=== PATIENT | female | born 1955 | race Caucasian/White ===

== ENCOUNTER 2016-10-22 08:38 | Emergency (ER) | payer MEDICARE ==
[~2016-10-22] VITALS: Ht 167.6 cm; Wt 81.8 kg
[~2016-10-22 08:38] MED LIST: ALPR1T PO; AMOX500C2 PO; BACL10TA; BSP10T; BSP10T PO; CANE1EAC26 MC; CLN.1T PO; CLON-378 PO; CLON0.25; CLON0.3T4; CLON0.3T4 PO; CLON1TAB36; CLON2TAB16 PO; CLON2TAB3 PO; CTLP20T; D50KC PO; DEXT10TA24; DIAZ5TAB3; DICL100G18 TP; DOXY-233 PO; DOXY100C2 PO; ESCT10T PO; FLT05NA16 NSEACH; GABA400C PO; GBPN100C; GBPN400C; GBPN600T PO; GEODON; HYDR-34 PO; HYDR-700; HYDR25CA5; HYDR25CA5 PO; HYDR50CA3; LISI5TAB; LORA0.5T PO; LRT10T PO; LYRICA; MECL-124 PO; MECL12.5 PO; MECL25TA56 PO; METH10TA3 PO; METH20TA; METH20TA PO; METH20TA5; METH4TAB PO; MULT-608; NAPR-243 PO; NAPR250T34 PO; NAPR550T PO; OMEP20TA2 PO; ONDAN4ODT PO; OXCA300T PO; PNV1TABL61 PO; PRD10T PO; QTP100T PO; QTP200T PO; QUET400T3 PO; RPN.25T; SCOP1PAT TD; TIZA2TAB3; TRAM50TA2 PO; TRAZ150T42; TRAZ150T42 PO; TRH2T PO; TRM50T PO; TRZ100T; ZLP10T; [UNRECOGNIZED DRUG - REMARK]
[2016-10-22] MEDS ORDERED: ASPIRIN 81 MG CHEW (CHILDREN'S ASA) PO ONE (09:00)
[2016-10-22 09:01] LABS: BASOPHILS % (AUTO) 0 % (0-10); EOSINOPHILS # (AUTO) 0.2 10^3/uL (0.0-0.3); EOSINOPHILS % (AUTO) 2 % (0-10); LYMPHOCYTES # (AUTO) 1.4 X 10^3 (1.0-4.0); LYMPHOCYTES % (AUTO) 12 % (12-44); MEAN CORPUSCULAR HEMOGLOBIN 32 PG (25-34); MEAN CORPUSCULAR HGB CONC 35 G/DL (32-36); MEAN CORPUSCULAR VOLUME 93 FL (80-99); MEAN PLATELET VOLUME 9.2 FL (7.4-10.4); MONOCYTES # (AUTO) 1.3 X 10^3 (0.0-1.0); MONOCYTES % (AUTO) 11 % (0-12); NEUTROPHILS % (AUTO) 75 % (42-75); PLATELET COUNT 331 10^3/uL (130-400); RED BLOOD COUNT 4.14 10^6/uL (4.35-5.85); RED CELL DISTRIBUTION WIDTH 12.5 % (10.0-14.5)
--- NOTE | 2016-10-22 09:01 | ED Chest Pain ---
General Chief Complaint: Chest Pain Stated Complaint: CHEST PAIN Source: patient Exam Limitations: no limitations History of Present Illness Time seen by provider: 08:44 Initial Comments Here with report of chest pain since 5 p.m. yesterday. States that it's lower chest pain that is bilateral. Onset after an argument with her landlord. States that she's had some sort chest pain over the last month. Denies nausea, vomiting or diarrhea. Was very anxious about the pain but states is much better now and actually is resolved after calming measures by EMS. Timing/Duration: 24 hours, 1 week, changing over time Severity/Quality: moderate, severe Location: central, epigastric Prior CP/Workup: echocardiography ASA po MAILING CLERK: No NTG SL MAILING CLERK: No Associated Symptoms: abdominal painNo back pain, No nausea/vomiting, No shortness of breath, No weakness Allergies and Home Medications Allergies Coded Allergies: haloperidol (Unverified Allergy, Mild, 04/25/10) risperidone (Unverified Allergy, Mild, 04/25/10) Uncoded Allergies: PYSCHOTROPIC DRUGS (Adverse Reaction, Mild, 04/15/10) Home Medications HS (Reported) Baclofen 10 Mg Tablet #90 (Reported) Dextroamphetamine/Amphetamine 10 Mg Tablet #90 (Reported) Diazepam 5 Mg Tablet #60 (Reported) Diclofenac Sodium 100 Gm Gel..gram. 7Days 100 GM TP TID Prescribed by: YIN BISHOP on 05/02/15 1413 Diclofenac Sodium 100 Gm Gel..gram. #1 4 GM TP TID PRN PRN PAIN Prescribed by: MORGAN HAYWOOD on 05/21/15 1647 Gabapentin 600 Mg Tab 1,200 MG PO TID (Reported) Naproxen 500 Mg Tablet #14 1 EACH PO BID FOR PAIN Prescribed by: YIN BISHOP on 09/01/14 1240 Prednisone 10 Mg Tab #5 10 MG PO DAILY Prescribed by: LISETTE OJEDA on 06/10/16 0902 Review of Systems Constitutional: see HPINo chills, No fever EENTM: No Symptoms Reported Respiratory: No Symptoms Reported Cardiovascular: See HPI Chest PainDenies Edema Gastrointestinal: See HPI Abdominal PainDenies Diarrhea, Denies Nausea, Denies Vomiting Genitourinary: No Symptoms Reported Musculoskeletal: see HPINo back pain, muscle pain Skin: no symptoms reported Psychiatric/Neurological: See HPI Anxiety Emotional Problems Endocrine: No Symptoms Reported All Other Systems Reviewed Negative Unless Noted: Yes Past Zekqwgb-Ppbqbi-Iuthua Hx Patient Social History Alcohol Use: Denies Use Recreational Drug Use: No Smoking Status: Current Everyday Smoker Recent Hopitalizations: Yes Immunizations Up To Date Tetanus Booster (TDap): Less than 5yrs Date of Pneumonia Vaccine: Jun 12, 2009 Date of Influenza Vaccine: Jul 22, 2013 Seasonal Allergies Seasonal Allergies: No Surgeries HX Surgeries: Yes Surgeries: Abdominal Respiratory Hx Respiratory Disorders: Yes Respiratory Disorders: COPD Cardiovascular Hx Cardiac Disorders: Yes (CARDIAC ARREST) Neurological Hx Neurological Disorders: No Reproductive System Hx Reproductive Disorders: Yes Sexually Transmitted Disease: No HIV/AIDS: 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, 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 Genitourinary Hx Genitourinary Disorders: Yes Genitourinary Disorders: Renal Failure Gastrointestinal Hx Gastrointestinal Disorders: Yes Gastrointestinal Disorders: Hepatitis Musculoskeletal Hx Musculoskeletal Disorders: Yes Musculoskeletal Disorders: Arthritis, Chronic Back Pain Endocrine Hx Endocrine Disorders: No HEENT HX ENT Disorders: Yes Cancer Hx Cancer: No Psychosocial Hx Psychiatric Problems: Yes Behavioral Health Disorders: ADD/ADHD, Sleep Difficulties, Anxiety, Suicide Attempts, Depression Integumentary HX Skin/Integumentary Disorder: No Blood Transfusions Hx Blood Disorders: Yes Adverse Reaction to a Blood Tr: No Reviewed Nursing Assessment Reviewed/Agree w Nursing PMH: Yes Family Medical History Significant Family History: No Pertinent Family Hx Family Medial History: Patient reports no known family medical history. Physical Exam Vital Signs Vital Sign - Last 12Hours 10/22/16 08:44 Temp 99.0 Pulse 89 Resp 22 B/P 108/94 Pulse Ox 97 O2 Delivery Room Air Capillary Refill : General Appearance: No Apparent Distress WD/WN HEENT: PERRL/EOMI Pharynx Normal Neck: Non Tender Supple Respiratory: Lungs Clear Normal Breath Sounds Cardiovascular: Regular Rate, Rhythm No Murmur Gastrointestinal: Non Tender Soft Extremity: Non Tender No Calf Tenderness Neurologic/Psychiatric: Alert Oriented x3 Skin: Normal Color Warm/Dry Progress/Results/Core Measures Results/Orders Lab Results Laboratory Tests Test 10/22/16 08:50 Range/Units Activated Partial Thromboplast Time 36 H 24-35 SEC Alanine Aminotransferase (ALT/SGPT) 32 0-55 U/L Albumin 3.6 3.2-4.5 G/DL Alkaline Phosphatase 103 40-136 U/L Anion Gap 8 5-14 MMOL/L Aspartate Amino Transf (AST/SGOT) 41 H 5-34 U/L BUN/Creatinine Ratio 13 Basophils # (Auto) 0.0 0.0-0.1 10^3/uL Basophils (%) (Auto) 0 0-10 % Blood Urea Nitrogen 9 7-18 MG/DL Calcium Level 8.4 L 8.5-10.1 MG/DL Carbon Dioxide Level 19 L 21-32 MMOL/L Chloride Level 107 98-107 MMOL/L Creatinine 0.71 0.60-1.30 MG/DL D-Dimer 0.34 0.00-0.49 UG/ML Eosinophils # (Auto) 0.2 0.0-0.3 10^3/uL Eosinophils (%) (Auto) 2 0-10 % Estimat Glomerular Filtration Rate > 60 Glucose Level 114 H 70-105 MG/DL Hematocrit 39 35-52 % Hemoglobin 13.4 11.5-16.0 G/DL INR Comment 1.1 0.8-1.4 Lymphocytes # (Auto) 1.4 1.0-4.0 X 10^3 Lymphocytes (%) (Auto) 12 12-44 % Magnesium Level 1.6 L 1.8-2.4 MG/DL Mean Corpuscular Hemoglobin 32 25-34 PG Mean Corpuscular Hemoglobin Concent 35 32-36 G/DL Mean Corpuscular Volume 93 80-99 FL Mean Platelet Volume 9.2 7.4-10.4 FL Monocytes # (Auto) 1.3 H 0.0-1.0 X 10^3 Monocytes (%) (Auto) 11 0-12 % Myoglobin 20.3 10.0-92.0 NG/ML Neutrophils # (Auto) 9.0 H 1.8-7.8 X 10^3 Neutrophils (%) (Auto) 75 42-75 % Platelet Count 331 130-400 10^3/uL Potassium Level 3.6 3.6-5.0 MMOL/L Prothrombin Time 13.6 12.2-14.7 SEC Red Blood Count 4.14 L 4.35-5.85 10^6/uL Red Cell Distribution Width 12.5 10.0-14.5 % Sodium Level 134 L 135-145 MMOL/L Total Bilirubin 0.4 0.1-1.0 MG/DL Total Protein 5.9 L 6.4-8.2 G/DL Troponin I < 0.30 <0.30 NG/ML White Blood Count 12.0 H 4.3-11.0 10^3/uL My Orders Orders-LUCERO FORD MD Cbc With Automated Diff (10/22/16 08:46) Magnesium (10/22/16 08:46) Chest 1 View, Ap/Pa Only (10/22/16 08:46) Ekg Tracing (10/22/16 08:46) Cardiac Profile 1 (10/22/16 08:46) Comprehensive Metabolic Panel (10/22/16 08:46) Myoglobin Serum (10/22/16 08:46) Protime With Inr (10/22/16 08:46) Partial Thromboplastin Time (10/22/16 08:46) O2 (10/22/16 08:46) Monitor-Rhythm Ecg Trace Only (10/22/16 08:46) Lipid Panel (10/23/16 06:00) Aspirin Chewable Tablet (Baby Aspirin Ch (10/22/16 09:00) Saline Lock/Iv-Start (10/22/16 08:46) Fibrin Degradation Products (10/22/16 08:46) Ct Abdomen/Pelvis W (10/22/16 09:54) Iohexol Injection (Omnipaque 350 Mg/Ml 1 (10/22/16 10:00) Ns (Ivpb) (Sodium Chloride 0.9% Ivpb Bag (10/22/16 10:00) Ns Iv 500 Ml (Sodium Chloride 0.9%) (10/22/16 10:45) Ns Iv 500 Ml (Sodium Chloride 0.9%) (10/22/16 10:46) Medications Given in ED Current Medications Medications Dose Ordered Sig/Nithin Route Start Time Stop Time Status Last Admin Dose Admin Aspirin 324 mg ONCE ONCE PO 10/22/16 09:00 10/22/16 09:01 DC 10/22/16 09:10 324 MG Iohexol 100 ml ONCE ONCE IV 10/22/16 10:00 10/22/16 10:03 DC 10/22/16 10:12 100 ML Sodium Chloride 100 ml ONCE ONCE IV 10/22/16 10:00 10/22/16 10:03 DC 10/22/16 10:12 80 ML Vital Signs/I&O Vital Sign - Last 12Hours 10/22/16 10/22/16 08:44 09:02 Temp 99.0 Pulse 89 Resp 22 B/P 108/94 Pulse Ox 97 O2 Delivery Room Air Room Air Progress Note : Progress Note Seen and evaluated. IV, labs, EKG and chest x-ray ordered. ASA 324 mg by mouth given. Patient is essentially pain-free currently with only, measures. Monitor patient. 1045: CT ordered due to patient's concern about intra- abdominal pathology. This is complete now and reviewed. No significant findings. Lung bases appear without infiltrate on CT so we will not treat pneumonia. Discharged home with return precautions. Patient verbalize understanding instructions and agreement with plan. Normal saline 500 mL bolus given prior to discharge. ECG Initial ECG Impression Date: Oct 22, 2016 Initial ECG Impression Time: 08:49 Initial ECG Rate: 87 Initial ECG Rhythm: Normal Sinus Initial ECG Impression: Normal Initial ECG Comparisson: Unchanged Comment Sinus rhythm with normal axis. No evidence of ST elevation [place]. Similar to previous. Interpreted by me. Diagnostic Imaging Diagonstic Imaging: Xray Plain Films/CT/US/NM/MRI: chest Comments VIA [facility], [facility]. [place], [place] NAME: MAURICE GOLDEN [facility] REC#: [id number] PT STATUS: REG ER : 1955 PHYSICIAN: LUCERO FORD MD ADMIT DATE: 10/22/16/ER Draft Date of Exam:10/22/16 CHEST 1 VIEW, AP/PA ONLY CLINICAL INDICATION: Patient with chest pain especially when taking deep breath. EXAM: Portable chest x-ray upright view. COMPARISONS: Chest x-ray dated 09/01/2014. FINDINGS: There are slight low lung volumes compared to the prior study with increased density in both lung bases. This is suspected to represent atelectasis, but superimposed infiltrate cannot be completely excluded. There is no pleural effusion or pneumothorax. Pulmonary vasculature cardiac silhouettes within normal limits. There is cervical spine degenerative disease with right-sided facet arthropathy. IMPRESSION: 1: Suspected mild bibasilar atelectasis, but superimposed infiltrate cannot be completely excluded. Clinical correlation for infectious or inflammatory process would better evaluate. 2: Otherwise, there is no other significant abnormality for patient's age. Dictated on workstation # [id number] Dict: 10/22/1617 Trans: 10/22/16 0935 [facility] [id number] Interpreted by: ELVIA KRAUSE MD Electronically signed by: Octavio Imaging: CT Plain Films/CT/US/NM/MRI: abdomen, pelvis Comments NAME: MAURICE GOLDEN [facility] REC#: [id number] PT STATUS: REG ER : 1955 PHYSICIAN: LUCERO FORD MD ADMIT DATE: 10/22/16/ER Draft Date of Exam:10/22/16 CT ABDOMEN/PELVIS W PROCEDURE: CT abdomen and pelvis with contrast. TECHNIQUE: Multiple contiguous axial images were obtained through the abdomen and pelvis after administration of intravenous contrast. INDICATION: Mid abdominal pain. Status post hysterectomy There are surgical clips in the pelvis related to prior hysterectomy. 100 mL of Omnipaque 350 is administered intravenously. FINDINGS: There is a subsegmental atelectasis in the inferior lingula. The liver, the gallbladder, the spleen, the pancreas, and the adrenal glands appear unremarkable. The kidneys have symmetric enhancement and contrast excretion. There is no hydronephrosis. There is no bowel obstruction. Moderate amount of ligament in the colon is seen. The appendix is normal. There are bladder appears unremarkable. Abdominal aorta is normal in caliber. No significantly enlarged lymph node is seen. The osseous structures demonstrate degenerative changes of the lower lumbar spine. No free fluid or fluid collection in the abdomen or pelvis is seen. There is a tiny fat-containing umbilical hernia. IMPRESSION: Subsegmental atelectasis in the inferior lingula. No acute process in the abdomen or pelvis seen. Dictated on workstation # [id number] Dict: 10/22/16 1025 Trans: 10/22/16 1040 [facility] [id number] Interpreted by: LISS REAGAN MD Electronically signed by: Departure Impression Impression: Primary Impression: Chest pain Qualified Code: R07.9 - Chest pain, unspecified Additional Impression: Upper abdominal pain Disposition: 01 HOME, SELF-CARE Condition: Improved Departure-Patient Inst. Decision time for Depature: 10:50 Referrals: [facility] (PCP/Family) Primary Care Physician Patient Instructions: Acute Abdomen (Belly Pain), Adult (DC), Chest Pain (DC) Add. Discharge Instructions: All discharge instructions reviewed with patient and/or family. Voiced understanding. Continue home medications as directed. Drink plenty of fluids. Follow-up with your Dr. in a few days for recheck. Return for worse pain, fever, vomiting, weakness, breathing problems or other concerns as needed. You may take your Vistaril (hydroxyzine) for anxiety as well. Take other medications as prescribed. Scripts Hyoscyamine Sulfate (Levsin)0.125 Mg Tablet0.125 Mg PO Q6H PRN ABDOMINAL PAIN # 15 TAB Ref 0 Prov:LUCERO FORD MD 10/22/16 LUCERO FORD MD Oct 22, 2016 09:01
[2016-10-22 09:10] LABS: INR 1.1 (0.8-1.4); PROTHROMBIN TIME PATIENT 13.6 SEC (12.2-14.7)
[2016-10-22 09:21] LABS: ALANINE AMINOTRANSFERASE 32 U/L (0-55); ALBUMIN 3.6 G/DL (3.2-4.5); ANION GAP 8 MMOL/L (5-14); ASPARTATE AMINO TRANSFERASE 41 U/L (5-34); BILIRUBIN,TOTAL 0.4 MG/DL (0.1-1.0); BLOOD UREA NITROGEN 9 MG/DL (7-18); BUN/CREATININE RATIO 13; CALCIUM 8.4 MG/DL (8.5-10.1); CARBON DIOXIDE 19 MMOL/L (21-32); CHLORIDE 107 MMOL/L (98-107); CREATININE SERUM 0.71 MG/DL (0.60-1.30); GFR ESTIMATED > 60; GLUCOSE 114 MG/DL (70-105); MAGNESIUM 1.6 MG/DL (1.8-2.4); POTASSIUM 3.6 MMOL/L (3.6-5.0); SODIUM 134 MMOL/L (135-145); TOTAL PROTEIN 5.9 G/DL (6.4-8.2)
[2016-10-22 09:28] LABS: MYOGLOBIN SERUM 20.3 NG/ML (10.0-92.0)
--- NOTE | 2016-10-22 09:35 | Diagnostic Imaging Report ---
CLINICAL INDICATION: Patient with chest pain especially when taking deep breath. EXAM: Portable chest x-ray upright view. COMPARISONS: Chest x-ray dated 09/01/2014. FINDINGS: There are slight low lung volumes compared to the prior study with increased density in both lung bases. This is suspected to represent atelectasis, but superimposed infiltrate cannot be completely excluded. There is no pleural effusion or pneumothorax. Pulmonary vasculature cardiac silhouettes within normal limits. There is cervical spine degenerative disease with right-sided facet arthropathy. IMPRESSION: 1: Suspected mild bibasilar atelectasis, but superimposed infiltrate cannot be completely excluded. Clinical correlation for infectious or inflammatory process would better evaluate. 2: Otherwise, there is no other significant abnormality for patient's age. Dictated by: Dictated on workstation # [id number]
[2016-10-22] MEDS ORDERED: IOHEXOL 350 MG/ML 100 ML (OMNIPAQUE 350) VIAL IV ONE (10:00)
[2016-10-22] MEDS ORDERED: NS 100 ML (IVPB) BAG IV ONE (10:00)
--- NOTE | 2016-10-22 10:40 | Diagnostic Imaging Report ---
PROCEDURE: CT abdomen and pelvis with contrast. TECHNIQUE: Multiple contiguous axial images were obtained through the abdomen and pelvis after administration of intravenous contrast. INDICATION: Mid abdominal pain. Status post hysterectomy There are surgical clips in the pelvis related to prior hysterectomy. 100 mL of Omnipaque 350 is administered intravenously. FINDINGS: There is a subsegmental atelectasis in the inferior lingula. The liver, the gallbladder, the spleen, the pancreas, and the adrenal glands appear unremarkable. The kidneys have symmetric enhancement and contrast excretion. There is no hydronephrosis. There is no bowel obstruction. Moderate amount of ligament in the colon is seen. The appendix is normal. There are bladder appears unremarkable. Abdominal aorta is normal in caliber. No significantly enlarged lymph node is seen. The osseous structures demonstrate degenerative changes of the lower lumbar spine. No free fluid or fluid collection in the abdomen or pelvis is seen. There is a tiny fat-containing umbilical hernia. IMPRESSION: Subsegmental atelectasis in the inferior lingula. No acute process in the abdomen or pelvis seen. Dictated by: Dictated on workstation # [id number]
[2016-10-22] MEDS ORDERED: NS IV 500 ML 500 ML IV ONE (10:45)
[2016-10-22] MEDS ORDERED: NS IV 500 ML 500 ML ONE (10:46)
[2016-10-22] MEDS ORDERED: HYOS0.1281 PO (10:52)
[2016-10-22 11:19] VITALS: BP 110/92
== END 2016-10-22 11:18 | disposition home or self-care (01) ==
LOC: EDUNIT# 08:38 → ER 08:40
DX: R07.9 Chest pain, unspecified (principal); R10.13 Epigastric pain
CPT/HCPCS: 36415; 71010; 74177; 80053; 83735; 83874; 84484; 85025; 85379; 85610; 85730; 93005; 93041; 96360

== ENCOUNTER → 2017-04-07 | Outpatient (CLI) | payer MEDICARE ==
[~2017-04-07] MED LIST changes: +HYOS0.1281 PO
[2017-04-07 09:42] LABS: BASOPHILS # (AUTO) 0.1 10^3/uL (0.0-0.1); BASOPHILS % (AUTO) 1 % (0-10); EOSINOPHILS # (AUTO) 0.3 10^3/uL (0.0-0.3); EOSINOPHILS % (AUTO) 3 % (0-10); LYMPHOCYTES # (AUTO) 2.3 X 10^3 (1.0-4.0); LYMPHOCYTES % (AUTO) 25 % (12-44); MEAN CORPUSCULAR HEMOGLOBIN 32 PG (25-34); MEAN CORPUSCULAR HGB CONC 33 G/DL (32-36); MEAN CORPUSCULAR VOLUME 97 FL (80-99); MEAN PLATELET VOLUME 9.1 FL (7.4-10.4); MONOCYTES # (AUTO) 0.4 X 10^3 (0.0-1.0); MONOCYTES % (AUTO) 5 % (0-12); NEUTROPHILS # (AUTO) 6.1 X 10^3 (1.8-7.8); NEUTROPHILS % (AUTO) 66 % (42-75); PLATELET COUNT 403 10^3/uL (130-400); RED CELL DISTRIBUTION WIDTH 13.5 % (10.0-14.5); WHITE BLOOD COUNT 9.1 10^3/uL (4.3-11.0)
[2017-04-07 10:04] LABS: ALANINE AMINOTRANSFERASE 21 U/L (0-55); ALBUMIN 3.9 GM/DL (3.2-4.5); ANION GAP 9 MMOL/L (5-14); ASPARTATE AMINO TRANSFERASE 17 U/L (5-34); BILIRUBIN,TOTAL 0.2 MG/DL (0.1-1.0); BLOOD UREA NITROGEN 11 MG/DL (7-18); BUN/CREATININE RATIO 13; CALCIUM 9.2 MG/DL (8.5-10.1); CARBON DIOXIDE 23 MMOL/L (21-32); CHLORIDE 107 MMOL/L (98-107); CHOLESTEROL 155 MG/DL (< 200); CREATININE SERUM 0.84 MG/DL (0.60-1.30); DIRECT LDL 44 MG/DL (1-129); GFR ESTIMATED > 60; GLUCOSE 90 MG/DL (70-105); POTASSIUM 4.6 MMOL/L (3.6-5.0); SODIUM 139 MMOL/L (135-145); TRIGLYCERIDES 193 MG/DL (<150); VLDL CHOLESTEROL 39 MG/DL (5-40)
[2017-04-07 10:26] LABS: THYROID STIMULATING HORMONE 1.55 UIU/ML (0.35-4.94)
== END ==
LOC: LAB 08:49
PROVIDERS: ATTEND Registered Nurse Psychiatric/Mental Health
DX: F31.60 Bipolar disorder, current episode mixed, unspecified (principal)
CPT/HCPCS: 36415; 80053; 80061; 83036; 84439; 84443; 85025

== ENCOUNTER 2018-06-14 10:01 | Emergency (ER) | payer MEDICARE ==
[~2018-06-14] VITALS: Ht 175.3 cm; Wt 90.9 kg
--- OUTSIDE RECORDS SUMMARY | 2018-06-14 10:08 | XMS REPORT ---
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 [address] [id number] [place] [address]- 1173 January, [facility] [address] [id number] [place] [address] 6[address] January, [facility] [address] [id number] [place] [address] 2012 January, [facility] [address] [id number] [place] [address]- 5244 January, [facility] [address] [id number] [place] [address]- 0819 January, [facility] [address] [id number] [place] [address] 1016 January, [facility] [address] [id number] [place] [address] 1721 January, [facility] [address] [id number] [place] [address]- 8742 January, [facility] [address] [id number] [place] [address] 0136 January, [facility] [address] [id number] [place] [address]- 6660 January, [facility] [address] [id number] [place] [address]- 9694 January, [facility] [address] [id number] [place] [address]- 9106 29 Dec, 2012 [facility] [address] [id number] [place] [address]- 5487 Dec, [facility] [address] [id number] [place] [address]- 6981 18 Dec, 2012 [facility] [address] [id number] [place] [address]- 1404 16 Dec, 2012 [facility] [address] [id number] [place] [address]- 4231 Dec, [facility] [address] [id number] [place] [address]- 2088 02 Dec, 2012 [facility] [place] [facility] [address] [id number] [place] [address]- 2321 Nov, [facility] [place] [facility] [address] [id number] [place] [address]- 7496 Nov, [facility] [place] [facility] [address] [id number] [place] [address]- 8707 Nov, [facility] [address] [id number] [place] [address]- 3777 Nov, [facility] [place] [facility] [address] [id number] [place] [address]- 4872 Nov, [facility] [address] [facility] [id number] [place] [address]- 0291 Nov, [facility] [address] [id number] [place] [address]- 4013 Oct, [facility] [place] [facility] [address] [id number] [place] [address]- 8814 Oct, [facility] [place] [facility] [address] [id number] [place] [address]- 6250 14 Oct, 2012 [facility] [place] [facility] [address] [id number] [place] [address]- 3227 Oct, [facility] [place] [facility] [address] [id number], [place] [address]- 4840 Oct, [facility] [place] [facility] [address] [id number] [place] [address]- 7379 07 Oct, 2012 [facility] [place] [facility] [address] [id number] [place] [address]- 3576 05 Oct, 2012 [facility] [place] [facility] [address] [facility] [id number] [place] [address]- 1626 05 Oct, 2012 [facility] [place] [facility] [address] [id number] [place] [address]- 8377 04 Oct, 2012 [facility] [address] [id number] [place] [address]- 7514 31 Sep, 2012 [facility] [address] [id number] [place] [address]- 3600 29 Sep, 2012 [facility] [address] [id number] [place] [address]- 9681 15 Sep, 2012 [facility] [address] [id number] [place] [address]- 3688 14 Sep, 2012 [facility] [address] [id number] [place] [address]- 6731 08 Sep, 2012 [facility] [address] [id number] [place] [address]- 8216 Sep, [facility] [address] [id number] [place] [address]- 4520 18 Aug, 2012 [facility] [address] [id number] [place] [address]- 0802 18 Aug, 2012 [facility] [address] [id number] [place] [address]- 5086 18 Aug, 2012 [facility] [address] [id number] [place] [address]- 5714 18 Aug, 2012 [facility] [address] [id number] [place] [address]- 0172 15 Aug, 2012 [facility] [address] [id number] [place] [address]- 4508 14 Aug, 2012 [facility] [address] [id number] [place] [address]- 8631 14 Aug, 2012 [facility] [address] [id number] [place] [address]- 6429 13 Aug, 2012 [facility] [address] [id number] [place] [address]- 5705 13 Aug, 2012 [facility] [address] [id number] [place] [address]- 6242 Aug, [facility] [place] [facility] [address] [id number] [place] [address]- 1786 Aug, [facility] [place] [facility] [address] [id number] [place] [address]- 5006 Aug, [facility] [place] [facility] [address] [id number] [place] [address]- 6076 Aug, [facility] [place] [facility] [address] [id number] [place] [address]- 1751 Aug, [facility] [place] [facility] [address] [id number] [place] [address]- 6919 Aug, [facility] [place] [facility] [address] [id number] [place] [address]- 2280 Aug, [facility] [place] [facility] [address] [id number] [place] [address]- 1254 Aug, [facility] [place] [facility] [address] [id number] [place] [address]- 6368 Aug, [facility] [place] [facility] [address] [id number] [place] [address]- 8185 Aug, [facility] [place] [facility] [address] [id number] [place] [address]- 7849 Jul, [facility] [place] [facility] [address] [id number], [place] [address]- 5880 Jul, [facility] [place] [facility] [address] [id number] [place] [address]- 5663 Jul, [facility] [place] [facility] [address] [id number] [place] [address]- 9325 Jul, [facility] [place] [facility] [address] [id number] [place] [address]- 2540 14 Jul, 2012 [facility] [place] [facility] [address] [id number], [place] [address]- 2949 14 Jul, 2012 [facility] [place] [facility] [address] [id number] [place] [address]- 0927 08 Jul, 2012 [facility] [place] [facility] [address] [id number], [place] [address]- 5860 08 Jul, 2012 [facility] [place] [facility] [address] [facility] [id number] [place] [address]- 9986 08 Jul, 2012 [facility] [place] [facility] [address] [id number], [place] [address]- 0065 08 Jul, 2012 [facility] [place] [facility] [address] [id number] [place] [address]- 9791 Jul, [facility] [place] [facility] [address] [id number] [place] [address]- 1227 Jul, [facility] [place] [facility] [address] [facility] [id number], [place] [address]- 8685 30 Jun, 2012 [facility] [place] [facility] [address] [id number], [place] [address]- 2926 30 Jun, 2012 [facility] [place] [facility] [address] [facility] [id number], [place] [address]- 2812 29 Jun, 2012 [facility] [place] [facility] [address] [facility] [id number], [place] [address]- 2196 Jun, [facility] [place] [facility] [address] [facility] [id number], [place] [address]- 6436 19 Jun, 2012 [facility] [place] [facility] [address] [facility] [id number], [place] [address]- 6823 18 Jun, 2012 [facility] [place] [facility] [address] [id number], [place] [address]- 9964 17 Jun, 2012 [facility] [place] [facility] [address] [facility] [id number], [place] [address]- 9662 16 Jun, 2012 [facility] [place] [facility] [address] [facility] [id number], [place] [address]- 6999 16 Jun, 2012 [facility] [place] [facility] [address] [id number] [place] [address]- 9497 Jun, [facility] [place] [facility] [address] [id number] [place] [address]- 4864 Jun, [facility] [place] [facility] [address] [id number] [place] [address]26 Jun, [facility] [place] [facility] [address] [id number] [place] [address]- 7476 Jun, [facility] [place] [facility] [address] [id number] [place] [address]- 6592 Jun, [facility] [place] [facility] [address] [id number] [place] [address]- 7643 24 May, 2012 [facility] [place] [facility] [address] [id number] [place] [address]- 5047 May, [facility] [place] [facility] [address] [id number] [place] [address]- 5951 May, [facility] [place] [facility] [address] [id number] [place] [address]- 6025 18 May, 2012 [facility] [place] [facility] [address] [id number] [place] [address]- 1907 May, [facility] [place] [facility] [id number] [address] May, [facility] [place] [facility] [id number] [id number] May, [facility] [place] [facility] [address] [id number] [place] [address]- 2801 May, [facility] [place] [facility] [address] [id number] [place] [address]- 7779 Apr, [facility] [place] [facility] [address] [id number] [place] [address]- 8226 Apr, [facility] [place] [facility] [address] [id number] [place] [address]- 9774 Apr, [facility] [place] [facility] [address] [id number] [place] [address] Apr, [facility] [place] [facility] [address] [id number] [place] [address] Apr, [facility] [place] [facility] [address] [id number] [place] [address]- 2748 Apr, [facility] [place] [facility] [address] [id number] [place] [address]- 7698 Apr, [facility] [place] [facility] [address] [id number] [place] [address]- 7679 Apr, [facility] [place] [facility] [address] [id number] [place] [address]- 6248 Apr, [facility] [place] [facility] [address] [id number] [place] [address]- 4786 Apr, [facility] [place] [facility] [address] [id number] [place] [address]- 0583 Apr, [facility] [place] [facility] [address] [id number] [place] [address]- 9388 Apr, [facility] [place] [facility] [address] [id number] [place] [address]- 7454 Mar, [facility] [place] [facility] [address] [id number] [place] [address]- 5814 Mar, [facility] [place] [facility] [address] [id number] [place] [address]- 7524 Mar, [facility] [place] [facility] [address] [id number] [place] [address]- 4177 Mar, [facility] [place] [facility] [address] [id number] [place] [address]- 0161 Mar, [facility] [place] [facility] [address] [id number] [place] [address]- 4605 Mar, [facility] [place] [facility] [address] [id number] [place] [address]- 9532 20 Mar, 2012 [facility] [place] [facility] [address] [id number] [place] [address]- 6943 19 Mar, 2012 [facility] [place] [facility] [address] [id number] [place] [address]- 6456 Mar, [facility] [place] [facility] [address] [id number] [place] [address]- 1336 Mar, [facility] [place] [facility] [address] [id number] [place] [address]- 8328 17 Mar, 2012 [facility] [place] [facility] [address] [id number] [place] [address]- 3080 15 Mar, 2012 [facility] [place] [facility] [address] [id number] [place] [address]- 6584 Mar, [facility] [place] [facility] [address] [id number] [place] [address]- 4941 Mar, [facility] [place] [facility] [address] [id number] [place] [address]- 7651 05 Mar, 2012 [facility] [place] [facility] [address] [id number] [place] [address]- 5015 Mar, [facility] [place] [facility] [address] [id number] [place] [address]- 0769 Mar, [facility] [place] [facility] [address] [id number] [place] [address]- 2147 Feb, [facility] [place] [facility] [address] [id number] [place] [address]- 5999 Feb, [facility] [place] [facility] [address] [id number] [place] [address]- 5985 Feb, [facility] [place] [facility] [address] [id number] [place] [address]- 5402 Feb, [facility] [place] [facility] [address] [id number] [place] [address]- 4138 Feb, [facility] [place] [facility] [address] [id number] [place] [address]- 4627 15 Feb, 2012 [facility] [address] [id number] [place] [address]- 2140 14 Feb, 2012 [facility] [address] [id number] [place] [address]- 6170 13 Feb, 2012 [facility] [address] [id number] [place] [address]- 6747 11 Feb, 2012 [facility] [address] [id number] [place] [address]- 6249 06 Feb, 2012 [facility] [address] [id number] [place] [address]- 9322 05 Feb, 2012 [facility] [address] [id number] [place] [address]- 0319 January, [facility] [address] [id number] [place] [address]- 7959 January, [facility] [address] [id number] [place] [address]- 1428 January, [facility] [address] [id number] [place] [address]- 7946 January, [facility] [address] [id number] [place] [address] January, [facility] [address] [id number] [place] [address] 30 Dec, 2011 [facility] [address] [id number] [place] [address] Dec, [facility] [place] [facility] [address] [id number] [place] [address] Dec, [facility] [place] [facility] [address] [id number] [place] [address] Dec, [facility] [address] [id number] [place] [address] 24 Dec, 2011 [facility] [place] [facility] [address] [id number] [place] [address] 20 Dec, 2011 [facility] [place] [facility] [address] [id number] [place] [address] 20 Dec, 2011 [facility] [place] [facility] [address] [id number] [place] [address] 16 Dec, 2011 [facility] [place] [facility] [address] [id number] [place] [address] 09 Dec, 2011 [facility] [address] [id number] [place] [address] 02 Dec, 2011 [facility] [place] [facility] [address] [id number] [place] [address] 29 Nov, 2011 [facility] [place] [facility] [address] [id number] [place] [address] 29 Nov, 2011 [facility] [place] [facility] [address] [id number] [place] [address] 27 Nov, 2011 [facility] [place] [facility] [address] [id number] [place] [address] 26 Nov, 2011 [facility] [place] [facility] [address] [id number] [place] [address] 23 Nov, 2011 [facility] [place] [facility] [address] [id number] [place] [address] 76[address] 22 Nov, 2011 [facility] [place] [facility] [address] [id number] [place] [address] 19 Nov, 2011 [facility] [place] [facility] [address] [id number] [place] [address]697 14 Nov, 2011 [facility] [place] [facility] [address] [id number] [place] [address] 13 Nov, 2011 [facility] [place] [facility] [address] [id number] [place] [address] 13 Nov, 2011 [facility] [place] [facility] [address] [id number] [place] [address] Nov, [facility] [address] [id number] [place] [address] Nov, [facility] [place] [facility] [address] [id number] [place] [address]46 29 Oct, 2011 [facility] [place] [facility] [address] [id number] [place] [address] Oct, [facility] [place] [facility] [address] [id number] [place] [address] 27 Oct, 2011 [facility] [place] [facility] [address] [id number] [place] [address] Oct, [facility] [place] [facility] [address] [id number] [place] [address] 20 Oct, 2011 [facility] [address] [id number] [place] [address] 14 Oct, 2011 [facility] [address] [id number] [place] [address] 09 Oct, 2011 [facility] [place] [facility] [address] [id number] [place] [address] 08 Oct, 2011 [facility] [address] [facility] [id number] [place] [address] 02 Oct, 2011 [facility] [place] [facility] [address] [id number] [place] [address] Sep, [facility] [place] [facility] [address] [id number] [place] [address] Sep, [facility] [place] [facility] [address] [id number] [place] [address] Sep, [facility] [place] [facility] [address] [id number] [place] [address] Sep, [facility] [place] [facility] [address] [id number] [place] [address] Sep, [facility] [place] [facility] [address] [id number] [place] [address] 10 Sep, 2011 [facility] [place] [facility] [address] [id number] [place] [address] Aug, [facility] [place] [facility] [address] [id number] [place] [address] Aug, [facility] [place] [facility] [address] [id number] [place] [address] Aug, [facility] [place] [facility] [address] [id number] [place] [address] Jul, [facility] [place] [facility] [address] [id number] [place] [address] Jul, [facility] [place] [facility] [address] [id number] [place] [address] Jul, [facility] [place] [facility] [address] [id number] [place] [address] 14 Jul, 2011 [facility] [place] [facility] [address] [id number] [place] [address] Jul, [facility] [place] [facility] [address] [id number] [place] [address] 28 Jun, 2011 [facility] [place] [facility] [address] [id number] [place] [address] Jun, [facility] [place] [facility] [address] [id number], [place] [address] 24 Jun, 2011 [facility] [place] [facility] [address] [id number] [place] [address] Jun, [facility] [place] [facility] [address] [id number] [place] [address] 117[address] 10 Jun, 2011 [facility] [place] [facility] [address] [id number], [place] [address] 15 Apr, 2011 [facility] [place] [facility] [address] [id number], [place] [address] Mar, [facility] [address] [id number] [address] January, [facility] [address] [id number], [place] [address] Aug, [facility] [address] [id number], [place] [address] Aug, [facility] [address] [id number], [place] [address] Jun, [facility] [address] [id number], [place] [address] Jun, [facility] [address] [id number], [place] [address] Aug, IMMUNIZATIONS No Known Immunizations SOCIAL HISTORY Never Assessed REASON FOR VISIT Refill request PLAN OF CARE VITAL SIGNS MEDICATIONS Unknown Medications RESULTS No Results PROCEDURES No Known procedures INSTRUCTIONS MEDICATIONS ADMINISTERED No Known Medications MEDICAL (GENERAL) HISTORY Type Description Date Medical History cardiovascular disorder Medical History restless leg syndrome Medical History bipolar disorder Medical History hx of severe menorrhagia and dsymenorrhea-s/p MELY/BSO Medical History asymptomatics postmenopausal status (surgical menopause) Medical History torn tendons left knee Surgical History hysterectomy-TVH/BSO age 32 Surgical History pt states she's had 13 abdominal surgeries Surgical History surgery to repair a lazy eye Surgical History stent Surgical History ruptured eptopic Hospitalization History [place]-multiple admissions Hospitalization History hysterectomy Hospitalization History surgeries Hospitalization History blood transfusion x 2
--- OUTSIDE RECORDS SUMMARY | 2018-06-14 10:08 | XMS REPORT ---
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 January, [facility] [address] [id number] [place] [address]- 4400 January, [facility] [address] [id number] [place] [address]- 4185 January, [facility] [address] [id number] [place] [address]- 0177 January, [facility] [address] [id number] [place] [address]- 8176 January, [facility] [address] [id number] [place] [address]- 4953 January, [facility] [address] [id number] [place] [address]- 5861 January, [facility] [address] [id number] [place] [address]- 4857 January, [facility] [address] [id number] [place] [address]- 5494 January, [facility] [address] [id number] [place] [address]- 9991 January, [facility] [address] [id number] [place] [address]- 7598 January, [facility] [address] [id number] [place] [address]- 1995 29 Dec, 2012 [facility] [address] [id number] [place] [address]- 3003 Dec, [facility] [address] [id number] [place] [address]- 8007 18 Dec, 2012 [facility] [address] [id number] [place] [address]- 4678 16 Dec, 2012 [facility] [address] [id number] [place] [address]- 0816 Dec, [facility] [address] [id number] [place] [address]- 1812 02 Dec, 2012 [facility] [place] [facility] [address] [id number] [place] [address]- 7845 Nov, [facility] [place] [facility] [address] [id number] [place] [address]- 8256 Nov, [facility] [place] [facility] [address] [id number] [place] [address]- 4566 Nov, [facility] [address] [id number] [place] [address]- 8657 Nov, [facility] [place] [facility] [address] [id number] [place] [address]- 2265 Nov, [facility] [address] [facility] [id number] [place] [address]- 6050 Nov, [facility] [address] [id number] [place] [address]- 5962 Oct, [facility] [place] [facility] [address] [id number] [place] [address]- 2514 Oct, [facility] [place] [facility] [address] [id number] [place] [address]- 8267 14 Oct, 2012 [facility] [place] [facility] [address] [id number] [place] [address]- 4020 Oct, [facility] [place] [facility] [address] [id number], [place] [address]- 6409 Oct, [facility] [place] [facility] [address] [id number] [place] [address]- 1542 07 Oct, 2012 [facility] [place] [facility] [address] [id number] [place] [address]- 4606 05 Oct, 2012 [facility] [place] [facility] [address] [facility] [id number] [place] [address]- 7496 05 Oct, 2012 [facility] [place] [facility] [address] [id number] [place] [address]- 0931 04 Oct, 2012 [facility] [address] [id number] [place] [address]- 5110 31 Sep, 2012 [facility] [address] [id number] [place] [address]- 3880 29 Sep, 2012 [facility] [address] [id number] [place] [address]- 8820 15 Sep, 2012 [facility] [address] [id number] [place] [address]- 4051 14 Sep, 2012 [facility] [address] [id number] [place] [address]- 1829 08 Sep, 2012 [facility] [address] [id number] [place] [address]- 0116 Sep, [facility] [address] [id number] [place] [address]- 5827 18 Aug, 2012 [facility] [address] [id number] [place] [address]- 3856 18 Aug, 2012 [facility] [address] [id number] [place] [address]- 8173 18 Aug, 2012 [facility] [address] [id number] [place] [address]- 4874 18 Aug, 2012 [facility] [address] [id number] [place] [address]- 8940 15 Aug, 2012 [facility] [address] [id number] [place] [address]- 0387 14 Aug, 2012 [facility] [address] [id number] [place] [address]- 7435 14 Aug, 2012 [facility] [address] [id number] [place] [address]- 5996 13 Aug, 2012 [facility] [address] [id number] [place] [address]- 4212 13 Aug, 2012 [facility] [address] [id number] [place] [address]- 2134 Aug, [facility] [place] [facility] [address] [id number] [place] [address]- 4106 Aug, [facility] [place] [facility] [address] [id number] [place] [address]- 2506 Aug, [facility] [place] [facility] [address] [id number] [place] [address]- 4986 Aug, [facility] [place] [facility] [address] [id number] [place] [address]- 8495 Aug, [facility] [place] [facility] [address] [id number] [place] [address]- 0528 Aug, [facility] [place] [facility] [address] [id number] [place] [address]- 5044 Aug, [facility] [place] [facility] [address] [id number] [place] [address]- 1700 Aug, [facility] [place] [facility] [address] [id number] [place] [address]- 1868 Aug, [facility] [place] [facility] [address] [id number] [place] [address]- 1980 Aug, [facility] [place] [facility] [address] [id number] [place] [address]- 2084 Jul, [facility] [place] [facility] [address] [id number], [place] [address]- 0990 Jul, [facility] [place] [facility] [address] [id number] [place] [address]- 4006 Jul, [facility] [place] [facility] [address] [id number] [place] [address]- 0475 Jul, [facility] [place] [facility] [address] [id number] [place] [address]- 1052 14 Jul, 2012 [facility] [place] [facility] [address] [id number], [place] [address]- 0757 14 Jul, 2012 [facility] [place] [facility] [address] [id number] [place] [address]- 4148 08 Jul, 2012 [facility] [place] [facility] [address] [id number], [place] [address]- 2971 08 Jul, 2012 [facility] [place] [facility] [address] [facility] [id number] [place] [address]- 2909 08 Jul, 2012 [facility] [place] [facility] [address] [id number], [place] [address]- 0539 08 Jul, 2012 [facility] [place] [facility] [address] [id number] [place] [address]- 1855 Jul, [facility] [place] [facility] [address] [id number] [place] [address]- 4016 Jul, [facility] [place] [facility] [address] [facility] [id number], [place] [address]- 0061 30 Jun, 2012 [facility] [place] [facility] [address] [id number], [place] [address]- 9405 30 Jun, 2012 [facility] [place] [facility] [address] [facility] [id number], [place] [address]- 1480 29 Jun, 2012 [facility] [place] [facility] [address] [facility] [id number], [place] [address]- 8897 Jun, [facility] [place] [facility] [address] [facility] [id number], [place] [address]- 0069 19 Jun, 2012 [facility] [place] [facility] [address] [facility] [id number], [place] [address]- 2998 18 Jun, 2012 [facility] [place] [facility] [address] [id number], [place] [address]- 9386 17 Jun, 2012 [facility] [place] [facility] [address] [facility] [id number], [place] [address]- 8621 16 Jun, 2012 [facility] [place] [facility] [address] [facility] [id number], [place] [address]- 2045 16 Jun, 2012 [facility] [place] [facility] [address] [id number] [place] [address]- 0171 Jun, [facility] [place] [facility] [address] [id number] [place] [address]- 6814 Jun, [facility] [place] [facility] [address] [id number] [place] Jun, [facility] [place] [facility] [address] [id number] [place] [address]- 5781 Jun, [facility] [place] [facility] [address] [id number] [place] [address]- 7312 Jun, [facility] [place] [facility] [address] [id number] [place] [address]- 0793 24 May, 2012 [facility] [place] [facility] [address] [id number] [place] [address]- 4519 May, [facility] [place] [facility] [address] [id number] [place] [address]- 8890 May, [facility] [place] [facility] [address] [id number] [place] [address]- 3877 18 May, 2012 [facility] [place] [facility] [address] [id number] [place] [address]- 7914 May, [facility] [place] [facility] [id number] [id number] May, [facility] [place] [facility] [id number] [id number] May, [facility] [place] [facility] [address] [id number] [place] [address]- 9216 May, [facility] [place] [facility] [address] [id number] [place] [address]- 9400 Apr, [facility] [place] [facility] [address] [id number] [place] [address]- 6466 Apr, [facility] [place] [facility] [address] [id number] [place] [address]- 9346 Apr, [facility] [place] [facility] [address] [id number] [place] [id number] Apr, [facility] [place] [facility] [address] [id number] [place] [id number] Apr, [facility] [place] [facility] [address] [id number] [place] [address]- 5693 Apr, [facility] [place] [facility] [address] [id number] [place] [address]- 3569 Apr, [facility] [place] [facility] [address] [id number] [place] [address]- 6534 Apr, [facility] [place] [facility] [address] [id number] [place] [address]- 0629 Apr, [facility] [place] [facility] [address] [id number] [place] [address]- 1330 Apr, [facility] [place] [facility] [address] [id number] [place] [address]- 9080 Apr, [facility] [place] [facility] [address] [id number] [place] [address]- 7227 Apr, [facility] [place] [facility] [address] [id number] [place] [address]- 9219 Mar, [facility] [place] [facility] [address] [id number] [place] [address]- 9359 Mar, [facility] [place] [facility] [address] [id number] [place] [address]- 8829 Mar, [facility] [place] [facility] [address] [id number] [place] [address]- 2325 Mar, [facility] [place] [facility] [address] [id number] [place] [address]- 8928 Mar, [facility] [place] [facility] [address] [id number] [place] [address]- 1102 Mar, [facility] [place] [facility] [address] [id number] [place] [address]- 8373 20 Mar, 2012 [facility] [place] [facility] [address] [id number] [place] [address]- 4768 19 Mar, 2012 [facility] [place] [facility] [address] [id number] [place] [address]- 3906 Mar, [facility] [place] [facility] [address] [id number] [place] [address]- 8956 Mar, [facility] [place] [facility] [address] [id number] [place] [address]- 2070 17 Mar, 2012 [facility] [place] [facility] [address] [id number] [place] [address]- 3696 15 Mar, 2012 [facility] [place] [facility] [address] [id number] [place] [address]- 4[address] Mar, [facility] [place] [facility] [address] [id number] [place] [address] Mar, [facility] [place] [facility] [address] [id number] [place] [address] 05 Mar, 2012 [facility] [place] [facility] [address] [id number] [place] [address] Mar, [facility] [place] [facility] [address] [id number] [place] [address] Mar, [facility] [place] [facility] [address] [id number] [place] [address] Feb, [facility] [place] [facility] [address] [id number] [place] [address] Feb, [facility] [place] [facility] [address] [id number] [place] [address] Feb, [facility] [place] [facility] [address] [id number] [place] [address] Feb, [facility] [place] [facility] [address] [id number] [place] [address] Feb, [facility] [place] [facility] [address] [id number] [place] [address] 15 Feb, 2012 [facility] [address] [id number] [place] [address] 14 Feb, 2012 [facility] [address] [id number] [place] [address] 1488 13 Feb, 2012 [facility] [address] [id number] [place] [address] 11 Feb, 2012 [facility] [address] [id number] [place] [address] 06 Feb, 2012 [facility] [address] [id number] [place] [address] 05 Feb, 2012 [facility] [address] [id number] [place] [address] January, [facility] [address] [id number] [place] [address] January, [facility] [address] [id number] [place] [address] January, [facility] [address] [id number] [place] [address] January, [facility] [address] [id number] [place] [address]843 January, [facility] [address] [id number] [place] [address]67 30 Dec, 2011 [facility] [address] [id number] [place] [address] Dec, [facility] [place] [facility] [address] [id number] [place] [address] Dec, [facility] [place] [facility] [address] [id number] [place] [address] Dec, [facility] [address] [id number] [place] [address] 24 Dec, 2011 [facility] [place] [facility] [address] [id number] [place] [address] 20 Dec, 2011 [facility] [place] [facility] [address] [id number] [place] [address]481 20 Dec, 2011 [facility] [place] [facility] [address] [id number] [place] [address] 280[address] 16 Dec, 2011 [facility] [place] [facility] [address] [id number] [place] [address] 09 Dec, 2011 [facility] [address] [id number] [place] [address]244 02 Dec, 2011 [facility] [place] [facility] [address] [id number] [place] [address]53 29 Nov, 2011 [facility] [place] [facility] [address] [id number] [place] [address] 29 Nov, 2011 [facility] [place] [facility] [address] [id number] [place] [address]347 27 Nov, 2011 [facility] [place] [facility] [address] [id number] [place] [address]- 8533 26 Nov, 2011 [facility] [place] [facility] [address] [id number] [place] [address] 8461 23 Nov, 2011 [facility] [place] [facility] [address] [id number] [place] [address]262 22 Nov, 2011 [facility] [place] [facility] [address] [id number] [place] [address]- [address] 19 Nov, 2011 [facility] [place] [facility] [address] [id number] [place] [address]- 1809 14 Nov, 2011 [facility] [place] [facility] [address] [id number] [place] [address] 13 Nov, 2011 [facility] [place] [facility] [address] [id number] [place] [address] 13 Nov, 2011 [facility] [place] [facility] [address] [id number] [place] [address]- 68[address] Nov, [facility] [address] [id number] [place] [address]76 Nov, [facility] [place] [facility] [address] [id number] [place] [address] 2546 29 Oct, 2011 [facility] [place] [facility] [address] [id number] [place] [address]226 Oct, [facility] [place] [facility] [address] [id number] [place] [address]176 27 Oct, 2011 [facility] [place] [facility] [address] [id number] [place] [address]- [address]146 Oct, [facility] [place] [facility] [address] [id number] [place] [address]- 8916 20 Oct, 2011 [facility] [address] [id number] [place] [address]- [address] 14 Oct, 2011 [facility] [address] [id number] [place] [address] 09 Oct, 2011 [facility] [place] [facility] [address] [id number] [place] [address]- 8275 08 Oct, 2011 [facility] [address] [facility] [id number] [place] [address] 02 Oct, 2011 [facility] [place] [facility] [address] [id number] [place] [address] Sep, [facility] [place] [facility] [address] [id number] [place] [address]47 Sep, [facility] [place] [facility] [address] [id number] [place] [address] Sep, [facility] [place] [facility] [address] [id number] [place] [address] Sep, [facility] [place] [facility] [address] [id number] [place] [address] Sep, [facility] [place] [facility] [address] [id number] [place] [address] 10 Sep, 2011 [facility] [place] [facility] [address] [id number] [place] [address] Aug, [facility] [place] [facility] [address] [id number] [place] [address] Aug, [facility] [place] [facility] [address] [id number] [place] [address] Aug, [facility] [place] [facility] [address] [id number] [place] [address] Jul, [facility] [place] [facility] [address] [id number] [place] [address] Jul, [facility] [place] [facility] [address] [id number] [place] [address] Jul, [facility] [place] [facility] [address] [id number] [place] [address] 14 Jul, 2011 [facility] [place] [facility] [address] [id number] [place] [address] Jul, [facility] [place] [facility] [address] [id number] [place] [address] 28 Jun, 2011 [facility] [place] [facility] [address] [id number] [place] [address] Jun, [facility] [place] [facility] [address] [id number], [place] [address] 24 Jun, 2011 [facility] [place] [facility] [address] [id number] [place] [address] Jun, [facility] [place] [facility] [address] [id number] [place] [address] 10 Jun, 2011 [facility] [place] [facility] [address] [id number], [place] [address] 15 Apr, 2011 [facility] [place] [facility] [address] [id number], [place] [address] Mar, [facility] [address] [id number] [address] January, [facility] [address] [id number] [address] Aug, [facility] [address] [id number], [place] [address] Aug, [facility] [address] [id number], [place] [address] Jun, [facility] [address] [id number], [place] [address] Jun, [facility] [address] [id number], [place] [address] Aug, IMMUNIZATIONS No Known Immunizations SOCIAL HISTORY Never Assessed REASON FOR VISIT adderall 05/12/2018 PLAN OF CARE VITAL SIGNS MEDICATIONS Medication Instructions Dosage Frequency Start Date End Date Duration Status Adderall 10 mg Orally 3 times a day 1 tablet 8h Apr, 28 days Active RESULTS No Results PROCEDURES No Known procedures [...] stent Surgical History ruptured eptopic Hospitalization History [facility]-multiple admissions Hospitalization History hysterectomy Hospitalization History surgeries Hospitalization History blood transfusion x 2
--- OUTSIDE RECORDS SUMMARY | 2018-06-14 10:09 | XMS REPORT ---
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 [place] [address]- 2449 January, [facility] [place] [facility] [address] [id number] [place] [address]- 9557 January, [facility] [address] [id number] [place] [address]- 3567 January, [facility] [address] [id number] [place] [address]- 9090 January, [facility] [address] [id number] [place] [address]- 2368 January, [facility] [address] [id number] [place] [address]- 0933 January, [facility] [address] [id number] [place] [address]- 1361 January, [facility] [address] [id number] [place] [address]- 8504 January, [facility] [address] [id number] [place] [address]- 3887 January, [facility] [address] [id number] [place] [address]- 8354 January, [facility] [address] [id number] [place] [address]- 0022 Dec, [facility] [address] [id number] [place] [address]- 9195 Dec, [facility] [address] [id number] [place] [address]- 3356 Dec, [facility] [place] [facility] [address] [id number], [place] [address]- 9209 16 Dec, 2012 [facility] [place] [facility] [address] [id number] [place] [address]- 2379 Dec, [facility] [place] [facility] [address] [id number] [place] [address]- 6227 Dec, [facility] [place] [facility] [address] [id number] [place] [address]- 0379 Nov, [facility] [address] [id number] [place] [address]- 8775 Nov, [facility] [place] [facility] [address] [id number] [place] [address]- 2815 Nov, [facility] [place] [facility] [address] [id number] [place] [address]- 0072 Nov, [facility] [place] [facility] [address] [id number] [place] [address]- 3303 Nov, [facility] [place] [facility] [address] [id number] [place] [address]- 8780 Nov, [facility] [place] [facility] [address] [id number] [place] [address]- 2035 20 Oct, 2012 [facility] [place] [facility] [address] [id number] [place] [address]- 6301 14 Oct, 2012 [facility] [place] [facility] [address] [id number] [place] [address]- 8087 14 Oct, 2012 [facility] [place] [facility] [address] [id number] [place] [address]- 0708 12 Oct, 2012 [facility] [place] [facility] [address] [id number] [place] [address]- 6584 Oct, [facility] [place] [facility] [address] [facility] [id number] [place] [address]- 3513 Oct, [facility] [place] [facility] [address] [id number] [place] [address]- 8149 05 Oct, 2012 [facility] [place] [facility] [address] [id number] [place] [address]- 2543 05 Oct, 2012 [facility] [place] [facility] [address] [id number] [place] [address]- 8966 04 Oct, 2012 [facility] [place] [facility] [address] [id number] [place] [address]- 5411 Sep, [facility] [place] [facility] [address] [id number] [place] [address]- 1487 29 Sep, 2012 [facility] [address] [id number] [place] [address]- 7496 15 Sep, 2012 [facility] [place] [facility] [address] [id number] [place] [address]- 1052 14 Sep, 2012 [facility] [place] [facility] [address] [id number] [place] [address]- 4830 08 Sep, 2012 [facility] [place] [facility] [address] [id number] [place] [address]- 8653 03 Sep, 2012 [facility] [address] [id number] [place] [address]- 6524 18 Aug, 2012 [facility] [place] [facility] [address] [id number] [place] [address]- 6508 18 Aug, 2012 [facility] [place] [facility] [address] [id number] [place] [address]- 4320 18 Aug, 2012 [facility] [place] [facility] [address] [id number] [place] [address]- 6200 18 Aug, 2012 [facility] [address] [id number] [place] [address]- 9571 15 Aug, 2012 [facility] [place] [facility] [address] [id number] [place] [address]- 7590 14 Aug, 2012 [facility] [place] [facility] [address] [id number] [place] [address]- 0223 14 Aug, 2012 [facility] [place] [facility] [address] [id number], [place] [address]- 4604 13 Aug, 2012 [facility] [place] [facility] [address] [id number] [place] [address]- 2499 13 Aug, 2012 [facility] [place] [facility] [address] [id number] [place] [address]- 7696 11 Aug, 2012 [facility] [place] [facility] [address] [id number] [place] [address]- 3623 11 Aug, 2012 [facility] [place] [facility] [address] [id number] [place] [address]- 4067 07 Aug, 2012 [facility] [address] [id number] [place] [address]- 5592 Aug, [facility] [place] [facility] [address] [id number] [place] [address] Aug, [facility] [address] [id number] [place] [address]- 9616 Aug, [facility] [place] [facility] [address] [id number] [place] [address]- 9989 Aug, [facility] [address] [id number] [place] [address]- 7141 Aug, [facility] [address] [id number] [place] [address]- 0652 Aug, [facility] [address] [id number] [place] [address]- 5425 Aug, [facility] [address] [id number] [place] [address]- 5336 Jul, [facility] [place] [facility] [address] [id number] [place] [address]- 2977 Jul, [facility] [address] [id number] [place] [address]- 9147 Jul, [facility] [place] [facility] [address] [id number] [place] [address]- 4709 Jul, [facility] [place] [facility] [address] [id number] [place] [address]- 6679 Jul, [facility] [place] [facility] [address] [id number] [place] [address]- 0563 14 Jul, 2012 [facility] [place] [facility] [address] [id number] [place] [address]- 2807 Jul, [facility] [place] [facility] [address] [id number] [place] [address]- 4053 Jul, [facility] [place] [facility] [address] [id number] [place] [address]- 8493 08 Jul, 2012 [facility] [place] [facility] [address] [id number] [place] [address]- 9152 Jul, [facility] [place] [facility] [address] [id number] [place] [address]- 4024 Jul, [facility] [place] [facility] [address] [id number] [place] [address]- 7688 Jul, [facility] [place] [facility] [address] [id number] [place] [address]- 5858 Jun, [facility] [place] [facility] [address] [id number] [place] [address]- 8295 30 Jun, 2012 [facility] [place] [facility] [address] [id number] [place] [address]- 6991 29 Jun, 2012 [facility] [place] [facility] [address] [id number][place] [address]- 5846 Jun, [facility] [place] [facility] [address] [id number] [place] [address]- 6290 Jun, [facility] [place] [facility] [address] [id number], [place] [address]- 7926 Jun, [facility] [place] [facility] [address] [facility] [id number], [place] [address]- 3837 17 Jun, 2012 [facility] [place] [facility] [address] [id number], [place] [address]- 4987 16 Jun, 2012 [facility] [place] [facility] [address] [id number], [place] [address]- 6664 Jun, [facility] [place] [facility] [address] [id number][place] [address]272 Jun, [facility] [place] [facility] [address] [id number], [place] [address]- 1931 Jun, [facility] [place] [facility] [address] [id number], [place] [address]- 3215 Jun, [facility] [place] [facility] [address] [id number], [place] [address]- 9827 Jun, [facility] [place] [facility] [address] [id number], [place] [address]- 9918 Jun, [facility] [place] [facility] [address] [id number], [place] [address]- 0808 24 May, 2012 [facility] [place] [facility] [address] [id number], [place] [address]- 0226 May, [facility] [place] [facility] [address] [id number] [place] [address]- 8193 19 May, 2012 [facility] [place] [facility] [address] [id number], [place] [address]- 7442 18 May, 2012 [facility] [place] [facility] [address] [id number], [place] [address]- 7329 May, [facility] [place] [facility] [address] [id number][place] [id number] May, [facility] [place] [facility] [address] [id number][place] [address] May, [facility] [place] [facility] [address] [id number], [place] [address]- 0203 May, [facility] [place] [facility] [address] [id number][place] [address]- 4277 Apr, [facility] [place] [facility] [address] [id number], [place] [address]- 9285 Apr, [facility] [place] [facility] [address] [id number], [place] [address]- 8154 Apr, [facility] [place] [facility] [address] [id number][place] [id number] Apr, [facility] [place] [facility] [address] [id number][place] [address] Apr, [facility] [place] [facility] [address] [id number] [place] [address]- 5540 17 Apr, 2012 [facility] [place] [facility] [address] [id number] [place] [address]- 9756 Apr, [facility] [place] [facility] [address] [id number] [place] [address]- 4536 Apr, [facility] [place] [facility] [address] [id number] [place] [address]- 9926 Apr, [facility] [place] [facility] [address] [id number] [place] [address]- 6270 Apr, [facility] [place] [facility] [address] [id number] [place] [address]- 7550 Apr, [facility] [place] [facility] [address] [id number] [place] [address]- 3207 Apr, [facility] [place] [facility] [address] [id number] [place] [address]- 7201 Mar, [facility] [place] [facility] [address] [id number] [place] [address]- 7784 Mar, [facility] [place] [facility] [address] [id number] [place] [address]- 2275 Mar, [facility] [place] [facility] [address] [id number] [place] [address]- 2227 Mar, [facility] [place] [facility] [address] [id number] [place] [address]- 3222 Mar, [facility] [place] [facility] [address] [id number] [place] [address]- 2545 Mar, [facility] [place] [facility] [address] [id number] [place] [address]- 4924 Mar, [facility] [place] [facility] [address] [id number] [place] [address]- 1937 Mar, [facility] [place] [facility] [address] [id number] [place] [address]- 8126 Mar, [facility] [place] [facility] [address] [id number] [place] [address]- 9788 17 Mar, 2011 [facility] [place] [facility] [address] [id number] [place] [address]- 0116 17 Mar, 2012 [facility] [place] [facility] [address] [id number] [place] [address]- 2546 15 Mar, 2012 [facility] [place] [facility] [address] [id number] [place] [address]- 4876 13 Mar, 2012 [facility] [place] [facility] [address] [id number] [place] [address]- 2543 11 Mar, 2012 [facility] [place] [facility] [address] [id number] [place] [address]- 0182 05 Mar, 2012 [facility] [place] [facility] [address] [id number] [place] [address]- 2449 03 Mar, 2012 [facility] [place] [facility] [address] [id number] [place] [address]- 7704 02 Mar, 2012 [facility] [place] [facility] [address] [id number] [place] [address]- 2088 27 Feb, 2012 [facility] [place] [facility] [address] [id number] [place] [address]- 4600 27 Feb, 2012 [facility] [place] [facility] [address] [id number] [place] [address]- 5757 25 Feb, 2012 [facility] [place] [facility] [address] [id number] [place] [address]- 1244 19 Feb, 2012 [facility] [place] [facility] [address] [id number] [place] [address]- 5545 18 Feb, 2012 [facility] [place] [facility] [address] [id number] [place] [address]- 5036 15 Feb, 2012 [facility] [place] [facility] [address] [id number] [place] [address]- 1871 14 Feb, 2012 [facility] [place] [facility] [address] [id number] [place] [address]- 0997 13 Feb, 2012 [facility] [place] [facility] [address] [id number] [place] [address]- 9590 Feb, [facility] [place] [facility] [address] [id number] [place] [address]- 5509 Feb, [facility] [place] [facility] [address] [id number] [place] [address]- 8958 Feb, [facility] [place] [facility] [address] [id number] [place] [address]- 2838 January, [facility] [place] [facility] [address] [id number] [place] [address]- 3567 January, [facility] [place] [facility] [address] [id number] [place] [address]- 1343 January, [facility] [place] [facility] [address] [id number] [place] [address]- 7532 January, [facility] [place] [facility] [address] [id number] [place] [address]- 4151 January, [facility] [place] [facility] [address] [id number] [place] [address]- 2021 Dec, [facility] [place] [facility] [address] [id number] [place] [address]- 2784 Dec, [facility] [place] [facility] [address] [id number] [place] [address]- 5292 Dec, [facility] [place] [facility] [address] [id number] [place] [address]- 3823 Dec, [facility] [place] [facility] [address] [id number] [place] [address] 24 Dec, 2011 [facility] [place] [facility] [address] [id number] [place] [address] Dec, [facility] [place] [facility] [address] [id number] [place] [address] Dec, [facility] [place] [facility] [address] [id number] [place] [address] 16 Dec, 2011 [facility] [address] [id number] [place] [address] 09 Dec, 2011 [facility] [address] [id number] [place] [address]26 02 Dec, 2011 [facility] [address] [id number] [place] [address] 29 Nov, 2011 [facility] [address] [id number] [place] [address]298 29 Nov, 2011 [facility] [address] [id number] [place] [address] 27 Nov, 2011 [facility] [address] [id number] [place] [address] 26 Nov, 2011 [facility] [address] [id number] [place] [address] 5317 23 Nov, 2011 [facility] [address] [id number] [place] [address] 22 Nov, 2011 [facility] [address] [id number] [place] [address] 6[address] 19 Nov, 2011 [facility] [address] [id number] [place] [address] 14 Nov, 2011 [facility] [place] [facility] [address] [id number] [place] [address] 4072 13 Nov, 2011 [facility] [place] [facility] [address] [id number] [place] [address] 13 Nov, 2011 [facility] [place] [facility] [address] [id number] [place] [address] 05 Nov, 2011 [facility] [place] [facility] [address] [id number] [place] [address] Nov, [facility] [address] [id number] [place] [address]46 29 Oct, 2011 [facility] [address] [id number] [place] [address] 9523 28 Oct, 2011 [facility] [place] [facility] [address] [id number] [place] [address] 2546 Oct, [facility] [place] [facility] [address] [id number] [place] [address] 2546 Oct, [facility] [place] [facility] [address] [id number] [place] [address] 2546 20 Oct, 2011 [facility] [place] [facility] [address] [id number] [place] [address] 14 Oct, 2011 [facility] [place] [facility] [address] [id number] [place] [address] 7436 09 Oct, 2011 [facility] [place] [facility] [address] [id number] [place] [address] 2542 08 Oct, 2011 [facility] [place] [facility] [address] [id number] [place] [address] 8659 Oct, [facility] [place] [facility] [address] [id number] [place] [address] Sep, [facility] [place] [facility] [address] [id number] [place] [address] Sep, [facility] [place] [facility] [address] [id number] [place] [address] 4266 Sep, [facility] [place] [facility] [address] [id number] [place] [address] 2541 Sep, [facility] [place] [facility] [address] [id number] [place] [address] 2546 Sep, [facility] [place] [facility] [address] [facility] [id number] [place] [address] Sep, [facility] [place] [facility] [address] [id number] [place] [address] 2546 Aug, [facility] [place] [facility] [address] [id number] [place] [address]- 4092 12 Aug, 2011 [facility] [address] [id number] [place] [address] Aug, [facility] [place] [facility] [address] [id number] [place] [address]169 Jul, [facility] [place] [facility] [address] [id number] [place] [address] Jul, [facility] [place] [facility] [address] [id number] [place] [address] Jul, [facility] [place] [facility] [address] [id number] [place] [address] Jul, [facility] [place] [facility] [address] [id number] [place] [address]598 Jul, [facility] [place] [facility] [address] [id number] [place] [address]408 Jun, [facility] [place] [facility] [address] [id number] [place] [address] 6226 28 Jun, 2011 [facility] [place] [facility] [address] [id number] [place] [address]- 5371 24 Jun, 2011 [facility] [place] [facility] [address] [id number] [place] [address]31 Jun, [facility] [place] [facility] [address] [id number] [place] [address] 10 Jun, 2011 [facility] [place] [facility] [address] [id number] [place] [address]- 295[address] 15 Apr, 2011 [facility] [place] [facility] [address] [id number] [place] [address]- 9737 14 Mar, 2011 [facility] [place] [facility] [address] [id number] [place] [address] 1297 January, [facility] [place] [facility] [address] [id number] [place] [address] Aug, [facility] [address] [facility] [id number] [place] [address] Aug, [facility] [address] [facility] [id number], [place] [address] Jun, [facility] [address] [facility] [id number], [place] [address] Jun, [facility] [address] [facility] [id number][place] [address] Aug, IMMUNIZATIONS No Known Immunizations SOCIAL HISTORY Never Assessed REASON FOR VISIT Rx correction PLAN OF CARE VITAL SIGNS MEDICATIONS Medication Instructions Dosage Frequency Start Date End Date Duration Status Ranitidine HCl 150 MG Orally twice a day 1 tablet 12h Aug, 30 day(s) Active RESULTS No Results PROCEDURES No Known [...] stent Surgical History ruptured eptopic Hospitalization History [place]-multiple admissions Hospitalization History hysterectomy Hospitalization History surgeries Hospitalization History blood transfusion x 2
--- OUTSIDE RECORDS SUMMARY | 2018-06-14 10:10 | XMS REPORT ---
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 [address]- 4444 January, [facility] [place] [facility] [address] [id number] [place] [address]- 6126 January, [facility] [place] [facility] [address] [id number] [place] [address]- 2246 January, [facility] [place] [facility] [address] [id number] [place] [address]- 2541 January, [facility] [address] [id number] [place] [address]- 7401 January, [facility] [address] [id number] [place] [address]- 8968 January, [facility] [address] [id number] [place] [address]- 9977 January, [facility] [address] [id number] [place] [address]- 6504 January, [facility] [address] [id number] [place] [address]- 2351 January, [facility] [address] [id number] [place] [address]- 0882 January, [facility] [address] [id number] [place] [address]- 6374 January, [facility] [address] [id number] [place] [address]- 3802 January, [facility] [address] [id number] [place] [address]- 2985 Dec, [facility] [address] [id number] [place] [address]- 5030 Dec, [facility] [address] [id number] [place] [address]- 9849 Dec, [facility] [place] [facility] [address] [id number] [place] [address]- 8194 16 Dec, 2012 [facility] [place] [facility] [address] [id number] [place] [address]- 3305 Dec, [facility] [place] [facility] [address] [id number] [place] [address]- 6718 Dec, [facility] [place] [facility] [address] [id number] [place] [address]- 6935 Nov, [facility] [address] [id number] [place] [address]- 6647 Nov, [facility] [place] [facility] [address] [id number] [place] [address]- 9457 Nov, [facility] [place] [facility] [address] [id number] [place] [address]- 8786 Nov, [facility] [place] [facility] [address] [id number] [place] [address]- 7265 Nov, [facility] [place] [facility] [address] [id number] [place] [address] 2541 05 Nov, 2012 [facility] [place] [facility] [address] [id number] [place] [address]- 0364 20 Oct, 2012 [facility] [place] [facility] [address] [id number] [place] [address]- 4204 14 Oct, 2012 [facility] [place] [facility] [address] [facility] [id number] [place] [address]- 4849 14 Oct, 2012 [facility] [place] [facility] [address] [id number] [place] [address]- 1064 12 Oct, 2012 [facility] [place] [facility] [address] [facility] [id number] [place] [address]- 9377 Oct, [facility] [place] [facility] [address] [facility] [id number] [place] [address]- 0164 07 Oct, 2012 [facility] [place] [facility] [address] [facility] [id number] [place] [address]- 2544 05 Oct, 2012 [facility] [place] [facility] [address] [id number] [place] [address] 2549 05 Oct, 2012 [facility] [place] [facility] [address] [id number] [place] [address]13 04 Oct, 2012 [facility] [place] [facility] [address] [facility] [id number] [place] [address]- 4892 Sep, [facility] [place] [facility] [address] [id number] [place] [address]- 9400 29 Sep, 2012 [facility] [address] [id number] [place] [address]- 4317 15 Sep, 2012 [facility] [place] [facility] [address] [id number] [place] [address]- 6792 14 Sep, 2012 [facility] [address] [facility] [id number] [place] [address]- 9684 08 Sep, 2012 [facility] [address] [id number] [place] [address]- 8736 03 Sep, 2012 [facility] [address] [id number] [place] [address]- 9074 18 Aug, 2012 [facility] [place] [facility] [address] [id number] [place] [address]- 6528 18 Aug, 2012 [facility] [address] [id number] [place] [address]- 1147 18 Aug, 2012 [facility] [place] [facility] [address] [id number] [place] [address]- 4933 18 Aug, 2012 [facility] [address] [id number] [place] [address]- 0760 15 Aug, 2012 [facility] [place] [facility] [address] [id number] [place] [address]- 3547 14 Aug, 2012 [facility] [address] [id number] [place] [address]- 0846 14 Aug, 2012 [facility] [place] [facility] [address] [id number] [place] [address]- 3180 13 Aug, 2012 [facility] [place] [facility] [address] [id number] [place] [address]- 0753 13 Aug, 2012 [facility] [place] [facility] [address] [id number] [place] [address]- 5634 11 Aug, 2012 [facility] [place] [facility] [address] [id number] [place] 7060 11 Aug, 2012 [facility] [place] [facility] [address] [id number] [place] [address]- 1862 07 Aug, 2012 [facility] [place] [facility] [address] [id number] [place] [address]- 9386 07 Aug, 2012 [facility] [place] [facility] [address] [id number] [place] [address]- 8356 Aug, [facility] [place] [facility] [address] [id number] [place] [address]- 5646 06 Aug, 2012 [facility] [place] [facility] [address] [id number] [place] [address]- 0856 Aug, [facility] [place] [facility] [address] [id number] [place] [address]- 1892 Aug, [facility] [place] [facility] [address] [id number] [place] [address]- 3518 Aug, [facility] [place] [facility] [address] [id number] [place] [address]- 1423 Aug, [facility] [place] [facility] [address] [id number] [place] [address]- 9346 Jul, [facility] [place] [facility] [address] [id number] [place] [address]- 4008 Jul, [facility] [place] [facility] [address] [id number] [place] [address]- 9656 Jul, [facility] [place] [facility] [address] [id number] [place] [address]- 9860 Jul, [facility] [place] [facility] [address] [id number] [place] [address]- 0158 Jul, [facility] [place] [facility] [address] [id number] [place] [address]- 6830 14 Jul, 2012 [facility] [place] [facility] [address] [id number] [place] [address]- 9676 Jul, [facility] [place] [facility] [address] [id number] [place] [address]- 2348 08 Jul, 2012 [facility] [place] [facility] [address] [id number] [place] [address]- 1898 08 Jul, 2012 [facility] [place] [facility] [address] [id number] [place] [address]- 7954 Jul, [facility] [place] [facility] [address] [id number] [place] [address]- 0634 Jul, [facility] [place] [facility] [address] [id number] [place] [address]- 7503 Jul, [facility] [place] [facility] [address] [id number] [place] [address]- 0010 Jun, [facility] [place] [facility] [address] [id number] [place] [address]- 1585 Jun, [facility] [place] [facility] [address] [id number] [place] [address]- 1490 Jun, [facility] [place] [facility] [address] [id number] [place] [address]- 9906 Jun, [facility] [place] [facility] [address] [id number] [place] [address]- 0064 Jun, [facility] [place] [facility] [address] [id number] [place] [address]- 1607 Jun, [facility] [place] [facility] [address] [id number] [place] [address]- 2314 17 Jun, 2012 [facility] [place] [facility] [address] [id number] [place] [address]- 2604 Jun, [facility] [place] [facility] [address] [id number] [place] [address]- 5873 Jun, [facility] [place] [facility] [address] [id number] [place] [address]956 Jun, [facility] [place] [facility] [address] [id number] [place] [address]- 0559 Jun, [facility] [place] [facility] [address] [id number] [place] [address]- 2461 Jun, [facility] [place] [facility] [address] [id number] [place] [address]- 1226 Jun, [facility] [place] [facility] [address] [id number] [place] [address]- 9883 Jun, [facility] [place] [facility] [address] [id number] [place] [address]- 7937 24 May, 2012 [facility] [place] [facility] [address] [id number] [place] [address]- 4321 May, [facility] [place] [facility] [address] [id number] [place]37 19 May, 2012 [facility] [place] [facility] [address] [id number] [place] [address]- 9659 18 May, 2012 [facility] [place] [facility] [address] [id number] [place] [address]- 1604 May, [facility] [place] [facility] [address] [id number] [place] [id number] May, [facility] [place] [facility] [address] [id number] [place] [id number] May, [facility] [place] [facility] [address] [id number] [place] [address]906 May, [facility] [place] [facility] [address] [id number] [place] [address]- 1427 Apr, [facility] [place] [facility] [address] [id number] [place] [address]- 9186 Apr, [facility] [place] [facility] [address] [id number] [place] [address]- 4286 Apr, [facility] [place] [facility] [address] [id number] [place] [id number] Apr, [facility] [place] [facility] [address] [id number] [place] [address] Apr, [facility] [place] [facility] [address] [id number] [place] [address]- 7541 17 Apr, 2012 [facility] [place] [facility] [address] [id number] [place] [address]- 3361 Apr, [facility] [place] [facility] [address] [id number] [place] [address]- 9266 16 Apr, 2012 [facility] [place] [facility] [address] [id number] [place] [address]- 4566 Apr, [facility] [place] [facility] [address] [id number] [place] [address]- 5554 Apr, [facility] [place] [facility] [address] [id number] [place] [address]- 5480 Apr, [facility] [place] [facility] [address] [id number] [place] [address]- 2318 Apr, [facility] [place] [facility] [address] [id number] [place] [address]- 7964 Mar, [facility] [place] [facility] [address] [id number] [place] [address]- 4079 Mar, [facility] [place] [facility] [address] [id number] [place] [address]- 9697 Mar, [facility] [place] [facility] [address] [id number] [place] [address]- 4295 Mar, [facility] [place] [facility] [address] [id number] [place] [address]- 7799 Mar, [facility] [place] [facility] [address] [id number] [place] [address]- 1287 Mar, [facility] [place] [facility] [address] [id number] [place] [address]- 1806 Mar, [facility] [place] [facility] [address] [id number] [place] [address]- 3871 Mar, [facility] [place] [facility] [address] [id number] [place] [address]- 9794 Mar, [facility] [place] [facility] [address] [id number] [place] [address]- 7416 17 Mar, 2011 [facility] [place] [facility] [address] [id number] [place] [address]- 9256 17 Mar, 2012 [facility] [place] [facility] [address] [id number] [place] [address] 2546 15 Mar, 2012 [facility] [place] [facility] [address] [id number] [place] [address] 2546 13 Mar, 2012 [facility] [place] [facility] [address] [id number] [place] [address] 2547 11 Mar, 2012 [facility] [place] [facility] [address] [id number] [place] [address]- 5936 05 Mar, 2012 [facility] [place] [facility] [address] [id number] [place] [address]- 2779 03 Mar, 2012 [facility] [place] [facility] [address] [id number] [place] [address]- 8209 02 Mar, 2012 [facility] [place] [facility] [address] [id number] [place] [address]- 6710 27 Feb, 2012 [facility] [place] [facility] [address] [id number] [place] [address] 2545 27 Feb, 2012 [facility] [place] [facility] [address] [id number] [place] [address] 2548 25 Feb, 2012 [facility] [place] [facility] [address] [id number] [place] [address] 2546 19 Feb, 2012 [facility] [place] [facility] [address] [id number] [place] [address] 2541 18 Feb, 2012 [facility] [place] [facility] [address] [id number] [place] [address] 2546 15 Feb, 2012 [facility] [place] [facility] [address] [id number] [place] [address]- 2546 14 Feb, 2012 [facility] [place] [facility] [address] [id number] [place] [address]- 1002 Feb, [facility] [address] [id number] [place] [address]- 1580 Feb, [facility] [place] [facility] [address] [id number] [place] [address]- 8895 Feb, [facility] [place] [facility] [address] [id number] [place] [address]- 7155 Feb, [facility] [place] [facility] [address] [id number] [place] [address]- 8163 January, [facility] [place] [facility] [address] [id number] [place] [address]- 8562 January, [facility] [place] [facility] [address] [id number] [place] [address]- 4328 January, [facility] [place] [facility] [address] [id number] [place] [address]- 5585 January, [facility] [place] [facility] [address] [id number] [place] [address]- 7697 January, [facility] [place] [facility] [address] [id number] [place] [address]- 0757 Dec, [facility] [place] [facility] [address] [id number] [place] [address]- 3284 Dec, [facility] [place] [facility] [address] [id number] [place] [address]- 3657 Dec, [facility] [place] [facility] [address] [id number] [place] [address]- 2485 Dec, [facility] [place] [facility] [address] [id number] [place] [address]- 2613 24 Dec, 2011 [facility] [place] [facility] [address] [id number] [place] [address]- 9080 Dec, [facility] [place] [facility] [address] [id number] [place] [address]- 3455 Dec, [facility] [place] [facility] [address] [id number] [place] [address]- 8658 16 Dec, 2011 [facility] [address] [id number] [place] [address]- 0308 09 Dec, 2011 [facility] [place] [facility] [address] [id number] [place] [address]- 9406 02 Dec, 2011 [facility] [address] [id number] [place] [address] 29 Nov, 2011 [facility] [place] [facility] [address] [id number] [place] [address] 29 Nov, 2011 [facility] [address] [id number] [place] [address] 27 Nov, 2011 [facility] [place] [facility] [address] [id number] [place] [address] 26 Nov, 2011 [facility] [address] [id number] [place] [address] 23 Nov, 2011 [facility] [address] [id number] [place] [address] 22 Nov, 2011 [facility] [place] [facility] [address] [id number] [place] [address] 19 Nov, 2011 [facility] [address] [id number] [place] [address] 8660 14 Nov, 2011 [facility] [place] [facility] [address] [id number] [place] [address] 13 Nov, 2011 [facility] [place] [facility] [address] [id number] [place] [address]101 13 Nov, 2011 [facility] [place] [facility] [address] [id number] [place] [address] 47[address] 05 Nov, 2011 [facility] [place] [facility] [address] [id number] [place] [address] Nov, [facility] [place] [facility] [address] [id number] [place] [address] 29 Oct, 2011 [facility] [place] [facility] [address] [id number] [place] [address] 9490 28 Oct, 2011 [facility] [place] [facility] [address] [id number] [place] [address] Oct, [facility] [place] [facility] [address] [id number] [place] [address] Oct, [facility] [place] [facility] [address] [id number] [place] [address] 2546 20 Oct, 2011 [facility] [place] [facility] [address] [id number] [place] [address] 14 Oct, 2011 [facility] [place] [facility] [address] [id number] [place] [address]376 09 Oct, 2011 [facility] [place] [facility] [address] [id number] [place] [address] 08 Oct, 2011 [facility] [place] [facility] [address] [id number] [place] [address] Oct, [facility] [place] [facility] [address] [id number] [place] [address] Sep, [facility] [place] [facility] [address] [id number] [place] [address] Sep, [facility] [place] [facility] [address] [id number] [place] [address] Sep, [facility] [place] [facility] [address] [id number] [place] [address] 2544 Sep, [facility] [place] [facility] [address] [id number] [place] [address] 2546 Sep, [facility] [place] [facility] [address] [id number] [place] [address] Sep, [facility] [place] [facility] [address] [id number] [place] [address] 2546 Aug, [facility] [place] [facility] [address] [id number] [place] [address] 9847 12 Aug, 2011 [facility] [address] [id number] [place] [address] Aug, [facility] [place] [facility] [address] [id number] [place] [address] Jul, [facility] [place] [facility] [address] [id number] [place] [address] Jul, [facility] [place] [facility] [address] [id number] [place] [address] Jul, [facility] [place] [facility] [address] [id number] [place] [address] Jul, [facility] [place] [facility] [address] [id number] [place] [address]10 Jul, [facility] [place] [facility] [address] [id number] [place] [address] Jun, [facility] [place] [facility] [address] [id number] [place] [address]702 28 Jun, 2011 [facility] [place] [facility] [address] [id number] [place] [address]- [address]65 24 Jun, 2011 [facility] [place] [facility] [address] [id number] [place] [address]166 Jun, [facility] [place] [facility] [address] [id number] [place] [address] 1731 10 Jun, 2011 [facility] [place] [facility] [address] [id number] [place] [address] 15 Apr, 2011 [facility] [place] [facility] [address] [id number] [place] [address]771 14 Mar, 2011 [facility] [place] [facility] [address] [id number] [place] [address]66 January, [facility] [place] [facility] [address] [id number] [place] [address] Aug, [facility] [address] [facility] [id number] [place] [address] Aug, [facility] [address] [facility] [id number] [place] [address] Jun, [facility] [address] [facility] [id number] [place] [address] Jun, [facility] [address] [facility] [id number] [place] [address] Aug, IMMUNIZATIONS No Known Immunizations SOCIAL HISTORY Never Assessed REASON FOR VISIT adderall 04/14/2018 PLAN OF CARE VITAL SIGNS MEDICATIONS Medication Instructions Dosage Frequency Start Date End Date Duration Status Adderall 10 mg Orally 3 times a day 1 tablet 8h Mar, 28 days Active RESULTS No Results PROCEDURES [...] stent Surgical History ruptured eptopic Hospitalization History [facility]-multiple admissions Hospitalization History hysterectomy Hospitalization History surgeries Hospitalization History blood transfusion x 2
--- OUTSIDE RECORDS SUMMARY | 2018-06-14 10:11 | XMS REPORT ---
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 [place] [address]- 0266 January, [facility] [place] [facility] [address] [id number] [place] [address] 4856 January, [facility] [address] [id number] [place] [address]- 5058 January, [facility] [address] [id number] [place] [address]- 4697 January, [facility] [address] [id number] [place] [address]- 7204 January, [facility] [address] [id number] [place] [address]- 4727 January, [facility] [address] [id number] [place] [address]- 4728 January, [facility] [address] [id number] [place] [address]- 1666 January, [facility] [address] [id number] [place] [address]- 8112 January, [facility] [address] [id number] [place] [address]- 0141 January, [facility] [address] [id number] [place] [address]- 8210 January, [facility] [address] [id number] [place] [address]- 8169 Dec, [facility] [address] [id number] [place] [address]- 3663 Dec, [facility] [place] [facility] [address] [id number], [place] [address]- 3157 Dec, [facility] [place] [facility] [address] [id number] [place] [address]- 7349 16 Dec, 2012 [facility] [place] [facility] [address] [id number] [place] [address]- 6842 15 Dec, 2012 [facility] [place] [facility] [address] [id number] [place] [address]- 0343 Dec, [facility] [address] [id number] [place] [address]- 6857 Nov, [facility] [address] [id number] [place] [address]- 2346 Nov, [facility] [place] [facility] [address] [id number] [place] [address]- 6180 20 Nov, 2012 [facility] [place] [facility] [address] [id number] [place] [address]- 0727 Nov, [facility] [place] [facility] [address] [id number] [place] [address]- 1931 Nov, [facility] [place] [facility] [address] [id number] [place] [address]- 0398 05 Nov, 2012 [facility] [place] [facility] [address] [id number] [place] [address]- 6094 20 Oct, 2012 [facility] [place] [facility] [address] [facility] [id number] [place] [address]- 9151 14 Oct, 2012 [facility] [place] [facility] [address] [facility] [id number] [place] [address]- 8942 14 Oct, 2012 [facility] [place] [facility] [address] [id number] [address]- 3624 12 Oct, 2012 [facility] [place] [facility] [address] [id number] [place] [address]- 5027 11 Oct, 2012 [facility] [place] [facility] [address] [facility] [id number] [place] [address]- 2544 07 Oct, 2012 [facility] [place] [facility] [address] [id number] [place] [address]- 2542 05 Oct, 2012 [facility] [place] [facility] [address] [id number] [place] [address]- 0007 05 Oct, 2012 [facility] [place] [facility] [address] [facility] [id number] [address]70 04 Oct, 2012 [facility] [place] [facility] [address] [facility] [id number] [place] [address]- 8707 31 Sep, 2012 [facility] [address] [id number] [place] [address]- 6720 29 Sep, 2012 [facility] [address] [id number] [place] [address]- 3085 15 Sep, 2012 [facility] [address] [facility] [id number] [place] [address]- 0732 14 Sep, 2012 [facility] [address] [id number] [place] [address]- 2734 08 Sep, 2012 [facility] [address] [id number] [place] [address]- 8203 03 Sep, 2012 [facility] [address] [id number] [place] [address]- 8739 18 Aug, 2012 [facility] [address] [id number] [place] [address]- 7143 18 Aug, 2012 [facility] [place] [facility] [address] [id number] [place] [address]- 8546 18 Aug, 2012 [facility] [address] [id number] [place] [address]- 1361 18 Aug, 2012 [facility] [place] [facility] [address] [id number] [place] [address]- 3733 15 Aug, 2012 [facility] [address] [id number] [place] [address]- 0263 14 Aug, 2012 [facility] [place] [facility] [address] [id number], [place] [address]- 7671 14 Aug, 2012 [facility] [place] [facility] [address] [id number] [place] [address]- 2914 13 Aug, 2012 [facility] [place] [facility] [address] [id number] [place] [address]- 2023 13 Aug, 2012 [facility] [place] [facility] [address] [id number] [place] 4606 11 Aug, 2012 [facility] [place] [facility] [address] [id number] [place] [address]- 6982 11 Aug, 2012 [facility] [place] [facility] [address] [id number] [place] 3326 07 Aug, 2012 [facility] [place] [facility] [address] [id number] [place] 5986 Aug, [facility] [place] [facility] [address] [id number] [place] [address]- 5036 06 Aug, 2012 [facility] [place] [facility] [address] [id number] [place] [address]- 3887 Aug, [facility] [place] [facility] [address] [id number] [place] [address]- 6434 Aug, [facility] [place] [facility] [address] [id number] [place] [address]- 5325 Aug, [facility] [place] [facility] [address] [id number] [place] [address]- 0745 Aug, [facility] [place] [facility] [address] [id number] [place] [address]- 2553 Aug, [facility] [place] [facility] [address] [id number] [place] [address]- 8982 Jul, [facility] [place] [facility] [address] [id number] [place] [address]- 5621 Jul, [facility] [place] [facility] [address] [id number] [place] [address]- 0455 Jul, [facility] [place] [facility] [address] [id number] [place] [address]- 7599 20 Jul, 2012 [facility] [place] [facility] [address] [id number] [place] [address]- 6311 14 Jul, 2012 [facility] [place] [facility] [address] [id number] [place] [address]- 9440 14 Jul, 2012 [facility] [place] [facility] [address] [id number] [place] [address]- 7474 08 Jul, 2012 [facility] [place] [facility] [address] [id number] [place] [address]- 5706 08 Jul, 2012 [facility] [place] [facility] [address] [id number] [place] 6023 Jul, [facility] [place] [facility] [address] [id number] [place] [address]- 0082 Jul, [facility] [place] [facility] [address] [id number] [place] [address], [place] [address]- 2650 Jul, [facility] [place] [facility] [address] [id number] [place] [address]- 0715 Jul, [facility] [place] [facility] [address] [id number] [place] [address]- 9146 30 Jun, 2012 [facility] [place] [facility] [address] [id number] [place] [address]- 2440 30 Jun, 2012 [facility] [place] [facility] [address] [id number] [place] [address]- 6814 29 Jun, 2012 [facility] [place] [facility] [address] [id number] [place] [address]- 5868 Jun, [facility] [place] [facility] [address] [id number] [place] [address]- 3451 Jun, [facility] [place] [facility] [address] [facility] [id number] [place] [address]- 1768 18 Jun, 2012 [facility] [place] [facility] [address] [id number], [place] [address]- 3780 17 Jun, 2012 [facility] [place] [facility] [address] [id number] [place] [address]- 1367 16 Jun, 2012 [facility] [place] [facility] [address] [id number] [place]50 16 Jun, 2012 [facility] [place] [facility] [address] [id number], [place] [address]- 4996 09 Jun, 2012 [facility] [place] [facility] [address] [id number], [place] [address]- 3136 Jun, [facility] [place] [facility] [address] [id number] 8346 Jun, [facility] [place] [facility] [address] [id number], [place] [address]- 9733 Jun, [facility] [place] [facility] [address] [id number], [place] [address]- 4518 Jun, [facility] [place] [facility] [address] [id number], [place] [address]- 1122 24 May, 2012 [facility] [place] [facility] [address] [id number] [place] [address]- 7137 May, [facility] [place] [facility] [address] [id number], [place] [address]- 1797 May, [facility] [place] [facility] [address] [id number], [place] [address]- 5050 18 May, 2012 [facility] [place] [facility] [address] [id number], [place] [address]- 6598 May, [facility] [place] [facility] [address] [id number] [id number] May, [facility] [place] [facility] [address] [id number] [id number] May, [facility] [place] [facility] [address] [id number], [place] [address]- 2901 May, [facility] [place] [facility] [address] [id number], [place] [address]- 3976 Apr, [facility] [place] [facility] [address] [id number], [place] [address]- 9797 Apr, [facility] [place] [facility] [address] [id number], [place] [address]- 2484 Apr, [facility] [place] [facility] [address] [id number] [id number] Apr, [facility] [place] [facility] [address] [id number] [place] [id number] Apr, [facility] [place] [facility] [address] [id number] [place] [address]- 5996 Apr, [facility] [place] [facility] [address] [id number] [place] [address]- 3956 Apr, [facility] [place] [facility] [address] [id number] [place] [address]- 9676 Apr, [facility] [place] [facility] [address] [id number] [place] [address]- 8558 Apr, [facility] [place] [facility] [address] [id number] [place] [address]- 1777 Apr, [facility] [place] [facility] [address] [id number] [place] [address]- 0576 Apr, [facility] [place] [facility] [address] [id number] [place] [address]- 0253 Apr, [facility] [place] [facility] [address] [id number] [place] [address]- 9755 Mar, [facility] [place] [facility] [address] [id number] [place] [address]- 8721 Mar, [facility] [place] [facility] [address] [id number] [place] [address]- 7769 Mar, [facility] [place] [facility] [address] [id number] [place] [address]- 5340 Mar, [facility] [place] [facility] [address] [id number] [place] [address]- 8719 Mar, [facility] [place] [facility] [address] [id number] [place] [address]- 7648 Mar, [facility] [place] [facility] [address] [id number] [place] [address]- 0233 Mar, [facility] [place] [facility] [address] [id number] [place] [address]- 8880 Mar, [facility] [place] [facility] [address] [id number] [place] [address]- 9466 18 Mar, 2011 [facility] [place] [facility] [address] [id number] [place] [address]- 9436 17 Mar, 2012 [facility] [place] [facility] [address] [id number] [place] [address] 2546 17 Mar, 2011 [facility] [place] [facility] [address] [id number] [place] [address] 2546 15 Mar, 2012 [facility] [place] [facility] [address] [id number] [place] [address] 2546 13 Mar, 2012 [facility] [place] [facility] [address] [id number] [place] [address] 2546 11 Mar, 2012 [facility] [place] [facility] [address] [id number] [place] [address]- 3286 05 Mar, 2012 [facility] [place] [facility] [address] [id number] [place] [address]- 4722 03 Mar, 2012 [facility] [place] [facility] [address] [id number] [place] [address]- 5706 02 Mar, 2012 [facility] [place] [facility] [address] [id number] [place] [address]- 3485 27 Feb, 2012 [facility] [place] [facility] [address] [id number] [place] [address] 2549 27 Feb, 2012 [facility] [place] [facility] [address] [id number] [place] [address] 2544 25 Feb, 2012 [facility] [place] [facility] [address] [id number] [place] [address] 2546 19 Feb, 2012 [facility] [place] [facility] [address] [id number] [place] [address] 2546 18 Feb, 2012 [facility] [place] [facility] [address] [id number] [place] [address] 2546 15 Feb, 2012 [facility] [place] [facility] [address] [id number] [place] [address]- 5463 14 Feb, 2012 [facility] [place] [facility] [address] [id number] [place] [address]- 6506 13 Feb, 2012 [facility] [place] [facility] [address] [id number] [place] [address]- 3832 11 Feb, 2012 [facility] [place] [facility] [address] [id number] [place] [address] 06 Feb, 2012 [facility] [place] [facility] [address] [id number] [place] [address] 7[address] 05 Feb, 2012 [facility] [place] [facility] [address] [id number] [place] [address] January, [facility] [place] [facility] [address] [id number] [place] [address] January, [facility] [place] [facility] [address] [id number] [place] [address] January, [facility] [place] [facility] [address] [id number] [place] [address] January, [facility] [place] [facility] [address] [id number] [place] [address] 98[address] January, [facility] [place] [facility] [address] [id number] [place] [address] Dec, [facility] [place] [facility] [address] [id number] [place] [address] 3536 27 Dec, 2011 [facility] [place] [facility] [address] [id number] [address] Dec, [facility] [place] [facility] [address] [id number] [place] [address] Dec, [facility] [place] [facility] [address] [id number] [place] [address] 6[address] 24 Dec, 2011 [facility] [place] [facility] [address] [id number] [place] [address]- 6206 Dec, [facility] [place] [facility] [address] [id number] [place] [address] 6970 20 Dec, 2011 [facility] [place] [facility] [address] [id number] [place] [address]- 3086 16 Dec, 2011 [facility] [place] [facility] [address] [id number] [place] [address]- 2116 09 Dec, 2011 [facility] [place] [facility] [address] [id number] [place] [address] 2796 02 Dec, 2011 [facility] [place] [facility] [address] [id number] [place] [address] 6410 29 Nov, 2011 [facility] [place] [facility] [address] [id number] [place] [address]- 2585 29 Nov, 2011 [facility] [place] [facility] [address] [id number] [place] [address]- 1664 27 Nov, 2011 [facility] [address] [id number] [place] [address]- 6526 26 Nov, 2011 [facility] [place] [facility] [address] [id number] [place] [address]- 0510 23 Nov, 2011 [facility] [place] [facility] [address] [id number] [place] [address]- 8885 22 Nov, 2011 [facility] [address] [id number] [place] [address]- 8673 19 Nov, 2011 [facility] [place] [facility] [address] [id number] [place] [address]- 8856 14 Nov, 2011 [facility] [place] [facility] [address] [id number] [place] [address] 2536 13 Nov, 2011 [facility] [place] [facility] [address] [id number] [place] [address]- 9046 13 Nov, 2011 [facility] [place] [facility] [address] [id number] [place] [address] 2546 05 Nov, 2011 [facility] [place] [facility] [address] [id number] [place] [address] 6518 Nov, [facility] [place] [facility] [address] [id number] [place] [address] 57[address] Oct, [facility] [place] [facility] [address] [id number] [place] [address] 2336 Oct, [facility] [place] [facility] [address] [id number] [place] [address] 2546 Oct, [facility] [place] [facility] [address] [id number] [place] [address] 2546 Oct, [facility] [place] [facility] [address] [id number] [place] [address]- 4366 Oct, [facility] [place] [facility] [address] [id number] [place] [address]- 5666 14 Oct, 2011 [facility] [place] [facility] [address] [id number] [place] [address] 7166 Oct, [facility] [place] [facility] [address] [id number] [place] [address]- 0034 Oct, [facility] [place] [facility] [address] [id number] [place] [address] Oct, [facility] [place] [facility] [address] [id number] [place] [address]- 1455 Sep, [facility] [place] [facility] [address] [id number] [place] [address] 7647 Sep, [facility] [place] [facility] [address] [id number] [place] [address] 2545 Sep, [facility] [place] [facility] [address] [id number] [place] [address] 2546 Sep, [facility] [place] [facility] [address] [id number] [place] [address]- 2542 Sep, [facility] [place] [facility] [address] [id number] [place] [address]- 4526 Sep, [facility] [place] [facility] [address] [id number] [place] [address]- 6929 Aug, [facility] [place] [facility] [address] [id number] [place] [address]- 9394 Aug, [facility] [place] [facility] [address] [id number] [place] [address]- 3165 Aug, [facility] [place] [facility] [address] [id number] [place] [address]- 7826 Jul, [facility] [place] [facility] [address] [id number] [place] [address]- 9701 Jul, [facility] [place] [facility] [address] [id number] [place] [address]- 7137 Jul, [facility] [place] [facility] [address] [id number] [place] [address]- 3633 Jul, [facility] [place] [facility] [address] [id number] [place] [address]- 5330 Jul, [facility] [place] [facility] [address] [id number] [place] [address]- 5667 Jun, [facility] [place] [facility] [address] [id number] [place] [address]- 9098 Jun, [facility] [place] [facility] [address] [id number] [place] [address]- 8607 24 Jun, 2011 [facility] [place] [facility] [address] [id number] [place] [address]- 0933 Jun, [facility] [place] [facility] [address] [id number] [place] [address]- 6385 Jun, [facility] [place] [facility] [address] [id number] [place] [address]- 9405 15 Apr, 2011 [facility] [place] [facility] [address] [id number] [place] [address] 4517 Mar, [facility] [place] [facility] [address] [id number] [place] [address] 7510 January, [facility] [address] [facility] [id number] [address] Aug, [facility] [address] [facility] [id number], [place] [address] Aug, [facility] [address] [facility] [id number], [place] [address] Jun, [facility] [address] [facility] [id number] [address] Jun, [facility] [facility] [address] [facility] [id number] [address] Aug, IMMUNIZATIONS No Known Immunizations SOCIAL HISTORY Never Assessed REASON FOR VISIT adderall/valium 03/18/2018 PLAN OF CARE VITAL SIGNS MEDICATIONS Medication Instructions Dosage Frequency Start Date End Date Duration Status Valium 5 mg Orally Twice a day 1 tablet as needed 12h 30 days Active Adderall 10 mg Orally 3 times a day 1 tablet 8h Feb, 28 days Active RESULTS No Results PROCEDURES [...] stent Surgical History ruptured eptopic Hospitalization History [place]-multiple admissions Hospitalization History hysterectomy Hospitalization History surgeries Hospitalization History blood transfusion x 2
--- OUTSIDE RECORDS SUMMARY | 2018-06-14 10:12 | XMS REPORT ---
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 [id number] [place] [address]- 5541 January, [facility] [address] [id number] [place] [address]- 9575 January, [facility] [address] [id number] [place] [address]- 1716 January, [facility] [address] [id number] [place] [address]- 1749 January, [facility] [address] [id number] [place] [address]- 2314 January, [facility] [address] [id number] [place] [address] 4190 January, [facility] [address] [id number] [place] [address]- 2656 Dec, [facility] [address] [id number] [place] [address]- 5470 Dec, [facility] [address] [id number] [place] [address]- 4851 Dec, [facility] [address] [id number] [place] [address]- 4570 Dec, [facility] [address] [id number] [place] [address]- 6502 Dec, [facility] [address] [id number] [place] [address]- 7125 Dec, [facility] [address] [id number] [place] [address]- 1097 Nov, [facility] [place] [facility] [address] [id number] [place] [address] 2512 Nov, [facility] [address] [id number] [place] [address]- 2602 Nov, [facility] [address] [id number] [place] [address]- 7166 Nov, [facility] [address] [id number] [place] [address]- 7773 Nov, [facility] [place] [facility] [address] [id number] [place] [address]- 1648 05 Nov, 2012 [facility] [place] [facility] [address] [id number] [place] [address]- 3954 20 Oct, 2012 [facility] [place] [facility] [address] [id number] [place] [address]- 8100 14 Oct, 2012 [facility] [place] [facility] [address] [id number] [place] [address]- 4910 14 Oct, 2012 [facility] [place] [facility] [address] [id number] [place] [address]- 4160 12 Oct, 2012 [facility] [place] [facility] [address] [id number] [place] [address]- 0435 Oct, [facility] [place] [facility] [address] [id number] [place] [address]- 6055 07 Oct, 2012 [facility] [place] [facility] [address] [id number] [place] [address]- 0115 05 Oct, 2012 [facility] [place] [facility] [address] [id number] [place] [address]- 4402 05 Oct, 2012 [facility] [place] [facility] [address] [id number] [place] [address]- 2007 04 Oct, 2012 [facility] [place] [facility] [address] [id number] [place] [address]- 3190 31 Sep, 2012 [facility] [place] [facility] [address] [id number] [place] [address]- 2700 29 Sep, 2012 [facility] [place] [facility] [address] [id number] [place] [address]- 8300 15 Sep, 2012 [facility] [place] [facility] [address] [facility] [id number] [place] [address]- 5445 14 Sep, 2012 [facility] [place] [facility] [address] [id number] [place] [address]- 7169 08 Sep, 2012 [facility] [place] [facility] [address] [id number] [place] [address]- 6746 03 Sep, 2012 [facility] [place] [facility] [address] [id number] [place] [address]- 5566 18 Aug, 2012 [facility] [place] [facility] [address] [id number] [place] [address]- 8346 18 Aug, 2012 [facility] [place] [facility] [address] [id number] [place] [address]- 1921 18 Aug, 2012 [facility] [place] [facility] [address] [id number] [place] [address]- 0758 18 Aug, 2012 [facility] [place] [facility] [address] [id number] [place] [address] 15 Aug, 2012 [facility] [place] [facility] [address] [id number] [place] [address]- 0336 14 Aug, 2012 [facility] [place] [facility] [address] [id number] [place] [address]- 2851 14 Aug, 2012 [facility] [place] [facility] [address] [id number] [place] [address]- 1559 13 Aug, [address] [facility] [place] [facility] [address] [id number] [place] [address]- 7226 13 Aug, 2012 [facility] [place] [facility] [address] [id number] [place] [address]- 0313 11 Aug, 2012 [facility] [place] [facility] [address] [id number] [place] [address]- 6006 11 Aug, 2012 [facility] [place] [facility] [address] [id number] [place] [address]- 9986 07 Aug, 2012 [facility] [place] [facility] [address] [id number] [place] [address]- 5526 07 Aug, 2012 [facility] [place] [facility] [address] [id number] [place] [address]- 1800 Aug, [facility] [place] [facility] [address] [id number] [place] [address]- 6089 Aug, [facility] [place] [facility] [address] [id number] [place] [address]- 6899 Aug, [facility] [place] [facility] [address] [id number] [place] [address] Aug, [facility] [place] [facility] [address] [id number] [place] [address]- 3895 Aug, [facility] [place] [facility] [address] [id number] [place] [address]- 6492 Aug, [facility] [place] [facility] [address] [id number] [place] [address]- 8683 Jul, [facility] [place] [facility] [address] [id number] [place] [address]- 0467 Jul, [facility] [place] [facility] [address] [id number] [address]- 4418 Jul, [facility] [place] [facility] [address] [id number] [place] [address]- 7125 Jul, [facility] [place] [facility] [address] [id number] [place] [address]- 9172 Jul, [facility] [place] [facility] [address] [id number] [address]- 3685 Jul, [facility] [place] [facility] [address] [id number] [address]- 6128 Jul, [facility] [place] [facility] [address] [id number] [place] [address]- 4356 Jul, [facility] [place] [facility] [address] [id number] [address]- 0254 Jul, [facility] [place] [facility] [address] [id number] [place] [address]- 0155 Jul, [facility] [place] [facility] [address] [id number] [place] [address]- 7474 07 Jul, 2011 [facility] [place] [facility] [address] [id number] [place] [address]- 8581 07 Jul, 2011 [facility] [place] [facility] [address] [id number] [place] 4978 30 Jun, 2011 [facility] [place] [facility] [address] [id number] [place] [address]- 6770 30 Jun, 2011 [facility] [place] [facility] [address] [id number] [place] [address]- 4572 29 Jun, 2011 [facility] [place] [facility] [address] [id number] [place] 3905 Jun, 2011 [facility] [place] [facility] [address] [id number] [place] [address]- 8544 Jun, 2011 [facility] [place] [facility] [address] [facility] [id number] [place] [address]- 6578 18 Jun, 2012 [facility] [place] [facility] [address] [id number] [place] [address]- 0793 17 Jun, 2011 [facility] [place] [facility] [address] [facility] [id number] [place] [address]- 1763 16 Jun, 2011 [facility] [place] [facility] [address] [facility] [id number] [place] [address]- 3286 16 Jun, 2012 [facility] [place] [facility] [address] [facility] [id number] [place] [address]- 5552 Jun, [facility] [place] [facility] [address] [id number] [address]- 0285 Jun, 2011 [facility] [place] [facility] [address] [id number] [place] [address]- 7922 08 Jun, 2012 [facility] [place] [facility] [address] [facility] [id number] [place] 1662 Jun, [facility] [place] [facility] [address] [facility] [id number] [place] [address] Jun, [facility] [place] [facility] [address] [id number] [place] [address]- 2399 24 May, 2012 [facility] [place] [facility] [address] [id number] [place] [address]- 3516 21 May, 2012 [facility] [place] [facility] [address] [id number] [place] [address]- 9424 19 May, 2012 [facility] [place] [facility] [address] [id number] [place] [address], [place] [address]- 4982 18 May, 2012 [facility] [place] [facility] [address] [id number] [place] [address]- 8025 12 May, 2012 [facility] [place] [facility] [address] [id number] [place] [id number] May, [facility] [place] [facility] [address] [id number] [id number] May, [facility] [place] [facility] [address] [id number] [place] [address]- 7234 May, [facility] [place] [facility] [address] [id number] [place] [address]- 4185 29 Apr, 2012 [facility] [place] [facility] [address] [id number] [place] [address]- 4250 Apr, [facility] [place] [facility] [address] [id number] [place] [address]- 3985 Apr, [facility] [place] [facility] [address] [id number] [id number] Apr, [facility] [place] [facility] [address] [id number] [place] [id number] Apr, [facility] [place] [facility] [address] [id number] [place] [address]- 4685 Apr, [facility] [place] [facility] [address] [id number] [place] [address]- 3859 Apr, [facility] [place] [facility] [address] [id number] [place] 1749 Apr, [facility] [place] [facility] [address] [id number] [place] [address]- 0910 Apr, [facility] [place] [facility] [address] [id number] [place] [address]- 2445 Apr, [facility] [place] [facility] [address] [id number] [place] [address]- 2664 Apr, [facility] [place] [facility] [address] [id number] [place] [address]- 6379 Apr, [facility] [place] [facility] [address] [id number] [place] [address]- 7027 Mar, [facility] [place] [facility] [address] [id number] [place] [address]- 5488 Mar, [facility] [place] [facility] [address] [id number] [place] [address]- 6874 Mar, [facility] [place] [facility] [address] [id number] [place] [address]- 9486 Mar, [facility] [place] [facility] [address] [id number] [place] [address]- 3502 Mar, [facility] [place] [facility] [address] [id number] [place] [address]- 4405 Mar, [facility] [place] [facility] [address] [id number] [place] [address]- 7844 Mar, [facility] [place] [facility] [address] [id number] [place] [address]- 7477 Mar, [facility] [place] [facility] [address] [id number] [place] [address]- 6997 Mar, [facility] [place] [facility] [address] [id number] [place] [address]- 7307 Mar, [facility] [place] [facility] [address] [id number] [place] [address]- 2107 Mar, [facility] [place] [facility] [address] [id number] [place] [address]- 6503 15 Mar, 2012 [facility] [place] [facility] [address] [id number] [place] [address]- 2088 13 Mar, 2012 [facility] [place] [facility] [address] [id number] [place] [address]- 2039 11 Mar, 2012 [facility] [place] [facility] [address] [facility] [id number] [place] [address]- 3149 05 Mar, 2012 [facility] [place] [facility] [address] [id number] [place] [address]- 3903 03 Mar, 2012 [facility] [place] [facility] [address] [id number] [place] [address]- 6126 02 Mar, 2012 [facility] [place] [facility] [address] [id number] [place] [address]- 0782 27 Feb, 2012 [facility] [place] [facility] [address] [facility] [id number] [place] [address]- 6354 27 Feb, 2012 [facility] [place] [facility] [address] [id number] [place] [address]- 5406 25 Feb, 2012 [facility] [place] [facility] [address] [facility] [id number] [place] [address]- 9889 19 Feb, 2012 [facility] [place] [facility] [address] [facility] [id number] [place] [address]- 8582 18 Feb, 2012 [facility] [place] [facility] [address] [id number] [place] [address]- 2995 15 Feb, 2012 [facility] [place] [facility] [address] [id number] [address]- 1123 14 Feb, 2012 [facility] [place] [facility] [address] [id number] [place] [address]- 9956 13 Feb, 2012 [facility] [place] [facility] [address] [facility] [id number] [place] [address]- 8509 11 Feb, 2012 [facility] [place] [facility] [address] [facility] [id number] [place] [address]- 0080 06 Feb, 2012 [facility] [place] [facility] [address] [id number] [place] [address]- 1853 Feb, [facility] [place] [facility] [address] [id number] [place] [address]- 5787 January, [facility] [place] [facility] [address] [id number] [place] [address]- 2336 January, [facility] [place] [facility] [address] [id number] [place] [address]- 5387 January, [facility] [place] [facility] [address] [id number] [place] [address]- 7344 January, [facility] [place] [facility] [address] [id number] [place] [address]- 8461 January, [facility] [place] [facility] [address] [id number] [place] [address]- 8952 Dec, [facility] [place] [facility] [address] [id number] [place] [address]- 1361 Dec, [facility] [place] [facility] [address] [id number] [place] [address]- 6742 Dec, [facility] [place] [facility] [address] [id number] [place] [address]- 3706 Dec, [facility] [place] [facility] [address] [id number] [place] [address]- 7184 Dec, [facility] [place] [facility] [address] [id number] [place] [address] Dec, [facility] [place] [facility] [address] [id number] [place] [address] Dec, [facility] [place] [facility] [address] [id number] [place] [address] 16 Dec, 2011 [facility] [place] [facility] [address] [id number] [place] [address] Dec, [facility] [place] [facility] [address] [id number] [place] [address] 02 Dec, 2011 [facility] [place] [facility] [address] [id number] [place] [address] 29 Nov, 2011 [facility] [place] [facility] [address] [id number] [place] [address] 29 Nov, 2011 [facility] [place] [facility] [address] [id number] [place] [address] 27 Nov, 2011 [facility] [place] [facility] [address] [id number] [place] [address] 26 Nov, 2011 [facility] [place] [facility] [address] [id number] [place] [address] 23 Nov, 2011 [facility] [place] [facility] [address] [id number] [place] [address] 22 Nov, 2011 [facility] [place] [facility] [address] [facility] [id number] [place] [address] 19 Nov, 2011 [facility] [place] [facility] [address] [id number] [place] [address] 14 Nov, 2011 [facility] [place] [facility] [address] [id number] [place] [address] 9441 13 Nov, 2011 [facility] [place] [facility] [address] [facility] [id number] [place] [address]238 13 Nov, 2011 [facility] [place] [facility] [address] [id number] [place] [address]67 05 Nov, 2011 [facility] [place] [facility] [address] [id number] [place] [address] Nov, [facility] [place] [facility] [address] [id number] [place] [address] 16[address] 29 Oct, 2011 [facility] [place] [facility] [address] [id number] [place] [address] 28 Oct, 2011 [facility] [place] [facility] [address] [facility] [id number] [place] [address]406 27 Oct, 2011 [facility] [place] [facility] [address] [id number] [place] [address] 7794 22 Oct, 2011 [facility] [address] [id number] [place] [address] 20 Oct, 2011 [facility] [place] [facility] [address] [id number] [place] [address] 2546 14 Oct, 2011 [facility] [address] [id number] [place] [address] 2546 09 Oct, 2011 [facility] [place] [facility] [address] [id number] [place] [address] 2546 08 Oct, 2011 [facility] [place] [facility] [address] [id number] [place] [address] 2546 Oct, [facility] [address] [id number] [place] [address] Sep, [facility] [address] [id number] [place] [address] Sep, [facility] [address] [id number] [place] [address] Sep, [facility] [address] [id number] [place] [address] 100[address] Sep, [facility] [address] [id number] [place] [address] 2549 Sep, [facility] [address] [id number] [place] [address] 2545 Sep, [facility] [address] [id number] [place] [address] 25[address] Aug, [facility] [place] [facility] [address] [id number] [place] [address] 2546 Aug, [facility] [place] [facility] [address] [id number] [place] [address] 2546 Aug, [facility] [place] [facility] [address] [id number] [place] [address] Jul, [facility] [place] [facility] [address] [id number] [place] [address] Jul, [facility] [place] [facility] [address] [id number] [place] [address] Jul, [facility] [place] [facility] [address] [id number] [place] [address] 8[address] Jul, [facility] [place] [facility] [address] [id number] [place] [address] 14[address] Jul, [facility] [place] [facility] [address] [id number] [place] [address] Jun, [facility] [place] [facility] [address] [id number] [place] [address] Jun, [facility] [place] [facility] [address] [id number] [place] [address] 24 Jun, 2011 [facility] [place] [facility] [address] [id number] [address] Jun, [facility] [place] [facility] [address] [id number] [place] [address] 1873 Jun, [facility] [place] [facility] [address] [id number] [address] 15 Apr, 2011 [facility] [place] [facility] [address] [id number] [address] Mar, [facility] [place] [facility] [address] [id number] [address] January, [facility] [place] [facility] [address] [id number] [place] [address] Aug, [facility] [place] [facility] [address] [id number] [address] 17 Aug, 2009 [facility] [place] [facility] [address] [id number] [place] [address] 13 Jun, 2009 [facility] [place] [facility] [address] [facility] [id number] [place] [address] Jun, [facility] [address] [facility] [id number] [place] [address] Aug, IMMUNIZATIONS No Known Immunizations SOCIAL HISTORY Never Assessed REASON FOR VISIT adderall 02/18/2018 PLAN OF CARE VITAL SIGNS MEDICATIONS Medication Instructions Dosage Frequency Start Date End Date Duration Status Adderall 10 mg Orally 3 times a day 1 tablet 8h January, 28 days Active RESULTS No Results PROCEDURES [...] stent Surgical History ruptured eptopic Hospitalization History [place]-multiple admissions Hospitalization History hysterectomy Hospitalization History surgeries Hospitalization History blood transfusion x 2
--- OUTSIDE RECORDS SUMMARY | 2018-06-14 10:13 | XMS REPORT ---
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 [place] [address]- 3898 January, [facility] [address] [id number] [place] [address]- 8272 January, [facility] [address] [id number] [place] [address]- 0936 January, [facility] [address] [id number] [place] [address]- 4227 January, [facility] [address] [id number] [place] [address]- 2401 January, [facility] [address] [id number] [place] [address]- 3272 January, [facility] [address] [id number] [place] [address]- 8602 Dec, [facility] [address] [id number] [place] [address]- 3081 Dec, [facility] [address] [id number] [place] [address]- 6039 Dec, [facility] [address] [id number] [place] [address]- 3783 Dec, [facility] [address] [id number] [place] [address]- 1282 Dec, [facility] [address] [id number] [place] [address]- 9360 Dec, [facility] [address] [id number] [place] [address]- 3551 Nov, [facility] [place] [facility] [address] [id number] [place] [address]- 5099 Nov, [facility] [address] [id number] [place] [address]- 8705 Nov, [facility] [address] [id number] [place] [address]- 8021 Nov, [facility] [address] [id number] [place] [address]- 5287 Nov, [facility] [place] [facility] [address] [id number] [place] [address]- 9879 05 Nov, 2012 [facility] [place] [facility] [address] [id number] [place] [address]- 1603 20 Oct, 2012 [facility] [place] [facility] [address] [id number] [place] [address]- 8965 14 Oct, 2012 [facility] [place] [facility] [address] [id number] [place] [address]- 7048 14 Oct, 2012 [facility] [place] [facility] [address] [id number] [place] [address]- 8767 12 Oct, 2012 [facility] [place] [facility] [address] [id number] [place] [address]- 0349 Oct, [facility] [place] [facility] [address] [id number] [place] [address]- 2926 07 Oct, 2012 [facility] [place] [facility] [address] [id number] [place] [address]- 0465 05 Oct, 2012 [facility] [place] [facility] [address] [id number] [place] [address]- 1584 05 Oct, 2012 [facility] [place] [facility] [address] [id number] [place] [address]- 3537 04 Oct, 2012 [facility] [place] [facility] [address] [id number] [place] [address]- 2483 31 Sep, 2012 [facility] [place] [facility] [address] [id number] [place] [address]- 9243 29 Sep, 2012 [facility] [place] [facility] [address] [id number] [place] [address]- 1299 15 Sep, 2012 [facility] [place] [facility] [address] [facility] [id number] [place] [address]- 6404 14 Sep, 2012 [facility] [place] [facility] [address] [id number] [place] [address]- 1374 08 Sep, 2012 [facility] [place] [facility] [address] [id number] [place] [address]- 5506 03 Sep, 2012 [facility] [place] [facility] [address] [id number] [place] [address]- 1766 18 Aug, 2012 [facility] [place] [facility] [address] [id number] [place] [address]- 9676 18 Aug, 2012 [facility] [place] [facility] [address] [id number] [place] [address]- 6279 18 Aug, 2012 [facility] [place] [facility] [address] [id number] [place] [address]- 8262 18 Aug, 2012 [facility] [place] [facility] [address] [id number] [place] 15 Aug, 2012 [facility] [place] [facility] [address] [id number] [place] [address]- 8543 14 Aug, 2012 [facility] [place] [facility] [address] [id number] [place] [address]- 3324 14 Aug, 2012 [facility] [place] [facility] [address] [id number] [place] [address]- 1324 13 Aug, 2012 [facility] [place] [facility] [address] [id number] [place] [address]- 2615 13 Aug, 2012 [facility] [place] [facility] [address] [id number] [place] [address]- 4066 11 Aug, 2012 [facility] [place] [facility] [address] [id number] [place] [address]- 9956 11 Aug, 2012 [facility] [place] [facility] [address] [id number] [place] [address]- 8676 07 Aug, 2012 [facility] [place] [facility] [address] [id number] [place] [address]- 0596 07 Aug, 2012 [facility] [place] [facility] [address] [id number] [place] [address]- 7554 Aug, [facility] [place] [facility] [address] [id number] [place] [address]- 4956 Aug, [facility] [place] [facility] [address] [id number] [place] [address]- 7653 Aug, [facility] [place] [facility] [address] [id number] [place] [address] Aug, [facility] [place] [facility] [address] [id number] [place] [address]- 1046 Aug, [facility] [place] [facility] [address] [id number] [place] [address]- 5087 Aug, [facility] [place] [facility] [address] [id number] [place] [address]- 0366 Jul, [facility] [place] [facility] [address] [id number] [place] [address]- 6401 Jul, [facility] [place] [facility] [address] [id number] [address]- 2131 Jul, [facility] [place] [facility] [address] [id number] [place] [address]- 0152 Jul, [facility] [place] [facility] [address] [id number] [place] [address]- 5389 Jul, [facility] [place] [facility] [address] [id number] [address]- 3033 Jul, [facility] [place] [facility] [address] [id number] [address]- 8467 Jul, [facility] [place] [facility] [address] [id number] [place] [address]- 9914 Jul, [facility] [place] [facility] [address] [id number] [address]- 7980 Jul, [facility] [place] [facility] [address] [id number] [address]- 4566 Jul, [facility] [place] [facility] [address] [id number] [place] [address]- 5949 07 Jul, 2011 [facility] [place] [facility] [address] [id number] [place] [address]- 2015 07 Jul, 2011 [facility] [place] [facility] [address] [id number] [place] 30 Jun, 2011 [facility] [place] [facility] [address] [id number] [place] [address]- 1768 30 Jun, 2011 [facility] [place] [facility] [address] [id number] [place] [address]- 7071 29 Jun, 2011 [facility] [place] [facility] [address] [id number] [place] [address] Jun, 2011 [facility] [place] [facility] [address] [id number] [place] [address]- 4268 Jun, 2011 [facility] [place] [facility] [address] [facility] [id number] [place] [address]- 2183 18 Jun, 2012 [facility] [place] [facility] [address] [id number] [place] [address]- 3774 17 Jun, 2011 [facility] [place] [facility] [address] [facility] [id number] [place] [address]- 8798 16 Jun, 2011 [facility] [place] [facility] [address] [facility] [id number] [place] [address]- 6355 16 Jun, 2012 [facility] [place] [facility] [address] [facility] [id number] [place] [address]- 5429 Jun, [facility] [place] [facility] [address] [id number] [place] [address]- 1618 Jun, 2011 [facility] [place] [facility] [address] [id number] [place] [address]- 2722 08 Jun, 2012 [facility] [place] [facility] [address] [facility] [id number] [place]69 Jun, [facility] [place] [facility] [address] [facility] [id number] [place] [address]142 Jun, [facility] [place] [facility] [address] [id number] [place] [address]- 1873 24 May, 2012 [facility] [place] [facility] [address] [id number] [place] [address]- 2906 21 May, 2012 [facility] [place] [facility] [address] [id number] [place] [address]- 9584 19 May, 2012 [facility] [place] [facility] [address] [id number] [place] [address], [place] [address]- 3958 18 May, 2012 [facility] [place] [facility] [address] [id number] [place] [address]- 8876 12 May, 2012 [facility] [place] [facility] [address] [id number] [id number] May, [facility] [place] [facility] [address] [id number] [place] [id number] May, [facility] [place] [facility] [address] [id number] [place] [address]- 9897 May, [facility] [place] [facility] [address] [id number] [place] [address]- 0924 29 Apr, 2012 [facility] [place] [facility] [address] [id number] [place] [address]- 6726 Apr, [facility] [place] [facility] [address] [id number] [place] [address]- 2192 Apr, [facility] [place] [facility] [address] [id number] [id number] Apr, [facility] [place] [facility] [address] [id number] [place] [address] Apr, [facility] [place] [facility] [address] [id number] [place] [address]- 4296 Apr, [facility] [place] [facility] [address] [id number] [place] [address]- 0802 Apr, [facility] [place] [facility] [address] [id number] [place]64 Apr, [facility] [place] [facility] [address] [id number] [place] [address]- 4841 Apr, [facility] [place] [facility] [address] [id number] [place] [address]- 8262 Apr, [facility] [place] [facility] [address] [id number] [place] [address]- 5331 Apr, [facility] [place] [facility] [address] [id number] [place] [address]- 8124 Apr, [facility] [place] [facility] [address] [id number] [place] [address]- 3756 Mar, [facility] [place] [facility] [address] [id number] [place] [address]- 3315 Mar, [facility] [place] [facility] [address] [id number] [place] [address]- 9832 Mar, [facility] [place] [facility] [address] [id number] [place] [address]- 5178 Mar, [facility] [place] [facility] [address] [id number] [place] [address]- 3922 Mar, [facility] [place] [facility] [address] [id number] [place] [address]- 5686 Mar, [facility] [place] [facility] [address] [id number] [place] [address]- 8919 Mar, [facility] [place] [facility] [address] [id number] [place] [address]- 2262 Mar, [facility] [place] [facility] [address] [id number] [place] [address]- 7600 Mar, [facility] [place] [facility] [address] [id number] [place] [address]- 8017 Mar, [facility] [place] [facility] [address] [id number] [place] [address]- 3643 Mar, [facility] [place] [facility] [address] [id number] [place] [address]- 0451 15 Mar, 2012 [facility] [place] [facility] [address] [id number] [place] [address]- 2394 13 Mar, 2012 [facility] [place] [facility] [address] [id number] [place] [address]- 2829 11 Mar, 2012 [facility] [place] [facility] [address] [facility] [id number] [place] [address]- 5650 05 Mar, 2012 [facility] [place] [facility] [address] [id number] [place] [address]- 3263 03 Mar, 2012 [facility] [place] [facility] [address] [id number] [place] [address]- 7262 02 Mar, 2012 [facility] [place] [facility] [address] [id number] [place] [address]- 3714 27 Feb, 2012 [facility] [place] [facility] [address] [facility] [id number] [place] [address]- 0876 27 Feb, 2012 [facility] [place] [facility] [address] [id number] [place] [address]- 2308 25 Feb, 2012 [facility] [place] [facility] [address] [facility] [id number] [place] [address]- 4111 19 Feb, 2012 [facility] [place] [facility] [address] [facility] [id number] [place] [address]- 8179 18 Feb, 2012 [facility] [place] [facility] [address] [id number] [place] [address]- 3564 15 Feb, 2012 [facility] [place] [facility] [address] [id number] [place] [address]- 0206 14 Feb, 2012 [facility] [place] [facility] [address] [id number] [place] [address]- 0617 13 Feb, 2012 [facility] [place] [facility] [address] [facility] [id number] [place] [address]- 5149 11 Feb, 2012 [facility] [place] [facility] [address] [facility] [id number] [place] [address] 06 Feb, 2012 [facility] [place] [facility] [address] [id number] [place] [address] Feb, [facility] [place] [facility] [address] [id number] [place] [address] January, [facility] [place] [facility] [address] [id number] [place] [address] January, [facility] [place] [facility] [address] [id number] [place] [address] January, [facility] [place] [facility] [address] [id number] [place] [address] January, [facility] [place] [facility] [address] [id number] [place] [address] January, [facility] [place] [facility] [address] [id number] [place] [address] Dec, [facility] [place] [facility] [address] [id number] [place] [address] Dec, [facility] [place] [facility] [address] [id number] [place] [address] Dec, [facility] [place] [facility] [address] [id number] [place] [address] Dec, [facility] [place] [facility] [address] [id number] [place] [address] Dec, [facility] [place] [facility] [address] [id number] [place] [address] Dec, [facility] [place] [facility] [address] [id number] [place] [address]- 1628 Dec, [facility] [place] [facility] [address] [id number] [place] [address] 16 Dec, 2011 [facility] [place] [facility] [address] [id number] [place] [address] Dec, [facility] [place] [facility] [address] [id number] [place] [address]- [address] 02 Dec, 2011 [facility] [place] [facility] [address] [id number] [place] [address] 4298 29 Nov, 2011 [facility] [place] [facility] [address] [id number] [place] [address] 29 Nov, 2011 [facility] [place] [facility] [address] [id number] [place] [address]- [address] 27 Nov, 2011 [facility] [place] [facility] [address] [id number] [place] [address]- [address]165 26 Nov, 2011 [facility] [place] [facility] [address] [id number] [place] [address]- [address] 23 Nov, 2011 [facility] [place] [facility] [address] [id number] [place] [address]- 5376 22 Nov, 2011 [facility] [place] [facility] [address] [facility] [id number] [place] [address]- 3977 19 Nov, 2011 [facility] [place] [facility] [address] [id number] [place] [address]- 1747 14 Nov, 2011 [facility] [place] [facility] [address] [id number] [place] [address]- [address]204 13 Nov, 2011 [facility] [place] [facility] [address] [facility] [id number] [place] [address]- 2615 13 Nov, 2011 [facility] [place] [facility] [address] [id number] [place] [address]- 1427 05 Nov, 2011 [facility] [place] [facility] [address] [id number] [place] [address] Nov, [facility] [place] [facility] [address] [id number] [place] [address]- 3540 29 Oct, 2011 [facility] [place] [facility] [address] [id number] [place] [address]- 9924 28 Oct, 2011 [facility] [place] [facility] [address] [facility] [id number] [place] [address] 1316 27 Oct, 2011 [facility] [place] [facility] [address] [id number] [place] [address] 4034 22 Oct, 2011 [facility] [address] [id number] [place] [address] 1066 20 Oct, 2011 [facility] [place] [facility] [address] [id number] [place] [address] 2546 14 Oct, 2011 [facility] [address] [id number] [place] [address] 2546 09 Oct, 2011 [facility] [place] [facility] [address] [id number] [place] [address] 2546 08 Oct, 2011 [facility] [place] [facility] [address] [id number] [place] [address] 2546 Oct, [facility] [address] [id number] [place] [address] Sep, [facility] [address] [id number] [place] [address] Sep, [facility] [address] [id number] [place] [address]- [address] Sep, [facility] [address] [id number] [place] [address]228 Sep, [facility] [address] [id number] [place] [address] 254 Sep, [facility] [address] [id number] [place] [address] 254 Sep, [facility] [address] [id number] [place] [address] 2540 Aug, [facility] [place] [facility] [address] [id number] [place] [address] 2546 Aug, [facility] [place] [facility] [address] [id number] [place] [address] 2546 Aug, [facility] [place] [facility] [address] [id number] [place] [address]- 55[address] Jul, [facility] [place] [facility] [address] [id number] [place] [address]- 8305 Jul, [facility] [place] [facility] [address] [id number] [place] [address]- 6468 Jul, [facility] [place] [facility] [address] [id number] [place] [address]- 1282 Jul, [facility] [place] [facility] [address] [id number] [place] [address] Jul, [facility] [place] [facility] [address] [id number] [place] [address] Jun, [facility] [place] [facility] [address] [id number] [place] [address]- 3258 Jun, [facility] [place] [facility] [address] [id number] [place] [address]- 8377 24 Jun, 2011 [facility] [place] [facility] [address] [id number] [address]42 Jun, [facility] [place] [facility] [address] [id number] [place] [address]- 8116 Jun, [facility] [place] [facility] [address] [id number] [place] [address]- [address]041 15 Apr, 2011 [facility] [place] [facility] [address] [id number] [place] [address]- 09[address] Mar, [facility] [place] [facility] [address] [id number] [place] [address] 9794 January, [facility] [place] [facility] [address] [id number] [place] [address]- [address]227 Aug, [facility] [place] [facility] [address] [id number] [place] [address]- [address]7 17 Aug, 2009 [facility] [place] [facility] [address] [id number] [place] [address]- 3095 13 Jun, 2009 [facility] [place] [facility] [address] [facility] [id number] [place] [address] Jun, [facility] [address] [facility] [id number] [place] [address] Aug, IMMUNIZATIONS No Known Immunizations SOCIAL HISTORY Never Assessed REASON FOR VISIT adderall/valium 01/21/2018 PLAN OF CARE VITAL SIGNS MEDICATIONS Medication [...] stent Surgical History ruptured eptopic Hospitalization History [employer]-multiple admissions Hospitalization History hysterectomy Hospitalization History surgeries Hospitalization History blood transfusion x 2
--- OUTSIDE RECORDS SUMMARY | 2018-06-14 10:14 | XMS REPORT ---
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 [address] [id number] [place] [address]- 2555 Dec, [facility] [address] [id number] [place] [address]- 5058 Dec, [facility] [address] [id number] [place] [address]- 4169 Dec, [facility] [address] [id number] [place] [address]- 6291 Nov, [facility] [address] [id number] [place] [address]- 3514 Nov, [facility] [address] [id number] [place] [address]- 0027 Nov, [facility] [address] [id number] [place] [address]- 4350 Nov, [facility] [address] [id number] [place] [address]- 5275 Nov, [facility] [address] [id number] [place] [address]- 4783 05 Nov, 2012 [facility] [address] [id number] [place] [address]- 5334 20 Oct, 2012 [facility] [address] [id number] [place] [address]- 8719 14 Oct, 2012 [facility] [address] [id number] [place] [address]- 8292 14 Oct, 2012 [facility] [address] [id number] [place] [address]- 2547 12 Oct, 2012 [facility] [address] [id number] [place] [address]- 9833 Oct, [facility] [address] [id number] [place] [address]- 2481 07 Oct, 2012 [facility] [address] [id number] [place] [address]- 8013 05 Oct, 2012 [facility] [address] [id number] [place] [address]- 2199 05 Oct, 2012 [facility] [address] [id number] [place] [address]- 3758 04 Oct, 2012 [facility] [address] [id number] [place] [address]- 3703 31 Sep, 2012 [facility] [address] [id number] [place] [address]- 2913 29 Sep, 2012 [facility] [address] [id number] [place] [address]- 2033 15 Sep, 2012 [facility] [address] [facility] [id number] [place] [address]- 2531 14 Sep, 2012 [facility] [address] [id number] [place] [address]- 5283 08 Sep, 2012 [facility] [address] [id number] [place] [address]- 1016 03 Sep, 2012 [facility] [address] [id number] [place] [address]- 4566 18 Aug, 2012 [facility] [address] [id number] [place] [address]- 1516 18 Aug, 2012 [facility] [address] [id number] [place] [address]- 5312 18 Aug, 2012 [facility] [address] [id number] [place] [address]- 1124 18 Aug, 2012 [facility] [address] [id number] [place]37 15 Aug, 2012 [facility] [address] [id number] [place] [address]- 6959 14 Aug, 2012 [facility] [address] [id number] [place] [address]- 2419 14 Aug, 2012 [facility] [address] [id number] [place] [address]- 5027 13 Aug, 2012 [facility] [address] [id number] [place] [address]- 8105 13 Aug, 2012 [facility] [address] [id number] [place] [address]- 4680 11 Aug, 2012 [facility] [address] [id number] [place] [address]- 9466 11 Aug, 2012 [facility] [address] [id number] [place] [address]- 5106 07 Aug, 2012 [facility] [address] [id number] [place] [address]- 1356 07 Aug, 2012 [facility] [address] [id number] [place] [address]- 7699 Aug, [facility] [address] [id number] [place] [address]- 9507 Aug, [facility] [address] [id number] [place] [address]- 0000 Aug, [facility] [address] [id number] [place] [address]853 Aug, [facility] [address] [id number] [place] [address]- 5080 Aug, [facility] [address] [id number] [place] [address]- 5408 Aug, [facility] [address] [id number] [place] [address]- 7720 Jul, [facility] [address] [id number] [place] [address]- 2587 Jul, [facility] [address] [id number] [place] [address]- 5924 Jul, [facility] [address] [id number] [place] [address]- 2181 Jul, [facility] [address] [id number] [place] [address]- 9654 Jul, [facility] [address] [id number] [place] [address]- 0593 Jul, [facility] [address] [id number] [place] [address]- 5976 Jul, [facility] [address] [id number] [place] [address]- 3301 Jul, [facility] [address] [id number] [place] [address]- 8061 Jul, [facility] [address] [id number] [place] [address]- 2152 Jul, [facility] [address] [id number] [place] [address]- 7899 07 Jul, 2011 [facility] [address] [id number] [place] [address]- 0612 07 Jul, 2011 [facility] [address] [id number] [place] 265[address] 30 Jun, 2011 [facility] [address] [id number] [place] [address]- 4120 30 Jun, 2011 [facility] [address] [id number] [place] [address]- 0225 29 Jun, 2011 [facility] [address] [id number] [place] 1629 Jun, 2011 [facility] [address] [id number] [place] [address]- 6727 Jun, 2011 [facility] [address] [facility] [id number] [place] [address]- 6683 18 Jun, 2012 [facility] [address] [id number] [place] [address]- 5802 17 Jun, 2011 [facility] [address] [facility] [id number] [place] [address]- 9340 16 Jun, 2011 [facility] [address] [facility] [id number] [place] [address]- 3447 16 Jun, 2012 [facility] [address] [facility] [id number] [place] [address]- 1488 Jun, [facility] [address] [id number] [place] [address]- 9079 Jun, 2011 [facility] [address] [id number] [place] [address]- 6877 08 Jun, 2012 [facility] [address] [facility] [id number] [place] [address]796 Jun, [facility] [address] [facility] [id number] [place] [address]858 Jun, [facility] [address] [id number] [place] [address]- 6050 24 May, 2012 [facility] [address] [id number] [place] [address]- 7886 21 May, 2012 [facility] [address] [id number] [place] [address]- 3137 19 May, 2012 [facility] [address] [id number] [place] [address], [place] [address]- 7324 18 May, 2012 [facility] [address] [id number] [place] [address]- 9103 12 May, 2012 [facility] [address] [id number] [place] [id number] May, [facility] [address] [id number] [place] [id number] May, [facility] [facility] [address] [id number] [place] [address]- 7997 May, [facility] [facility] [address] [id number] [place] [address]- 5459 29 Apr, 2012 [facility] [facility] [address] [id number] [place] [address]- 1472 Apr, [facility] [place] [facility] [address] [id number] [place] [address]- 3559 Apr, [facility] [address] [id number] [place] [id number] Apr, [facility] [address] [id number] [place] [id number] Apr, [facility] [facility] [address] [id number] [place] [address]- 5293 Apr, [facility] [place] [facility] [address] [id number] [place] [address]- 5884 Apr, [facility] [place] [facility] [address] [id number] [place] 399[address] Apr, [facility] [place] [facility] [address] [id number] [place] [address]- 3565 Apr, [facility] [place] [facility] [address] [id number] [place] [address]- 5717 Apr, [facility] [place] [facility] [address] [id number] [place] [address]- 6232 Apr, [facility] [place] [facility] [address] [id number] [place] [address]- 3460 Apr, [facility] [place] [facility] [address] [id number] [place] [address]- 1889 Mar, [facility] [place] [facility] [address] [id number] [place] [address]- 9168 Mar, [facility] [place] [facility] [address] [id number] [place] [address]- 6690 Mar, [facility] [place] [facility] [address] [id number] [place] [address]- 5147 Mar, [facility] [place] [facility] [address] [id number] [place] [address]- 9311 Mar, [facility] [place] [facility] [address] [id number] [place] [address]- 9068 Mar, [facility] [place] [facility] [address] [id number] [place] [address]- 5601 Mar, [facility] [place] [facility] [address] [id number] [place] [address]- 8071 Mar, [facility] [place] [facility] [address] [id number] [place] [address]- 3675 Mar, [facility] [place] [facility] [address] [id number] [place] [address]- 2667 Mar, [facility] [place] [facility] [address] [id number] [place] [address]- 2988 Mar, [facility] [place] [facility] [address] [id number] [place] [address]- 3043 15 Mar, 2012 [facility] [place] [facility] [address] [id number] [place] [address]- 8398 13 Mar, 2012 [facility] [place] [facility] [address] [id number] [place] [address]- 7200 11 Mar, 2012 [facility] [place] [facility] [address] [facility] [id number] [place] [address]- 8150 05 Mar, 2012 [facility] [place] [facility] [address] [id number] [place] [address]- 5214 03 Mar, 2012 [facility] [place] [facility] [address] [id number] [place] [address]- 5019 02 Mar, 2012 [facility] [place] [facility] [address] [id number] [place] [address]- 8945 27 Feb, 2012 [facility] [place] [facility] [address] [facility] [id number] [place] [address]- 6097 27 Feb, 2012 [facility] [place] [facility] [address] [id number] [place] [address]- 4750 25 Feb, 2012 [facility] [place] [facility] [address] [facility] [id number] [place] [address]- 4660 19 Feb, 2012 [facility] [place] [facility] [address] [facility] [id number] [place] [address]- 5233 18 Feb, 2012 [facility] [place] [facility] [address] [id number] [place] [address]- 5807 15 Feb, 2012 [facility] [place] [facility] [address] [id number] [place] [address]- 0629 14 Feb, 2012 [facility] [place] [facility] [address] [id number] [place] [address]- 8522 13 Feb, 2012 [facility] [place] [facility] [address] [facility] [id number] [place] [address]- 7483 11 Feb, 2012 [facility] [place] [facility] [address] [facility] [id number] [place] [address]- 0166 06 Feb, 2012 [facility] [place] [facility] [address] [id number] [place] [address]- 8262 Feb, [facility] [place] [facility] [address] [id number] [place] [address]- 3995 January, [facility] [place] [facility] [address] [id number] [place] [address]- 8326 January, [facility] [place] [facility] [address] [id number] [place] [address]- 4406 January, [facility] [place] [facility] [address] [id number] [place] [address]- 0878 January, [facility] [place] [facility] [address] [id number] [place] [address]- 6063 January, [facility] [place] [facility] [address] [id number] [place] [address]- 9354 Dec, [facility] [place] [facility] [address] [id number] [place] [address]- 2163 Dec, [facility] [place] [facility] [address] [id number] [place] [address]- 8938 Dec, [facility] [place] [facility] [address] [id number] [place] [address]- 3313 Dec, [facility] [facility] [address] [id number] [place] [address]- 6045 Dec, [facility] [place] [facility] [address] [id number] [place] [address]- 7842 Dec, [facility] [place] [facility] [address] [id number] [place] [address]- 0339 Dec, [facility] [place] [facility] [address] [id number] [place] [address]- 0173 16 Dec, 2011 [facility] [place] [facility] [address] [id number] [place] [address]- 9144 Dec, [facility] [place] [facility] [address] [id number] [place] [address]- 3241 02 Dec, 2011 [facility] [place] [facility] [address] [id number] [place] [address] 29 Nov, 2011 [facility] [place] [facility] [address] [id number] [place] [address] 29 Nov, 2011 [facility] [place] [facility] [address] [id number] [place] [address] 27 Nov, 2011 [facility] [place] [facility] [address] [id number] [place] [address] 26 Nov, 2011 [facility] [place] [facility] [address] [id number] [place] [address] 23 Nov, 2011 [facility] [place] [facility] [address] [id number] [place] [address] 22 Nov, 2011 [facility] [place] [facility] [address] [facility] [id number] [place] [address] 19 Nov, 2011 [facility] [place] [facility] [address] [id number] [place] [address] 14 Nov, 2011 [facility] [place] [facility] [address] [id number] [place] [address]39 13 Nov, 2011 [facility] [place] [facility] [address] [facility] [id number] [place] [address] 13 Nov, 2011 [facility] [place] [facility] [address] [id number] [place] [address] 37[address] 05 Nov, 2011 [facility] [place] [facility] [address] [id number] [place] [address] Nov, [facility] [place] [facility] [address] [id number] [place] [address] 29 Oct, 2011 [facility] [place] [facility] [address] [id number] [place] [address] 38[address] 28 Oct, 2011 [facility] [place] [facility] [address] [facility] [id number] [place] [address] 27 Oct, 2011 [facility] [place] [facility] [address] [id number] [place] [address] 480[address] 22 Oct, 2011 [facility] [address] [id number] [place] [address] 20 Oct, 2011 [facility] [place] [facility] [address] [id number] [place] [address] 2546 14 Oct, 2011 [facility] [address] [id number] [place] [address] 09 Oct, 2011 [facility] [place] [facility] [address] [id number] [place] [address] 2546 08 Oct, 2011 [facility] [place] [facility] [address] [id number] [place] [address] Oct, [facility] [address] [id number] [place] [address] Sep, [facility] [address] [id number] [place] [address] Sep, [facility] [address] [id number] [place] [address] Sep, [facility] [address] [id number] [place] [address] Sep, [facility] [address] [id number] [place] [address] Sep, [facility] [address] [id number] [place] [address] 2548 Sep, [facility] [address] [id number] [place] [address] 2545 Aug, [facility] [place] [facility] [address] [id number] [place] [address] Aug, [facility] [place] [facility] [address] [id number] [place] [address] 25[address] Aug, [facility] [place] [facility] [address] [id number] [place] [address] Jul, [facility] [place] [facility] [address] [id number] [place] [address] Jul, [facility] [place] [facility] [address] [id number] [place] [address] Jul, [facility] [place] [facility] [address] [id number] [place] [address] Jul, [facility] [place] [facility] [address] [id number] [place] [address] Jul, [facility] [place] [facility] [address] [id number] [place] [address] Jun, [facility] [place] [facility] [address] [id number] [place] [address] Jun, [facility] [place] [facility] [address] [id number] [place] [address]42 24 Jun, 2011 [facility] [place] [facility] [address] [id number] [place] [address] Jun, [facility] [place] [facility] [address] [id number] [place] [address] Jun, [facility] [place] [facility] [address] [id number] [place] [address] 15 Apr, 2011 [facility] [place] [facility] [address] [id number] [place] [address] Mar, [facility] [place] [facility] [address] [id number] [place] [address] January, [facility] [place] [facility] [address] [id number] [place] [address] Aug, [facility] [place] [facility] [address] [id number] [place] [address] 17 Aug, 2009 [facility] [place] [facility] [address] [id number] [place] [address] 36[address] 13 Jun, 2009 [facility] [place] [facility] [address] [facility] [id number] [place] [address] Jun, [facility] [address] [facility] [id number] [place] [address] Aug, IMMUNIZATIONS No Known Immunizations SOCIAL HISTORY Never Assessed REASON FOR VISIT Medication refill request PLAN OF CARE VITAL SIGNS MEDICATIONS [...] stent Surgical History ruptured eptopic Hospitalization History [place]-multiple admissions Hospitalization History hysterectomy Hospitalization History surgeries Hospitalization History blood transfusion x 2
--- OUTSIDE RECORDS SUMMARY | 2018-06-14 10:15 | XMS REPORT ---
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 [facility] [address] [id number] [place] [address] 6772 January, [facility] [address] [id number] [place] [address]- 3980 January, [facility] [address] [id number] [place] [address]- 7741 January, [facility] [address] [id number] [place] [address]- 4184 January, [facility] [address] [id number] [place] [address]- 0428 January, [facility] [address] [id number] [place] [address]- 9937 January, [facility] [address] [id number] [place] [address] 3335 January, [facility] [address] [id number] [place] [address]- 0764 January, [facility] [address] [id number] [place] [address]- 0834 January, [facility] [address] [id number] [place] [address]- 7780 January, [facility] [address] [id number] [place] [address]- 4423 January, [facility] [address] [id number] [place] [address]- 0872 January, [facility] [address] [id number] [place] [address]- 5080 Dec, [facility] [address] [id number] [place] [address]- 6572 Dec, [facility] [address] [id number] [place] [address]- 7155 Dec, [facility] [address] [id number] [place] [address]- 6784 16 Dec, 2012 [facility] [address] [id number] [place] [address]- 1720 15 Dec, 2012 [facility] [address] [id number] [place] [address]- 5302 Dec, [facility] [place] [facility] [address] [id number] [place] [address] 7631 Nov, [facility] [address] [id number] [place] [address]- 1734 Nov, [facility] [address] [id number] [place] [address]- 9778 20 Nov, 2012 [facility] [address] [id number] [place] [address]- 4366 Nov, [facility] [place] [facility] [address] [id number] [place] [address]- 2756 Nov, [facility] [place] [facility] [address] [facility] [id number] [place] [address]- 8900 Nov, [facility] [place] [facility] [address] [id number] [place] [address]- 4498 20 Oct, 2012 [facility] [place] [facility] [address] [id number] [place] [address]- 5286 14 Oct, 2012 [facility] [place] [facility] [address] [id number] [place] [address]- 8101 14 Oct, 2012 [facility] [place] [facility] [address] [facility] [id number] [place] [address]- 3484 12 Oct, 2012 [facility] [place] [facility] [address] [id number] [place] [address]- 6717 11 Oct, 2012 [facility] [place] [facility] [address] [facility] [id number] [place] [address]- 1792 07 Oct, 2012 [facility] [place] [facility] [address] [facility] [id number] [place] [address]- 4071 05 Oct, 2012 [facility] [place] [facility] [address] [facility] [id number] [place] [address]- 5302 05 Oct, 2012 [facility] [place] [facility] [address] [facility] [id number] [place] [address]- 2154 04 Oct, 2012 [facility] [place] [facility] [address] [id number] [place] [address]- 8739 31 Sep, 2012 [facility] [place] [facility] [address] [facility] [id number] [place] [address]- 5219 29 Sep, 2012 [facility] [place] [facility] [address] [facility] [id number] [place] [address]- 8866 15 Sep, 2012 [facility] [address] [id number] [place] [address]- 2707 14 Sep, 2012 [facility] [place] [facility] [address] [id number] [place] [address]- 9462 08 Sep, 2012 [facility] [place] [facility] [address] [id number] [place] [address]- 9339 03 Sep, 2012 [facility] [place] [facility] [address] [id number] [place] [address]- 6986 18 Aug, 2012 [facility] [address] [id number] [place] [address]- 9062 18 Aug, 2012 [facility] [place] [facility] [address] [id number] [place] [address]- 5159 18 Aug, 2012 [facility] [address] [id number] [place] [address]- 7818 18 Aug, 2012 [facility] [address] [id number] [place] [address]- 3515 15 Aug, 2012 [facility] [place] [facility] [address] [id number] [place] [address]- 3316 14 Aug, 2012 [facility] [place] [facility] [address] [id number] [place] [address]- 4166 14 Aug, 2012 [facility] [place] [facility] [address] [id number] [place] [address]- 7943 13 Aug, 2012 [facility] [place] [facility] [address] [id number], [place] [address]- 5712 13 Aug, 2012 [facility] [place] [facility] [address] [id number] [place] [address]- 8943 11 Aug, 2012 [facility] [place] [facility] [address] [id number] [place] [address]- 2380 11 Aug, 2012 [facility] [place] [facility] [address] [id number] [place] [address]- 4077 07 Aug, 2012 [facility] [place] [facility] [address] [id number] [address]- 9371 Aug, [facility] [place] [facility] [address] [id number] [place] [address]- 5905 Aug, [facility] [place] [facility] [address] [id number] [place] [address]- 7756 Aug, [facility] [place] [facility] [address] [id number] [place] [address]- 5602 Aug, [facility] [place] [facility] [address] [id number] [place] [address]- 2191 Aug, [facility] [place] [facility] [address] [id number] [place] [address]- 2045 Aug, [facility] [place] [facility] [address] [id number] [place] [address]- 0475 Aug, [facility] [place] [facility] [address] [id number] [place] [address]- 7369 Jul, [facility] [place] [facility] [address] [id number] [place] [address]- 1725 Jul, [facility] [place] [facility] [address] [facility] [id number] [place] [address]- 1027 Jul, [facility] [place] [facility] [address] [facility] [id number] [place] [address]- 1887 Jul, [facility] [place] [facility] [address] [facility] [id number], [place] [address]- 9449 Jul, [facility] [place] [facility] [address] [id number], [place] [address]- 0338 14 Jul, 2012 [facility] [place] [facility] [address] [id number] [place] [address]- 7731 Jul, [facility] [place] [facility] [address] [facility] [id number] [place] [address]- 1762 Jul, [facility] [place] [facility] [address] [facility] [id number] [place] [address]- 5160 Jul, [facility] [place] [facility] [address] [id number] [place] [address]- 7779 08 Jul, 2011 [facility] [place] [facility] [address] [id number] [place] [address]- 5090 07 Jul, 2011 [facility] [place] [facility] [address] [id number] [place] [address] 2542 07 Jul, 2011 [facility] [place] [facility] [address] [id number] [place] [address]- 5569 30 Jun, 2011 [facility] [place] [facility] [address] [id number] [place] [address]- 0569 30 Jun, 2012 [facility] [place] [facility] [address] [id number] [place] [address]- 2616 29 Jun, 2012 [facility] [place] [facility] [address] [id number] [place] [address]- 3290 Jun, [facility] [place] [facility] [address] [id number] [place] [address]- 3175 Jun, [facility] [place] [facility] [address] [id number] [place] [address]- 3761 18 Jun, 2012 [facility] [place] [facility] [address] [id number] [place] [address]- 1152 17 Jun, 2012 [facility] [place] [facility] [address] [facility] [id number] [place] [address] 16 Jun, 2012 [facility] [place] [facility] [address] [id number] [place] [address]- 1951 16 Jun, 2012 [facility] [place] [facility] [address] [id number] [place] [address]- 3917 Jun, [facility] [place] [facility] [address] [id number] [place] [address]- 4376 Jun, [facility] [place] [facility] [address] [facility] [id number] [place] [address]- 2039 08 Jun, 2012 [facility] [place] [facility] [address] [id number] [place] [address]- 2566 Jun, [facility] [place] [facility] [address] [id number] [place] 0291 Jun, [facility] [place] [facility] [address] [id number] [place] [address]- 6238 24 May, 2012 [facility] [place] [facility] [address] [id number] [place] [address]- 3694 21 May, 2012 [facility] [place] [facility] [address] [id number] [place] [address]- 0978 19 May, 2012 [facility] [place] [facility] [address] [id number] [place] [address]- 1905 18 May, 2012 [facility] [place] [facility] [address] [id number] [place] [address]- 0596 May, [facility] [place] [facility] [address] [id number] [id number] May, [facility] [place] [facility] [address] [id number][place] [address] May, [facility] [place] [facility] [address] [id number] [place] [address]- 6647 May, [facility] [place] [facility] [address] [id number], [place] [address]- 5016 Apr, [facility] [place] [facility] [address] [id number], [place] [address]- 9681 Apr, [facility] [place] [facility] [address] [id number], [place] [address]- 4189 Apr, [facility] [place] [facility] [address] [id number][place] [address] Apr, [facility] [place] [facility] [address] [id number][place] [id number] Apr, [facility] [place] [facility] [address] [id number], [place] [address]- 9661 Apr, [facility] [place] [facility] [address] [id number], [place] [address]- 6702 Apr, [facility] [place] [facility] [address] [id number] [place] [address]- 8914 Apr, [facility] [place] [facility] [address] [id number] [place] [address]- 5455 Apr, [facility] [place] [facility] [address] [id number] [place] [address]- 5493 Apr, [facility] [place] [facility] [address] [id number] [place] [address]- 6960 Apr, [facility] [place] [facility] [address] [id number] [place] [address]- 1850 Apr, [facility] [place] [facility] [address] [id number] [place] [address]- 3415 Mar, [facility] [place] [facility] [address] [id number] [place] [address]- 3765 Mar, [facility] [place] [facility] [address] [id number] [place] [address]- 8492 Mar, [facility] [place] [facility] [address] [id number] [place] [address]- 0416 Mar, [facility] [place] [facility] [address] [id number] [place] [address]- 1025 Mar, [facility] [place] [facility] [address] [id number] [place] [address]- 7193 Mar, [facility] [place] [facility] [address] [id number] [place] [address]- 7530 Mar, [facility] [place] [facility] [address] [id number] [place] [address]- 4799 Mar, [facility] [place] [facility] [address] [id number] [place] [address]- 3085 Mar, [facility] [place] [facility] [address] [id number] [place] [address]- 5417 Mar, [facility] [place] [facility] [address] [id number] [place] [address]- 8963 17 Mar, 2012 [facility] [address] [id number] [place] [address]- 3452 15 Mar, 2012 [facility] [place] [facility] [address] [id number] [place] [address]- 2546 13 Mar, 2012 [facility] [address] [id number] [place] [address]- 0240 11 Mar, 2012 [facility] [place] [facility] [address] [id number] [place] [address]- 2545 05 Mar, 2012 [facility] [address] [id number] [place] [address]- 9753 03 Mar, 2012 [facility] [place] [facility] [address] [id number] [place] [address]- 6190 02 Mar, 2012 [facility] [place] [facility] [address] [id number] [place] [address]- 3574 27 Feb, 2012 [facility] [place] [facility] [address] [id number] [place] [address]- 3197 27 Feb, 2012 [facility] [place] [facility] [address] [id number] [place] [address]- 0506 25 Feb, 2012 [facility] [place] [facility] [address] [id number] [place] [address]- 8847 19 Feb, 2012 [facility] [place] [facility] [address] [id number] [place] [address]- 2543 18 Feb, 2012 [facility] [place] [facility] [address] [id number] [place] [address]- 2540 15 Feb, 2012 [facility] [place] [facility] [address] [id number] [place] [address]- 4099 14 Feb, 2012 [facility] [place] [facility] [address] [id number] [place] [address]- 2543 13 Feb, 2012 [facility] [place] [facility] [address] [id number] [place] [address]- 1053 Feb, [facility] [address] [id number] [place] [address]- 3802 Feb, [facility] [place] [facility] [address] [id number] [place] [address]- 9789 Feb, [facility] [place] [facility] [address] [id number] [place] [address]- 0283 January, [facility] [place] [facility] [address] [id number] [place] [address]- 3800 January, [facility] [place] [facility] [address] [id number] [place] [address]- 6517 January, [facility] [place] [facility] [address] [id number] [place] [address]- 4869 January, [facility] [place] [facility] [address] [id number] [place] [address]- 6965 January, [facility] [place] [facility] [address] [id number] [place] [address]- 6722 Dec, [facility] [place] [facility] [address] [id number] [place] [address]- 7783 Dec, [facility] [place] [facility] [address] [id number] [place] [address]- 1846 Dec, [facility] [place] [facility] [address] [id number] [place] [address]- 6066 Dec, [facility] [place] [facility] [address] [id number], [place] [address]- 7586 24 Dec, 2011 [facility] [place] [facility] [address] [id number] [place] [address]- 9563 Dec, [facility] [place] [facility] [address] [id number] [place] [address]- 2703 Dec, [facility] [place] [facility] [address] [id number] [place] [address]- 6062 16 Dec, 2011 [facility] [place] [facility] [address] [id number] [place] [address]- 9343 09 Dec, 2011 [facility] [address] [id number] [place] [address]- 7436 02 Dec, 2011 [facility] [place] [facility] [address] [id number] [place] [address]- 6296 29 Nov, 2011 [facility] [address] [id number] [place] [address]- 6521 29 Nov, 2011 [facility] [place] [facility] [address] [id number] [place] [address]- 2869 27 Nov, 2011 [facility] [address] [id number] [place] [address]- 0409 26 Nov, 2011 [facility] [place] [facility] [address] [id number] [place] [address]- 7264 23 Nov, 2011 [facility] [address] [facility] [id number] [place] [address]- 7784 22 Nov, 2011 [facility] [place] [facility] [address] [facility] [id number] [place] [address]- 7584 19 Nov, 2011 [facility] [address] [id number] [place] [address] 14 Nov, 2011 [facility] [place] [facility] [address] [facility] [id number] [place] [address] 13 Nov, 2011 [facility] [place] [facility] [address] [id number] [place] [address] 13 Nov, 2011 [facility] [place] [facility] [address] [id number] [place] [address] 05 Nov, 2011 [facility] [place] [facility] [address] [id number] [place] [address] 01 Nov, 2011 [facility] [place] [facility] [address] [facility] [id number] [place] [address] 29 Oct, 2011 [facility] [place] [facility] [address] [facility] [id number] [place] [address] 28 Oct, 2011 [facility] [place] [facility] [address] [id number] [place] [address] 27 Oct, 2011 [facility] [place] [facility] [address] [id number] [place] [address] Oct, [facility] [place] [facility] [address] [id number] [place] [address] 2546 20 Oct, 2011 [facility] [place] [facility] [address] [id number] [place] [address] 14 Oct, 2011 [facility] [place] [facility] [address] [id number] [place] [address] Oct, [facility] [place] [facility] [address] [id number] [place] [address] 08 Oct, 2011 [facility] [place] [facility] [address] [id number] [place] [address] Oct, [facility] [place] [facility] [address] [id number] [place] [address] Sep, [facility] [place] [facility] [address] [id number] [place] [address] Sep, [facility] [place] [facility] [address] [id number] [place] [address] Sep, [facility] [place] [facility] [address] [id number] [place] [address] Sep, [facility] [place] [facility] [address] [id number], [place] [address] Sep, [facility] [place] [facility] [address] [id number] [place] [address] Sep, [facility] [place] [facility] [address] [id number] [place] [address] Aug, [facility] [place] [facility] [address] [id number] [place] [address] Aug, [facility] [place] [facility] [address] [id number], [place] [address] 12 Aug, 2011 [facility] [place] [facility] [address] [id number] [place] [address] 29 Jul, 2011 [facility] [place] [facility] [address] [id number] [place] [address] 29 Jul, 2011 [facility] [place] [facility] [address] [id number] [place] [address] 28 Jul, 2011 [facility] [place] [facility] [address] [id number] [place] [address] 14 Jul, 2011 [facility] [place] [facility] [address] [id number] [place] [address] Jul, [facility] [place] [facility] [address] [id number] [place] [address] 28 Jun, 2011 [facility] [place] [facility] [address] [id number] [place] [address] 28 Jun, 2011 [facility] [place] [facility] [address] [id number] [place] [address]- 2480 24 Jun, 2011 [facility] [place] [facility] [address] [facility] [id number] [place] [address] 10 Jun, 2011 [facility] [place] [facility] [address] [facility] [id number] [place] [address]- [address] 10 Jun, 2011 [facility] [place] [facility] [address] [id number] [place] [address] 15 Apr, 2011 [facility] [place] [facility] [address] [id number], [place] [address] 14 Mar, 2011 [facility] [place] [facility] [address] [id number] [place] [address] January, [facility] [place] [facility] [address] [facility] [id number] [place] [address] 29 Aug, 2009 [facility] [place] [facility] [address] [facility] [id number] [place] [address] 17 Aug, 2009 [facility] [place] [facility] [address] [facility] [id number] [place] [address] Jun, [facility] [address] [facility] [id number], [place] [address] Jun, [facility] [address] [facility] [id number] [place] [address] Aug, IMMUNIZATIONS No Known Immunizations SOCIAL HISTORY Never Assessed REASON FOR VISIT f/u Anibal, Calendar of stimulant due dates prepared in red notebook PLAN OF CARE Activity Details Follow Up 3 Months Reason:BH f/u Pending Test PDM - AMPHETAMINES W/ REFLEX d/l ISOMERS VITAL SIGNS Height 69 in 2018-01-14 Weight 224.0 lbs 2018-01-14 Heart Rate 88 bpm 2018-01-14 Respiratory Rate 24 2018-01-14 BMI 33.08 kg/m2 2018-01-14 Blood pressure systolic 146 mmHg 2018-01-14 Blood pressure diastolic 88 mmHg 2018-01-14 MEDICATIONS Medication Instructions Dosage Frequency Start Date End Date Duration Status Seroquel 400 mg Orally Once a day 2 tablets at bedtime 24h Active Ranitidine HCl 150 MG Orally twice a day 1 tablet at bedtime 12h Aug, 30 day(s) Active 27-1 MG Orally Once a day 1 tablets 24h Jun, 30 days Active Voltaren 1 % Topically 4 times a day APPLY 4 GRAMS as needed for back pain 6h 7 Not-Taking Neurontin 400 mg Orally 3 times a day 3 capsules 8h 30 Active Prazosin HCl 5 MG TAKE TWO CAPSULES BY MOUTH ONCE DAILY AT BEDTIME 30 Active Adderall 10 mg Orally 3 times a day 1 tablet 8h 05 Dec, 2017 28 days Active Estrogens Conjugated Active Meclizine HCl 25 MG Orally Once a day 1 tablet as needed 24h Mar, 20 days Not-Taking Valium 5 mg Orally Twice a day 1 tablet as needed 12h 30 days Active RESULTS No Results PROCEDURES Procedure Date Ordered Result Body Site LAB NOT BILLED BY [facility] January 14, 2018 [facility] ESTABLISHED PATIENT January 14, 2018 INSTRUCTIONS MEDICATIONS ADMINISTERED No Known Medications MEDICAL [...] stent Surgical History ruptured eptopic Hospitalization History [facility]-multiple admissions Hospitalization History hysterectomy Hospitalization History surgeries Hospitalization History blood transfusion x 2
--- OUTSIDE RECORDS SUMMARY | 2018-06-14 10:16 | XMS REPORT ---
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 [address]- 7486 January, [facility] [address] [id number] [place] [address]- 5415 Dec, [facility] [address] [id number] [place] [address]- 4758 Dec, [facility] [address] [id number] [place] [address]- 5506 Dec, [facility] [address] [id number] [place] [address]- 0026 16 Dec, 2012 [facility] [address] [id number] [place] [address]- 0613 Dec, [facility] [address] [id number] [place] [address]- 5848 Dec, [facility] [address] [id number] [place] [address]- 6227 Nov, [facility] [place] [facility] [address] [id number] [place] [address]- 9526 Nov, [facility] [address] [id number] [place] [address]- 9723 Nov, [facility] [place] [facility] [address] [id number], [place] [address]- 3920 Nov, [facility] [place] [facility] [address] [id number] [place] [address]- 9859 Nov, [facility] [place] [facility] [address] [id number] [place] [address]- 7018 Nov, [facility] [place] [facility] [address] [id number] [place] [address]- 2917 Oct, [facility] [place] [facility] [address] [id number] [place] [address]- 3816 14 Oct, 2012 [facility] [address] [id number] [place] [address]- 2526 14 Oct, 2012 [facility] [place] [facility] [address] [id number] [place] [address]- 2546 12 Oct, 2012 [facility] [place] [facility] [address] [id number] [place] [address] 2546 11 Oct, 2012 [facility] [place] [facility] [address] [id number] [place] [address]- 2549 07 Oct, 2012 [facility] [place] [facility] [address] [id number] [place] [address]- 9185 05 Oct, 2012 [facility] [address] [id number] [place] [address]- 7485 05 Oct, 2012 [facility] [place] [facility] [address] [id number] [place] [address]- 6788 04 Oct, 2012 [facility] [address] [id number] [place] [address]- 4194 Sep, [facility] [address] [id number] [place] [address]- 0131 29 Sep, 2012 [facility] [place] [facility] [address] [id number] [place] [address]- 3962 15 Sep, 2012 [facility] [place] [facility] [address] [id number] [place] [address]- 4381 14 Sep, 2012 [facility] [place] [facility] [address] [id number] [place] [address]- 3557 Sep, [facility] [place] [facility] [address] [id number] [place] [address]- 7401 Sep, [facility] [place] [facility] [address] [id number] [place] [address]- 1679 18 Aug, 2012 [facility] [place] [facility] [address] [id number], [place] [address]- 6924 18 Aug, 2012 [facility] [place] [facility] [address] [id number] [place] [address]- 5837 18 Aug, 2012 [facility] [place] [facility] [address] [id number] [place] [address]- 0866 18 Aug, 2012 [facility] [place] [facility] [address] [id number] [place] [address]- 4616 15 Aug, 2012 [facility] [place] [facility] [address] [id number] [place] [address]- 7736 14 Aug, 2012 [facility] [place] [facility] [address] [id number] [place] [address]- 4185 14 Aug, 2012 [facility] [place] [facility] [address] [id number] [place] [address]- 5422 13 Aug, 2012 [facility] [place] [facility] [address] [id number] [place] [address]- 7547 13 Aug, 2012 [facility] [place] [facility] [address] [id number] [place] [address]- 8889 11 Aug, 2012 [facility] [place] [facility] [address] [id number] [place] [address]- 7186 11 Aug, 2012 [facility] [place] [facility] [address] [id number] [place] [address]- 1564 07 Aug, 2012 [facility] [place] [facility] [address] [id number] [place] [address]- 5020 07 Aug, 2012 [facility] [place] [facility] [address] [id number], [place] [address]- 3203 06 Aug, 2012 [facility] [place] [facility] [address] [id number] [place] [address]- 9659 06 Aug, 2012 [facility] [place] [facility] [address] [id number] [place] [address]- 6064 06 Aug, 2012 [facility] [place] [facility] [address] [id number] [place] [address]- 6352 06 Aug, 2012 [facility] [place] [facility] [address] [id number] [place] [address]- 6331 Aug, [facility] [place] [facility] [address] [id number] [place] [address]- 5985 Aug, [facility] [place] [facility] [address] [id number] [place] [address]- 2227 Jul, [facility] [place] [facility] [address] [id number] [place] [address]- 3795 Jul, [facility] [place] [facility] [address] [id number] [place] [address]- 8217 Jul, [facility] [place] [facility] [address] [id number] [place] [address], [place] [address]- 0982 Jul, [facility] [place] [facility] [address] [id number] [place] [address]- 2324 Jul, [facility] [place] [facility] [address] [facility] [id number] [place] [address]- 0089 Jul, [facility] [place] [facility] [address] [id number] [place] [address]- 3688 Jul, [facility] [place] [facility] [address] [facility] [id number] [place] [address]- 8112 Jul, [facility] [place] [facility] [address] [facility] [id number] [place] [address]- 2327 Jul, [facility] [place] [facility] [address] [id number] [place] [address]- 3504 Jul, [facility] [place] [facility] [address] [id number] [place] [address]- 6267 Jul, [facility] [place] [facility] [address] [id number] [place] [address]- 9051 Jul, [facility] [place] [facility] [address] [facility] [id number] [place] [address]- 2580 Jun, [facility] [place] [facility] [address] [id number] [place] [address]- 7076 Jun, [facility] [place] [facility] [address] [id number] [place] [address]- 1530 29 Jun, 2012 [facility] [place] [facility] [address] [id number] [place] [address]- 2225 Jun, [facility] [place] [facility] [address] [id number] [place] [address]- 9085 Jun, [facility] [place] [facility] [address] [id number] [place] [address]- 8819 Jun, [facility] [place] [facility] [address] [id number] [place] [address]- 9450 17 Jun, 2012 [facility] [place] [facility] [address] [id number] [place] [address]- 1256 Jun, [facility] [place] [facility] [address] [facility] [id number] [place] [address]- 6050 Jun, [facility] [place] [facility] [address] [id number], [place] [address]- 8592 Jun, [facility] [place] [facility] [address] [facility] [id number], [place] [address]- 7212 Jun, [facility] [place] [facility] [address] [facility] [id number], [place] [address]- 4521 Jun, [facility] [place] [facility] [address] [facility] [id number], [place] [address]- 1999 Jun, [facility] [place] [facility] [address] [id number], [place] [address]- 9701 Jun, [facility] [place] [facility] [address] [id number], [place] [address]- 3871 24 May, 2012 [facility] [place] [facility] [address] [id number], [place] [address]- 3929 21 May, 2012 [facility] [place] [facility] [address] [facility] [id number] 3422 19 May, 2012 [facility] [place] [facility] [address] [id number], [place] [address]- 3544 18 May, 2012 [facility] [place] [facility] [address] [id number] [place] [address]- 2165 May, [facility] [place] [facility] [address] [id number][place] [address] May, [facility] [place] [facility] [address] [id number][place] [id number] May, [facility] [place] [facility] [address] [id number], [place] [address]- 7932 May, [facility] [place] [facility] [address] [id number] [place] [address]- 9266 Apr, [facility] [place] [facility] [address] [id number] [place] [address]- 7958 Apr, [facility] [place] [facility] [address] [id number], [place] [address]- 1127 Apr, [facility] [place] [facility] [address] [id number][place] [id number] Apr, [facility] [place] [facility] [address] [id number][place] [id number] Apr, [facility] [place] [facility] [address] [id number], [place] [address]- 0808 Apr, [facility] [place] [facility] [address] [id number], [place] [address]- 9722 Apr, [facility] [place] [facility] [address] [id number], [place] [address]- 6159 Apr, [facility] [place] [facility] [address] [id number] [place] [address]- 2099 14 Apr, 2012 [facility] [place] [facility] [address] [id number][place] [address]22 Apr, [facility] [place] [facility] [address] [id number], [place] [address]- 8074 Apr, [facility] [place] [facility] [address] [id number] [place] [address]- 8913 Apr, [facility] [place] [facility] [address] [id number] [place] [address]- 3186 Mar, [facility] [place] [facility] [address] [id number] [place] [address]- 6346 Mar, [facility] [place] [facility] [address] [id number] [place] [address]- 6276 Mar, [facility] [place] [facility] [address] [id number] [place] [address]- 6496 Mar, [facility] [place] [facility] [address] [id number] [place] [address]- 0975 Mar, [facility] [place] [facility] [address] [id number] [place] [address]- 1636 Mar, [facility] [place] [facility] [address] [id number] [place] [address]- 6959 Mar, [facility] [place] [facility] [address] [id number] [place] [address]- 9313 Mar, [facility] [place] [facility] [address] [id number] [place] [address]- 3573 Mar, [facility] [place] [facility] [address] [id number] [place] [address]- 2932 Mar, [facility] [place] [facility] [address] [id number] [place] [address]- 8336 Mar, [facility] [place] [facility] [address] [id number] [place] [address]- 2541 15 Mar, 2012 [facility] [place] [facility] [address] [id number] [place] [address]- 6531 13 Mar, 2012 [facility] [place] [facility] [address] [id number] [place] [address]- 2546 Mar, [facility] [place] [facility] [address] [id number] [place] [address]- 6038 05 Mar, 2012 [facility] [place] [facility] [address] [id number] [place] [address]- 2772 Mar, [facility] [place] [facility] [address] [id number] [place] [address]- 3069 Mar, [facility] [place] [facility] [address] [id number] [place] [address]- 9777 Feb, [facility] [place] [facility] [address] [id number] [place] [address]- 6884 27 Feb, 2012 [facility] [place] [facility] [address] [id number] [place] [address]- 1920 25 Feb, 2012 [facility] [place] [facility] [address] [id number] [place] [address]- 1682 19 Feb, 2012 [facility] [place] [facility] [address] [id number] [place] [address]- 3389 18 Feb, 2012 [facility] [place] [facility] [address] [id number] [place] [address]- 3659 15 Feb, 2012 [facility] [place] [facility] [address] [id number] [place] [address]- 3849 14 Feb, 2012 [facility] [place] [facility] [address] [id number] [place] [address]- 7188 13 Feb, 2012 [facility] [place] [facility] [address] [id number] [place] [address]- 1984 Feb, [facility] [place] [facility] [address] [id number] [place] [address]- 9679 06 Feb, 2012 [facility] [place] [facility] [address] [id number] [place] [address]- 8092 05 Feb, 2012 [facility] [place] [facility] [address] [id number] [place] [address]- 4935 January, [facility] [place] [facility] [address] [id number] [place] [address]- 6036 January, [facility] [place] [facility] [address] [id number] [place] [address]- 6994 January, [facility] [address] [id number] [place] [address]- 0218 January, [facility] [place] [facility] [address] [id number] [place] [address]- 8136 January, [facility] [place] [facility] [address] [id number] [place] [address] Dec, [facility] [place] [facility] [address] [id number] [place] [address] Dec, [facility] [facility] [address] [id number] [place] [address] Dec, [facility] [place] [facility] [address] [id number] [place] [address] Dec, [facility] [place] [facility] [address] [id number] [place] [address] Dec, [facility] [place] [facility] [address] [id number] [place] [address] Dec, [facility] [place] [facility] [address] [id number] [place] [address] Dec, [facility] [place] [facility] [address] [id number] [place] [address] Dec, [facility] [place] [facility] [address] [id number] [place] [address] Dec, [facility] [place] [facility] [address] [id number] [place] [address] Dec, [facility] [place] [facility] [address] [id number] [place] [address] Nov, [facility] [place] [facility] [address] [id number] [place] [address] Nov, [facility] [place] [facility] [address] [id number] [place] [address] Nov, [facility] [place] [facility] [address] [id number] [place] [address] 26 Nov, 2011 [facility] [address] [id number] [place] [address] 23 Nov, 2011 [facility] [place] [facility] [address] [id number] [place] [address] 22 Nov, 2011 [facility] [address] [id number] [place] [address] 4936 19 Nov, 2011 [facility] [place] [facility] [address] [id number] [place] [address]- [address] 14 Nov, 2011 [facility] [address] [id number] [place] [address]89 13 Nov, 2011 [facility] [address] [id number] [place] [address]- [address] 13 Nov, 2011 [facility] [address] [id number] [place] [address] 3974 05 Nov, 2011 [facility] [address] [id number] [place] [address] 01 Nov, 2011 [facility] [facility] [address] [id number] [place] [address] 2000 29 Oct, 2011 [facility] [address] [facility] [id number] [place] [address] 28 Oct, 2011 [facility] [facility] [address] [id number] [place] [address]159 27 Oct, 2011 [facility] [facility] [address] [id number] [place] [address] 22 Oct, 2011 [facility] [place] [facility] [address] [id number] [place] [address]236 20 Oct, 2011 [facility] [address] [id number] [place] [address] 14 Oct, 2011 [facility] [place] [facility] [address] [id number] [place] [address] 2068 Oct, [facility] [place] [facility] [address] [id number] [place] [address]276 Oct, [facility] [place] [facility] [address] [id number] [place] [address] Oct, [facility] [place] [facility] [address] [id number] [place] [address]64 Sep, [facility] [place] [facility] [address] [id number] [place] [address] 1623 Sep, [facility] [place] [facility] [address] [id number] [place] [address]- 1828 Sep, [facility] [place] [facility] [address] [id number] [place] [address] Sep, [facility] [place] [facility] [address] [id number] [place] [address]- 5063 Sep, [facility] [place] [facility] [address] [id number] [place] [address] Sep, [facility] [place] [facility] [address] [id number] [place] [address]- [address] Aug, [facility] [place] [facility] [address] [id number] [place] [address]- [address]279 Aug, [facility] [place] [facility] [address] [id number] [place] [address]70 Aug, [facility] [place] [facility] [address] [id number] [place] [address] Jul, [facility] [place] [facility] [address] [id number] [place] [address]- 8936 Jul, [facility] [place] [facility] [address] [id number] [place] [address]- 9187 28 Jul, 2011 [facility] [place] [facility] [address] [id number] [place] [address] 3313 14 Jul, 2011 [facility] [place] [facility] [address] [id number] [address] Jul, [facility] [address] [facility] [id number], [place] [address] Jun, [facility] [address] [facility] [id number], [place] [address] Jun, [facility] [id number] [address] [address] Jun, [facility] [address] [facility] [id number], [place] [address] Jun, [facility] [id number] [place] [address] Jun, [facility] [id number], [place] [address] Apr, [facility] [id number] [place] [address] Mar, [facility] [id number], [place] [address] January, [facility] [id number] [address] Aug, [facility] [id number], [place] [address] Aug, [facility] [address], [place] [address] Jun, [facility] [address], [place] [address] Jun, [facility] [address], [place] [address] Aug, IMMUNIZATIONS No Known Immunizations SOCIAL HISTORY [...] stent Surgical History ruptured eptopic Hospitalization History [facility]multiple admissions Hospitalization History hysterectomy Hospitalization History surgeries Hospitalization History blood transfusion x 2
--- OUTSIDE RECORDS SUMMARY | 2018-06-14 10:17 | XMS REPORT ---
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 [address] [id number] [place] [address]- 9026 January, [facility] [address] [id number] [place] [address]- 0393 Dec, [facility] [address] [id number] [place] [address]- 6003 Dec, [facility] [address] [id number] [place] [address]- 1026 Dec, [facility] [address] [id number] [place] [address]- 2354 Dec, [facility] [address] [id number] [place] [address]- 0904 Dec, [facility] [address] [id number] [place] [address]- 3525 Dec, [facility] [address] [id number] [place] [address]- 2044 Nov, [facility] [place] [facility] [address] [id number] [place] [address]- 3893 Nov, [facility] [address] [id number], [place] [address]- 8091 Nov, [facility] [place] [facility] [address] [id number], [place] [address]- 7152 Nov, [facility] [place] [facility] [address] [id number] [place] [address]- 3450 Nov, [facility] [place] [facility] [address] [id number] [place] [address]- 5886 Nov, [facility] [place] [facility] [address] [id number] [place] [address]- 7586 Oct, [facility] [place] [facility] [address] [id number] [place] [address]- 4829 14 Oct, 2012 [facility] [address] [id number] [place] [address]- 2316 14 Oct, 2012 [facility] [place] [facility] [address] [id number] [place] [address]- 2546 12 Oct, 2012 [facility] [place] [facility] [address] [id number] [place] [address]- 8596 11 Oct, 2012 [facility] [place] [facility] [address] [id number] [place] [address]- 2541 07 Oct, 2012 [facility] [place] [facility] [address] [id number] [place] [address]- 8575 05 Oct, 2012 [facility] [place] [facility] [address] [id number] [place] [address]- 8558 05 Oct, 2012 [facility] [place] [facility] [address] [id number] [place] [address]- 8289 04 Oct, 2012 [facility] [place] [facility] [address] [id number] [place] [address]- 3875 Sep, [facility] [place] [facility] [address] [id number] [place] [address]- 0609 29 Sep, 2012 [facility] [place] [facility] [address] [id number] [place] [address]- 4419 15 Sep, 2012 [facility] [place] [facility] [address] [id number] [place] [address]- 7337 14 Sep, 2012 [facility] [place] [facility] [address] [id number] [place] [address]- 1425 Sep, [facility] [place] [facility] [address] [id number] [place] [address]- 0638 Sep, [facility] [place] [facility] [address] [id number] [place] [address]- 9370 18 Aug, 2012 [facility] [place] [facility] [address] [id number] [place] [address]- 7718 18 Aug, 2012 [facility] [place] [facility] [address] [id number] [place] [address]- 0795 18 Aug, 2012 [facility] [place] [facility] [address] [id number] [place] [address]- 3496 18 Aug, 2012 [facility] [place] [facility] [address] [id number] [place] [address]- 1116 15 Aug, 2012 [facility] [place] [facility] [address] [id number] [place] [address]- 4516 14 Aug, 2012 [facility] [place] [facility] [address] [id number] [place] [address]- 2446 14 Aug, 2012 [facility] [place] [facility] [address] [id number] [place] [address]- 4648 13 Aug, 2012 [facility] [place] [facility] [address] [id number] [place] [address]- 8591 13 Aug, 2012 [facility] [place] [facility] [address] [id number] [place] [address]- 5840 11 Aug, 2012 [facility] [place] [facility] [address] [id number] [place] [address]- 9355 11 Aug, 2012 [facility] [place] [facility] [address] [id number] [place] [address]- 5243 07 Aug, 2012 [facility] [place] [facility] [address] [id number] [place] [address]- 8507 07 Aug, 2012 [facility] [place] [facility] [address] [id number], [place] [address]- 7984 06 Aug, 2012 [facility] [place] [facility] [address] [id number] [place] [address]- 7466 06 Aug, 2012 [facility] [place] [facility] [address] [id number] [place] [address]- 9634 06 Aug, 2012 [facility] [place] [facility] [address] [id number] [place] [address]696 06 Aug, 2012 [facility] [place] [facility] [address] [id number] [place] [address]- 9158 04 Aug, 2012 [facility] [place] [facility] [address] [id number] [place] [address]- 6159 Aug, [facility] [place] [facility] [address] [id number] [place] [address]- 9364 Jul, [facility] [place] [facility] [address] [id number] [place] [address]- 9753 Jul, [facility] [place] [facility] [address] [id number] [place] [address]- 6451 Jul, [facility] [place] [facility] [address] [id number] [place] [address]- 5229 Jul, [facility] [place] [facility] [address] [id number] [place] [address]- 8740 Jul, [facility] [place] [facility] [address] [id number] [place] [address]- 2899 Jul, [facility] [place] [facility] [address] [id number] [place] [address]- 8148 Jul, [facility] [place] [facility] [address] [id number] [place] [address]- 6274 Jul, [facility] [place] [facility] [address] [facility] [id number] [place] [address]- 9523 Jul, [facility] [place] [facility] [address] [id number] [place] [address]- 7533 Jul, [facility] [place] [facility] [address] [id number] [place] [address]- 0875 Jul, [facility] [place] [facility] [address] [id number] [place] [address]- 5601 Jul, [facility] [place] [facility] [address] [facility] [id number] [place] [address]- 1403 Jun, [facility] [place] [facility] [address] [id number] [place] [address]- 1363 Jun, [facility] [place] [facility] [address] [id number] [place] [address]- 4198 29 Jun, 2011 [facility] [place] [facility] [address] [id number] [place] [address]- 5740 Jun, [facility] [place] [facility] [address] [id number] [place] [address] Jun, [facility] [place] [facility] [address] [id number] [place] [address]- 2482 18 Jun, 2012 [facility] [place] [facility] [address] [id number] [place] [address]- 8531 17 Jun, 2012 [facility] [place] [facility] [address] [id number] [place] [address]- 6026 Jun, [facility] [place] [facility] [address] [id number] [place] [address]- 2385 Jun, [facility] [place] [facility] [address] [id number], [place] [address]- 9794 Jun, [facility] [place] [facility] [address] [id number] [place] [address]- 7861 Jun, [facility] [place] [facility] [address] [id number], [place] [address]- 7354 Jun, [facility] [place] [facility] [address] [facility] [id number], [place] [address]- 4982 Jun, [facility] [place] [facility] [address] [id number], [place] [address]- 8804 Jun, [facility] [place] [facility] [address] [id number], [place] [address]- 2330 24 May, 2012 [facility] [place] [facility] [address] [id number] 1099 21 May, 2012 [facility] [place] [facility] [address] [id number], [place] [address]- 1475 19 May, 2012 [facility] [place] [facility] [address] [id number], [place] [address]- 8980 18 May, 2012 [facility] [place] [facility] [address] [id number], [place] [address]- 7549 May, [facility] [place] [facility] [address] [id number][place] [id number] May, [facility] [place] [facility] [address] [id number][place] [address] May, [facility] [place] [facility] [address] [id number] 2289 May, [facility] [place] [facility] [address] [id number] [place] [address]- 2361 Apr, [facility] [place] [facility] [address] [id number], [place] [address]- 0460 Apr, [facility] [place] [facility] [address] [id number], [place] [address]- 6832 Apr, [facility] [place] [facility] [address] [id number][place] [address] Apr, [facility] [place] [facility] [address] [id number][place] [address] Apr, [facility] [place] [facility] [address] [id number] 8867 Apr, [facility] [place] [facility] [address] [id number], [place] [address]- 6255 Apr, [facility] [place] [facility] [address] [id number], [place] [address]- 3976 Apr, [facility] [place] [facility] [address] [id number], [place] [address]- 7983 14 Apr, 2012 [facility] [place] [facility] [address] [id number][place] 8384 Apr, [facility] [place] [facility] [address] [id number], [place] [address]- 3346 Apr, [facility] [place] [facility] [address] [id number] [place] [address]- 1843 Apr, [facility] [place] [facility] [address] [id number] [place] [address]- 3986 Mar, [facility] [place] [facility] [address] [id number] [place] [address]- 7046 Mar, [facility] [place] [facility] [address] [id number] [place] [address]- 4286 Mar, [facility] [place] [facility] [address] [id number] [place] [address]- 3962 Mar, [facility] [place] [facility] [address] [id number] [place] [address]- 7397 Mar, [facility] [place] [facility] [address] [id number] [place] [address]- 6631 Mar, [facility] [place] [facility] [address] [id number] [place] [address]- 3326 Mar, [facility] [place] [facility] [address] [id number] [place] [address]- 3443 Mar, [facility] [place] [facility] [address] [id number] [place] [address]- 4509 Mar, [facility] [place] [facility] [address] [id number] [place] [address]- 7011 Mar, [facility] [place] [facility] [address] [id number] [place] [address]- 5895 17 Mar, 2012 [facility] [place] [facility] [address] [id number] [place] [address]- 2542 15 Mar, 2012 [facility] [place] [facility] [address] [id number] [place] [address]- 0577 13 Mar, 2012 [facility] [place] [facility] [address] [id number] [place] [address]- 5096 Mar, [facility] [place] [facility] [address] [id number] [place] [address]- 5950 05 Mar, 2012 [facility] [place] [facility] [address] [id number] [place] [address]- 6073 Mar, [facility] [place] [facility] [address] [id number] [place] [address]- 7506 Mar, [facility] [place] [facility] [address] [id number] [place] [address]- 5227 Feb, [facility] [place] [facility] [address] [id number] [place] [address]- 1571 Feb, [facility] [place] [facility] [address] [id number] [place] [address]- 6528 25 Feb, 2012 [facility] [place] [facility] [address] [id number] [place] [address]- 1329 Feb, [facility] [place] [facility] [address] [id number] [place] [address] 18 Feb, 2012 [facility] [place] [facility] [address] [id number] [place] [address] 15 Feb, 2012 [facility] [place] [facility] [address] [id number] [place] [address] 14 Feb, 2012 [facility] [place] [facility] [address] [id number] [place] [address] 13 Feb, 2012 [facility] [place] [facility] [address] [id number] [place] [address] Feb, [facility] [place] [facility] [address] [id number] [place] [address] Feb, [facility] [place] [facility] [address] [id number] [place] [address] 05 Feb, 2012 [facility] [place] [facility] [address] [id number] [place] [address] January, [facility] [place] [facility] [address] [id number] [place] [address] January, [facility] [place] [facility] [address] [id number] [place] [address] January, [facility] [place] [facility] [address] [id number] [place] [address] January, [facility] [place] [facility] [address] [id number] [place] [address] January, [facility] [place] [facility] [address] [id number] [place] [address] Dec, [facility] [place] [facility] [address] [id number] [place] [address] Dec, [facility] [place] [facility] [address] [id number] [place] [address] Dec, [facility] [place] [facility] [address] [id number] [place] [address] Dec, [facility] [place] [facility] [address] [id number] [place] [address] Dec, [facility] [place] [facility] [address] [id number] [place] [address] Dec, [facility] [place] [facility] [address] [id number] [place] [address] Dec, [facility] [place] [facility] [address] [id number] [place] [address] Dec, [facility] [place] [facility] [address] [id number] [place] [address]703 Dec, [facility] [place] [facility] [address] [id number] [place] [address] 269[address] Dec, [facility] [place] [facility] [address] [id number] [place] [address] Nov, [facility] [address] [id number] [place] [address] Nov, [facility] [address] [id number] [place] [address] Nov, [facility] [address] [id number] [place] [address]49 26 Nov, 2011 [facility] [address] [id number] [place] [address]106 23 Nov, 2011 [facility] [place] [facility] [address] [id number] [place] [address]86 22 Nov, 2011 [facility] [address] [id number] [place] [address] 19 Nov, 2011 [facility] [address] [id number] [place] [address] 2546 14 Nov, 2011 [facility] [address] [id number] [place] [address] 13 Nov, 2011 [facility] [address] [id number] [place] [address] 9020 13 Nov, 2011 [facility] [address] [id number] [place] [address] 7614 05 Nov, 2011 [facility] [address] [id number] [place] [address] 01 Nov, 2011 [facility] [address] [id number] [place] [address] 29 Oct, 2011 [facility] [address] [id number] [place] [address] 28 Oct, 2011 [facility] [address] [id number] [place] [address] 2546 27 Oct, 2011 [facility] [address] [id number] [place] [address] 2549 22 Oct, 2011 [facility] [address] [id number] [place] [address] 1716 20 Oct, 2011 [facility] [address] [id number] [place] [address] 14 Oct, 2011 [facility] [address] [id number] [place] [address] 92[address] Oct, [facility] [address] [id number] [place] [address] 1528 Oct, [facility] [facility] [address] [id number] [place] [address] 6081 Oct, [facility] [facility] [address] [facility] [id number] [place] [address] 2170 Sep, [facility] [address] [id number] [place] [address]- 4165 Sep, [facility] [address] [id number] [place] [address] 2742 Sep, [facility] [address] [id number] [place] [address] 9035 Sep, [facility] [address] [id number] [place] [address] 6857 Sep, [facility] [address] [id number] [place] [address] 0041 Sep, [facility] [address] [id number] [place] [address]39 Aug, [facility] [address] [id number] [place] [address] 6418 Aug, [facility] [address] [id number] [place] [address] 3882 Aug, [facility] [address] [id number] [place] [address] Jul, [facility] [address] [id number] [place] [address] 5030 Jul, [facility] [address] [facility] [id number] [place] [address] 6459 28 Jul, 2011 [facility] [address] [facility] [id number] [place] [address] 0341 14 Jul, 2011 [facility] [address] [place] [address] Jul, [facility] [address] [place] [address] Jun, [facility] [address] [place] [address] Jun, [facility] [address] [address] [address] Jun, [facility] [address] [place] [address] 7990 Jun, [facility] [id number] [place] [address]- 2320 Jun, [facility] [id number] [address] Apr, [facility] [id number] [place] [address] Mar, [facility] [address] [place] [address] January, [facility] [address] [address] [address] Aug, [facility] [address] [place] [address]37 Aug, [facility] [address], [place] [address] 9[address] Jun, [facility] [address] [place] [address]73 Jun, [facility] [address] [place] [address] Aug, IMMUNIZATIONS No Known Immunizations SOCIAL HISTORY Never Assessed REASON FOR VISIT medication PLAN OF CARE VITAL SIGNS MEDICATIONS Unknown [...] stent Surgical History ruptured eptopic Hospitalization History [place]-multiple admissions Hospitalization History hysterectomy Hospitalization History surgeries Hospitalization History blood transfusion x 2
--- OUTSIDE RECORDS SUMMARY | 2018-06-14 10:18 | XMS REPORT ---
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 [id number] [place] [address]- 8347 Dec, [facility] [address] [id number] [place] [address]- 5985 Dec, [facility] [address] [id number] [place] [address]- 4600 Dec, [facility] [address] [id number] [place] [address]- 9558 Dec, [facility] [address] [id number] [place] [address]- 8561 Dec, [facility] [address] [id number] [place] [address]- 6337 Dec, [facility] [address] [id number] [place] [address]- 2915 Nov, [facility] [place] [facility] [address] [id number] [place] [address] 1966 Nov, [facility] [address] [id number], [place] [address] 9876 Nov, [facility] [place] [facility] [address] [id number], [place] [address]- 6321 Nov, [facility] [place] [facility] [address] [id number] [place] [address]- 5885 Nov, [facility] [place] [facility] [address] [id number] [place] [address]- 6618 Nov, [facility] [place] [facility] [address] [id number] [place] [address]- 5539 Oct, [facility] [place] [facility] [address] [id number] [place] [address]- 7083 14 Oct, 2012 [facility] [address] [id number] [place] [address]- 6006 14 Oct, 2012 [facility] [place] [facility] [address] [id number] [place] [address]- 2546 12 Oct, 2012 [facility] [place] [facility] [address] [id number] [place] [address]- 7656 11 Oct, 2012 [facility] [place] [facility] [address] [id number] [place] [address]- 254 07 Oct, 2012 [facility] [place] [facility] [address] [id number] [place] [address]- 6370 05 Oct, 2012 [facility] [place] [facility] [address] [id number] [place] [address]- 3414 05 Oct, 2012 [facility] [place] [facility] [address] [id number] [place] [address]- 1990 04 Oct, 2012 [facility] [place] [facility] [address] [id number] [place] [address]- 3882 Sep, [facility] [place] [facility] [address] [id number] [place] [address]- 5851 29 Sep, 2012 [facility] [place] [facility] [address] [id number] [place] [address]- 8195 15 Sep, 2012 [facility] [place] [facility] [address] [id number] [place] [address]- 9247 14 Sep, 2012 [facility] [place] [facility] [address] [id number] [place] [address]- 2695 Sep, [facility] [place] [facility] [address] [id number] [place] [address]- 7313 Sep, [facility] [place] [facility] [address] [id number] [place] [address]- 7035 18 Aug, 2012 [facility] [place] [facility] [address] [id number] [place] [address]- 4192 18 Aug, 2012 [facility] [place] [facility] [address] [id number] [place] [address]- 4659 18 Aug, 2012 [facility] [place] [facility] [address] [id number] [place] [address]- 4046 18 Aug, 2012 [facility] [place] [facility] [address] [id number] [place] [address]- 5286 15 Aug, 2012 [facility] [place] [facility] [address] [id number] [place] [address]- 0266 14 Aug, 2012 [facility] [place] [facility] [address] [id number] [place] [address]- 6146 14 Aug, 2012 [facility] [place] [facility] [address] [id number] [place] [address]- 1948 13 Aug, 2012 [facility] [place] [facility] [address] [id number] [place] [address]- 9599 13 Aug, 2012 [facility] [place] [facility] [address] [id number] [place] [address]- 0183 11 Aug, 2012 [facility] [place] [facility] [address] [id number] [place] [address]- 7326 11 Aug, 2012 [facility] [place] [facility] [address] [id number] [place] [address]- 8767 07 Aug, 2012 [facility] [place] [facility] [address] [id number] [place] [address]- 9072 07 Aug, 2012 [facility] [place] [facility] [address] [id number], [place] [address]- 5547 06 Aug, 2012 [facility] [place] [facility] [address] [id number] [place] [address]- 2376 06 Aug, 2012 [facility] [place] [facility] [address] [id number] [place] [address]- 2139 06 Aug, 2012 [facility] [place] [facility] [address] [id number] [place] 06 Aug, 2012 [facility] [place] [facility] [address] [id number] [place] [address]- 4847 04 Aug, 2012 [facility] [place] [facility] [address] [id number] [place] [address]- 2296 Aug, [facility] [place] [facility] [address] [id number] [place] [address]- 1328 Jul, [facility] [place] [facility] [address] [id number] [place] [address]- 9067 Jul, [facility] [place] [facility] [address] [id number] [place] [address]- 6054 Jul, [facility] [place] [facility] [address] [id number] [place] [address]- 0774 Jul, [facility] [place] [facility] [address] [id number] [place] [address]- 7231 Jul, [facility] [place] [facility] [address] [id number] [place] [address]- 3930 Jul, [facility] [place] [facility] [address] [id number] [place] [address]- 6180 Jul, [facility] [place] [facility] [address] [id number] [place] [address]- 1936 Jul, [facility] [place] [facility] [address] [facility] [id number] [place] [address]- 8502 Jul, [facility] [place] [facility] [address] [id number] [place] [address]- 9042 Jul, [facility] [place] [facility] [address] [id number] [place] [address]- 2722 Jul, [facility] [place] [facility] [address] [id number] [place] [address]- 8452 Jul, [facility] [place] [facility] [address] [facility] [id number] [place] [address]- 0721 Jun, [facility] [place] [facility] [address] [id number] [place] [address]- 0224 Jun, [facility] [place] [facility] [address] [id number] [place] [address]- 7854 29 Jun, 2011 [facility] [place] [facility] [address] [id number] [place] [address]- 1625 Jun, [facility] [place] [facility] [address] [id number] [place] Jun, [facility] [place] [facility] [address] [id number] [place] [address]- 9617 18 Jun, 2012 [facility] [place] [facility] [address] [id number] [place] [address]- 4393 17 Jun, 2012 [facility] [place] [facility] [address] [id number] [place] [address]- 6098 Jun, [facility] [place] [facility] [address] [id number] [place] [address]- 2371 Jun, [facility] [place] [facility] [address] [id number], [place] [address]- 1132 Jun, [facility] [place] [facility] [address] [id number] [place] [address]- 9534 Jun, [facility] [place] [facility] [address] [id number], [place] [address]- 8487 Jun, [facility] [place] [facility] [address] [facility] [id number], [place] [address]- 8290 Jun, [facility] [place] [facility] [address] [id number], [place] [address]- 5553 Jun, [facility] [place] [facility] [address] [id number], [place] [address]- 4393 24 May, 2012 [facility] [place] [facility] [address] [id number][place] 4727 21 May, 2012 [facility] [place] [facility] [address] [id number], [place] [address]- 2957 19 May, 2012 [facility] [place] [facility] [address] [id number], [place] [address]- 9009 18 May, 2012 [facility] [place] [facility] [address] [id number], [place] [address]- 6098 May, [facility] [place] [facility] [address] [id number][place] [id number] May, [facility] [place] [facility] [address] [id number][place] [address] May, [facility] [place] [facility] [address] [id number][place] 9459 May, [facility] [place] [facility] [address] [id number] [place] [address]- 1362 Apr, [facility] [place] [facility] [address] [id number], [place] [address]- 6715 Apr, [facility] [place] [facility] [address] [id number], [place] [address]- 6976 Apr, [facility] [place] [facility] [address] [id number][place] [id number] Apr, [facility] [place] [facility] [address] [id number][place] [id number] Apr, [facility] [place] [facility] [address] [id number][place] [address]894 Apr, [facility] [place] [facility] [address] [id number], [place] [address]- 6374 Apr, [facility] [place] [facility] [address] [id number], [place] [address]- 9594 Apr, [facility] [place] [facility] [address] [id number], [place] [address]- 1160 14 Apr, 2012 [facility] [place] [facility] [address] [id number][place]- 8790 Apr, [facility] [place] [facility] [address] [id number], [place] [address]- 7335 Apr, [facility] [place] [facility] [address] [id number] [place] [address]- 9255 Apr, [facility] [place] [facility] [address] [id number] [place] [address]- 5006 Mar, [facility] [place] [facility] [address] [id number] [place] [address]- 0996 Mar, [facility] [place] [facility] [address] [id number] [place] [address]- 7506 Mar, [facility] [place] [facility] [address] [id number] [place] [address]- 3050 Mar, [facility] [place] [facility] [address] [id number] [place] [address]- 7492 Mar, [facility] [place] [facility] [address] [id number] [place] [address]- 8105 Mar, [facility] [place] [facility] [address] [id number] [place] [address]- 9123 Mar, [facility] [place] [facility] [address] [id number] [place] [address]- 5056 Mar, [facility] [place] [facility] [address] [id number] [place] [address]- 3165 Mar, [facility] [place] [facility] [address] [id number] [place] [address]- 1414 Mar, [facility] [place] [facility] [address] [id number] [place] [address]- 4200 17 Mar, 2012 [facility] [place] [facility] [address] [id number] [place] [address]- 2545 15 Mar, 2012 [facility] [place] [facility] [address] [id number] [place] [address]- 0556 13 Mar, 2012 [facility] [place] [facility] [address] [id number] [place] [address]- 3056 Mar, [facility] [place] [facility] [address] [id number] [place] [address]- 9500 05 Mar, 2012 [facility] [place] [facility] [address] [id number] [place] [address]- 2686 Mar, [facility] [place] [facility] [address] [id number] [place] [address]- 0481 Mar, [facility] [place] [facility] [address] [id number] [place] [address]- 1415 Feb, [facility] [place] [facility] [address] [id number] [place] [address]- 3382 Feb, [facility] [place] [facility] [address] [id number] [place] [address]- 5925 25 Feb, 2012 [facility] [place] [facility] [address] [id number] [place] [address]- 8381 Feb, [facility] [place] [facility] [address] [id number] [place] [address]- 5836 18 Feb, 2012 [facility] [place] [facility] [address] [id number] [place] [address]- 4487 15 Feb, 2012 [facility] [place] [facility] [address] [id number] [place] [address]- 6473 14 Feb, 2012 [facility] [place] [facility] [address] [id number] [place] [address]- 4551 13 Feb, 2012 [facility] [place] [facility] [address] [id number] [place] [address]- 1169 Feb, [facility] [place] [facility] [address] [id number] [place] [address]- 0272 Feb, [facility] [place] [facility] [address] [id number] [place] [address]- 1211 05 Feb, 2012 [facility] [place] [facility] [address] [id number] [place] [address]- 8025 January, [facility] [place] [facility] [address] [id number] [place] [address]- 8268 January, [facility] [place] [facility] [address] [id number] [place] [address]- 8929 January, [facility] [place] [facility] [address] [id number] [place] [address]- 4029 January, [facility] [place] [facility] [address] [id number] [place] [address]- 8441 January, [facility] [place] [facility] [address] [id number] [place] [address]- 6363 Dec, [facility] [place] [facility] [address] [id number] [place] [address]- 7977 Dec, [facility] [place] [facility] [address] [id number] [place] [address]- 9905 Dec, [facility] [place] [facility] [address] [id number] [place] [address]- 6508 Dec, [facility] [place] [facility] [address] [id number] [place] [address]- 2939 Dec, [facility] [place] [facility] [address] [id number] [place] [address]- 2406 Dec, [facility] [place] [facility] [address] [id number] [place] [address]- 8111 Dec, [facility] [place] [facility] [address] [id number] [place] [address]- 8380 Dec, [facility] [place] [facility] [address] [id number] [place] [address]- 4406 Dec, [facility] [place] [facility] [address] [id number] [place] [address]- 1670 Dec, [facility] [place] [facility] [address] [id number] [place] [address]- 0195 Nov, [facility] [place] [facility] [address] [id number] [place] [address]- 0960 Nov, [facility] [place] [facility] [address] [id number] [place] [address]- 9767 Nov, [facility] [place] [facility] [address] [id number] [place] [address]- 2550 26 Nov, 2011 [facility] [address] [id number] [place] [address]- 2476 23 Nov, 2011 [facility] [place] [facility] [address] [id number] [place] [address]- 0226 22 Nov, 2011 [facility] [place] [facility] [address] [id number] [place] [address] 19 Nov, 2011 [facility] [place] [facility] [address] [id number] [place] [address]46 14 Nov, 2011 [facility] [address] [id number] [place] [address] 13 Nov, 2011 [facility] [place] [facility] [address] [id number] [place] [address] 13 Nov, 2011 [facility] [address] [id number] [place] [address] 05 Nov, 2011 [facility] [address] [id number] [place] [address] 01 Nov, 2011 [facility] [place] [facility] [address] [id number] [place] [address] 29 Oct, 2011 [facility] [address] [id number] [place] [address] 28 Oct, 2011 [facility] [place] [facility] [address] [id number] [place] [address] 2546 27 Oct, 2011 [facility] [place] [facility] [address] [id number] [place] [address] 2548 22 Oct, 2011 [facility] [place] [facility] [address] [id number] [place] [address] 20 Oct, 2011 [facility] [place] [facility] [address] [id number] [place] [address] 14 Oct, 2011 [facility] [place] [facility] [address] [id number] [place] [address] Oct, [facility] [place] [facility] [address] [id number] [place] [address] Oct, [facility] [place] [facility] [address] [id number] [place] [address] Oct, [facility] [place] [facility] [address] [facility] [id number] [place] [address] Sep, [facility] [place] [facility] [address] [id number] [place] [address] Sep, [facility] [place] [facility] [address] [id number] [place] [address] Sep, [facility] [place] [facility] [address] [id number] [place] [address] Sep, [facility] [place] [facility] [address] [id number] [place] [address] Sep, [facility] [place] [facility] [address] [id number] [place] [address] Sep, [facility] [place] [facility] [address] [id number] [place] [address] Aug, [facility] [place] [facility] [address] [id number] [place] [address] Aug, [facility] [place] [facility] [address] [id number] [place] [address] Aug, [facility] [place] [facility] [address] [id number] [place] [address] Jul, [facility] [place] [facility] [address] [id number] [place] [address] Jul, [facility] [place] [facility] [address] [facility] [id number] [place] [address] 28 Jul, 2011 [facility] [place] [facility] [address] [facility] [id number] [place] [address] 14 Jul, 2011 [facility] [place] [facility] [address] [place] [address] Jul, [facility] [address] [place] [address] Jun, [facility] [address] [place] [address] Jun, [facility] [address] [place] [address] Jun, [facility] [address] [facility] [id number] [address] Jun, [facility] [id number] [place] [address] Jun, [facility] [address] [place] [address] Apr, [facility] [id number] [place] [address] Mar, [facility] [address], [place] [address] January, [facility] [address] [address] Aug, [facility] [address] [address] Aug, [facility] [address] [place] [address] Jun, [facility] [address] [place] [address] Jun, [facility] [address] [place] [address] Aug, IMMUNIZATIONS No Known Immunizations SOCIAL HISTORY Never Assessed REASON FOR VISIT adderall 12/24/2017 PLAN OF CARE VITAL SIGNS MEDICATIONS Medication Instructions Dosage Frequency Start Date End Date Duration Status Adderall 10 mg Orally 3 times a day 1 tablet 8h Dec, 28 days Active RESULTS No Results PROCEDURES [...] stent Surgical History ruptured eptopic Hospitalization History [place]-multiple admissions Hospitalization History hysterectomy Hospitalization History surgeries Hospitalization History blood transfusion x 2
--- OUTSIDE RECORDS SUMMARY | 2018-06-14 10:19 | XMS REPORT ---
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 7712 Nov, [facility] [address] [id number] [place] [address]- 5582 Nov, [facility] [address] [id number] [place] [address]- 5656 05 Nov, 2012 [facility] [address] [id number] [place] [address]- 5179 20 Oct, 2012 [facility] [address] [id number] [place] [address]- 2525 14 Oct, 2012 [facility] [address] [id number] [place] [address]- 1746 14 Oct, 2012 [facility] [address] [id number] [place] [address]- 0564 12 Oct, 2012 [facility] [address] [id number] [place] [address]- 7906 11 Oct, 2012 [facility] [address] [id number] [place] [address]- 0486 07 Oct, 2012 [facility] [address] [id number] [place] [address]- 0431 05 Oct, 2012 [facility] [address] [id number] [place] [address]- 8909 05 Oct, 2012 [facility] [address] [id number] [place] [address]- 9289 04 Oct, 2012 [facility] [address] [facility] [id number] [place] [address]- 2682 31 Sep, 2012 [facility] [address] [id number] [place] [address]- 5496 29 Sep, 2012 [facility] [address] [facility] [id number] [place] [address]- 7683 15 Sep, 2012 [facility] [address] [facility] [id number] [place] [address]- 8092 14 Sep, 2012 [facility] [address] [id number] [place] [address]- 5488 08 Sep, 2012 [facility] [address] [id number] [place] [address] 254 Sep, [facility] [address] [id number] [place] [address]- 6951 Aug, [facility] [address] [id number] [place] [address]- 6266 Aug, [facility] [address] [facility] [id number], [place] [address]- 6048 Aug, [facility] [address] [id number] [place] [address]- 4429 18 Aug, 2012 [facility] [address] [id number] [place] [address]- 1476 15 Aug, 2012 [facility] [address] [id number] [place] [address]- 0576 14 Aug, 2012 [facility] [address] [id number] [place] [address]- 2696 14 Aug, 2012 [facility] [address] [id number] [place] [address]- 8116 13 Aug, 2012 [facility] [address] [id number] [place] [address]- 3246 13 Aug, 2012 [facility] [address] [id number] [place] [address]- 7857 11 Aug, 2012 [facility] [address] [id number] [place] [address]- 6379 11 Aug, 2012 [facility] [address] [id number] [place] [address]- 0197 07 Aug, 2012 [facility] [address] [id number] [place] [address]- 1300 07 Aug, 2012 [facility] [address] [id number] [place] [address]- 6990 06 Aug, 2012 [facility] [address] [id number] [place] [address]- 5546 06 Aug, 2012 [facility] [address] [id number] [place] [address]- 0996 06 Aug, 2012 [facility] [address] [id number] [place] [address]- 0946 06 Aug, 2012 [facility] [address] [id number] [place] [address]- 4320 04 Aug, 2012 [facility] [address] [id number] [place] [address]- 3554 Aug, [facility] [address] [id number] [place] [address]- 9787 Jul, [facility] [address] [id number] [place] [address]- 5720 Jul, [facility] [address] [facility] [id number] [place] [address]- 2464 Jul, [facility] [address] [id number] [place] [address]- 8863 Jul, [facility] [address] [id number] [place] [address]- 5793 Jul, [facility] [address] [id number] [place] [address]- 4415 Jul, [facility] [address] [facility] [id number] [place] [address]- 9508 Jul, [facility] [address] [id number], [place] [address]- 4150 Jul, [facility] [address] [id number], [place] [address]- 5233 Jul, [facility] [address] [facility] [id number], [place] [address]- 0717 Jul, [facility] [address] [id number], [place] [address]- 7963 Jul, [facility] [address] [id number], [place] [address]- 8060 Jul, [facility] [address] [id number], [place] [address]- 2740 Jun, [facility] [address] [facility] [id number], [place] [address]- 7503 Jun, [facility] [address] [facility] [id number], [place] [address]- 7747 Jun, [facility] [address] [id number] [place] [address]- 6932 19 Jun, 2011 [facility] [address] [id number] [place] [address]- 3957 19 Jun, 2011 [facility] [address] [id number] [place] [address]- 3097 18 Jun, 2012 [facility] [address] [id number] [place] [address]- 9887 17 Jun, 2012 [facility] [address] [id number] [place] [address]- 2001 16 Jun, 2012 [facility] [address] [id number] [place] [address]- 9103 16 Jun, 2012 [facility] [facility] [address] [id number] [place] [address]- 9518 Jun, [facility] [place] [facility] [address] [id number] [place] [address]- 9560 Jun, [facility] [address] [id number] [place] [address]- 6732 08 Jun, 2012 [facility] [facility] [address] [id number] [place] [address]- 5145 04 Jun, 2012 [facility] [address] [id number] [place] [address]- 6146 02 Jun, 2012 [facility] [place] [facility] [address] [id number] [place] [address]- 2946 24 Sep, 2011 [facility] [place] [facility] [address] [id number] [place] [address]- 1274 21 Sep, 2011 [facility] [place] [facility] [address] [id number] [place] [address]- 0706 19 Sep, 2011 [facility] [place] [facility] [address] [id number] [place] [address]- 7760 18 Sep, 2011 [facility] [place] [facility] [address] [id number] [place] [address]- 1723 May, [facility] [address] [id number] [place] [id number] May, [facility] [facility] [address] [id number] [place] [id number] May, [facility] [place] [facility] [address] [id number] [place] [address]- 2546 May, [facility] [place] [facility] [address] [id number] [place] [address] 2546 Apr, [facility] [place] [facility] [address] [id number] [place] [address]- 8441 Apr, [facility] [place] [facility] [address] [id number] [place] [address]- 0136 Apr, [facility] [place] [facility] [address] [id number] [place] [id number] Apr, [facility] [place] [facility] [address] [id number] [place] [id number] Apr, [facility] [place] [facility] [address] [id number] [place] [address]- 6500 Apr, [facility] [place] [facility] [address] [id number] [place] [address]- 0614 Apr, [facility] [place] [facility] [address] [id number] [place] [address]- 2362 Apr, [facility] [place] [facility] [address] [id number] [place] [address]- 3959 Apr, [facility] [place] [facility] [address] [id number] [place] [address]- 9994 Apr, [facility] [place] [facility] [address] [id number] [place] [address]- 0301 Apr, [facility] [place] [facility] [address] [id number] [place] [address] 2546 Apr, [facility] [place] [facility] [address] [id number] [place] [address]- 7409 Mar, [facility] [place] [facility] [address] [id number] [place] [address]- 9746 27 Mar, 2011 [facility] [place] [facility] [address] [id number] [place] [address]- 4301 Mar, [facility] [place] [facility] [address] [id number] [place] [address]- 1847 Mar, [facility] [place] [facility] [address] [id number] [place] [address]- 8546 25 Mar, 2012 [facility] [place] [facility] [address] [id number] [place] [address]- 8387 24 Mar, 2012 [facility] [place] [facility] [address] [id number] [place] [address]- 0302 20 Mar, 2012 [facility] [place] [facility] [address] [id number] [place] [address]- 2421 Mar, [facility] [place] [facility] [address] [id number] [place] [address]- 0019 18 Mar, 2012 [facility] [place] [facility] [address] [id number] [place] [address]- 9558 17 Mar, 2012 [facility] [place] [facility] [address] [id number] [place] [address]- 0808 17 Mar, 2012 [facility] [place] [facility] [address] [id number] [place] [address]- 6890 15 Mar, 2012 [facility] [place] [facility] [address] [id number] [place] [address]- 0750 13 Mar, 2012 [facility] [place] [facility] [address] [id number] [place] [address]- 3341 11 Mar, 2012 [facility] [place] [facility] [address] [id number] [place] [address]- 3536 05 Mar, 2012 [facility] [place] [facility] [address] [id number] [place] [address]- 8322 03 Mar, 2012 [facility] [place] [facility] [address] [id number] [place] [address]- 1986 02 Mar, 2012 [facility] [place] [facility] [address] [id number] [place] [address]- 8831 27 Feb, 2012 [facility] [place] [facility] [address] [id number] [place] [address]- 8030 27 Feb, 2012 [facility] [place] [facility] [address] [id number] [place] [address]- 8113 25 Feb, 2012 [facility] [place] [facility] [address] [id number] [place] [address]- 8610 19 Feb, 2012 [facility] [place] [facility] [address] [id number] [place] [address]- 5919 18 Feb, 2012 [facility] [place] [facility] [address] [id number] [place] [address]- 3858 15 Feb, 2012 [facility] [place] [facility] [address] [id number] [place] [address]- 2578 14 Feb, 2012 [facility] [place] [facility] [address] [id number] [place] [address]- 8683 13 Feb, 2012 [facility] [place] [facility] [address] [id number] [place] [address]- 6830 11 Feb, 2012 [facility] [place] [facility] [address] [id number] [place] [address] 06 Feb, 2012 [facility] [place] [facility] [address] [id number] [place] [address] 05 Feb, 2012 [facility] [place] [facility] [address] [id number] [place] [address] January, [facility] [place] [facility] [address] [id number] [place] [address] January, [facility] [place] [facility] [address] [id number] [place] [address] January, [facility] [place] [facility] [address] [id number] [place] [address] January, [facility] [place] [facility] [address] [id number] [place] [address] January, [facility] [place] [facility] [address] [id number] [place] [address] Dec, [facility] [place] [facility] [address] [id number] [place] [address] Dec, [facility] [place] [facility] [address] [id number] [place] [address] Dec, [facility] [place] [facility] [address] [id number] [place] [address] Dec, [facility] [place] [facility] [address] [id number] [place] [address] Dec, [facility] [place] [facility] [address] [id number] [place] [address] Dec, [facility] [place] [facility] [address] [id number] [place] [address] Dec, [facility] [place] [facility] [address] [id number] [place] [address] 4[address] Dec, [facility] [place] [facility] [address] [id number] [place] [address]- [address] Dec, [facility] [place] [facility] [address] [id number] [place] [address] Dec, [facility] [place] [facility] [address] [id number] [place] [address] Nov, [facility] [place] [facility] [address] [id number] [place] [address] Nov, [facility] [place] [facility] [address] [id number] [place] [address]99 Nov, [facility] [place] [facility] [address] [id number] [place] [address] Nov, [facility] [place] [facility] [address] [id number] [place] [address]- 8441 23 Nov, 2011 [facility] [place] [facility] [address] [id number] [place] [address]- 3632 22 Nov, 2011 [facility] [place] [facility] [address] [id number] [place] [address]- 9176 19 Nov, 2011 [facility] [place] [facility] [address] [facility] [id number] [place] [address]356 14 Nov, 2011 [facility] [place] [facility] [address] [id number] [place] [address]- 8453 13 Nov, 2011 [facility] [place] [facility] [address] [id number] [place] [address]- 9972 13 Nov, 2011 [facility] [place] [facility] [address] [facility] [id number] [place] [address]- [address]507 05 Nov, 2011 [facility] [place] [facility] [address] [facility] [id number] [place] [address]- 1033 Nov, [facility] [place] [facility] [address] [id number] [place] [address] 8097 29 Oct, 2011 [facility] [place] [facility] [address] [id number] [place] [address] 7103 28 Oct, 2011 [facility] [place] [facility] [address] [facility] [id number] [place] [address]- 4366 27 Oct, 2011 [facility] [place] [facility] [address] [id number] [place] [address]- 3174 22 Oct, 2011 [facility] [place] [facility] [address] [facility] [id number] [place] [address] 5050 20 Oct, 2011 [facility] [place] [facility] [address] [id number] [place] [address]- 7572 14 Oct, 2011 [facility] [place] [facility] [address] [facility] [id number] [place] [address]- 1068 09 Oct, 2011 [facility] [place] [facility] [address] [id number] [place] [address] 08 Oct, 2011 [facility] [place] [facility] [address] [id number] [place] [address]- [address] Oct, [facility] [place] [facility] [address] [id number] [place] [address]- 9148 Sep, [facility] [place] [facility] [address] [id number] [place] [address]- 6515 Sep, [facility] [place] [facility] [address] [id number] [place] [address] 0334 Sep, [facility] [place] [facility] [address] [id number] [place] [address]- 3539 Sep, [facility] [place] [facility] [address] [id number] [place] [address]- 7204 Sep, [facility] [place] [facility] [address] [id number] [place] [address]- 8006 Sep, [facility] [place] [facility] [address] [id number] [place] [address]- 9195 Aug, [facility] [place] [facility] [address] [id number] [place] [address]- [address]110 Aug, [facility] [place] [facility] [address] [id number] [place] [address]- 6531 Aug, [facility] [place] [facility] [address] [id number] [place] [address]- 7318 Jul, [facility] [place] [facility] [address] [id number] [place] [address]- 1312 29 Jul, 2011 [facility] [place] [facility] [address] [id number] [place] [address]- 0397 28 Jul, 2011 [facility] [place] [facility] [address] [id number] [place] [address]- 1153 14 Jul, 2011 [facility] [place] [facility] [address] [id number] [place] [address] 8038 07 Jul, 2011 [facility] [place] [facility] [address] [id number], [place] [address] Jun, [facility] [address] [id number] [address] Jun, [facility] [id number], [place] [address] Jun, [facility] [id number], [place] [address] Jun, [facility] [address] [facility] [id number], [place] [address] 6580 Jun, [facility] [address] [facility] [id number], [place] [address]10 Apr, [facility] [id number], [place] [address] Mar, [facility] [id number], [place] [address] January, [facility] [id number], [place] [address] 59[address] Aug, [facility] [id number] [address] Aug, [facility] [id number] [place] [address] Jun, [facility] [address] [id number], [place] [address] Jun, [facility] [id number], [place] [address] Aug, IMMUNIZATIONS No Known Immunizations SOCIAL HISTORY Never Assessed REASON FOR VISIT Rx request PLAN OF CARE VITAL SIGNS MEDICATIONS [...] stent Surgical History ruptured eptopic Hospitalization History [place]-multiple admissions Hospitalization History hysterectomy Hospitalization History surgeries Hospitalization History blood transfusion x 2
--- OUTSIDE RECORDS SUMMARY | 2018-06-14 10:19 | XMS REPORT ---
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 [address]- 6338 29 Dec, 2012 [facility] [place] [facility] [address] [id number] [place] [address]- 1086 Dec, [facility] [place] [facility] [address] [id number] [place] [address]- 9201 18 Dec, 2012 [facility] [place] [facility] [address] [id number] [place] [address]- 3724 16 Dec, 2012 [facility] [place] [facility] [address] [id number] [place] [address]- 7598 15 Dec, 2012 [facility] [place] [facility] [address] [id number] [place] [address]- 4780 Dec, [facility] [place] [facility] [address] [id number] [place] [address]- 2532 Nov, [facility] [place] [facility] [address] [id number] [place] [address]- 9824 Nov, [facility] [place] [facility] [address] [id number] [place] [address]- 8087 Nov, [facility] [place] [facility] [address] [id number] [place] [address]- 2009 Nov, [facility] [place] [facility] [address] [id number] [place] [address]- 2978 Nov, [facility] [place] [facility] [address] [id number] [place] [address]- 2049 05 Nov, 2012 [facility] [place] [facility] [address] [id number] [place] [address]- 5448 20 Oct, 2012 [facility] [place] [facility] [address] [id number] [place] [address]- 4723 14 Oct, 2012 [facility] [place] [facility] [address] [id number] [place] [address]- 4474 14 Oct, 2012 [facility] [address] [id number] [place] [address]- 7887 12 Oct, 2012 [facility] [address] [id number] [place] [address]- 1366 11 Oct, 2012 [facility] [address] [facility] [id number] [place] [address]- 3986 07 Oct, 2012 [facility] [address] [id number] [place] [address]- 9329 05 Oct, 2012 [facility] [address] [id number] [place] [address]- 9889 05 Oct, 2012 [facility] [address] [id number] [place] [address]- 7324 04 Oct, 2012 [facility] [address] [facility] [id number] [place] [address]- 6484 31 Sep, 2012 [facility] [address] [id number] [place] [address]- 0634 29 Sep, 2012 [facility] [address] [facility] [id number] [place] [address]- 6468 15 Sep, 2012 [facility] [address] [facility] [id number] [place] [address]- 0683 14 Sep, 2012 [facility] [address] [facility] [id number] [place] [address]- 8124 08 Sep, 2012 [facility] [address] [id number] [place] [address]- 3891 Sep, [facility] [address] [id number] [place] [address]- 2302 18 Aug, 2012 [facility] [place] [facility] [address] [id number] [place] [address]- 3726 Aug, [facility] [address] [facility] [id number] [place] [address]- 4721 Aug, [facility] [place] [facility] [address] [id number] [place] [address]- 8676 18 Aug, 2012 [facility] [place] [facility] [address] [id number] [place] [address]- 1996 15 Aug, 2012 [facility] [place] [facility] [address] [id number] [place] [address] 2546 14 Aug, 2012 [facility] [place] [facility] [address] [id number] [place] [address]- 0786 14 Aug, 2012 [facility] [place] [facility] [address] [id number] [place] [address]- 6766 13 Aug, 2012 [facility] [place] [facility] [address] [id number] [place] [address]- 3246 13 Aug, 2012 [facility] [place] [facility] [address] [id number] [place] [address]- 1086 11 Aug, 2012 [facility] [place] [facility] [address] [id number] [place] [address]- 1706 11 Aug, 2012 [facility] [place] [facility] [address] [id number] [place] [address]- 3371 07 Aug, 2012 [facility] [place] [facility] [address] [id number] [place] [address]- 4946 07 Aug, 2012 [facility] [place] [facility] [address] [id number] [place] [address]- 9036 06 Aug, 2012 [facility] [place] [facility] [address] [id number] [place] [address]- 7706 06 Aug, 2012 [facility] [place] [facility] [address] [id number] [place] [address]- 6136 06 Aug, 2012 [facility] [place] [facility] [address] [id number] [place] [address]- 7186 06 Aug, 2012 [facility] [place] [facility] [address] [id number] [place] [address]- 4776 04 Aug, 2012 [facility] [place] [facility] [address] [id number] [place] [address]- 6621 Aug, [facility] [place] [facility] [address] [id number] [place] [address]- 8895 Jul, [facility] [place] [facility] [address] [id number], [place] [address]- 2331 Jul, [facility] [place] [facility] [address] [facility] [id number] [place] [address]- 3951 Jul, [facility] [place] [facility] [address] [id number], [place] [address]- 7994 Jul, [facility] [place] [facility] [address] [id number] [place] [address]- 4946 Jul, [facility] [place] [facility] [address] [id number] [place] [address]- 8727 Jul, [facility] [place] [facility] [address] [facility] [id number], [place] [address]- 2679 Jul, [facility] [place] [facility] [address] [id number], [place] [address]- 2779 Jul, [facility] [place] [facility] [address] [id number], [place] [address]- 7471 Jul, [facility] [place] [facility] [address] [facility] [id number], [place] [address]- 2821 Jul, [facility] [place] [facility] [address] [facility] [id number], [place] [address]- 7481 Jul, [facility] [place] [facility] [address] [id number], [place] [address]- 8503 Jul, [facility] [place] [facility] [address] [id number], [place] [address]- 3764 Jun, [facility] [place] [facility] [address] [id number], [place] [address]- 7238 Jun, [facility] [place] [facility] [address] [facility] [id number], [place] [address]- 0896 Jun, [facility] [place] [facility] [address] [id number] [place] [address]- 9452 19 Jun, 2011 [facility] [place] [facility] [address] [id number] [place] [address]- 6944 19 Jun, 2011 [facility] [place] [facility] [address] [id number] [place] [address]- 6927 18 Jun, 2011 [facility] [place] [facility] [address] [id number] [place] [address]- 7761 17 Jun, 2011 [facility] [place] [facility] [address] [id number] [place] [address]- 6659 16 Jun, 2011 [facility] [place] [facility] [address] [id number] [place] [address]- 5775 16 Jun, 2012 [facility] [place] [facility] [address] [id number] [place] [address]- 5958 Jun, [facility] [place] [facility] [address] [id number] [place] [address]- 3526 Jun, [facility] [place] [facility] [address] [id number] [place] [address]- 1181 08 Jun, 2012 [facility] [place] [facility] [address] [id number] [place] [address]- 4531 04 Jun, 2012 [facility] [place] [facility] [address] [facility] [id number] [place] [address]- 3622 02 Jun, 2012 [facility] [place] [facility] [address] [id number] [place] [address]- 6324 24 Sep, 2011 [facility] [place] [facility] [address] [id number] [place] [address]- 8360 21 Sep, 2011 [facility] [place] [facility] [address] [id number] [place] [address]- 4407 19 Sep, 2011 [facility] [place] [facility] [address] [id number] [place] [address]- 9589 18 Sep, 2011 [facility] [place] [facility] [address] [id number] [place] [address]- 7278 May, [facility] [place] [facility] [address] [id number] [id number] May, [facility] [place] [facility] [address] [id number] [place] [id number] May, [facility] [place] [facility] [address] [id number] [place] [address]- 2546 May, [facility] [place] [facility] [address] [id number] [place] [address]- 4562 Apr, [facility] [place] [facility] [address] [id number] [place] [address]- 1616 Apr, [facility] [place] [facility] [address] [id number] [place] [address]- 9282 Apr, [facility] [place] [facility] [address] [id number] [place] [id number] Apr, [facility] [place] [facility] [address] [id number] [place] [id number] Apr, [facility] [place] [facility] [address] [id number] [place] [address]- 1404 Apr, [facility] [place] [facility] [address] [id number] [place] 3368 Apr, [facility] [place] [facility] [address] [id number] [place] [address]- 2524 Apr, [facility] [place] [facility] [address] [id number] [place] [address]- 7588 Apr, [facility] [place] [facility] [address] [id number] [place] [address]- 9744 Apr, [facility] [place] [facility] [address] [id number] [place] [address]- 4360 Apr, [facility] [place] [facility] [address] [id number] [place] [address]- 9496 Apr, [facility] [place] [facility] [address] [id number] [place] 7610 Mar, [facility] [place] [facility] [address] [id number] [place] [address]- 8665 27 Mar, 2011 [facility] [place] [facility] [address] [id number] [place] [address]- 5921 Mar, [facility] [place] [facility] [address] [id number] [place] [address]- 3135 26 Mar, 2011 [facility] [place] [facility] [address] [id number] [place] [address]- 9389 25 Mar, 2012 [facility] [place] [facility] [address] [id number] [place] [address]- 7981 24 Mar, 2012 [facility] [place] [facility] [address] [id number] [place] [address]- 4019 Mar, [facility] [place] [facility] [address] [id number] [place] [address]- 3554 Mar, [facility] [place] [facility] [address] [id number] [place] [address]- 0272 18 Mar, 2012 [facility] [place] [facility] [address] [id number] [place] [address]- 2531 17 Mar, 2012 [facility] [place] [facility] [address] [id number] [place] [address]- 7500 17 Mar, 2012 [facility] [place] [facility] [address] [id number] [place] [address]- 7321 15 Mar, 2012 [facility] [place] [facility] [address] [id number] [place] [address]- 5058 13 Mar, 2012 [facility] [place] [facility] [address] [id number] [place] [address]- 1120 11 Mar, 2012 [facility] [place] [facility] [address] [id number] [place] [address]- 5562 05 Mar, 2012 [facility] [place] [facility] [address] [id number] [place] [address]- 9859 03 Mar, 2012 [facility] [place] [facility] [address] [id number] [place] [address]- 8449 02 Mar, 2012 [facility] [place] [facility] [address] [id number] [place] [address]- 3409 27 Feb, 2012 [facility] [place] [facility] [address] [id number] [place] [address]- 7220 27 Feb, 2012 [facility] [place] [facility] [address] [id number] [place] [address]- 9756 25 Feb, 2012 [facility] [place] [facility] [address] [id number] [place] [address]- 0510 19 Feb, 2012 [facility] [place] [facility] [address] [id number] [place] [address]- 0169 18 Feb, 2012 [facility] [place] [facility] [address] [id number] [place] [address]- 0319 15 Feb, 2012 [facility] [place] [facility] [address] [id number] [place] [address]- 9122 14 Feb, 2012 [facility] [place] [facility] [address] [id number] [place] [address]- 2257 13 Feb, 2012 [facility] [place] [facility] [address] [id number] [place] [address]- 1979 11 Feb, 2012 [facility] [place] [facility] [address] [id number] [place] [address]- 6220 06 Feb, 2012 [facility] [place] [facility] [address] [id number] [place] [address]- 4641 05 Feb, 2012 [facility] [place] [facility] [address] [id number] [place] [address] January, [facility] [place] [facility] [address] [id number] [place] [address] January, [facility] [place] [facility] [address] [id number] [place] [address] January, [facility] [place] [facility] [address] [id number] [place] [address] January, [facility] [place] [facility] [address] [id number] [place] [address] January, [facility] [place] [facility] [address] [id number] [place] [address] Dec, [facility] [place] [facility] [address] [id number] [place] [address] 1996 Dec, [facility] [place] [facility] [address] [id number] [place] [address] Dec, [facility] [place] [facility] [address] [id number] [place] [address] Dec, [facility] [place] [facility] [address] [id number] [place] [address]60 Dec, [facility] [place] [facility] [address] [id number] [place] [address] Dec, [facility] [place] [facility] [address] [id number] [place] [address] Dec, [facility] [place] [facility] [address] [id number] [place] [address] Dec, [facility] [place] [facility] [address] [id number] [place] [address] 8767 Dec, [facility] [place] [facility] [address] [id number] [place] [address] Dec, [facility] [place] [facility] [address] [id number] [place] [address] Nov, [facility] [place] [facility] [address] [id number] [place] [address]99 Nov, [facility] [place] [facility] [address] [id number] [place] [address] Nov, [facility] [place] [facility] [address] [id number] [place] [address]- 2846 Nov, [facility] [place] [facility] [address] [id number] [place] [address] 23 Nov, 2011 [facility] [place] [facility] [address] [id number] [place] [address]- [address] 22 Nov, 2011 [facility] [place] [facility] [address] [id number] [place] [address] 8986 19 Nov, 2011 [facility] [place] [facility] [address] [facility] [id number] [place] [address] 14 Nov, 2011 [facility] [place] [facility] [address] [id number] [place] [address]- [address]82 13 Nov, 2011 [facility] [place] [facility] [address] [id number] [place] [address]- 8475 13 Nov, 2011 [facility] [place] [facility] [address] [facility] [id number] [place] [address]- 8024 05 Nov, 2011 [facility] [place] [facility] [address] [facility] [id number] [place] [address] Nov, [facility] [place] [facility] [address] [facility] [id number] [place] [address] 3979 29 Oct, 2011 [facility] [place] [facility] [address] [id number] [place] [address] 28 Oct, 2011 [facility] [place] [facility] [address] [facility] [id number] [place] [address]- [address] 27 Oct, 2011 [facility] [place] [facility] [id number] [place] [address] 22 Oct, 2011 [facility] [place] [facility] [address] [facility] [id number] [place] [address]- 8641 20 Oct, 2011 [facility] [place] [facility] [address] [facility] [id number] [place] [address] 2961 14 Oct, 2011 [facility] [place] [facility] [address] [facility] [id number] [place] [address]- 9696 09 Oct, 2011 [facility] [place] [facility] [id number] [place] [address] 08 Oct, 2011 [facility] [place] [facility] [address] [id number] [place] [address] 2746 Oct, [facility] [place] [facility] [address] [id number] [place] [address]24 Sep, [facility] [place] [facility] [address] [id number] [place] [address]- 0692 Sep, [facility] [place] [facility] [address] [id number] [place] [address]- 0663 Sep, [facility] [place] [facility] [address] [id number] [place] [address]- 7964 Sep, [facility] [place] [facility] [address] [id number] [place] [address]- 0034 Sep, [facility] [place] [facility] [address] [id number] [place] [address] 4298 Sep, [facility] [place] [facility] [address] [id number] [place] [address]878 Aug, [facility] [place] [facility] [address] [id number] [place] [address]- 6528 Aug, [facility] [place] [facility] [address] [id number] [place] [address]- [address] Aug, [facility] [place] [facility] [address] [id number] [place] [address] 1313 Jul, [facility] [place] [facility] [address] [id number] [place] [address]- 3254 29 Jul, 2011 [facility] [place] [facility] [address] [id number] [place] [address]- 4733 28 Jul, 2011 [facility] [place] [facility] [address] [id number] [place] [address] 4000 14 Jul, 2011 [facility] [place] [facility] [address] [id number] [place] [address]- 5789 07 Jul, 2011 [facility] [place] [facility] [address] [id number] [place] [address]15 Jun, [facility] [place] [address] [id number] [address] [address] Jun, [facility] [place] [id number] [address] Jun, [facility] [place] [id number] [address] Jun, [facility] [place] [id number] [address] Jun, [facility] [place] [id number] [address] Apr, [facility] [place] [id number] [address] Mar, [facility] [place] [id number] [address]15 January, [facility] [place] [id number] [address] Aug, [facility] [place] [id number] [address] Aug, [facility] [place] [id number] [address]05 Jun, [facility] [place] [id number] [address] Jun, [facility] [place] [id number] [address] Aug, IMMUNIZATIONS No Known Immunizations SOCIAL HISTORY Never Assessed REASON FOR VISIT PLAN OF CARE VITAL SIGNS MEDICATIONS Unknown [...] stent Surgical History ruptured eptopic Hospitalization History Weld-multiple admissions Hospitalization History hysterectomy Hospitalization History surgeries Hospitalization History blood transfusion x 2
--- OUTSIDE RECORDS SUMMARY | 2018-06-14 10:20 | XMS REPORT ---
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 [facility] [place] [facility] [address] [id number] [place] [address]- 3710 16 Dec, 2012 [facility] [place] [facility] [address] [id number] [place] [address]- 3545 15 Dec, 2012 [facility] [place] [facility] [address] [id number] [place] [address]- 1809 Dec, [facility] [place] [facility] [address] [id number] [place] [address]- 1654 Nov, [facility] [place] [facility] [address] [id number] [place] [address]- 9941 Nov, [facility] [place] [facility] [address] [id number] [place] [address]- 3809 Nov, [facility] [place] [facility] [address] [id number] [place] [address]- 0200 Nov, [facility] [place] [facility] [address] [id number] [place] [address]- 2752 Nov, [facility] [place] [facility] [address] [id number] [place] [address]- 1362 05 Nov, 2012 [facility] [place] [facility] [address] [id number] [place] [address]- 8787 20 Oct, 2012 [facility] [place] [facility] [address] [id number] [place] [address]- 2158 14 Oct, 2012 [facility] [place] [facility] [address] [id number] [place] [address]- 6172 14 Oct, 2012 [facility] [address] [id number] [place] [address]- 7635 12 Oct, 2012 [facility] [address] [id number] [place] [address]- 2426 11 Oct, 2012 [facility] [address] [facility] [id number] [place] [address]- 7726 07 Oct, 2012 [facility] [address] [id number] [place] [address]- 7919 05 Oct, 2012 [facility] [address] [id number] [place] [address]- 0406 05 Oct, 2012 [facility] [address] [id number] [place] [address]- 1136 04 Oct, 2012 [facility] [address] [facility] [id number] [place] [address]- 0313 31 Sep, 2012 [facility] [address] [id number] [place] [address]- 4369 29 Sep, 2012 [facility] [address] [facility] [id number] [place] [address]- 0619 15 Sep, 2012 [facility] [address] [facility] [id number] [place] [address]- 3192 14 Sep, 2012 [facility] [address] [facility] [id number] [place] [address]- 9228 08 Sep, 2012 [facility] [address] [id number] [place] [address]- 6903 Sep, [facility] [address] [id number] [place] [address]- 6908 18 Aug, 2012 [facility] [place] [facility] [address] [id number] [place] [address]- 9586 Aug, [facility] [address] [facility] [id number] [place] [address]- 4805 Aug, [facility] [place] [facility] [address] [id number] [place] [address]- 1886 18 Aug, 2012 [facility] [place] [facility] [address] [id number] [place] [address]- 2316 15 Aug, 2012 [facility] [place] [facility] [address] [id number] [place] [address] 2546 14 Aug, 2012 [facility] [place] [facility] [address] [id number] [place] [address]- 8656 14 Aug, 2012 [facility] [place] [facility] [address] [id number] [place] [address]- 3736 13 Aug, 2012 [facility] [place] [facility] [address] [id number] [place] [address]- 3196 13 Aug, 2012 [facility] [place] [facility] [address] [id number] [place] [address]- 9436 11 Aug, 2012 [facility] [place] [facility] [address] [id number] [place] [address]- 2080 11 Aug, 2012 [facility] [place] [facility] [address] [id number] [place] [address]- 2705 07 Aug, 2012 [facility] [place] [facility] [address] [id number] [place] [address]- 7846 07 Aug, 2012 [facility] [place] [facility] [address] [id number] [place] [address]- 4016 06 Aug, 2012 [facility] [place] [facility] [address] [id number] [place] [address]- 7636 06 Aug, 2012 [facility] [place] [facility] [address] [id number] [place] [address]- 7246 06 Aug, 2012 [facility] [place] [facility] [address] [id number] [place] [address]- 7246 06 Aug, 2012 [facility] [place] [facility] [address] [id number] [place] [address]- 4286 04 Aug, 2012 [facility] [place] [facility] [address] [id number] [place] [address]- 1357 Aug, [facility] [place] [facility] [address] [id number] [place] [address]- 9867 Jul, [facility] [place] [facility] [address] [id number] [address]- 6855 Jul, [facility] [place] [facility] [address] [facility] [id number] [place] [address]- 4703 Jul, [facility] [place] [facility] [address] [id number], [place] [address]- 0858 Jul, [facility] [place] [facility] [address] [id number] [place] [address]- 2083 Jul, [facility] [place] [facility] [address] [id number] [place] [address]- 5747 Jul, [facility] [place] [facility] [address] [facility] [id number] [address]- 8390 Jul, [facility] [place] [facility] [address] [id number], [place] [address]- 7619 Jul, [facility] [place] [facility] [address] [id number] [address]- 2506 Jul, [facility] [place] [facility] [address] [facility] [id number], [place] [address]- 8613 Jul, [facility] [place] [facility] [address] [facility] [id number] [address]- 4256 Jul, [facility] [place] [facility] [address] [id number], [place] [address]- 2797 Jul, [facility] [place] [facility] [address] [id number], [place] [address]- 8642 Jun, [facility] [place] [facility] [address] [id number][place] [address]- 4331 Jun, [facility] [place] [facility] [address] [facility] [id number] [address]- 3145 Jun, [facility] [place] [facility] [address] [id number] [place] [address]- 1321 19 Jun, 2011 [facility] [place] [facility] [address] [id number] [place] [address]- 0759 19 Jun, 2011 [facility] [place] [facility] [address] [id number] [place] [address]- 6507 18 Jun, 2011 [facility] [place] [facility] [address] [id number] [place] [address]- 4781 17 Jun, 2011 [facility] [place] [facility] [address] [id number] [place] [address]- 0480 16 Jun, 2011 [facility] [place] [facility] [address] [id number] [place] [address]- 9477 16 Jun, 2012 [facility] [place] [facility] [address] [id number] [place] [address]- 7924 Jun, [facility] [place] [facility] [address] [id number] [place] [address]- 4077 Jun, [facility] [place] [facility] [address] [id number] [place] [address]- 1469 08 Jun, 2012 [facility] [place] [facility] [address] [id number] [place] [address]- 3961 04 Jun, 2012 [facility] [place] [facility] [address] [facility] [id number] [place] [address]- 5198 02 Jun, 2012 [facility] [place] [facility] [address] [id number] [place] [address]- 0426 24 Sep, 2011 [facility] [place] [facility] [address] [id number] [place] [address]- 3223 21 Sep, 2011 [facility] [place] [facility] [address] [id number] [place] [address]- 8855 19 Sep, 2011 [facility] [place] [facility] [address] [id number] [place] [address]- 8216 18 Sep, 2011 [facility] [place] [facility] [address] [id number] [place] [address]- 7816 May, [facility] [place] [facility] [address] [id number] [place] [address] May, [facility] [place] [facility] [address] [id number] [place] [address] May, [facility] [place] [facility] [address] [id number] [place] [address]- 2546 May, [facility] [place] [facility] [address] [id number] [place] [address]- 2078 Apr, [facility] [place] [facility] [address] [id number] [place] [address]- 2940 Apr, [facility] [place] [facility] [address] [id number] [place] [address]- 2582 Apr, [facility] [place] [facility] [address] [id number] [place] [address] Apr, [facility] [place] [facility] [address] [id number] [place] [address] Apr, [facility] [place] [facility] [address] [id number] [place] [address]- 5794 Apr, [facility] [place] [facility] [address] [id number] [place] [address] Apr, [facility] [place] [facility] [address] [id number] [place] [address]- 4939 Apr, [facility] [place] [facility] [address] [id number] [place] [address]- 7913 Apr, [facility] [place] [facility] [address] [id number] [place] [address]- 6633 Apr, [facility] [place] [facility] [address] [id number] [place] [address]- 2256 Apr, [facility] [place] [facility] [address] [id number] [place] [address]- 5786 Apr, [facility] [place] [facility] [address] [id number] [place] [address] Mar, [facility] [place] [facility] [address] [id number] [place] [address]- 8409 27 Mar, 2011 [facility] [place] [facility] [address] [id number] [place] [address]- 5510 Mar, [facility] [place] [facility] [address] [id number] [place] [address]- 8880 26 Mar, 2011 [facility] [place] [facility] [address] [id number] [place] [address]- 4500 25 Mar, 2012 [facility] [place] [facility] [address] [id number] [place] [address]- 6003 24 Mar, 2012 [facility] [place] [facility] [address] [id number] [place] [address]- 6358 Mar, [facility] [place] [facility] [address] [id number] [place] [address]- 2014 Mar, [facility] [place] [facility] [address] [id number] [place] [address]- 2977 18 Mar, 2012 [facility] [place] [facility] [address] [id number] [place] [address]- 4620 17 Mar, 2012 [facility] [place] [facility] [address] [id number] [place] [address]- 8388 17 Mar, 2012 [facility] [place] [facility] [address] [id number] [place] [address]- 6032 15 Mar, 2012 [facility] [place] [facility] [address] [id number] [place] [address]- 5398 13 Mar, 2012 [facility] [place] [facility] [address] [id number] [place] [address]- 9108 11 Mar, 2012 [facility] [place] [facility] [address] [id number] [place] [address]- 5883 05 Mar, 2012 [facility] [place] [facility] [address] [id number] [place] [address]- 9420 03 Mar, 2012 [facility] [place] [facility] [address] [id number] [place] [address]- 9136 02 Mar, 2012 [facility] [place] [facility] [address] [id number] [place] [address]- 8448 27 Feb, 2012 [facility] [place] [facility] [address] [id number] [place] [address]- 9347 27 Feb, 2012 [facility] [place] [facility] [address] [id number] [place] [address]- 8115 25 Feb, 2012 [facility] [place] [facility] [address] [id number] [place] [address]- 0831 19 Feb, 2012 [facility] [place] [facility] [address] [id number] [place] [address]- 4801 18 Feb, 2012 [facility] [place] [facility] [address] [id number] [place] [address]- 1902 15 Feb, 2012 [facility] [place] [facility] [address] [id number] [place] [address]- 7084 14 Feb, 2012 [facility] [place] [facility] [address] [id number] [place] [address]- 4831 13 Feb, 2012 [facility] [place] [facility] [address] [id number] [place] [address]- 2977 11 Feb, 2012 [facility] [place] [facility] [address] [id number] [place] [address]- 6698 06 Feb, 2012 [facility] [place] [facility] [address] [id number] [place] [address]- 9008 05 Feb, 2012 [facility] [place] [facility] [address] [id number] [place] [address]- 2649 January, [facility] [place] [facility] [address] [id number] [place] [address]- 6586 January, [facility] [place] [facility] [address] [id number] [place] [address]- 7082 January, [facility] [place] [facility] [address] [id number] [place] [address]- 9378 January, [facility] [place] [facility] [address] [id number] [place] [address]- 5712 January, [facility] [place] [facility] [address] [id number] [place] [address]- 4326 Dec, [facility] [place] [facility] [address] [id number] [place] [address]- 8836 Dec, [facility] [place] [facility] [address] [id number] [place] [address]- 3366 Dec, [facility] [place] [facility] [address] [id number] [place] [address]- 1130 Dec, [facility] [place] [facility] [address] [id number] [place] [address]- 2213 Dec, [facility] [place] [facility] [address] [id number] [place] [address]- 8993 Dec, [facility] [place] [facility] [address] [id number] [place] [address]- 4786 Dec, [facility] [place] [facility] [address] [id number] [place] [address]- 5208 Dec, [facility] [place] [facility] [address] [id number] [place] [address]- 0152 Dec, [facility] [place] [facility] [address] [id number] [place] [address]- 3583 Dec, [facility] [place] [facility] [address] [id number] [place] [address]- 0495 Nov, [facility] [place] [facility] [address] [id number] [place] [address]- 4286 Nov, [facility] [place] [facility] [address] [id number] [place] [address]- 7025 Nov, [facility] [place] [facility] [address] [id number] [place] [address]- 4514 Nov, [facility] [place] [facility] [address] [id number] [place] [address]- 0665 23 Nov, 2011 [facility] [place] [facility] [address] [id number] [place] [address]- 3752 22 Nov, 2011 [facility] [place] [facility] [address] [id number] [place] [address]- 5326 19 Nov, 2011 [facility] [place] [facility] [address] [facility] [id number] [place] [address]- 2656 14 Nov, 2011 [facility] [place] [facility] [address] [id number] [place] [address]- 3842 13 Nov, 2011 [facility] [place] [facility] [address] [id number] [place] [address]- 5663 13 Nov, 2011 [facility] [place] [facility] [address] [facility] [id number] [place] [address]- 0788 05 Nov, 2011 [facility] [place] [facility] [address] [facility] [id number] [place] [address]- 9316 Nov, [facility] [place] [facility] [address] [facility] [id number] [place] [address]- 3945 29 Oct, 2011 [facility] [place] [facility] [address] [id number] [place] [address]- 2159 28 Oct, 2011 [facility] [place] [facility] [address] [facility] [id number] [place] [address] 27 Oct, 2011 [facility] [place] [facility] [id number] [place] [address] 22 Oct, 2011 [facility] [place] [facility] [address] [facility] [id number] [place] [address] 20 Oct, 2011 [facility] [place] [facility] [address] [facility] [id number] [place] [address] 14 Oct, 2011 [facility] [place] [facility] [address] [facility] [id number] [place] [address] 09 Oct, 2011 [facility] [place] [facility] [id number] [place] [address] 08 Oct, 2011 [facility] [place] [facility] [address] [id number] [place] [address] Oct, [facility] [place] [facility] [address] [id number] [place] [address] Sep, [facility] [place] [facility] [address] [id number] [place] [address] Sep, [facility] [place] [facility] [address] [id number] [place] [address] Sep, [facility] [place] [facility] [address] [id number] [place] [address] Sep, [facility] [place] [facility] [address] [id number] [place] [address] Sep, [facility] [place] [facility] [address] [id number] [place] [address] Sep, [facility] [place] [facility] [address] [id number] [place] [address] Aug, [facility] [place] [facility] [address] [id number] [place] [address] Aug, [facility] [place] [facility] [address] [id number] [place] [address] Aug, [facility] [place] [facility] [address] [id number] [place] [address] Jul, [facility] [place] [facility] [address] [id number] [place] [address] 29 Jul, 2011 [facility] [place] [facility] [address] [id number] [place] [address] 28 Jul, 2011 [facility] [place] [facility] [address] [id number] [place] [address] 14 Jul, 2011 [facility] [place] [facility] [address] [id number] [place] [address] 07 Jul, 2011 [facility] [place] [facility] [address] [id number] [place] [address] Jun, [facility] [id number] [address] Jun, [facility] [id number] [address] Jun, [facility] [id number] [address] Jun, [facility] [id number] [address] Jun, [facility] [id number] [address] Apr, [facility] [id number] [address] Mar, [facility] [id number] [address] January, [facility] [id number] [address] Aug, [facility] [id number] [address] Aug, [facility] [id number] [address] Jun, [facility] [id number] [address] Jun, [facility] [id number] [address] Aug, IMMUNIZATIONS No Known Immunizations SOCIAL HISTORY Never Assessed REASON FOR VISIT adderall 11/26/2017 PLAN OF CARE VITAL SIGNS MEDICATIONS Medication Instructions Dosage Frequency Start Date End Date Duration Status Adderall 10 mg Orally 3 times a day 1 tablet 8h Nov, 28 days Active RESULTS No Results PROCEDURES [...] stent Surgical History ruptured eptopic Hospitalization History [facility]-multiple admissions Hospitalization History hysterectomy Hospitalization History surgeries Hospitalization History blood transfusion x 2
--- OUTSIDE RECORDS SUMMARY | 2018-06-14 10:21 | XMS REPORT ---
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 Active 828683093 Problem Bipolar I disorder, most recent episode (or current) mixed, unspecified 296.60 Active 26239089 Problem Bipolar I disorder, most recent episode (or current) manic, unspecified 296.40 Active 15116350 Problem Bipolar disorder, current episode mixed, unspecified F31.60 Active 32043854 Problem Anxiety state, unspecified F41.1 Active 297405235 Problem Polysubstance abuse F19.10 Active 084374555 Problem Nicotine abuse Z72.0 Active 97666617 Problem 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 642983712 Problem Vitamin D deficiency E55.9 Active 81361599 ALLERGIES No Information SOCIAL HISTORY Never Assessed PLAN OF CARE VITAL SIGNS MEDICATIONS Medication Instructions Dosage Frequency Start Date End Date Duration Status Neurontin 400 MG Orally 3 times a day 3 capsules 8h 30 days Active RESULTS No Results PROCEDURES No Known procedures IMMUNIZATIONS No Known Immunizations MEDICAL (GENERAL) HISTORY Type Description Date Medical [...] stent Surgical History ruptured eptopic Hospitalization History [facility]-multiple admissions Hospitalization History hysterectomy Hospitalization History surgeries Hospitalization History blood transfusion x 2
--- OUTSIDE RECORDS SUMMARY | 2018-06-14 10:21 | XMS REPORT ---
Author Author DEBORA PULLIAM Organization [employer] Address Unknown Phone Unavailable Care Team Providers Care Enterprise Engineer Name Role Phone DEBORA PULLIAM CP Unavailable Allergies No Known Allergies Problems Problem Type Condition ICD-9 Code Onset Dates Condition Status Problem Chronic airway obstruction, not elsewhere classified 496 Active Problem Other chronic pain 338.29 Active Problem Essential hypertension, benign 401.1 Active Problem Personal history of tobacco use, presenting hazards to health V15.82 Active Problem Unspecified sinusitis (chronic) 473.9 Active Problem Unspecified viral hepatitis C without hepatic coma 070.70 Active Problem Encounter for long-term (current) use of other medications V58.69 Active Problem Dizziness and giddiness 780.4 Active Problem Unspecified vitamin D deficiency 268.9 Active Problem Bipolar I disorder, most recent episode (or current) mixed, unspecified 296.60 Active Problem Personal history of other allergy, other than to medicinal agents V15.09 Active Problem Allergic rhinitis due to pollen 477.0 Active Problem Attention deficit disorder of childhood without mention of hyperactivity 314.00 Active Problem Abnormal weight gain 783.1 Active Problem Bipolar I disorder, most recent episode (or current) manic, unspecified 296.40 Active Problem Unspecified backache 724.5 Active Problem Nondependent cannabis abuse, 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 Active Medications No Known Medications Results No Known Results Summary Purpose [employer] Submission
--- OUTSIDE RECORDS SUMMARY | 2018-06-14 10:21 | XMS REPORT ---
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 [id number] [place] [address]- 2676 January, [facility] [address] [id number] [place] [address]- 8739 29 Dec, 2012 [facility] [place] [facility] [address] [id number] [place] [address]- 8758 Dec, [facility] [place] [facility] [address] [id number] [place] [address]- 8726 18 Dec, 2012 [facility] [place] [facility] [address] [id number] [place] [address]- 1619 16 Dec, 2012 [facility] [place] [facility] [address] [id number] [place] [address]- 6062 15 Dec, 2012 [facility] [place] [facility] [address] [id number] [place] [address]- 0981 Dec, [facility] [place] [facility] [address] [id number] [place] [address]- 0577 Nov, [facility] [place] [facility] [address] [id number] [place] [address]- 7270 Nov, [facility] [place] [facility] [address] [id number] [place] [address]- 6440 Nov, [facility] [place] [facility] [address] [id number] [place] [address]- 9326 Nov, [facility] [place] [facility] [address] [id number] [place] [address]- 7854 Nov, [facility] [place] [facility] [address] [id number] [place] [address]- 0066 05 Nov, 2012 [facility] [place] [facility] [address] [id number] [place] [address]- 9463 20 Oct, 2012 [facility] [place] [facility] [address] [id number] [place] [address]- 9452 14 Oct, 2012 [facility] [place] [facility] [address] [id number] [place] [address]- 1267 14 Oct, 2012 [facility] [address] [id number] [place] [address]- 9406 12 Oct, 2012 [facility] [address] [id number] [place] [address]- 5176 11 Oct, 2012 [facility] [address] [facility] [id number] [place] [address]- 9376 07 Oct, 2012 [facility] [address] [id number] [place] [address]- 0180 05 Oct, 2012 [facility] [address] [id number] [place] [address]- 1481 05 Oct, 2012 [facility] [address] [id number] [place] [address]- 9316 04 Oct, 2012 [facility] [address] [facility] [id number] [place] [address]- 2519 31 Sep, 2012 [facility] [address] [id number] [place] [address]- 3231 29 Sep, 2012 [facility] [address] [facility] [id number] [place] [address]- 5030 15 Sep, 2012 [facility] [address] [facility] [id number] [place] [address]- 5660 14 Sep, 2012 [facility] [address] [facility] [id number] [place] [address]- 5987 08 Sep, 2012 [facility] [address] [id number] [place] [address]- 4878 Sep, [facility] [address] [id number] [place] [address]- 7425 18 Aug, 2012 [facility] [place] [facility] [address] [id number] [place] [address]- 3986 Aug, [facility] [address] [facility] [id number] [place] [address]- 8487 Aug, [facility] [place] [facility] [address] [id number] [place] [address]- 6626 18 Aug, 2012 [facility] [place] [facility] [address] [id number] [place] [address]- 1406 15 Aug, 2012 [facility] [place] [facility] [address] [id number] [place] [address] 2546 14 Aug, 2012 [facility] [place] [facility] [address] [id number] [place] [address]- 0886 14 Aug, 2012 [facility] [place] [facility] [address] [id number] [place] [address]- 7896 13 Aug, 2012 [facility] [place] [facility] [address] [id number] [place] [address]- 5866 13 Aug, 2012 [facility] [place] [facility] [address] [id number] [place] [address]- 1686 11 Aug, 2012 [facility] [place] [facility] [address] [id number] [place] [address]- 9578 11 Aug, 2012 [facility] [place] [facility] [address] [id number] [place] [address]- 6479 07 Aug, 2012 [facility] [place] [facility] [address] [id number] [place] [address]- 0686 07 Aug, 2012 [facility] [place] [facility] [address] [id number] [place] [address]- 8686 06 Aug, 2012 [facility] [place] [facility] [address] [id number] [place] [address]- 7796 06 Aug, 2012 [facility] [place] [facility] [address] [id number] [place] [address]- 7846 06 Aug, 2012 [facility] [place] [facility] [address] [id number] [place] [address]- 0336 06 Aug, 2012 [facility] [place] [facility] [address] [id number] [place] [address]- 0246 04 Aug, 2012 [facility] [place] [facility] [address] [id number] [place] [address]- 7878 Aug, [facility] [place] [facility] [address] [id number] [place] [address]- 2539 Jul, [facility] [place] [facility] [address] [id number], [place] [address]- 3302 Jul, [facility] [place] [facility] [address] [facility] [id number] [place] [address]- 5424 Jul, [facility] [place] [facility] [address] [id number], [place] [address]- 9631 Jul, [facility] [place] [facility] [address] [id number] [place] [address]- 0588 Jul, [facility] [place] [facility] [address] [id number] [place] [address]- 3094 Jul, [facility] [place] [facility] [address] [facility] [id number], [place] [address]- 2915 Jul, [facility] [place] [facility] [address] [id number], [place] [address]- 1213 Jul, [facility] [place] [facility] [address] [id number], [place] [address]- 0039 Jul, [facility] [place] [facility] [address] [facility] [id number], [place] [address]- 3531 Jul, [facility] [place] [facility] [address] [facility] [id number], [place] [address]- 8712 Jul, [facility] [place] [facility] [address] [id number], [place] [address]- 4180 Jul, [facility] [place] [facility] [address] [id number], [place] [address]- 3508 Jun, [facility] [place] [facility] [address] [id number], [place] [address]- 6826 Jun, [facility] [place] [facility] [address] [facility] [id number], [place] [address]- 1019 Jun, [facility] [place] [facility] [address] [id number] [place] [address]- 7204 19 Jun, 2011 [facility] [place] [facility] [address] [id number] [place] [address]- 9728 19 Jun, 2011 [facility] [place] [facility] [address] [id number] [place] [address]- 1739 18 Jun, 2011 [facility] [place] [facility] [address] [id number] [place] [address]- 2608 17 Jun, 2011 [facility] [place] [facility] [address] [id number] [place] [address]- 8954 16 Jun, 2011 [facility] [place] [facility] [address] [id number] [place] [address]- 0748 16 Jun, 2012 [facility] [place] [facility] [address] [id number] [place] [address]- 3394 Jun, [facility] [place] [facility] [address] [id number] [place] [address]- 3777 Jun, [facility] [place] [facility] [address] [id number] [place] [address]- 7772 08 Jun, 2012 [facility] [place] [facility] [address] [id number] [place] [address]- 6254 04 Jun, 2012 [facility] [place] [facility] [address] [facility] [id number] [place] [address]- 2481 02 Jun, 2012 [facility] [place] [facility] [address] [id number] [place] [address]- 4437 24 Sep, 2011 [facility] [place] [facility] [address] [id number] [place] [address]- 8770 21 Sep, 2011 [facility] [place] [facility] [address] [id number] [place] [address]- 0123 19 Sep, 2011 [facility] [place] [facility] [address] [id number] [place] [address]- 2665 18 Sep, 2011 [facility] [place] [facility] [address] [id number] [place] [address]- 5117 May, [facility] [place] [facility] [address] [id number] [place] [address] May, [facility] [place] [facility] [address] [id number] [place] [address] May, [facility] [place] [facility] [address] [id number] [place] [address]- 2546 May, [facility] [place] [facility] [address] [id number] [place] [address]- 1235 Apr, [facility] [place] [facility] [address] [id number] [place] [address]- 7976 Apr, [facility] [place] [facility] [address] [id number] [place] [address]- 4916 Apr, [facility] [place] [facility] [address] [id number] [place] [id number] Apr, [facility] [place] [facility] [address] [id number] [place] [id number] Apr, [facility] [place] [facility] [address] [id number] [place] [address]- 5571 Apr, [facility] [place] [facility] [address] [id number] [place] [address]279 Apr, [facility] [place] [facility] [address] [id number] [place] [address]- 0022 Apr, [facility] [place] [facility] [address] [id number] [place] [address]- 0988 Apr, [facility] [place] [facility] [address] [id number] [place] [address]- 1403 Apr, [facility] [place] [facility] [address] [id number] [place] [address]- 1634 Apr, [facility] [place] [facility] [address] [id number] [place] [address]- 1416 Apr, [facility] [place] [facility] [address] [id number] [place] 8221 Mar, [facility] [place] [facility] [address] [id number] [place] [address]- 0980 27 Mar, 2011 [facility] [place] [facility] [address] [id number] [place] [address]- 1803 Mar, [facility] [place] [facility] [address] [id number] [place] [address]- 4852 26 Mar, 2011 [facility] [place] [facility] [address] [id number] [place] [address]- 7859 25 Mar, 2012 [facility] [place] [facility] [address] [id number] [place] [address]- 1121 24 Mar, 2012 [facility] [place] [facility] [address] [id number] [place] [address]- 6232 Mar, [facility] [place] [facility] [address] [id number] [place] [address]- 8382 Mar, [facility] [place] [facility] [address] [id number] [place] [address]- 6925 18 Mar, 2012 [facility] [place] [facility] [address] [id number] [place] [address]- 0287 17 Mar, 2012 [facility] [place] [facility] [address] [id number] [place] [address]- 3012 17 Mar, 2012 [facility] [place] [facility] [address] [id number] [place] [address]- 4440 15 Mar, 2012 [facility] [place] [facility] [address] [id number] [place] [address]- 9142 13 Mar, 2012 [facility] [place] [facility] [address] [id number] [place] [address]- 4430 11 Mar, 2012 [facility] [place] [facility] [address] [id number] [place] [address]- 2335 05 Mar, 2012 [facility] [place] [facility] [address] [id number] [place] [address]- 3899 03 Mar, 2012 [facility] [place] [facility] [address] [id number] [place] [address]- 4205 02 Mar, 2012 [facility] [place] [facility] [address] [id number] [place] [address]- 3454 27 Feb, 2012 [facility] [place] [facility] [address] [id number] [place] [address]- 1237 27 Feb, 2012 [facility] [place] [facility] [address] [id number] [place] [address]- 6308 25 Feb, 2012 [facility] [place] [facility] [address] [id number] [place] [address]- 9176 19 Feb, 2012 [facility] [place] [facility] [address] [id number] [place] [address]- 6587 18 Feb, 2012 [facility] [place] [facility] [address] [id number] [place] [address]- 9619 15 Feb, 2012 [facility] [place] [facility] [address] [id number] [place] [address]- 4819 14 Feb, 2012 [facility] [place] [facility] [address] [id number] [place] [address]- 5632 13 Feb, 2012 [facility] [place] [facility] [address] [id number] [place] [address]- 5366 11 Feb, 2012 [facility] [place] [facility] [address] [id number] [place] [address]- 7296 06 Feb, 2012 [facility] [place] [facility] [address] [id number] [place] [address]- 5451 05 Feb, 2012 [facility] [place] [facility] [address] [id number] [place] [address]- 3009 January, [facility] [place] [facility] [address] [id number] [place] [address]- 0998 January, [facility] [place] [facility] [address] [id number] [place] [address]- 7414 January, [facility] [place] [facility] [address] [id number] [place] [address]- 6984 January, [facility] [place] [facility] [address] [id number] [place] [address]- 8669 January, [facility] [place] [facility] [address] [id number] [place] [address]- 6716 Dec, [facility] [place] [facility] [address] [id number] [place] [address]- 7456 Dec, [facility] [place] [facility] [address] [id number] [place] [address]- 3586 Dec, [facility] [place] [facility] [address] [id number] [place] [address] Dec, [facility] [place] [facility] [address] [id number] [place] [address] Dec, [facility] [place] [facility] [address] [id number] [place] [address] Dec, [facility] [place] [facility] [address] [id number] [place] [address] Dec, [facility] [place] [facility] [address] [id number] [place] [address] Dec, [facility] [place] [facility] [address] [id number] [place] [address] Dec, [facility] [place] [facility] [address] [id number] [place] [address] Dec, [facility] [place] [facility] [address] [id number] [place] [address] Nov, [facility] [place] [facility] [address] [id number] [place] [address] Nov, [facility] [place] [facility] [address] [id number] [place] [address] Nov, [facility] [place] [facility] [address] [id number] [place] [address] Nov, [facility] [place] [facility] [address] [id number] [place] [address] 23 Nov, 2011 [facility] [place] [facility] [address] [id number] [place] [address]- [address] 22 Nov, 2011 [facility] [place] [facility] [address] [id number] [place] [address] 19 Nov, 2011 [facility] [place] [facility] [address] [facility] [id number] [place] [address] 14 Nov, 2011 [facility] [place] [facility] [address] [id number] [place] [address] 13 Nov, 2011 [facility] [place] [facility] [address] [id number] [place] [address] 13 Nov, 2011 [facility] [place] [facility] [address] [facility] [id number] [place] [address] 05 Nov, 2011 [facility] [place] [facility] [address] [facility] [id number] [place] [address] Nov, [facility] [place] [facility] [address] [facility] [id number] [place] [address]40 29 Oct, 2011 [facility] [place] [facility] [address] [id number] [address] 28 Oct, 2011 [facility] [place] [facility] [address] [facility] [id number] [place] [address]647 27 Oct, 2011 [facility] [place] [facility] [id number] [place] [address] 22 Oct, 2011 [facility] [place] [facility] [address] [facility] [id number] [place] [address]- 2013 20 Oct, 2011 [facility] [place] [facility] [address] [facility] [id number] [place] [address]- [address] 14 Oct, 2011 [facility] [place] [facility] [address] [facility] [id number] [place] [address]- [address] 09 Oct, 2011 [facility] [place] [facility] [id number] [place] [address] 08 Oct, 2011 [facility] [place] [facility] [address] [id number] [place] [address]38 Oct, [facility] [place] [facility] [address] [id number] [place] [address] Sep, [facility] [place] [facility] [address] [id number] [place] [address] Sep, [facility] [place] [facility] [address] [id number] [place] [address] 132[address] Sep, [facility] [place] [facility] [address] [id number] [place] [address] 287[address] Sep, [facility] [place] [facility] [address] [id number] [place] [address] Sep, [facility] [place] [facility] [address] [id number] [place] [address]- [address]277 Sep, [facility] [place] [facility] [address] [id number] [place] [address] Aug, [facility] [place] [facility] [address] [id number] [place] [address] Aug, [facility] [place] [facility] [address] [id number] [place] [address] Aug, [facility] [place] [facility] [address] [id number] [place] [address] Jul, [facility] [place] [facility] [address] [id number] [place] [address] 4681 29 Jul, 2011 [facility] [place] [facility] [address] [id number] [place] [address]- 68[address] 28 Jul, 2011 [facility] [place] [facility] [address] [id number] [place] [address]- [address] 14 Jul, 2011 [facility] [place] [facility] [address] [id number] [place] [address]- [address] 07 Jul, 2011 [facility] [place] [facility] [address] [id number] [place] [address] Jun, [facility] [address] [id number] [address] Jun, [facility] [id number] [place] [address] Jun, [facility] [id number] [place] [address] Jun, [facility] [id number] [place] [address] Jun, [facility] [id number], [place] [address] Apr, [facility] [id number], [place] [address] Mar, [facility] [id number], [place] [address] January, [facility] [id number] [place] [address] Aug, [facility] [id number] [address] [address] Aug, [facility] [id number] [address] Jun, [facility] [address] [id number], [place] [address] Jun, [facility] [id number] [place] [address] Aug, IMMUNIZATIONS No Known Immunizations SOCIAL HISTORY [...] stent Surgical History ruptured eptopic Hospitalization History [place]-multiple admissions Hospitalization History hysterectomy Hospitalization History surgeries Hospitalization History blood transfusion x 2
--- OUTSIDE RECORDS SUMMARY | 2018-06-14 10:22 | XMS REPORT ---
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 Active Problem Bipolar I disorder, most recent episode (or current) manic, unspecified 296.40 Active Problem Nicotine abuse Z72.0 Active Problem Vitamin D deficiency E55.9 Active Problem Chronic viral hepatitis C B18.2 Active Problem Polysubstance abuse F19.10 Active Problem Bipolar I disorder, most recent episode (or current) mixed, unspecified 296.60 Active Problem Essential (primary) hypertension I10 Active Problem Chronic obstructive pulmonary disease, unspecified J44.9 Active Medications Medication Code System Code Instructions Start Date End Date Status Dosage Acyclovir [facility] [address]-15 400 MG Orally 3 times a day Oct 11, 2015 1 tablet Results No Known Results Summary Purpose [employer] Submission
--- OUTSIDE RECORDS SUMMARY | 2018-06-14 10:22 | XMS REPORT ---
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 [address] [id number] [place] [address]- 2616 12 Oct, 2012 [facility] [place] [facility] [address] [id number] [place] [address]- 2669 Oct, [facility] [place] [facility] [address] [id number] [place] [address]- 3520 07 Oct, 2012 [facility] [place] [facility] [address] [id number] [place] [address]- 6615 05 Oct, 2012 [facility] [place] [facility] [address] [id number] [place] [address]- 9268 05 Oct, 2012 [facility] [place] [facility] [address] [id number] [place] [address]- 7085 04 Oct, 2012 [facility] [place] [facility] [address] [id number] [place] [address]- 6549 31 Sep, 2012 [facility] [place] [facility] [address] [id number] [place] [address] 254 29 Sep, 2012 [facility] [place] [facility] [address] [id number] [place] [address] 2546 15 Sep, 2012 [facility] [place] [facility] [address] [id number] [place] [address]- 1575 14 Sep, 2012 [facility] [place] [facility] [address] [id number] [place] [address]- 0829 08 Sep, 2012 [facility] [address] [id number] [place] [address]- 0515 03 Sep, 2012 [facility] [address] [id number] [place] [address]- 4749 18 Aug, 2012 [facility] [address] [id number] [place] [address]- 7776 18 Aug, 2012 [facility] [place] [facility] [address] [id number] [place] [address]- 7053 18 Aug, 2012 [facility] [address] [id number] [place] [address]- 3267 18 Aug, 2012 [facility] [address] [id number] [place] [address]- 8562 15 Aug, 2012 [facility] [address] [id number] [place] [address]- 4825 14 Aug, 2012 [facility] [address] [id number] [place] [address]- 3045 14 Aug, 2012 [facility] [address] [id number] [place] [address]- 7843 13 Aug, 2012 [facility] [address] [id number] [place] [address]- 8256 13 Aug, 2012 [facility] [address] [id number] [place] [address]- 5362 11 Aug, 2012 [facility] [place] [facility] [address] [id number] [place] [address]- 4040 11 Aug, 2012 [facility] [place] [facility] [address] [id number] [place] [address]- 4785 07 Aug, 2012 [facility] [place] [facility] [address] [id number] [place] [address]- 9235 07 Aug, 2012 [facility] [place] [facility] [address] [id number] [place] [address]- 5834 06 Aug, 2012 [facility] [place] [facility] [address] [id number] [place] [address]- 0463 06 Aug, 2012 [facility] [place] [facility] [address] [id number] [place] [address]- 9236 Aug, [facility] [place] [facility] [address] [id number] [place] [address]- 9466 Aug, [facility] [place] [facility] [address] [id number] [place] [address]- 6436 Aug, [facility] [place] [facility] [address] [id number] [place] [address]- 8657 Aug, [facility] [place] [facility] [address] [id number] [place] [address]- 0342 Jul, [facility] [place] [facility] [address] [id number] [place] [address]- 8433 Jul, [facility] [place] [facility] [address] [id number] [place] [address]- 8619 Jul, [facility] [place] [facility] [address] [id number] [place] [address]- 4292 Jul, [facility] [place] [facility] [address] [id number] [place] [address]- 0468 Jul, [facility] [place] [facility] [address] [id number] [place] [address]- 8148 14 Jul, 2012 [facility] [place] [facility] [address] [id number] [place] [address]- 7812 Jul, [facility] [place] [facility] [address] [id number] [place] [address]- 2675 Jul, [facility] [place] [facility] [address] [id number] [place] [address]- 5808 Jul, [facility] [place] [facility] [address] [id number] [place] [address]- 6247 Jul, [facility] [place] [facility] [address] [id number] [place] [address]- 3408 07 Jul, 2011 [facility] [place] [facility] [address] [id number] [place] [address]- 8347 07 Jul, 2011 [facility] [place] [facility] [address] [id number] [place] [address]- 1343 30 Jun, 2011 [facility] [place] [facility] [address] [id number] [place] [address]- 4323 30 Jun, 2012 [facility] [place] [facility] [address] [id number] [place] [address]- 5717 29 Jun, 2011 [facility] [place] [facility] [address] [id number] [place] [address]- 7326 Jun, [facility] [place] [facility] [address] [id number] [place] [address]- 5007 Jun, [facility] [place] [facility] [address] [id number] [place] [address]- 7443 18 Jun, 2012 [facility] [place] [facility] [address] [id number] [place] [address]- 5644 Jun, [facility] [place] [facility] [address] [id number] [place] [address]- 3658 Jun, [facility] [place] [facility] [address] [id number] [place] [address]- 7306 16 Jun, 2012 [facility] [place] [facility] [address] [id number] [place] [address]- 0214 Jun, [facility] [place] [facility] [address] [id number] [place] [address]- 4357 Jun, [facility] [place] [facility] [address] [id number] [place] [address]- 0817 Jun, [facility] [place] [facility] [address] [facility] [id number] [place] [address]- 3388 Jun, [facility] [place] [facility] [address] [facility] [id number] [place] [address]- 7626 Jun, [facility] [place] [facility] [address] [id number] [place] [address]- 2906 24 May, 2011 [facility] [place] [facility] [address] [id number] [place] [address]- 1216 21 May, 2011 [facility] [place] [facility] [address] [id number] [place] [address] 2546 19 May, 2011 [facility] [place] [facility] [address] [id number] [place] [address]- 0342 18 May, 2011 [facility] [place] [facility] [address] [id number] [place] [address] 2541 12 May, 2011 [facility] [place] [facility] [address] [id number] [place] 12 May, 2012 [facility] [place] [facility] [address] [id number] [place] May, [facility] [place] [facility] [address] [id number] [place] [address]- 9603 04 May, 2012 [facility] [place] [facility] [address] [id number] [place] [address]- 1236 29 Apr, 2012 [facility] [place] [facility] [address] [id number] [place] [address]- 2558 28 Apr, 2012 [facility] [place] [facility] [address] [id number] [place] [address]- 5259 Apr, [facility] [place] [facility] [address] [id number] [place] Apr, [facility] [place] [facility] [address] [id number] [place] Apr, [facility] [place] [facility] [address] [id number] [place] [address]- 4692 17 Apr, 2012 [facility] [place] [facility] [address] [id number] [place] 7516 16 Apr, 2012 [facility] [place] [facility] [address] [id number] [place] [address]- 5344 16 Apr, 2012 [facility] [place] [facility] [address] [id number] [place] [address]- 5832 14 Apr, 2012 [facility] [place] [facility] [address] [id number] [place] [address]- 5092 Apr, [facility] [place] [facility] [address] [id number] [place] [address]- 4246 Apr, [facility] [place] [facility] [address] [id number] [place] [address]- 6720 Apr, [facility] [place] [facility] [address] [id number] [place] [address]- 9161 Mar, [facility] [place] [facility] [address] [id number] [place] [address]- 2362 Mar, [facility] [place] [facility] [address] [id number] [place] [address]- 9072 Mar, [facility] [place] [facility] [address] [id number] [place] [address]- 5360 Mar, [facility] [address] [id number] [place] [address]- 2825 Mar, [facility] [place] [facility] [address] [id number] [place] [address]- 2576 Mar, [facility] [address] [id number] [place] [address]- 6186 Mar, [facility] [place] [facility] [address] [id number] [place] [address]- 0414 Mar, [facility] [place] [facility] [address] [id number] [place] [address] 2542 18 Mar, 2012 [facility] [place] [facility] [address] [id number] [place] [address]- 4879 Mar, [facility] [place] [facility] [address] [id number] [place] [address]- 4126 Mar, [facility] [place] [facility] [address] [id number] [place] [address]- 9065 15 Mar, 2012 [facility] [place] [facility] [address] [id number] [place] [address]- 1258 13 Mar, 2012 [facility] [place] [facility] [address] [id number] [place] [address]- 6927 11 Mar, 2012 [facility] [place] [facility] [address] [id number] [place] [address]- 3523 05 Mar, 2012 [facility] [place] [facility] [address] [id number] [place] [address]- 0085 03 Mar, 2012 [facility] [place] [facility] [address] [id number] [place] [address]- 3630 02 Mar, 2012 [facility] [place] [facility] [address] [id number] [place] [address]- 4386 27 Feb, 2012 [facility] [place] [facility] [address] [id number] [place] [address]- 5033 27 Feb, 2012 [facility] [place] [facility] [address] [id number] [place] [address]- 1452 25 Feb, 2012 [facility] [place] [facility] [address] [id number] [place] [address]- 4440 19 Feb, 2012 [facility] [place] [facility] [address] [id number] [place] [address]- 4966 18 Feb, 2012 [facility] [place] [facility] [address] [id number] [place] [address]- 2930 15 Feb, 2012 [facility] [place] [facility] [address] [id number] [place] [address]- 8990 14 Feb, 2012 [facility] [place] [facility] [address] [id number] [place] [address]- 1150 13 Feb, 2012 [facility] [place] [facility] [address] [id number] [place] [address]- 4781 11 Feb, 2012 [facility] [place] [facility] [address] [id number] [place] [address]- 9628 06 Feb, 2012 [facility] [place] [facility] [address] [id number] [place] [address]- 1598 Feb, [facility] [address] [id number] [place] [address]- 2735 January, [facility] [address] [id number] [place] [address]- 2278 January, [facility] [address] [id number] [place] [address]- 9694 January, [facility] [address] [id number] [place] [address]- 6014 January, [facility] [address] [id number] [place] [address]- 6698 January, [facility] [address] [id number] [place] [address]- 1155 Dec, [facility] [address] [id number] [place] [address]- 7769 Dec, [facility] [address] [id number] [place] [address]- 7611 Dec, [facility] [address] [id number] [place] [address]- 2445 Dec, [facility] [address] [id number] [place] [address]- 3621 24 Dec, 2011 [facility] [address] [id number] [place] [address]- 7637 Dec, [facility] [place] [facility] [address] [id number] [place] [address]- 7550 Dec, [facility] [place] [facility] [address] [id number] [place] [address]- 8522 16 Dec, 2011 [facility] [place] [facility] [address] [id number] [place] [address]- 2015 Dec, [facility] [address] [id number] [place] [address]- 7227 Dec, [facility] [place] [facility] [address] [id number] [place] [address]- 7982 29 Nov, 2011 [facility] [place] [facility] [address] [id number] [place] [address]- 4088 29 Nov, 2011 [facility] [place] [facility] [address] [id number] [place] [address]- 0559 27 Nov, 2011 [facility] [place] [facility] [address] [id number] [place] [address]- 5316 26 Nov, 2011 [facility] [place] [facility] [address] [id number] [place] [address]- 2806 23 Nov, 2011 [facility] [place] [facility] [address] [id number] [place] [address]- 2500 22 Nov, 2011 [facility] [place] [facility] [address] [id number] [place] [address] 19 Nov, 2011 [facility] [place] [facility] [address] [id number] [place] [address] 14 Nov, 2011 [facility] [place] [facility] [address] [id number] [place] [address] 13 Nov, 2011 [facility] [place] [facility] [address] [id number] [place] [address] 13 Nov, 2011 [facility] [place] [facility] [address] [id number] [place] [address] 05 Nov, 2011 [facility] [place] [facility] [address] [id number] [place] [address] 49[address] 01 Nov, 2011 [facility] [place] [facility] [address] [id number] [place] [address] 29 Oct, 2011 [facility] [place] [facility] [address] [id number] [place] [address] 28 Oct, 2011 [facility] [place] [facility] [address] [id number] [place] [address] 27 Oct, 2011 [facility] [place] [facility] [address] [id number] [place] [address] Oct, [facility] [address] [id number] [place] [address] Oct, [facility] [place] [facility] [address] [id number] [place] [address] 1396 14 Oct, 2011 [facility] [place] [facility] [address] [id number] [place] [address] Oct, [facility] [place] [facility] [address] [id number] [place] [address] 08 Oct, 2011 [facility] [place] [facility] [address] [id number] [place] [address] Oct, [facility] [place] [facility] [address] [id number] [place] [address] Sep, [facility] [address] [id number] [place] [address] Sep, [facility] [address] [id number] [place] [address] Sep, [facility] [address] [id number] [place] [address] Sep, [facility] [address] [id number] [place] [address] Sep, [facility] [address] [id number] [place] [address] Sep, [facility] [place] [facility] [address] [id number] [place] [address] Aug, [facility] [place] [facility] [address] [id number] [place] [address] Aug, [facility] [place] [facility] [address] [id number] [place] [address] Aug, [facility] [place] [facility] [address] [id number] [place] [address] Jul, [facility] [place] [facility] [address] [id number] [place] [address] 29 Jul, 2011 [facility] [place] [facility] [address] [id number] [place] [address] 28 Jul, 2011 [facility] [place] [facility] [address] [id number] [place] [address]- 16[address] Jul, [facility] [place] [facility] [address] [id number] [place] [address] 47[address] Jul, [facility] [place] [facility] [address] [id number] [place] [address] Jun, [facility] [place] [facility] [address] [id number] [place] [address] 39[address] Jun, [facility] [place] [facility] [address] [id number] [place] [address]84 24 Jun, 2011 [facility] [place] [facility] [address] [id number] [place] [address] Jun, [facility] [place] [facility] [address] [id number] [place] [address] Jun, [facility] [place] [facility] [address] [id number] [place] [address] 46[address] 15 Apr, 2011 [facility] [place] [facility] [address] [id number] [place] [address] Mar, [facility] [place] [facility] [address] [id number] [place] [address] January, [facility] [place] [facility] [address] [id number] [place] [address] Aug, [facility] [place] [facility] [address] [id number] [place] [address] Aug, [facility] [place] [facility] [address] [id number] [place] [address] 13 Jun, 2009 [facility] [place] [facility] [address] [id number] [place] [address] Jun, [facility] [address] [facility] [id number] [place] [address] Aug, IMMUNIZATIONS No Known Immunizations SOCIAL HISTORY Never Assessed REASON FOR VISIT Adderall PLAN OF CARE VITAL SIGNS MEDICATIONS Medication Instructions Dosage Frequency Start Date End Date Duration Status Adderall 10 mg Orally 3 times a day 1 tablet in the morning 8h Feb, 30 days Active RESULTS No Results PROCEDURES [...] stent Surgical History ruptured eptopic Hospitalization History [place]-multiple admissions Hospitalization History hysterectomy Hospitalization History surgeries Hospitalization History blood transfusion x 2
--- OUTSIDE RECORDS SUMMARY | 2018-06-14 10:22 | XMS REPORT ---
Author Author DEBORA PULLIAM Organization [employer] Address Unknown Phone Unavailable Care Team Providers Care Venetian Blind Washer Name Role Phone DEBORA PULLIAM CP Unavailable Allergies, Adverse Reactions, Alerts Substance Reaction Event Type Zyprexa Info Not Available Drug Allergy Risperdal Info Not Available Drug Allergy Haldol Info Not Available Drug Allergy Problems Problem Type Condition Code Onset Dates Condition Status Problem Attention deficit disorder of childhood without mention of hyperactivity 314.00 Active Problem Nondependent cannabis abuse, 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 Active Problem Bipolar I disorder, most recent episode (or current) manic, unspecified 296.40 Active Assessment Pain in left knee M25.562 Active Assessment Encounter for immunization Z23 Active Problem Nicotine abuse Z72.0 Active Problem Vitamin D deficiency E55.9 Active Problem Chronic viral hepatitis C B18.2 Active Problem Polysubstance abuse F19.10 Active Problem Bipolar I disorder, most recent episode (or current) mixed, unspecified 296.60 Active Problem Essential (primary) hypertension I10 Active Problem Chronic obstructive pulmonary disease, unspecified J44.9 Active Medications Medication Code System Code Instructions Start Date End Date Status Dosage Adderall [facility] [address]-10 10 MG Orally Three times a day 1 tablet in the morning Neurontin [facility] [address]-66 250 MG/5ML TAKE 24 MLS BY MOUTH THREE TIMES DAILY Voltaren [facility] [address]-21 1 % Transdermal Jun 01, 2015 as directed HydrOXYzine HCl [facility] [address]-66 50 MG Orally 3 times a day 1 tablet Seroquel [facility] [address]-65 400 MG Orally Once a day 2 tablets at bedtime Seroquel [facility] [address]-42 100 MG Orally Once a day for thought organization 1 tablet in the am Meclizine HCl [facility] 03991857423 25 MG Orally 2 times a day 1 tablet as needed Procedures Procedure Coding System Code Date SINGLE IMMUNIZATION ADMIN CPT-4 44410 Jun 26, 2015 [facility] VISIT ESTABLISHED PATIENT CPT-4 G0467 Jun 26, 2015 FLUARIX QUAD (3 & UP)-GSK-2014 CPT-4 69219 Jun 26, 2015 Office Visit, Est Pt., Level 3 CPT-4 68435 Jun 26, 2015 Vital Signs Date/Time: Jun 26, 2015 Temperature 97.6 F Weight 206.1 lbs Height 69 in BMI 30.43 Index Blood Pressure Diastolic 90 mmHg Blood Pressure Systolic 138 mmHg Cardiac Monitoring Heart Rate 80 bpm Results No Known Results Immunizations Vaccine Administration Date FLUARIX QUAD (3 & UP)-GSK-2014Jun 26, 2015 Summary Purpose [employer] Submission
--- OUTSIDE RECORDS SUMMARY | 2018-06-14 10:23 | XMS REPORT ---
Author Author AYLEEN BONILLA Organization [facility] Address [address] [place] [address] Care Team Providers Care Traffic Clerk Name Role Phone AYLEEN BONILLA Unavailable PROBLEMS Type Condition ICD9-CM Code [id number] Code Onset Dates Condition Status SNOMED Code Problem Chronic viral hepatitis C B18.2 Active 440376125 Problem Chronic obstructive pulmonary disease, unspecified J44.9 Active 40347907 Problem Essential (primary) hypertension I10 Active 03623711 Problem Attention deficit disorder of childhood without mention of hyperactivity 314.00 Active 41648944 Problem Nondependent cannabis abuse, 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 Active 550622832 Problem Bipolar I disorder, most recent episode (or current) mixed, unspecified 296.60 Active 94920437 Problem Bipolar I disorder, most recent episode (or current) manic, unspecified 296.40 Active 14487536 Problem Bipolar disorder, current episode mixed, unspecified F31.60 Active 17992489 Problem Anxiety state, unspecified F41.1 Active 603256736 Problem Polysubstance abuse F19.10 Active 978245002 Problem Nicotine abuse Z72.0 Active 28444602 Problem 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 552789089 Problem Vitamin D deficiency E55.9 Active 68193304 ALLERGIES Substance Reaction Event Type Date Status Zyprexa Unknown Drug Allergy Aug, Active Risperdal Unknown Drug Allergy Aug, Active Haldol Unknown Drug Allergy Aug, Active SOCIAL HISTORY No smoking Hx information available PLAN OF CARE Activity Details Follow Up prn Reason: VITAL SIGNS Height 69 in 2016-09-18 Weight 216.8 lbs 2016-09-18 Temperature 97.4 degrees Fahrenheit 2016-09-18 Heart Rate 96 bpm 2016-09-18 Respiratory Rate 24 2016-09-18 BMI 32.01 kg/m2 2016-09-18 Blood pressure systolic 128 mmHg 2016-09-18 Blood pressure diastolic 80 mmHg 2016-09-18 MEDICATIONS Medication Instructions Dosage Frequency Start Date End Date Duration Status Valium 5 MG Orally Twice a day 1 tablet as needed 12h Active HydrOXYzine HCl 50 MG Orally 3 times a day 1 tablet 8h 30 days Active Travel Sickness 25 MG TAKE ONE TABLET BY MOUTH TWICE DAILY 30 Active Prazosin HCl 5 mg Orally Once a day 2 capsule at bedtime 24h Active Vicks Cool Mist Humidifier Active Neurontin 250 MG/5ML Orally Three times a day 24mL 8h 07 days Active Naproxen 500 MG Orally every 12 hrs 1 tablet as needed 12h Aug, Sep, 15 days Active Seroquel 100 MG Orally Once a day for thought organization 1 tablet in the am Active Voltaren 1 % Topically 4 times a day APPLY 4 GRAMS as needed for back pain 6h 7 Active Acyclovir 400 MG Orally 3 times a day 1 tablet 8h Sep, 7 days Active PredniSONE 20 MG Orally Once a day 2 tablet 24h Aug, 3 Sep, 2016 5 days Active Adderall 10 MG Orally Three times a day 1 tablet in the morning 8h Active 27-1 MG Orally Once a day 1 tablets 24h Jun, 30 days Active Methylphenidate HCl 20 MG Orally 3 times a day 1 tablet on an empty stomach 8h Active Seroquel 400 MG Orally Once a day 2 tablets at bedtime 24h Active Meclizine HCl 25 MG Orally 2 times a day 1 tablet as needed 12h 30 Active RESULTS No Results PROCEDURES Procedure Date Ordered Related Diagnosis Body Site [facility] VISIT ESTABLISHED PATIENT Sep 18, 2016 Office Visit, Est Pt., Level 3 Sep 18, 2016 IMMUNIZATIONS No Known Immunizations
--- OUTSIDE RECORDS SUMMARY | 2018-06-14 10:23 | XMS REPORT ---
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 [id number] [place] [address]- 4636 Dec, [facility] [place] [facility] [address] [id number] [place] [address]- 7135 18 Dec, 2012 [facility] [place] [facility] [address] [id number] [place] [address]- 7101 16 Dec, 2012 [facility] [place] [facility] [address] [id number] [place] [address]- 6413 15 Dec, 2012 [facility] [place] [facility] [address] [id number] [place] [address]- 2055 Dec, [facility] [place] [facility] [address] [id number] [place] [address]- 1480 Nov, [facility] [place] [facility] [address] [id number] [place] [address]- 4614 Nov, [facility] [place] [facility] [address] [id number] [place] [address]- 5310 Nov, [facility] [place] [facility] [address] [id number] [place] [address]- 8377 Nov, [facility] [place] [facility] [address] [id number] [place] [address]- 2691 Nov, [facility] [place] [facility] [address] [id number] [place] [address]- 4085 05 Nov, 2012 [facility] [place] [facility] [address] [id number] [place] [address]- 8078 20 Oct, 2012 [facility] [place] [facility] [address] [id number] [place] [address]- 4558 14 Oct, 2012 [facility] [place] [facility] [address] [id number] [place] [address]- 4650 14 Oct, 2012 [facility] [address] [id number] [place] [address]- 0382 12 Oct, 2012 [facility] [address] [id number] [place] [address]- 0786 11 Oct, 2012 [facility] [address] [facility] [id number] [place] [address]- 1026 07 Oct, 2012 [facility] [address] [id number] [place] [address]- 7825 05 Oct, 2012 [facility] [address] [id number] [place] [address]- 3003 05 Oct, 2012 [facility] [address] [id number] [place] [address]- 4720 04 Oct, 2012 [facility] [address] [facility] [id number] [place] [address]- 0221 31 Sep, 2012 [facility] [address] [id number] [place] [address]- 7100 29 Sep, 2012 [facility] [address] [facility] [id number] [place] [address]- 8491 15 Sep, 2012 [facility] [address] [facility] [id number] [place] [address]- 5407 14 Sep, 2012 [facility] [address] [facility] [id number] [place] [address]- 4067 08 Sep, 2012 [facility] [address] [id number] [place] [address]- 4634 Sep, [facility] [address] [id number] [place] [address]- 3884 18 Aug, 2012 [facility] [place] [facility] [address] [id number] [place] [address]- 1766 Aug, [facility] [address] [facility] [id number] [place] [address]- 3364 Aug, [facility] [place] [facility] [address] [id number] [place] [address]- 2156 18 Aug, 2012 [facility] [place] [facility] [address] [id number] [place] [address]- 8876 15 Aug, 2012 [facility] [place] [facility] [address] [id number] [place] [address] 2546 14 Aug, 2012 [facility] [place] [facility] [address] [id number] [place] [address]- 7296 14 Aug, 2012 [facility] [place] [facility] [address] [id number] [place] [address]- 9686 13 Aug, 2012 [facility] [place] [facility] [address] [id number] [place] [address]- 9086 13 Aug, 2012 [facility] [place] [facility] [address] [id number] [place] [address]- 7956 11 Aug, 2012 [facility] [place] [facility] [address] [id number] [place] [address]- 2675 11 Aug, 2012 [facility] [place] [facility] [address] [id number] [place] [address]- 2018 07 Aug, 2012 [facility] [place] [facility] [address] [id number] [place] [address]- 6556 07 Aug, 2012 [facility] [place] [facility] [address] [id number] [place] [address]- 8226 06 Aug, 2012 [facility] [place] [facility] [address] [id number] [place] [address]- 6676 06 Aug, 2012 [facility] [place] [facility] [address] [id number] [place] [address]- 7466 06 Aug, 2012 [facility] [place] [facility] [address] [id number] [place] [address]- 3606 06 Aug, 2012 [facility] [place] [facility] [address] [id number] [place] [address]- 5706 04 Aug, 2012 [facility] [place] [facility] [address] [id number] [place] [address]- 4504 Aug, [facility] [place] [facility] [address] [id number] [place] [address]- 5807 Jul, [facility] [place] [facility] [address] [id number], [place] [address]- 8039 Jul, [facility] [place] [facility] [address] [facility] [id number] [place] [address]- 7075 Jul, [facility] [place] [facility] [address] [id number], [place] [address]- 0300 Jul, [facility] [place] [facility] [address] [id number] [place] [address]- 6149 Jul, [facility] [place] [facility] [address] [id number] [place] [address]- 6721 Jul, [facility] [place] [facility] [address] [facility] [id number], [place] [address]- 0916 Jul, [facility] [place] [facility] [address] [id number], [place] [address]- 8146 Jul, [facility] [place] [facility] [address] [id number], [place] [address]- 7399 Jul, [facility] [place] [facility] [address] [facility] [id number], [place] [address]- 7493 Jul, [facility] [place] [facility] [address] [facility] [id number], [place] [address]- 2228 Jul, [facility] [place] [facility] [address] [id number], [place] [address]- 0044 Jul, [facility] [place] [facility] [address] [id number], [place] [address]- 0986 Jun, [facility] [place] [facility] [address] [id number], [place] [address]- 7250 Jun, [facility] [place] [facility] [address] [facility] [id number], [place] [address]- 0512 Jun, [facility] [place] [facility] [address] [id number] [place] [address]- 6246 19 Jun, 2011 [facility] [place] [facility] [address] [id number] [place] [address]- 5470 19 Jun, 2011 [facility] [place] [facility] [address] [id number] [place] [address]- 6033 18 Jun, 2011 [facility] [place] [facility] [address] [id number] [place] [address]- 3741 17 Jun, 2011 [facility] [place] [facility] [address] [id number] [place] [address]- 4325 16 Jun, 2011 [facility] [place] [facility] [address] [id number] [place] [address]- 8752 16 Jun, 2012 [facility] [place] [facility] [address] [id number] [place] [address]- 9120 Jun, [facility] [place] [facility] [address] [id number] [place] [address]- 9413 Jun, [facility] [place] [facility] [address] [id number] [place] [address]- 3866 08 Jun, 2012 [facility] [place] [facility] [address] [id number] [place] [address]- 9706 04 Jun, 2012 [facility] [place] [facility] [address] [facility] [id number] [place] [address]- 1877 02 Jun, 2012 [facility] [place] [facility] [address] [id number] [place] [address]- 7167 24 Sep, 2011 [facility] [place] [facility] [address] [id number] [place] [address]- 7739 21 Sep, 2011 [facility] [place] [facility] [address] [id number] [place] [address]- 4839 19 Sep, 2011 [facility] [place] [facility] [address] [id number] [place] [address]- 1240 18 Sep, 2011 [facility] [place] [facility] [address] [id number] [place] [address]- 4099 May, [facility] [place] [facility] [address] [id number] [place] [address] May, [facility] [place] [facility] [address] [id number] [place] [address] May, [facility] [place] [facility] [address] [id number] [place] [address]- 2546 May, [facility] [place] [facility] [address] [id number] [place] [address]- 2087 Apr, [facility] [place] [facility] [address] [id number] [place] [address]- 3553 Apr, [facility] [place] [facility] [address] [id number] [place] [address]- 0780 Apr, [facility] [place] [facility] [address] [id number] [place] [address] Apr, [facility] [place] [facility] [address] [id number] [place] [address] Apr, [facility] [place] [facility] [address] [id number] [place] [address]- 9201 Apr, [facility] [place] [facility] [address] [id number] [place] 2000 Apr, [facility] [place] [facility] [address] [id number] [place] [address]- 4091 Apr, [facility] [place] [facility] [address] [id number] [place] [address]- 2022 Apr, [facility] [place] [facility] [address] [id number] [place] [address]- 3759 Apr, [facility] [place] [facility] [address] [id number] [place] [address]- 5409 Apr, [facility] [place] [facility] [address] [id number] [place] [address]- 4956 Apr, [facility] [place] [facility] [address] [id number] [place] [address] [address]51 Mar, [facility] [place] [facility] [address] [id number] [place] [address]- 1601 27 Mar, 2011 [facility] [place] [facility] [address] [id number] [place] [address]- 1939 Mar, [facility] [place] [facility] [address] [id number] [place] [address]- 5546 26 Mar, 2011 [facility] [place] [facility] [address] [id number] [place] [address]- 2452 25 Mar, 2012 [facility] [place] [facility] [address] [id number] [place] [address]- 4019 24 Mar, 2012 [facility] [place] [facility] [address] [id number] [place] [address]- 6223 Mar, [facility] [place] [facility] [address] [id number] [place] [address]- 2599 Mar, [facility] [place] [facility] [address] [id number] [place] [address]- 5005 18 Mar, 2012 [facility] [place] [facility] [address] [id number] [place] [address]- 7705 17 Mar, 2012 [facility] [place] [facility] [address] [id number] [place] [address]- 1573 17 Mar, 2012 [facility] [place] [facility] [address] [id number] [place] [address]- 2901 15 Mar, 2012 [facility] [place] [facility] [address] [id number] [place] [address]- 6889 13 Mar, 2012 [facility] [place] [facility] [address] [id number] [place] [address]- 6520 11 Mar, 2012 [facility] [place] [facility] [address] [id number] [place] [address]- 3211 05 Mar, 2012 [facility] [place] [facility] [address] [id number] [place] [address]- 1772 03 Mar, 2012 [facility] [place] [facility] [address] [id number] [place] [address]- 9666 02 Mar, 2012 [facility] [place] [facility] [address] [id number] [place] [address]- 0637 27 Feb, 2012 [facility] [place] [facility] [address] [id number] [place] [address]- 4971 27 Feb, 2012 [facility] [place] [facility] [address] [id number] [place] [address]- 3424 25 Feb, 2012 [facility] [place] [facility] [address] [id number] [place] [address]- 8634 19 Feb, 2012 [facility] [place] [facility] [address] [id number] [place] [address]- 2964 18 Feb, 2012 [facility] [place] [facility] [address] [id number] [place] [address]- 4915 15 Feb, 2012 [facility] [place] [facility] [address] [id number] [place] [address]- 8265 14 Feb, 2012 [facility] [place] [facility] [address] [id number] [place] [address]- 0931 13 Feb, 2012 [facility] [place] [facility] [address] [id number] [place] [address]- 4742 11 Feb, 2012 [facility] [place] [facility] [address] [id number] [place] [address]- 5266 06 Feb, 2012 [facility] [place] [facility] [address] [id number] [place] [address]- 9813 05 Feb, 2012 [facility] [place] [facility] [address] [id number] [place] [address]- 5960 January, [facility] [place] [facility] [address] [id number] [place] [address]- 3588 January, [facility] [place] [facility] [address] [id number] [place] [address]- 7042 January, [facility] [place] [facility] [address] [id number] [place] [address]- 0506 January, [facility] [place] [facility] [address] [id number] [place] [address]- 1396 January, [facility] [place] [facility] [address] [id number] [place] [address]- 0836 Dec, [facility] [place] [facility] [address] [id number] [place] [address]- 4986 Dec, [facility] [place] [facility] [address] [id number] [place] [address]- 9366 Dec, [facility] [place] [facility] [address] [id number] [place] [address]- 6645 Dec, [facility] [place] [facility] [address] [id number] [place] [address]- 8742 Dec, [facility] [place] [facility] [address] [id number] [place] [address]- 9883 Dec, [facility] [place] [facility] [address] [id number] [place] [address]- 0599 Dec, [facility] [place] [facility] [address] [id number] [place] [address]- 6992 Dec, [facility] [place] [facility] [address] [id number] [place] [address]- 1564 Dec, [facility] [place] [facility] [address] [id number] [place] [address]- 0150 Dec, [facility] [place] [facility] [address] [id number] [place] [address]- 4967 Nov, [facility] [place] [facility] [address] [id number] [place] [address]- 8611 Nov, [facility] [place] [facility] [address] [id number] [place] [address]- 8445 Nov, [facility] [place] [facility] [address] [id number] [place] [address]- 4865 Nov, [facility] [place] [facility] [address] [id number] [place] [address]- 8761 23 Nov, 2011 [facility] [place] [facility] [address] [id number] [place] [address] 22 Nov, 2011 [facility] [place] [facility] [address] [id number] [place] [address] 19 Nov, 2011 [facility] [place] [facility] [address] [facility] [id number] [place] [address] 14 Nov, 2011 [facility] [place] [facility] [address] [id number] [place] [address] 13 Nov, 2011 [facility] [place] [facility] [address] [id number] [place] [address] 13 Nov, 2011 [facility] [place] [facility] [address] [facility] [id number] [place] [address] 05 Nov, 2011 [facility] [place] [facility] [address] [facility] [id number] [place] [address] Nov, [facility] [place] [facility] [address] [facility] [id number] [place] [address] 29 Oct, 2011 [facility] [place] [facility] [address] [id number] [place] [address] 28 Oct, 2011 [facility] [place] [facility] [address] [facility] [id number] [place] [address] 27 Oct, 2011 [facility] [place] [facility] [id number] [place] [address] 22 Oct, 2011 [facility] [place] [facility] [address] [facility] [id number] [place] [address]- [address] 20 Oct, 2011 [facility] [place] [facility] [address] [facility] [id number] [place] [address] 14 Oct, 2011 [facility] [place] [facility] [address] [facility] [id number] [place] [address] 09 Oct, 2011 [facility] [place] [facility] [id number] [place] [address] 08 Oct, 2011 [facility] [place] [facility] [address] [id number] [place] [address] Oct, [facility] [place] [facility] [address] [id number] [place] [address] Sep, [facility] [place] [facility] [address] [id number] [place] [address] Sep, [facility] [place] [facility] [address] [id number] [place] [address] Sep, [facility] [place] [facility] [address] [id number] [place] [address] Sep, [facility] [place] [facility] [address] [id number] [place] [address] 47[address] Sep, [facility] [place] [facility] [address] [id number] [place] [address] Sep, [facility] [place] [facility] [address] [id number] [place] [address] Aug, [facility] [place] [facility] [address] [id number] [place] [address] Aug, [facility] [place] [facility] [address] [id number] [place] [address] Aug, [facility] [place] [facility] [address] [id number] [place] [address] Jul, [facility] [place] [facility] [address] [id number] [place] [address] 29 Jul, 2011 [facility] [place] [facility] [address] [id number] [place] [address]68 28 Jul, 2011 [facility] [place] [facility] [address] [id number] [place] [address] 14 Jul, 2011 [facility] [place] [facility] [address] [id number] [place] [address] 07 Jul, 2011 [facility] [place] [facility] [address] [id number] [place] [address] Jun, [facility] [address] [id number] [address] Jun, [facility] [address] [facility] [id number], [place] [address] Jun, [facility] [id number], [place] [address] Jun, [facility] [address] [facility] [id number], [place] [address] Jun, [facility] [address] [facility] [id number], [place] [address] Apr, [facility] [id number], [place] [address] Mar, [facility] [id number], [place] [address] January, [facility] [id number], [place] [address] Aug, [facility] [address], [place] [address] Aug, [facility] [address] [address] [address] Jun, [facility] [id number], [place] [address] Jun, [facility] [id number], [place] [address] Aug, IMMUNIZATIONS No Known Immunizations SOCIAL HISTORY Never Assessed REASON FOR VISIT valium refill PLAN OF CARE VITAL SIGNS MEDICATIONS Medication [...] stent Surgical History ruptured eptopic Hospitalization History [place]-multiple admissions Hospitalization History hysterectomy Hospitalization History surgeries Hospitalization History blood transfusion x 2
--- OUTSIDE RECORDS SUMMARY | 2018-06-14 10:23 | XMS REPORT ---
Author Author DEBORA PULLIAM Organization [employer] Address Unknown Phone Unavailable Care Team Providers Care Supervisor Unloading Name Role Phone DEBORA PULLIAM CP Unavailable [...] Instructions Start Date End Date Status Dosage [facility] [id number] 27-1 MG Orally Once a day Jul 16, 2015 1 tablets Results No Known Results Summary Purpose [employer] Submission
--- OUTSIDE RECORDS SUMMARY | 2018-06-14 10:24 | XMS REPORT ---
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 Active 507389670 Problem Attention deficit disorder of childhood without mention of hyperactivity 314.00 Active 44028784 Problem Chronic viral hepatitis C B18.2 Active 457275931 Problem Nicotine abuse Z72.0 Active 46387784 Problem Chronic obstructive pulmonary disease, unspecified J44.9 Active 64403001 Problem Polysubstance abuse F19.10 Active 634834949 Problem Vitamin D deficiency E55.9 Active 67785051 Problem Essential (primary) hypertension I10 Active 93915014 ALLERGIES Unknown Allergies SOCIAL HISTORY No smoking Hx information available PLAN OF CARE VITAL SIGNS MEDICATIONS Unknown Medications RESULTS No Results PROCEDURES No Known procedures IMMUNIZATIONS No Known Immunizations
--- OUTSIDE RECORDS SUMMARY | 2018-06-14 10:24 | XMS REPORT ---
Author Author DEBORA PULLIAM [facility] [employer] Address Unknown Phone Unavailable Care Team Providers Care Knitting Machine Operator Name Role Phone DEBORA PULLIAM CP Unavailable [...] obstructive pulmonary disease, unspecified J44.9 Active Medications No Known Medications Results No Known Results Summary Purpose eClinicalWorks Submission
--- OUTSIDE RECORDS SUMMARY | 2018-06-14 10:25 | XMS REPORT ---
Author Author DEBORA PULLIAM [employer] Address Unknown Phone Unavailable Care Team Providers Care Ap Operator Name Role Phone DEBORA PULLIAM CP [...] (or current) manic, unspecified 296.40 Active Assessment Knee pain, left M25.562 Active Assessment Neuropathic pain M79.2 Active Problem Nicotine abuse Z72.0 Active Problem Vitamin D deficiency E55.9 Active Problem Chronic viral hepatitis C B18.2 Active Problem Polysubstance abuse F19.10 Active Problem Bipolar I disorder, most recent episode (or current) mixed, unspecified 296.60 Active Problem Essential (primary) hypertension I10 Active Problem Chronic obstructive pulmonary disease, unspecified J44.9 Active Medications Medication Code System Code Instructions Start Date End Date Status Dosage Voltaren [facility] 22495839346 1 % APPLY 4 GRAMS TOPICALLY TO AFFECTED AREA FOUR TIMES DAILY FOR KNEE PAIN Neurontin [facility] [address]-08 250 MG/5ML TAKE 24 MLS BY MOUTH THREE TIMES DAILY Seroquel [facility] [address]-01 100 MG Orally Once a day for thought organization 1 tablet in the am [facility] [address]-29 27-1 MG Orally Once a day Jul 16, 2015 1 tablets Adderall [facility] [address]-92 10 MG Orally Three times a day 1 tablet in the morning Seroquel [facility] [address]-91 400 MG Orally Once a day 2 tablets at bedtime Meclizine HCl [facility] 96712965280 25 MG Orally 2 times a day 1 tablet as needed HydrOXYzine HCl [facility] 73790752977 50 MG TAKE ONE TABLET BY MOUTH THREE TIMES DAILY Procedures Procedure Coding System Code Date Office Visit, Est Pt., Level 3 CPT-4 75074 Sep 26, 2015 [facility] VISIT ESTABLISHED PATIENT CPT-4 G0467 Sep 26, 2015 Vital Signs Date/Time: Sep 26, 2015 Temperature 98.3 F Weight 214 lbs Height 69 in BMI 31.60 Index Blood Pressure Diastolic 88 mmHg Blood Pressure Systolic 136 mmHg Cardiac Monitoring Heart Rate 105 bpm Results No Known Results Summary Purpose eClinicalWorks Submission
--- OUTSIDE RECORDS SUMMARY | 2018-06-14 10:25 | XMS REPORT ---
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 [address]- 6041 Nov, [facility] [place] [facility] [address] [id number] [place] [address]- 4668 20 Oct, 2012 [facility] [place] [facility] [address] [id number] [place] [address]- 8278 14 Oct, 2012 [facility] [place] [facility] [address] [id number] [place] [address]- 4082 14 Oct, 2012 [facility] [place] [facility] [address] [id number] [place] [address]- 0112 12 Oct, 2012 [facility] [place] [facility] [address] [id number] [place] [address]- 5037 Oct, [facility] [place] [facility] [address] [id number] [place] [address]- 2532 07 Oct, 2012 [facility] [place] [facility] [address] [id number] [place] [address]- 1102 05 Oct, 2012 [facility] [place] [facility] [address] [id number] [place] [address]- 7155 05 Oct, 2012 [facility] [place] [facility] [address] [id number] [place] [address]- 1143 04 Oct, 2012 [facility] [place] [facility] [address] [id number] [place] [address]- 0996 Sep, [facility] [place] [facility] [address] [id number] [place] [address]- 6041 29 Sep, 2012 [facility] [place] [facility] [address] [facility] [id number] [place] [address]- 2843 Sep, [facility] [place] [facility] [address] [id number] [place] [address]- 0616 14 Sep, 2012 [facility] [address] [id number] [place] [address]- 2286 08 Sep, 2012 [facility] [address] [id number] [place] [address]- 9208 03 Sep, 2012 [facility] [address] [id number] [place] [address]- 1189 18 Aug, 2012 [facility] [address] [id number] [place] [address]- 4697 18 Aug, 2012 [facility] [address] [id number] [place] [address]- 4415 18 Aug, 2012 [facility] [address] [id number] [place] [address]- 2117 18 Aug, 2012 [facility] [address] [id number] [place] [address]- 4950 15 Aug, 2012 [facility] [address] [id number] [place] [address]- 9033 14 Aug, 2012 [facility] [address] [id number] [place] [address]- 0377 14 Aug, 2012 [facility] [address] [id number] [place] [address]- 4510 13 Aug, 2012 [facility] [address] [id number] [place] [address]- 9864 13 Aug, 2012 [facility] [address] [id number] [place] [address]- 3171 11 Aug, 2012 [facility] [address] [id number] [place] [address]- 6445 11 Aug, 2012 [facility] [address] [id number] [place] [address]- 7127 07 Aug, 2012 [facility] [address] [id number] [place] [address]- 8137 Aug, [facility] [place] [facility] [address] [id number] [place] [address]- 0453 Aug, [facility] [place] [facility] [address] [id number] [place] [address]- 8646 Aug, [facility] [place] [facility] [address] [id number] [place] [address]- 4558 Aug, [facility] [place] [facility] [address] [id number] [place] [address]- 6136 Aug, [facility] [place] [facility] [address] [id number] [place] [address]- 2034 Aug, [facility] [place] [facility] [address] [id number] [place] [address]- 3448 Aug, [facility] [place] [facility] [address] [id number] [place] [address]- 7537 Jul, [facility] [place] [facility] [address] [id number] [place] [address]- 3774 Jul, [facility] [place] [facility] [address] [id number] [place] [address]- 7519 Jul, [facility] [place] [facility] [address] [id number], [place] [address]- 3173 Jul, [facility] [place] [facility] [address] [facility] [id number], [place] [address]- 6928 Jul, [facility] [place] [facility] [address] [id number], [place] [address]- 7403 Jul, [facility] [place] [facility] [address] [id number] [place] [address]- 8841 Jul, [facility] [place] [facility] [address] [id number] [place] [address]- 7949 Jul, [facility] [place] [facility] [address] [facility] [id number], [place] [address]- 4494 Jul, [facility] [place] [facility] [address] [id number], [place] [address]- 3734 08 Jul, 2012 [facility] [place] [facility] [address] [id number] [place] [address]- 8922 07 Jul, 2011 [facility] [place] [facility] [address] [id number] [place] [address]- 4982 Jul, [facility] [place] [facility] [address] [facility] [id number] [place] [address]- 9988 30 Jun, 2012 [facility] [place] [facility] [address] [id number] [place] [address]- 9096 30 Jun, 2012 [facility] [place] [facility] [address] [id number] [place] [address]- 0933 29 Jun, 2012 [facility] [place] [facility] [address] [facility] [id number] [place] [address]- 5443 Jun, [facility] [place] [facility] [address] [facility] [id number] [place] [address]- 4748 Jun, [facility] [place] [facility] [address] [facility] [id number] [place] [address]- 9978 18 Jun, 2012 [facility] [place] [facility] [address] [facility] [id number], [place] [address]- 2493 17 Jun, 2012 [facility] [place] [facility] [address] [facility] [id number], [place] [address]- 0381 16 Jun, 2012 [facility] [place] [facility] [address] [facility] [id number], [place] [address]- 8914 16 Jun, 2012 [facility] [place] [facility] [address] [facility] [id number], [place] [address]- 6375 Jun, [facility] [place] [facility] [address] [facility] [id number][place] 6487 Jun, [facility] [place] [facility] [address] [facility] [id number], [place] [address]- 5104 08 Jun, 2012 [facility] [place] [facility] [address] [facility] [id number], [place] [address]- 4693 Jun, [facility] [place] [facility] [address] [id number] [place] [address]- 7701 02 Jun, 2012 [facility] [place] [facility] [address] [id number] [place] [address]- 8490 24 May, 2012 [facility] [place] [facility] [address] [id number] [place] [address]- 1307 21 May, 2012 [facility] [place] [facility] [address] [id number] [place] [address]- 9829 19 May, 2012 [facility] [place] [facility] [address] [id number] [place] [address]- 0097 18 May, 2012 [facility] [place] [facility] [address] [id number] [place] [address]- 1936 12 May, 2012 [facility] [place] [facility] [address] [id number] [place] [id number] May, [facility] [place] [facility] [address] [id number] [place] [id number] May, [facility] [place] [facility] [address] [id number] [place] [address]- 3086 04 May, 2012 [facility] [place] [facility] [address] [id number] [place] [address]- 3844 29 Apr, 2012 [facility] [place] [facility] [address] [id number] [place] [address]- 1170 Apr, [facility] [place] [facility] [address] [id number] [place] [address]- 2628 Apr, [facility] [place] [facility] [address] [id number][place] [id number] Apr, [facility] [place] [facility] [address] [id number] [place] [id number] Apr, [facility] [place] [facility] [address] [id number] [place] [address]- 5333 Apr, [facility] [place] [facility] [address] [id number], [place] [address]- 8412 16 Apr, 2012 [facility] [place] [facility] [address] [id number] [place] [address]- 3879 16 Apr, 2012 [facility] [place] [facility] [address] [id number] [place] [address]- 4004 Apr, [facility] [place] [facility] [address] [id number] [place] [address]- 2836 Apr, [facility] [place] [facility] [address] [id number] [place] [address]- 2777 Apr, [facility] [place] [facility] [address] [id number] [place] [address]- 0095 Apr, [facility] [place] [facility] [address] [id number] [place] [address]- 6098 Mar, [facility] [place] [facility] [address] [id number] [place] [address]- 2169 Mar, [facility] [place] [facility] [address] [id number] [place] [address]- 1553 Mar, [facility] [place] [facility] [address] [id number] [place] [address]- 5166 Mar, [facility] [place] [facility] [address] [id number] [place] [address]- 4437 Mar, [facility] [place] [facility] [address] [id number] [place] [address]- 6898 Mar, [facility] [place] [facility] [address] [id number] [place] [address]- 2851 Mar, [facility] [place] [facility] [address] [id number] [place] [address]- 9314 Mar, [facility] [place] [facility] [address] [id number] [place] [address]- 0962 Mar, [facility] [place] [facility] [address] [id number] [place] [address]- 2608 17 Mar, 2012 [facility] [place] [facility] [address] [id number] [place] [address]- 2165 17 Mar, 2012 [facility] [place] [facility] [address] [id number] [place] [address]- 6305 15 Mar, 2012 [facility] [place] [facility] [address] [id number] [place] [address]- 5556 13 Mar, 2012 [facility] [place] [facility] [address] [id number] [place] [address]- 0846 11 Mar, 2012 [facility] [place] [facility] [address] [id number] [place] [address]- 6387 05 Mar, 2012 [facility] [place] [facility] [address] [id number] [place] [address]- 6706 03 Mar, 2012 [facility] [place] [facility] [address] [id number] [place] [address]- 4572 02 Mar, 2012 [facility] [place] [facility] [address] [id number] [place] [address]- 8586 27 Feb, 2012 [facility] [place] [facility] [address] [id number] [place] [address]- 3576 27 Feb, 2012 [facility] [place] [facility] [address] [id number] [place] [address]- 8985 25 Feb, 2012 [facility] [place] [facility] [address] [id number] [place] [address]- 5045 19 Feb, 2012 [facility] [place] [facility] [address] [id number] [place] [address]- 0631 18 Feb, 2012 [facility] [place] [facility] [address] [id number] [place] [address]- 6217 15 Feb, 2012 [facility] [place] [facility] [address] [id number] [place] [address]- 3907 14 Feb, 2012 [facility] [place] [facility] [address] [id number] [place] [address]- 9879 13 Feb, 2012 [facility] [place] [facility] [address] [id number] [place] [address]- 1343 11 Feb, 2012 [facility] [place] [facility] [address] [id number] [place] [address]- 3414 Feb, [facility] [address] [id number] [place] [address]- 5970 Feb, [facility] [address] [id number] [place] [address]- 3525 January, [facility] [address] [id number] [place] [address]- 8630 January, [facility] [address] [id number] [place] [address]- 1017 January, [facility] [address] [id number] [place] [address]- 5936 January, [facility] [address] [id number] [place] [address]- 9237 January, [facility] [address] [id number] [place] [address]- 3166 Dec, [facility] [address] [id number] [place] [address]- 4470 Dec, [facility] [address] [id number] [place] [address]- 3100 Dec, [facility] [address] [id number] [place] [address]- 9980 Dec, [facility] [address] [id number] [place] [address]- 7630 24 Dec, 2011 [facility] [address] [id number] [place] [address]- 8837 Dec, [facility] [address] [id number] [place] [address]- 3260 Dec, [facility] [address] [id number] [place] [address]- 4281 16 Dec, 2011 [facility] [address] [id number] [place] [address]- 4200 Dec, [facility] [place] [facility] [address] [id number] [place] [address]- 2416 02 Dec, 2011 [facility] [place] [facility] [address] [id number] [place] [address]- 7926 29 Nov, 2011 [facility] [place] [facility] [address] [id number] [place] [address]- 9206 29 Nov, 2011 [facility] [place] [facility] [address] [id number] [place] [address]- 2796 27 Nov, 2011 [facility] [place] [facility] [address] [id number] [place] [address]- 0583 26 Nov, 2011 [facility] [place] [facility] [address] [id number] [place] [address] 23 Nov, 2011 [facility] [place] [facility] [address] [id number] [place] [address] 22 Nov, 2011 [facility] [place] [facility] [address] [id number] [place] [address]68 19 Nov, 2011 [facility] [place] [facility] [address] [id number] [place] [address] 14 Nov, 2011 [facility] [place] [facility] [address] [id number] [place] [address] 13 Nov, 2011 [facility] [place] [facility] [address] [id number] [place] [address] 13 Nov, 2011 [facility] [place] [facility] [address] [id number] [place] [address] 05 Nov, 2011 [facility] [place] [facility] [address] [id number] [place] [address] Nov, [facility] [place] [facility] [address] [id number] [place] [address] 29 Oct, 2011 [facility] [place] [facility] [address] [id number] [place] [address] 120[address] 28 Oct, 2011 [facility] [place] [facility] [address] [id number] [place] [address] 27 Oct, 2011 [facility] [address] [id number] [place] [address] Oct, [facility] [place] [facility] [address] [id number] [place] [address]46 20 Oct, 2011 [facility] [address] [id number] [place] [address] 2546 14 Oct, 2011 [facility] [place] [facility] [address] [id number] [place] [address] 2546 09 Oct, 2011 [facility] [address] [id number] [place] [address] 08 Oct, 2011 [facility] [address] [id number] [place] [address] 2546 Oct, [facility] [address] [id number] [place] [address] Sep, [facility] [address] [id number] [place] [address] Sep, [facility] [address] [id number] [place] [address] Sep, [facility] [address] [id number] [place] [address] Sep, [facility] [address] [id number] [place] [address] 2546 Sep, [facility] [address] [id number] [place] [address] 2546 Sep, [facility] [place] [facility] [address] [id number] [place] [address] 2546 Aug, [facility] [place] [facility] [address] [id number] [place] [address] 2546 Aug, [facility] [address] [id number] [place] [address] Aug, [facility] [place] [facility] [address] [id number] [place] [address] 29 Jul, 2011 [facility] [place] [facility] [address] [id number] [place] [address] Jul, [facility] [place] [facility] [address] [id number] [place] [address] Jul, [facility] [place] [facility] [address] [id number] [place] [address] 14 Jul, 2011 [facility] [place] [facility] [address] [id number] [place] [address] Jul, [facility] [place] [facility] [address] [id number] [place] [address] Jun, [facility] [place] [facility] [address] [id number] [place] [address] Jun, [facility] [place] [facility] [address] [id number] [place] [address] 24 Jun, 2011 [facility] [place] [facility] [address] [id number] [place] [address] Jun, [facility] [place] [facility] [address] [id number], [place] [address] Jun, [facility] [place] [facility] [address] [id number], [place] [address] 15 Apr, 2011 [facility] [place] [facility] [address] [id number], [place] [address] 14 Mar, 2011 [facility] [place] [facility] [address] [id number] [place] [address] January, [facility] [place] [facility] [address] [id number] [place] [address] Aug, [facility] [place] [facility] [address] [id number] 17 Aug, 2009 [facility] [place] [facility] [address] [id number], [place] [address] Jun, [facility] [address] [facility] [id number] [place] [address] Jun, [facility] [address] [facility] [id number] [place] [address] Aug, IMMUNIZATIONS No Known Immunizations SOCIAL HISTORY Never Assessed REASON FOR VISIT intake- Tino Fox RN, pt is [facility] PLAN OF CARE Activity Details Follow Up 4 Weeks Reason:medication follow up appointment VITAL SIGNS Height 69 in 2017-03-18 Weight 208 lbs 2017-03-18 Heart Rate 80 bpm 2017-03-18 Respiratory Rate 22 2017-03-18 BMI 30.71 kg/m2 2017-03-18 Blood pressure systolic 118 mmHg 2017-03-18 Blood pressure diastolic 82 mmHg 2017-03-18 MEDICATIONS Medication Instructions Dosage Frequency Start Date End Date Duration Status Prazosin HCl 5 mg Orally Once a day 2 capsule at bedtime 24h 30 days Active Adderall 10 mg Orally 3 times a day 1 tablet in the morning 8h Feb, 30 days Active Valium 5 mg Orally Twice a day 1 tablet as needed 12h 30 days Active Seroquel 400 mg Orally Once a day 2 tablets at bedtime 24h 30 days Active 27-1 MG Orally Once a day 1 tablets 24h Jun, 30 days Active Neurontin 400 MG Orally 3 times a day 3 capsules 8h 30 days Active RESULTS No Results PROCEDURES Procedure Date Ordered Result Body Site [facility] VISIT ESTABLISHED PATIENT March 18, 2017 INSTRUCTIONS MEDICATIONS ADMINISTERED No Known Medications MEDICAL [...] stent Surgical History ruptured eptopic Hospitalization History [facility]-multiple admissions Hospitalization History hysterectomy Hospitalization History surgeries Hospitalization History blood transfusion x 2
--- OUTSIDE RECORDS SUMMARY | 2018-06-14 10:26 | XMS REPORT ---
Author Author DEBORA PULLIAM Organization [employer] Address Unknown Phone Unavailable Care Team Providers Care Card Setter Name Role Phone DEBORA PULLIAM CP Unavailable [...] (or current) manic, unspecified 296.40 Active Assessment Bronchitis J40 Active Problem Nicotine abuse Z72.0 Active Problem Vitamin D deficiency E55.9 Active Problem Chronic viral hepatitis C B18.2 Active Problem Polysubstance abuse F19.10 Active Problem Bipolar I disorder, most recent episode (or current) mixed, unspecified 296.60 Active Problem Essential (primary) hypertension I10 Active Problem Chronic obstructive pulmonary disease, unspecified J44.9 Active Medications Medication Code System Code Instructions Start Date End Date Status Dosage [facility] [address]-69 27-1 MG Orally Once a day Jul 16, 2015 1 tablets HydrOXYzine HCl [facility] 37412591775 50 MG TAKE ONE TABLET BY MOUTH THREE TIMES DAILY Adderall [facility] [address]-89 10 MG Orally Three times a day 1 tablet in the morning Neurontin [facility] [address]-69 250 MG/5ML TAKE 24 MLS BY MOUTH THREE TIMES DAILY Meclizine HCl [facility] 47277287276 25 MG Orally 2 times a day 1 tablet as needed Acyclovir [facility] [address]-89 400 MG Orally 3 times a day Oct 11, 2015 1 tablet Seroquel [facility] [address]-11 100 MG Orally Once a day for thought organization 1 tablet in the am Seroquel [facility] [address]-74 400 MG Orally Once a day 2 tablets at bedtime Zithromax [facility]dulkadir [facility] [address]-10 250 MG Orally Once a day Oct 31, 2015 Nov 05, 2015 2 tablets on the first day, then 1 tablet daily for 4 days Voltaren [facility] [id number] 1 % APPLY 4 GRAMS TOPICALLY TO AFFECTED AREA FOUR TIMES DAILY FOR KNEE PAIN Procedures Procedure Coding System Code Date Office Visit, Est Pt., Level 3 CPT-4 62831 Oct 31, 2015 [facility] VISIT ESTABLISHED PATIENT CPT-4 G0467 Oct 31, 2015 Vital Signs Date/Time: Oct 31, 2015 Temperature 97.8 F Weight 211 lbs Height 69 in BMI 31.16 Index Blood Pressure Diastolic 82 mmHg Blood Pressure Systolic 150 mmHg Cardiac Monitoring Heart Rate 92 bpm Results No Known Results Summary Purpose [employer] Submission
--- OUTSIDE RECORDS SUMMARY | 2018-06-14 10:26 | XMS REPORT ---
Author Author DEBORA PULLIAM [facility] [employer] Address Unknown Phone Unavailable Care Team Providers Care Facility Maintenance Worker Name Role Phone DEBORA PULLIAM CP Unavailable [...]
--- OUTSIDE RECORDS SUMMARY | 2018-06-14 10:26 | XMS REPORT ---
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 [place] [address]- 2657 18 Dec, 2012 [facility] [place] [facility] [address] [id number] [place] [address]- 8501 16 Dec, 2012 [facility] [place] [facility] [address] [id number] [place] [address]- 3845 15 Dec, 2012 [facility] [place] [facility] [address] [id number] [place] [address]- 5163 02 Dec, 2012 [facility] [place] [facility] [address] [id number] [place] [address]- 4203 21 Nov, 2012 [facility] [place] [facility] [address] [id number] [place] [address]- 3227 Nov, [facility] [place] [facility] [address] [id number] [place] [address]- 2277 Nov, [facility] [place] [facility] [address] [id number] [place] [address]- 3988 Nov, [facility] [place] [facility] [address] [id number] [place] [address]- 2156 Nov, [facility] [place] [facility] [address] [id number] [place] [address]- 9192 05 Nov, 2012 [facility] [place] [facility] [address] [id number] [place] [address]- 1565 20 Oct, 2012 [facility] [place] [facility] [address] [id number] [place] [address]- 1678 14 Oct, 2012 [facility] [place] [facility] [address] [id number] [place] [address]- 4692 14 Oct, 2012 [facility] [place] [facility] [address] [id number] [place] [address]- 7847 12 Oct, 2012 [facility] [place] [facility] [address] [id number] [place] [address]- 6700 11 Oct, 2012 [facility] [address] [id number] [place] [address]- 3025 07 Oct, 2012 [facility] [place] [facility] [address] [id number] [place] [address]- 9536 05 Oct, 2012 [facility] [place] [facility] [address] [id number] [place] [address]- 7176 05 Oct, 2012 [facility] [place] [facility] [address] [id number] [place] [address]- 1382 04 Oct, 2012 [facility] [address] [id number] [place] [address]- 2498 Sep, [facility] [address] [id number] [place] [address]- 1654 29 Sep, 2012 [facility] [address] [id number] [place] [address]- 6876 15 Sep, 2012 [facility] [address] [id number] [place] [address]- 3828 14 Sep, 2012 [facility] [address] [id number] [place] [address]- 2041 Sep, [facility] [address] [id number] [place] [address]- 8027 Sep, [facility] [address] [id number] [place] [address]- 6474 Aug, [facility] [place] [facility] [address] [id number] [place] [address]- 3274 Aug, [facility] [place] [facility] [address] [id number] [place] [address]- 8820 Aug, [facility] [place] [facility] [address] [id number] [place] [address]- 8914 Aug, [facility] [place] [facility] [address] [id number] [place] [address]- 5577 15 Aug, 2012 [facility] [place] [facility] [address] [id number] [place] [address]- 0906 14 Aug, 2012 [facility] [place] [facility] [address] [id number] [place] [address]- 0146 14 Aug, 2012 [facility] [place] [facility] [address] [facility] [id number] [place] [address]- 0006 13 Aug, 2012 [facility] [place] [facility] [address] [id number] [place] [address]- 4646 13 Aug, 2012 [facility] [place] [facility] [address] [id number] [place] [address]- 8356 11 Aug, 2012 [facility] [place] [facility] [address] [id number] [place] [address]- 3316 11 Aug, 2012 [facility] [place] [facility] [address] [id number] [place] [address]- 6647 07 Aug, 2012 [facility] [place] [facility] [address] [id number] [place] [address]- 1349 07 Aug, 2012 [facility] [place] [facility] [address] [id number] [place] [address]- 4276 06 Aug, 2012 [facility] [place] [facility] [address] [id number] [place] [address]- 6964 06 Aug, 2012 [facility] [place] [facility] [address] [id number] [address]- 6745 06 Aug, 2012 [facility] [place] [facility] [address] [id number] [address]- 5336 06 Aug, 2012 [facility] [place] [facility] [address] [id number] [place] [address]- 5836 Aug, [facility] [place] [facility] [address] [id number] [place] [address]- 3028 Aug, [facility] [place] [facility] [address] [id number] [place] [address]- 2801 Jul, [facility] [place] [facility] [address] [id number] [place] [address]- 7932 Jul, [facility] [place] [facility] [address] [id number] [place] [address]- 9602 Jul, [facility] [place] [facility] [address] [id number] [place] [address]- 2144 Jul, [facility] [place] [facility] [address] [id number] [place] [address]- 6774 14 Jul, 2012 [facility] [place] [facility] [address] [id number] [place] [address]- 6854 14 Jul, 2012 [facility] [place] [facility] [address] [id number] [place] [address], [place] [address]- 4811 08 Jul, 2012 [facility] [place] [facility] [address] [id number] [place] [address]- 1381 08 Jul, 2012 [facility] [place] [facility] [address] [facility] [id number] [place] [address]- 5742 08 Jul, 2012 [facility] [place] [facility] [address] [id number] [place] [address]- 5261 08 Jul, 2012 [facility] [place] [facility] [address] [facility] [id number] [place] [address]- 3648 07 Jul, 2012 [facility] [place] [facility] [address] [facility] [id number] [place] [address]- 8388 07 Jul, 2012 [facility] [place] [facility] [address] [id number] [place] [address]- 7239 30 Jun, 2012 [facility] [place] [facility] [address] [id number] [place] [address]- 1255 30 Jun, 2012 [facility] [place] [facility] [address] [id number] [place] [address]- 3299 29 Jun, 2012 [facility] [place] [facility] [address] [facility] [id number] [place] [address]- 0759 Jun, [facility] [place] [facility] [address] [id number] [place] [address]- 4152 Jun, [facility] [place] [facility] [address] [id number] [place] 18 Jun, 2012 [facility] [place] [facility] [address] [id number] [place] [address]- 2841 17 Jun, 2012 [facility] [place] [facility] [address] [id number] [place] [address]- 3461 16 Jun, 2012 [facility] [place] [facility] [address] [id number] [place] [address]- 7386 16 Jun, 2012 [facility] [place] [facility] [address] [id number] [place] [address]- 5149 Jun, [facility] [place] [facility] [address] [id number] [place] [address]- 5378 Jun, [facility] [place] [facility] [address] [id number] [place] [address]- 7622 08 Jun, 2012 [facility] [place] [facility] [address] [id number] [place] [address]- 8421 04 Jun, 2012 [facility] [place] [facility] [address] [id number] [place] [address]- 8414 02 Jun, 2012 [facility] [place] [facility] [address] [id number] [address]- 4579 24 May, 2012 [facility] [place] [facility] [address] [id number] [place] [address]- 6607 21 May, 2012 [facility] [place] [facility] [address] [id number] [address]- 3542 19 Sep, 2011 [facility] [place] [facility] [address] [id number] [place] [address]- 2580 18 Sep2011 [facility] [place] [facility] [address] [id number] [address]- 7594 12 May, 2012 [facility] [place] [facility] [address] [id number] [place] [address] 12 May, 2012 [facility] [place] [facility] [address] [id number] [place] [address] May, [facility] [place] [facility] [address] [id number] [place] [address]- 1155 May, [facility] [place] [facility] [address] [id number] [place] [address]- 6911 Apr, [facility] [place] [facility] [address] [id number] [place] [address]- 1511 Apr, [facility] [place] [facility] [address] [id number] [place] [address]- 0953 Apr, [facility] [place] [facility] [address] [id number] [place] [id number] Apr, [facility] [place] [facility] [address] [id number] [place] [address] Apr, [facility] [place] [facility] [address] [id number] [place] [address]- 8919 Apr, [facility] [place] [facility] [address] [id number] [place] [address]- 5010 Apr, [facility] [place] [facility] [address] [id number] [place] [address]- 8339 Apr, [facility] [place] [facility] [address] [id number] [place] [address]- 7504 Apr, [facility] [place] [facility] [address] [id number] [address]- 8990 Apr, [facility] [place] [facility] [address] [id number] [address]- 2631 Apr, [facility] [place] [facility] [address] [id number] [place] [address]- 5759 Apr, [facility] [place] [facility] [address] [id number] [place] [address]- 1726 Mar, [facility] [place] [facility] [address] [id number] [place] [address]- 7140 Mar, [facility] [place] [facility] [address] [id number] [place] [address]- 5053 26 Mar, 2012 [facility] [place] [facility] [address] [id number] [place] [address]- 7616 Mar, [facility] [place] [facility] [address] [id number] [place] [address] Mar, [facility] [place] [facility] [address] [id number] [place] [address] 24 Mar, 2012 [facility] [place] [facility] [address] [id number] [place] [address] 20 Mar, 2012 [facility] [place] [facility] [address] [id number] [place] [address] Mar, [facility] [place] [facility] [address] [id number] [place] [address] Mar, [facility] [place] [facility] [address] [id number] [place] [address] 48[address] 17 Mar, 2012 [facility] [place] [facility] [address] [id number] [place] [address] 6429 17 Mar, 2012 [facility] [place] [facility] [address] [id number] [place] [address] 3636 15 Mar, 2012 [facility] [place] [facility] [address] [id number] [place] [address] 13 Mar, 2012 [facility] [place] [facility] [address] [id number] [place] [address] Mar, [facility] [place] [facility] [address] [id number] [place] [address]44 05 Mar, 2012 [facility] [place] [facility] [address] [id number] [place] [address] Mar, [facility] [place] [facility] [address] [id number] [place] [address] Mar, [facility] [place] [facility] [address] [id number] [place] [address] Feb, [facility] [place] [facility] [address] [id number] [place] [address]78 27 Feb, 2012 [facility] [place] [facility] [address] [id number] [place] [address] 2808 25 Feb, 2012 [facility] [place] [facility] [address] [id number] [place] [address] 5032 19 Feb, 2012 [facility] [place] [facility] [address] [id number] [place] [address]- 0675 18 Feb, 2012 [facility] [place] [facility] [address] [id number] [place] [address] 15 Feb, 2012 [facility] [place] [facility] [address] [id number] [place] [address]- 9097 14 Feb, 2012 [facility] [place] [facility] [address] [id number] [place] [address] 8096 13 Feb, 2012 [facility] [place] [facility] [address] [id number] [place] [address] 267[address] Feb, [facility] [place] [facility] [address] [id number] [place] [address]163 Feb, [facility] [place] [facility] [address] [id number] [place] [address]- [address] 05 Feb, 2012 [facility] [place] [facility] [address] [id number] [place] [address]42 January, [facility] [place] [facility] [address] [id number] [place] [address] January, [facility] [place] [facility] [address] [id number] [place] [address] 388[address] January, [facility] [place] [facility] [address] [id number] [place] [address] 2418 January, [facility] [place] [facility] [address] [id number] [place] [address]68 January, [facility] [place] [facility] [address] [id number] [place] [address]- [address] 30 Dec, 2011 [facility] [place] [facility] [address] [id number] [place] [address] 69[address] Dec, [facility] [place] [facility] [address] [id number] [place] [address] 365[address] Dec, [facility] [place] [facility] [address] [id number] [place] [address]646 Dec, [facility] [place] [facility] [address] [id number] [place] [address]- 1494 24 Dec, 2011 [facility] [place] [facility] [address] [id number] [place] [address] Dec, [facility] [place] [facility] [address] [id number] [place] [address]- [address]279 Dec, [facility] [place] [facility] [address] [id number] [place] [address]- 150[address] Dec, [facility] [place] [facility] [address] [id number] [place] [address] 3612 Dec, [facility] [place] [facility] [address] [id number] [place] [address]861 Dec, [facility] [place] [facility] [address] [id number] [place] [address] 2666 29 Nov, 2011 [facility] [place] [facility] [address] [id number] [place] [address] 0329 29 Nov, 2011 [facility] [place] [facility] [address] [id number] [place] [address]- 8209 27 Nov, 2011 [facility] [place] [facility] [address] [id number] [place] [address] 9211 Nov, [facility] [place] [facility] [address] [id number] [place] [address]- 1721 23 Nov, 2011 [facility] [place] [facility] [address] [id number] [place] [address]- [address]392 Nov, [facility] [place] [facility] [address] [id number] [place] [address]- 0644 19 Nov, 2011 [facility] [place] [facility] [address] [id number] [place] [address]- 0474 14 Nov, 2011 [facility] [place] [facility] [address] [id number] [place] [address]- 4166 13 Nov, 2011 [facility] [place] [facility] [address] [id number] [place] [address]- 5696 13 Nov, 2011 [facility] [place] [facility] [address] [id number] [place] [address]- 8215 05 Nov, 2011 [facility] [place] [facility] [address] [id number] [place] [address]- 0674 01 Nov, 2011 [facility] [place] [facility] [address] [id number] [place] [address]- 4637 29 Oct, 2011 [facility] [place] [facility] [address] [id number] [place] [address]- 0462 28 Oct, 2011 [facility] [place] [facility] [address] [id number] [place] [address] 5640 27 Oct, 2011 [facility] [place] [facility] [id number] [place] [address] 22 Oct, 2011 [facility] [place] [facility] [id number] [address]67 20 Oct, 2011 [facility] [place] [facility] [address] [facility] [id number] [place] [address] 1493 14 Oct, 2011 [facility] [place] [facility] [address] [id number] [place] [address]- 2687 09 Oct, 2011 [facility] [place] [facility] [address] [id number] [place] [address]- 7136 08 Oct, 2011 [facility] [place] [facility] [address] [facility] [id number] [place] [address]- 9948 02 Oct, 2011 [facility] [place] [facility] [id number] [place] [address] 31 Sep, 2011 [facility] [place] [facility] [address] [id number] [place] [address]- [address]17 Sep, [facility] [place] [facility] [address] [id number] [place] [address]- 4782 Sep, [facility] [place] [facility] [address] [id number] [place] [address]- 1590 Sep, [facility] [place] [facility] [address] [id number] [place] [address]- 1529 Sep, [facility] [place] [facility] [address] [id number] [place] [address]- 2488 Sep, [facility] [place] [facility] [address] [id number] [place] [address] Aug, [facility] [place] [facility] [address] [id number] [place] [address] Aug, [facility] [place] [facility] [address] [id number] [place] [address] Aug, [facility] [place] [facility] [address] [id number] [place] [address] Jul, [facility] [place] [facility] [address] [id number] [place] [address] Jul, [facility] [place] [facility] [address] [id number] [address] Jul, [facility] [place] [facility] [address] [id number] [address] 14 Jul, 2011 [facility] [place] [facility] [address] [id number] [place] [address] 07 Jul, 2011 [facility] [place] [facility] [address] [id number] [place] [address] 28 Jun, 2011 [facility] [place] [facility] [address] [id number] [place] [address] Jun, [facility] [place] [facility] [id number] [address] Jun, [facility] [place] [id number] [address] Jun, [facility] [place] [id number] [address] Jun, [facility] [place] [id number] [address] Apr, [facility] [place] [id number] [address] Mar, [facility] [place] [id number] [place] [address] January, [facility] [place] [id number] [address] Aug, [facility] [place] [id number] [address] Aug, [facility] [place] [id number] [address] Jun, [facility] [place] [id number] [address] Jun, [facility] [place] [id number] [address] Aug, IMMUNIZATIONS No Known Immunizations SOCIAL HISTORY Never Assessed REASON FOR VISIT f/u, contract PLAN OF CARE Activity Details Follow Up 3 Months Reason: f/u VITAL SIGNS Height 69 in 2017-07-16 Weight 217.0 lbs 2017-07-16 Heart Rate 76 bpm 2017-07-16 Respiratory Rate 20 2017-07-16 BMI 32.04 kg/m2 2017-07-16 Blood pressure systolic 130 mmHg 2017-07-16 Blood pressure diastolic 68 mmHg 2017-07-16 MEDICATIONS Medication Instructions Dosage Frequency Start Date End Date Duration Status 27-1 MG Orally Once a day 1 tablets 24h 26 Jun, 2015 30 days Active Neurontin 400 mg Orally 3 times a day 3 capsules 8h 30 Active Meclizine HCl 25 MG Orally Once a day 1 tablet as needed 24h Mar, 20 days Active Valium 5 mg Orally Twice a day 1 tablet as needed 12h Active Seroquel 400 mg Orally Once a day 2 tablets at bedtime 24h Active Prazosin HCl 5 MG TAKE TWO CAPSULES BY MOUTH ONCE DAILY AT BEDTIME Active Adderall 10 MG Orally 3 times a day 1 tablet 8h Jun, Active Estrogens Conjugated Active RESULTS No Results PROCEDURES Procedure Date Ordered Result Body Site [facility] VISIT ESTABLISHED PATIENT Jul 16, 2017 INSTRUCTIONS MEDICATIONS ADMINISTERED No Known Medications [...] stent Surgical History ruptured eptopic Hospitalization History [place]-multiple admissions Hospitalization History hysterectomy Hospitalization History surgeries Hospitalization History blood transfusion x 2
--- OUTSIDE RECORDS SUMMARY | 2018-06-14 10:26 | XMS REPORT ---
Author Author DEBORA PULLIAM [facility] eClinicalWorks Address Unknown Phone Unavailable Care Team Providers Care Pipe Organ Mechanic Name Role Phone DEBORA PULLIAM CP Unavailable [...]
--- OUTSIDE RECORDS SUMMARY | 2018-06-14 10:27 | XMS REPORT ---
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 [place] [address]- 7095 Dec, [facility] [place] [facility] [address] [id number] [place] [address]- 1091 Dec, [facility] [place] [facility] [address] [id number] [place] [address]- 2706 18 Dec, 2012 [facility] [place] [facility] [address] [id number] [place] [address]- 0069 16 Dec, 2012 [facility] [place] [facility] [address] [id number] [place] [address]- 5215 Dec, [facility] [place] [facility] [address] [id number], [place] [address] 5994 Dec, [facility] [address] [facility] [id number] [place] [address]- 1313 Nov, [facility] [place] [facility] [address] [facility] [id number] [place] [address]- 3835 Nov, [facility] [place] [facility] [address] [facility] [id number] [place] [address]- 6482 Nov, [facility] [place] [facility] [address] [facility] [id number] [place] [address]- 9473 Nov, [facility] [address] [facility] [id number] [place] [address]- 7367 Nov, [facility] [place] [facility] [address] [facility] [id number] [place] [address]- 0319 Nov, [facility] [address] [id number] [address]- 8625 20 Oct, 2012 [facility] [place] [facility] [address] [facility] [id number] [place] [address]- 2540 14 Oct, 2012 [facility] [place] [facility] [address] [id number] [place] [address]- 1784 14 Oct, 2012 [facility] [place] [facility] [address] [id number] [place] [address]- 3650 12 Oct, 2012 [facility] [place] [facility] [address] [id number] [place] [address]- 4516 11 Oct, 2012 [facility] [place] [facility] [address] [facility] [id number], [place] [address]- 1681 07 Oct, 2012 [facility] [place] [facility] [address] [facility] [id number] [place] [address]- 1706 05 Oct, 2012 [facility] [place] [facility] [address] [facility] [id number], [place] [address]- 3247 05 Oct, 2012 [facility] [place] [facility] [address] [id number], [place] [address]- 8545 04 Oct, 2012 [facility] [address] [id number] [place] [address]- 6412 Sep, [facility] [place] [facility] [address] [id number] [place] [address]- 7996 29 Sep, 2012 [facility] [place] [facility] [address] [id number] [place] [address]- 3566 15 Sep, 2012 [facility] [place] [facility] [address] [id number] [place] [address]- 5936 14 Sep, 2012 [facility] [place] [facility] [address] [id number] [place] [address]- 6135 08 Sep, 2012 [facility] [place] [facility] [address] [id number] [place] [address]- 5836 Sep, [facility] [place] [facility] [address] [id number] [place] [address]- 3432 18 Aug, 2012 [facility] [place] [facility] [address] [id number] [place] [address]- 0819 18 Aug, 2012 [facility] [place] [facility] [address] [id number] [place] [address]- 0967 18 Aug, 2012 [facility] [place] [facility] [address] [id number] [place] [address]- 7636 18 Aug, 2012 [facility] [place] [facility] [address] [id number] [place] [address]- 5958 15 Aug, 2012 [facility] [place] [facility] [address] [id number], [place] [address]- 7378 14 Aug, 2012 [facility] [place] [facility] [address] [id number] [place] [address]- 7618 14 Aug, 2012 [facility] [place] [facility] [address] [id number] [place] [address]- 5996 13 Aug, 2012 [facility] [place] [facility] [address] [id number] [place] [address]- 6285 13 Aug, 2012 [facility] [place] [facility] [address] [id number], [place] [address]- 2358 Aug, [facility] [place] [facility] [address] [id number] [place] [address]- 7518 11 Aug, 2012 [facility] [place] [facility] [address] [id number] [place] [address]- 7216 Aug, [facility] [place] [facility] [address] [facility] [id number] [place] [address]- 0476 Aug, [facility] [place] [facility] [address] [id number] [place] [address]- 1282 Aug, [facility] [place] [facility] [address] [id number] [place] [address]- 1939 Aug, [facility] [place] [facility] [address] [id number] [place] [address]- 5435 Aug, [facility] [address] [facility] [id number] [place] [address]- 7508 Aug, [facility] [place] [facility] [address] [id number] [place] [address]- 4353 Aug, [facility] [place] [facility] [address] [id number] [place] [address]- 9513 Aug, [facility] [place] [facility] [address] [facility] [id number] [place] [address]- 3138 Jul, [facility] [place] [facility] [address] [id number] [place] [address]- 2599 Jul, [facility] [place] [facility] [address] [id number], [place] [address]- 1059 Jul, [facility] [place] [facility] [address] [id number] [place] [address]- 4273 Jul, [facility] [place] [facility] [address] [facility] [id number] [place] [address]- 7707 14 Jul, 2012 [facility] [place] [facility] [address] [facility] [id number] [place] [address]- 5930 14 Jul, 2012 [facility] [place] [facility] [address] [id number] [place] [address]- 0047 08 Jul, 2012 [facility] [place] [facility] [address] [id number] [place] [address]- 1871 08 Jul, 2012 [facility] [place] [facility] [address] [id number] [place] [address]- 4085 08 Jul, 2012 [facility] [place] [facility] [address] [id number] [place] [address]- 6891 08 Jul, 2012 [facility] [place] [facility] [address] [id number] [place] [address]- 7142 Jul, [facility] [place] [facility] [address] [id number] [place] [address]- 1772 Jul, [facility] [place] [facility] [address] [id number] [place] [address]- 2769 30 Jun, 2012 [facility] [place] [facility] [address] [id number] [place] [address]- 2051 30 Jun, 2012 [facility] [place] [facility] [address] [id number] [place] [address]- 5718 29 Jun, 2012 [facility] [place] [facility] [address] [id number] [place] [address]- 0836 Jun, [facility] [place] [facility] [address] [facility] [id number] [place] [address]- 6548 19 Jun, 2012 [facility] [place] [facility] [address] [id number] [place] [address]- 8929 18 Jun, 2012 [facility] [place] [facility] [address] [id number] [place] [address]- 6267 17 Jun, 2012 [facility] [place] [facility] [address] [id number] [place] 6645 16 Jun, 2012 [facility] [place] [facility] [address] [id number] [place] [address]- 5263 16 Jun, 2012 [facility] [place] [facility] [address] [id number] [place] [address]- 7339 Jun, [facility] [place] [facility] [address] [id number] [place] [address]- 6752 Jun, [facility] [place] [facility] [address] [id number] [place] [address]- 8549 Jun, [facility] [place] [facility] [address] [id number] [place] [address]- 3911 Jun, [facility] [place] [facility] [address] [id number] [place] [address]- 1181 Jun, [facility] [place] [facility] [address] [id number] [place] [address]- 0443 24 May, 2012 [facility] [place] [facility] [address] [id number] [place] [address], [place] [address]- 8646 May, [facility] [place] [facility] [address] [id number], [place] [address]- 1008 May, [facility] [place] [facility] [address] [id number], [place] [address]- 0030 18 May, 2012 [facility] [place] [facility] [address] [id number], [place] [address]- 3580 May, [facility] [place] [facility] [address] [id number][place] [id number] May, [facility] [place] [facility] [address] [id number][place] [id number] May, [facility] [place] [facility] [address] [id number], [place] [address]- 6111 May, [facility] [place] [facility] [address] [id number], [place] [address]- 7211 Apr, [facility] [place] [facility] [address] [id number], [place] [address]- 6236 Apr, [facility] [place] [facility] [address] [id number], [place] [address]- 4858 Apr, [facility] [place] [facility] [address] [id number] [place] [address] [id number] Apr, [facility] [place] [facility] [address] [id number] [place] [address] Apr, [facility] [place] [facility] [address] [id number] [place] [address]- 3926 Apr, [facility] [place] [facility] [address] [id number] [place] [address] 2546 Apr, [facility] [place] [facility] [address] [id number] [place] [address] 2546 Apr, [facility] [place] [facility] [address] [id number] [place] [address]- 2563 Apr, [facility] [place] [facility] [address] [id number] [place] [address]- 3347 Apr, [facility] [place] [facility] [address] [id number] [place] [address]- 1621 Apr, [facility] [place] [facility] [address] [id number] [place] [address]- 7512 Apr, [facility] [place] [facility] [address] [id number] [place] [address]- 6798 Mar, [facility] [place] [facility] [address] [id number] [place] [address]- 9834 Mar, [facility] [place] [facility] [address] [id number] [place] [address]- 3338 Mar, [facility] [place] [facility] [address] [id number] [place] [address]- 6553 Mar, [facility] [place] [facility] [address] [id number] [place] [address]- 2705 Mar, [facility] [place] [facility] [address] [id number] [place] [address]- 6551 Mar, [facility] [place] [facility] [address] [id number] [place] [address]- 5345 Mar, [facility] [place] [facility] [address] [id number] [place] [address]- 4926 19 Mar, 2012 [facility] [place] [facility] [address] [id number] [place] [address]- 1187 18 Mar, 2012 [facility] [place] [facility] [address] [id number] [place] [address]- 5016 17 Mar, 2012 [facility] [address] [id number] [place] [address]- 0416 17 Mar, 2012 [facility] [place] [facility] [address] [id number] [place] [address]- 6438 15 Mar, 2012 [facility] [address] [id number] [place] [address]- 7429 13 Mar, 2012 [facility] [place] [facility] [address] [id number] [place] [address]- 5982 Mar, [facility] [place] [facility] [address] [id number] [place] [address]- 8386 05 Mar, 2012 [facility] [address] [id number] [place] [address]- 4024 03 Mar, 2012 [facility] [place] [facility] [address] [id number] [place] [address]- 1350 02 Mar, 2012 [facility] [address] [id number] [place] [address]- 4218 Feb, [facility] [place] [facility] [address] [id number] [place] [address] 2548 Feb, [facility] [place] [facility] [address] [id number] [place] [address]- 9385 25 Feb, 2012 [facility] [place] [facility] [address] [id number] [place] [address]- 5224 Feb, [facility] [place] [facility] [address] [id number] [place] [address]- 2943 18 Feb, 2012 [facility] [place] [facility] [address] [id number] [place] 6284 15 Feb, 2012 [facility] [place] [facility] [address] [id number] [place] [address]- 9512 14 Feb, 2012 [facility] [place] [facility] [address] [id number] [place] [address]- 5037 13 Feb, 2012 [facility] [place] [facility] [address] [id number] [place] [address]- 5889 11 Feb, 2012 [facility] [place] [facility] [address] [id number] [place] [address]- 9894 06 Feb, 2012 [facility] [place] [facility] [address] [id number] [place] [address]- 7019 05 Feb, 2012 [facility] [place] [facility] [address] [id number] [place] [address]- 3385 January, [facility] [place] [facility] [address] [id number] [place] [address]- 8153 January, [facility] [place] [facility] [address] [id number] [place] [address]- 2948 January, [facility] [place] [facility] [address] [id number] [place] [address]- 2165 January, [facility] [place] [facility] [address] [id number] [place] [address]- 0973 January, [facility] [place] [facility] [address] [id number] [place] [address]- 1718 Dec, [facility] [place] [facility] [address] [id number] [place] [address]- 3966 Dec, [facility] [place] [facility] [address] [id number] [place] [address]- 5978 Dec, [facility] [place] [facility] [address] [id number] [place] [address]- 9840 Dec, [facility] [place] [facility] [address] [id number] [place] [address]- 1268 Dec, [facility] [place] [facility] [address] [id number], [place] [address]- 6282 20 Dec, 2011 [facility] [address] [id number] [place] [address]- 7753 20 Dec, 2011 [facility] [place] [facility] [address] [id number] [place] [address]- 1596 16 Dec, 2011 [facility] [address] [id number] [place] [address]- 0496 09 Dec, 2011 [facility] [place] [facility] [address] [id number] [place] [address]- 1855 02 Dec, 2011 [facility] [address] [id number] [place] [address]- 5527 29 Nov, 2011 [facility] [place] [facility] [address] [id number] [place] [address] 29 Nov, 2011 [facility] [address] [facility] [id number] [place] [address] 27 Nov, 2011 [facility] [place] [facility] [address] [id number] [place] [address] 26 Nov, 2011 [facility] [address] [id number] [place] [address] 23 Nov, 2011 [facility] [address] [facility] [id number] [place] [address] 22 Nov, 2011 [facility] [address] [id number] [place] [address] 49[address] 19 Nov, 2011 [facility] [place] [facility] [address] [id number] [place] [address] 275[address] 14 Nov, 2011 [facility] [place] [facility] [address] [id number] [place] [address] 1073 13 Nov, 2011 [facility] [place] [facility] [address] [facility] [id number] [place] [address] 13 Nov, 2011 [facility] [place] [facility] [address] [facility] [id number] [place] [address] 05 Nov, 2011 [facility] [place] [facility] [address] [id number] [place] [address] Nov, [facility] [place] [facility] [address] [id number] [place] [address] 70[address] Oct, [facility] [place] [facility] [address] [id number] [place] [address] 2546 Oct, [facility] [place] [facility] [address] [id number] [place] [address] 2546 Oct, [facility] [place] [facility] [address] [id number] [place] [address] 2540 Oct, [facility] [place] [facility] [address] [id number] [place] [address] Oct, [facility] [place] [facility] [address] [id number] [place] [address] 2546 14 Oct, 2011 [facility] [place] [facility] [address] [id number] [place] [address] 2540 Oct, [facility] [place] [facility] [address] [id number] [place] [address]141 Oct, [facility] [place] [facility] [address] [facility] [id number] [place] [address] Oct, [facility] [place] [facility] [address] [id number] [place] [address] 2542 Sep, [facility] [place] [facility] [address] [id number] [place] [address] 2548 Sep, [facility] [place] [facility] [address] [id number] [place] [address] 2546 Sep, [facility] [place] [facility] [address] [id number] [place] [address] 2546 Sep, [facility] [place] [facility] [address] [id number] [place] [address] 2544 Sep, [facility] [place] [facility] [address] [id number] [place] [address] 10 Sep, 2011 [facility] [place] [facility] [address] [id number] [place] [address] Aug, [facility] [place] [facility] [address] [id number] [place] [address] 37[address] Aug, [facility] [place] [facility] [address] [id number] [place] [address] Aug, [facility] [place] [facility] [address] [id number] [place] [address] 236[address] Jul, [facility] [place] [facility] [address] [id number] [place] [address] Jul, [facility] [place] [facility] [address] [id number] [place] [address] Jul, [facility] [place] [facility] [address] [id number] [place] [address] Jul, [facility] [place] [facility] [address] [id number] [place] [address] Jul, [facility] [place] [facility] [address] [id number] [place] [address] Jun, [facility] [place] [facility] [address] [id number] [place] [address] 67[address] Jun, [facility] [place] [facility] [address] [id number] [place] [address]- [address]75 24 Jun, 2011 [facility] [place] [facility] [address] [id number] [place] [address] Jun, [facility] [place] [facility] [address] [id number] [place] [address] Jun, [facility] [place] [facility] [address] [id number] [place] [address]447 15 Apr, 2011 [facility] [place] [facility] [address] [id number] [place] [address] Mar, [facility] [place] [facility] [address] [facility] [id number], [place] [address] January, [facility] [address] [facility] [id number] [address] [address] Aug, [facility] [address] [facility] [id number], [place] [address] Aug, [facility] [address] [facility] [id number] Jun, [facility] [address] [facility] [id number] [address] Jun, [facility] [address] [facility] [id number][place] Aug, IMMUNIZATIONS No Known Immunizations SOCIAL HISTORY Never Assessed REASON FOR VISIT f/u - Blake [facility] PLAN OF CARE Activity Details Follow Up 3 Months Reason: f/u VITAL SIGNS Height 69 in 2017-04-16 Weight 209.7 lbs 2017-04-16 Heart Rate 104 bpm 2017-04-16 Respiratory Rate 22 2017-04-16 BMI 30.96 kg/m2 2017-04-16 Blood pressure systolic 150 mmHg 2017-04-16 Blood pressure diastolic 82 mmHg 2017-04-16 MEDICATIONS Medication Instructions Dosage Frequency Start Date End Date Duration Status Prazosin HCl 5 mg Orally Once a day 2 capsule at bedtime 24h 30 days Active Valium 5 mg Orally Twice a day 1 tablet as needed 12h 30 days Active Seroquel 400 mg Orally Once a day 2 tablets at bedtime 24h 30 days Active Neurontin 400 mg Orally 3 times a day 3 capsules 8h 30 days Active Adderall 10 mg Orally 3 times a day 1 tablet in the morning 8h Mar, 30 days Active 27-1 MG Orally Once a day 1 tablets 24h Jun, 30 days Active RESULTS No Results PROCEDURES Procedure Date Ordered Result Body Site [facility] VISIT ESTABLISHED PATIENT April 16, 2017 INSTRUCTIONS MEDICATIONS ADMINISTERED No Known [...] stent Surgical History ruptured eptopic Hospitalization History [place] Hospitalization History hysterectomy Hospitalization History surgeries Hospitalization History blood transfusion x 2
--- OUTSIDE RECORDS SUMMARY | 2018-06-14 10:27 | XMS REPORT ---
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
--- OUTSIDE RECORDS SUMMARY | 2018-06-14 10:29 | XMS REPORT ---
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 [place] [address]- 2967 Nov, [facility] [address] [id number] [place] [address]- 2120 20 Nov, 2012 [facility] [address] [id number] [place] [address]- 0257 Nov, [facility] [address] [facility] [id number] [place] [address]- 1575 Nov, [facility] [address] [id number] [place] [address]- 0044 05 Nov, 2012 [facility] [address] [id number] [place] [address]- 1535 20 Oct, 2012 [facility] [place] [facility] [address] [id number] [place] [address]- 8792 14 Oct, 2012 [facility] [place] [facility] [address] [id number] [place] [address]- 7162 14 Oct, 2012 [facility] [address] [facility] [id number] [place] [address]- 4029 12 Oct, 2012 [facility] [place] [facility] [address] [id number] [place] [address]- 1981 11 Oct, 2012 [facility] [place] [facility] [address] [id number] [place] [address] 07 Oct, 2012 [facility] [place] [facility] [address] [id number] [place] [address]- 6136 Oct, [facility] [place] [facility] [address] [id number] [place] [address]- 6366 Oct, [facility] [place] [facility] [address] [id number] [place] [address]- 0046 Oct, [facility] [place] [facility] [address] [id number] [place] [address]- 1880 Sep, [facility] [place] [facility] [address] [id number] [place] [address]- 5457 29 Sep, 2012 [facility] [place] [facility] [address] [id number] [place] [address]- 8075 15 Sep, 2012 [facility] [place] [facility] [address] [id number] [place] [address]- 3904 14 Sep, 2012 [facility] [place] [facility] [address] [facility] [id number] [place] [address]- 7155 Sep, [facility] [place] [facility] [address] [id number] [place] [address]- 5812 Sep, [facility] [place] [facility] [address] [id number] [place] [address]- 8651 Aug, [facility] [place] [facility] [address] [id number] [place] [address]- 7625 Aug, [facility] [place] [facility] [address] [id number] [place] [address]- 1827 Aug, [facility] [place] [facility] [address] [id number] [place] [address] Aug, [facility] [place] [facility] [address] [id number] [place] [address]- 5585 15 Aug, 2012 [facility] [address] [id number] [place] [address]- 4026 14 Aug, 2012 [facility] [place] [facility] [address] [id number] [place] [address]- 0276 14 Aug, 2012 [facility] [address] [facility] [id number] [place] [address]- 7626 13 Aug, 2012 [facility] [place] [facility] [address] [id number] [place] [address]- 8910 13 Aug, 2012 [facility] [address] [id number] [place] [address]- 0046 11 Aug, 2012 [facility] [place] [facility] [address] [id number] [place] [address]- 6196 11 Aug, 2012 [facility] [id number] [place] [address]- 3747 07 Aug, 2012 [facility] [place] [facility] [address] [id number] [place] [address]- 6217 07 Aug, 2012 [facility] [place] [facility] [address] [id number] [place] [address]- 4514 06 Aug, 2012 [facility] [place] [facility] [address] [facility] [id number] [place] [address]- 5960 06 Aug, 2012 [facility] [place] [facility] [address] [id number] [place] [address]- 9328 06 Aug, 2012 [facility] [place] [facility] [address] [id number] [place] [address]- 8006 06 Aug, 2012 [facility] [place] [facility] [address] [id number] [place] [address]- 7235 04 Aug, 2012 [facility] [place] [facility] [address] [facility] [id number] [place] [address]- 1882 04 Aug, 2012 [facility] [place] [facility] [address] [facility] [id number] [place] [address]- 5233 Jul, [facility] [place] [facility] [address] [id number] [place] [address]- 8439 Jul, [facility] [place] [facility] [address] [id number] [place] [address]- 7102 Jul, [facility] [place] [facility] [address] [id number] [place] [address]- 3696 Jul, [facility] [place] [facility] [address] [id number] [place] [address]- 3910 14 Jul, 2012 [facility] [place] [facility] [address] [id number] [place] [address]- 2446 14 Jul, 2012 [facility] [place] [facility] [address] [id number] [place] [address]- 7358 Jul, [facility] [place] [facility] [address] [id number] [place] [address]- 0289 Jul, [facility] [place] [facility] [address] [id number] [place] [address]- 9819 Jul, [facility] [place] [facility] [address] [id number] [place] [address]- 5360 08 Jul, 2012 [facility] [place] [facility] [address] [id number] [place] [address]- 4530 Jul, [facility] [place] [facility] [address] [id number] [place] [address]- 9005 Jul, [facility] [place] [facility] [address] [id number] [place] [address]- 5232 30 Jun, 2012 [facility] [place] [facility] [address] [id number] [place] [address]- 6521 30 Jun, 2012 [facility] [place] [facility] [address] [id number] [place] [address]- 8716 29 Jun, 2012 [facility] [place] [facility] [address] [id number] [place] [address]- 2944 Jun, [facility] [place] [facility] [address] [id number] [place] [address]- 0711 Jun, [facility] [place] [facility] [address] [id number] [place] [address]- 2530 18 Jun, 2012 [facility] [place] [facility] [address] [id number] [place] [address]- 7663 17 Jun, 2012 [facility] [place] [facility] [address] [id number] [place] [address]- 3360 16 Jun, 2012 [facility] [place] [facility] [address] [id number] [place] [address]- 1897 16 Jun, 2012 [facility] [place] [facility] [address] [id number] [place] [address]45 Jun, [facility] [place] [facility] [address] [id number] [place] [address]- 1147 Jun, [facility] [place] [facility] [address] [id number] [place] [address]- 6997 08 Jun, 2012 [facility] [place] [facility] [address] [id number] [place] [address]- 3163 04 Jun, 2012 [facility] [place] [facility] [address] [id number] [place] [address]- 2633 02 Jun, 2012 [facility] [place] [facility] [address] [id number] [place] [address]- 9164 24 May, 2012 [facility] [place] [facility] [address] [id number] [place] [address]- 7451 21 May, 2012 [facility] [place] [facility] [address] [id number] [place] [address]- 2077 19 May, 2011 [facility] [place] [facility] [address] [id number] [place] [address]- 9134 18 Sep2011 [facility] [place] [facility] [address] [id number] [place] [address]- 8623 12 May, 2012 [facility] [place] [facility] [address] [id number] [place] [address] 12 May, 2012 [facility] [place] [facility] [address] [id number] [place] [id number] May, [facility] [place] [facility] [address] [id number] [place] [address]- 4597 May, [facility] [place] [facility] [address] [id number] [place] [address]- 2342 Apr, [facility] [place] [facility] [address] [id number] [place] [address]- 2974 Apr, [facility] [place] [facility] [address] [id number] [place] [address]- 9229 Apr, [facility] [place] [facility] [address] [id number] [place] [id number] Apr, [facility] [place] [facility] [address] [id number] [id number] Apr, [facility] [place] [facility] [address] [id number] [place] [address]- 7816 Apr, [facility] [place] [facility] [address] [id number] [place] [address]- 0611 Apr, [facility] [place] [facility] [address] [id number] [place] [address]- 0589 Apr, [facility] [place] [facility] [address] [id number] [place] [address]- 9446 Apr, [facility] [place] [facility] [address] [id number] [place] [address]- 9973 Apr, [facility] [place] [facility] [address] [id number] [place] [address]- 2198 Apr, [facility] [place] [facility] [address] [id number] [place] [address]- 8401 Apr, [facility] [place] [facility] [address] [id number] [place] [address]- 9659 Mar, [facility] [place] [facility] [address] [id number] [place] [address]- 0941 Mar, [facility] [place] [facility] [address] [id number] [place] [address]- 8939 26 Mar, 2012 [facility] [address] [id number] [place] [address]- 3769 Mar, [facility] [place] [facility] [address] [id number] [place] [address]- 1316 25 Mar, 2012 [facility] [address] [id number] [place] [address]- 0095 24 Mar, 2012 [facility] [place] [facility] [address] [id number] [place] [address]- 8854 20 Mar, 2012 [facility] [address] [id number] [place] [address]- 9080 Mar, [facility] [address] [id number] [place] [address]- 6954 18 Mar, 2012 [facility] [address] [id number] [place] [address]- 0279 Mar, [facility] [address] [id number] [place] [address]- 4583 17 Mar, 2012 [facility] [address] [id number] [place] [address]- 0109 15 Mar, 2012 [facility] [address] [id number] [place] [address]- 1232 13 Mar, 2012 [facility] [place] [facility] [address] [id number] [place] [address]- 254 Mar, [facility] [address] [id number] [place] [address]- 4835 05 Mar, 2012 [facility] [place] [facility] [address] [id number] [place] [address]- 4532 Mar, [facility] [place] [facility] [address] [id number] [place] [address]- 4787 Mar, [facility] [place] [facility] [address] [id number] [place] 0920 Feb, [facility] [place] [facility] [address] [id number] [place] [address]- 1260 27 Feb, 2012 [facility] [place] [facility] [address] [id number] [place] [address]- 5285 25 Feb, 2012 [facility] [place] [facility] [address] [id number] [place] [address]- 4511 19 Feb, 2012 [facility] [place] [facility] [address] [id number] [place] [address]- 8976 18 Feb, 2012 [facility] [place] [facility] [address] [id number] [place] [address]- 0486 15 Feb, 2012 [facility] [place] [facility] [address] [id number] [place] [address]- 8509 14 Feb, 2012 [facility] [place] [facility] [address] [id number] [place] [address]- 8190 13 Feb, 2012 [facility] [place] [facility] [address] [id number] [place] [address]- 4865 11 Feb, 2012 [facility] [place] [facility] [address] [id number] [place] [address]- 0950 06 Feb, 2012 [facility] [place] [facility] [address] [id number] [place] [address]- 4748 05 Feb, 2012 [facility] [place] [facility] [address] [id number] [place] [address]- 6069 January, [facility] [place] [facility] [address] [id number] [place] [address]- 4703 January, [facility] [place] [facility] [address] [id number] [place] [address]- 3681 January, [facility] [place] [facility] [address] [id number] [place] [address]- 1851 January, [facility] [place] [facility] [address] [id number] [place] [address]- 7429 January, [facility] [place] [facility] [address] [id number] [place] [address]- 2734 30 Dec, 2011 [facility] [address] [id number] [place] [address]- 8668 Dec, [facility] [place] [facility] [address] [id number] [place] [address]- 5086 Dec, [facility] [address] [id number] [place] [address]- 2536 Dec, [facility] [place] [facility] [address] [id number] [place] [address]- 2769 24 Dec, 2011 [facility] [address] [id number] [place] [address]- 7705 Dec, [facility] [address] [id number] [place] [address]- 2788 Dec, [facility] [id number] [address]- 0287 16 Dec, 2011 [facility] [address] [id number] [place] [address]- 5475 Dec, [facility] [address] [id number] [place] [address]- 4468 Dec, [facility] [address] [facility] [id number] [place] [address]- 9886 Nov, [facility] [place] [facility] [address] [id number] [place] [address]- 9498 29 Nov, 2011 [facility] [place] [facility] [address] [id number] [place] [address]- 9164 Nov, [facility] [place] [facility] [address] [id number] [place] [address]- 7095 Nov, [facility] [place] [facility] [address] [facility] [id number] [place] [address]- 2669 23 Nov, 2011 [facility] [place] [facility] [address] [id number] [place] [address]- 0339 22 Nov, 2011 [facility] [place] [facility] [address] [id number] [place] [address]- 7263 19 Nov, 2011 [facility] [place] [facility] [address] [id number] [place] [address]- 5806 14 Nov, 2011 [facility] [place] [facility] [address] [id number] [place] [address] 2546 13 Nov, 2011 [facility] [place] [facility] [address] [id number] [place] [address] 2546 13 Nov, 2011 [facility] [place] [facility] [address] [id number] [place] [address] 2545 05 Nov, 2011 [facility] [place] [facility] [address] [id number] [place] [address]- 7906 01 Nov, 2011 [facility] [place] [facility] [address] [id number] [place] [address]- 7748 29 Oct, 2011 [facility] [place] [facility] [address] [id number] [place] [address] 28 Oct, 2011 [facility] [place] [facility] [address] [id number] [place] [address] 27 Oct, 2011 [facility] [place] [facility] [address] [id number] [place] [address] 22 Oct, 2011 [facility] [place] [facility] [address] [id number] [place] [address] 42[address] 20 Oct, 2011 [facility] [place] [facility] [address] [id number] [place] [address] 9422 14 Oct, 2011 [facility] [place] [facility] [address] [id number] [place] [address]46 09 Oct, 2011 [facility] [place] [facility] [address] [id number] [place] [address] 08 Oct, 2011 [facility] [place] [facility] [address] [id number] [place] [address] 3896 02 Oct, 2011 [facility] [place] [facility] [address] [id number] [place] [address] 25[address] 31 Sep, 2011 [facility] [place] [facility] [address] [id number] [place] [address] Sep, [facility] [place] [facility] [address] [id number] [place] [address] Sep, [facility] [place] [facility] [address] [id number] [place] [address] 89[address] Sep, [facility] [place] [facility] [address] [id number] [place] [address] 10 Sep, 2011 [facility] [place] [facility] [address] [id number] [place] [address], [place] [address]- [address]48 Sep, [facility] [place] [facility] [address] [id number] [place] [address] 58[address] Aug, [facility] [place] [facility] [address] [id number] [place] [address] 45[address] Aug, [facility] [place] [facility] [address] [id number] [place] [address] 4[address] Aug, [facility] [place] [facility] [address] [id number] [place] [address]- 2582 29 Jul, 2011 [facility] [place] [facility] [address] [id number] [place] [address] 4039 29 Jul, 2011 [facility] [place] [facility] [address] [id number] [place] [address]- [address]231 28 Jul, 2011 [facility] [place] [facility] [address] [id number] [place] [address] 14 Jul, 2011 [facility] [place] [facility] [address] [id number] [place] [address] 3[address] 07 Jul, 2011 [facility] [place] [facility] [address] [id number] [place] [address] 1436 28 Jun, 2011 [facility] [place] [facility] [address] [id number] [place] [address] 3165 28 Jun, 2011 [facility] [place] [facility] [address] [facility] [id number] [place] [address] Jun, [facility] [id number] [place] [address] [address] Jun, [facility] [address] [facility] [id number] [place] [address] Jun, [facility] [address] [facility] [id number] [place] [address] [address] Apr, [facility] [address] [facility] [id number] [place] [address] Mar, [facility] [id number] [place] [address] January, [facility] [id number] [place] [address] [address] Aug, [facility] [id number] [place] [address] Aug, [facility] [id number] [place] [address] Jun, [facility] [id number] [address] Jun, [facility] [address] [id number] [place] [address] Aug, IMMUNIZATIONS No Known Immunizations SOCIAL HISTORY Never Assessed REASON FOR VISIT adderall 09/03/2017 PLAN OF CARE VITAL SIGNS MEDICATIONS Medication Instructions Dosage Frequency Start Date End Date Duration Status Adderall 10 mg Orally 3 times a day 1 tablet 8h Aug, 28 days Active RESULTS No Results PROCEDURES [...] stent Surgical History ruptured eptopic Hospitalization History [place]-multiple admissions Hospitalization History hysterectomy Hospitalization History surgeries Hospitalization History blood transfusion x 2
--- OUTSIDE RECORDS SUMMARY | 2018-06-14 10:30 | XMS REPORT ---
Author Author DEBORA PULLIAM [facility] Address [address] [place] [address] Care Team Providers Care Manager Desktop Name Role Phone DEBORA PULLIAM Unavailable PROBLEMS Type Condition ICD9-CM Code [id number] Code Onset Dates Condition Status SNOMED Code Problem Polysubstance abuse F19.10 Active 022313243 Problem Essential (primary) hypertension I10 Active 77817396 Problem Chronic obstructive pulmonary disease, unspecified J44.9 Active 96983838 Problem Attention deficit disorder of childhood without mention of hyperactivity 314.00 Active 03971712 Problem Bipolar I disorder, most recent episode (or current) manic, unspecified 296.40 Active 84992665 Problem Nondependent cannabis abuse, 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 Active 715357839 Problem Bipolar I disorder, most recent episode (or current) mixed, unspecified 296.60 Active 93674737 Problem Bipolar disorder, current episode mixed, unspecified F31.60 Active 77603896 Problem Anxiety state, unspecified F41.1 Active 930089027 Problem Nicotine abuse Z72.0 Active 54535429 Problem Vitamin D deficiency E55.9 Active 44661793 Problem 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
--- OUTSIDE RECORDS SUMMARY | 2018-06-14 10:30 | XMS REPORT ---
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 [place] [address]- 5003 Nov, [facility] [address] [id number] [place] [address]- 7484 Nov, [facility] [address] [id number] [place] [address]- 4023 Nov, [facility] [address] [id number] [place] [address]- 2048 05 Nov, 2012 [facility] [place] [facility] [address] [id number] [place] [address]- 6617 20 Oct, 2012 [facility] [place] [facility] [address] [id number] [place] [address]- 1971 14 Oct, 2012 [facility] [place] [facility] [address] [id number] [place] [address]- 0183 14 Oct, 2012 [facility] [place] [facility] [address] [id number] [place] [address]- 5387 12 Oct, 2012 [facility] [place] [facility] [address] [id number] [place] [address]- 6919 11 Oct, 2012 [facility] [place] [facility] [address] [id number] [place] [address]- 1757 07 Oct, 2012 [facility] [address] [id number] [place] [address]- 3466 05 Oct, 2012 [facility] [address] [id number] [place] [address]- 9356 05 Oct, 2012 [facility] [address] [id number] [place] [address]- 4506 04 Oct, 2012 [facility] [address] [id number] [place] [address]- 5338 31 Sep, 2012 [facility] [address] [id number] [place] [address]- 7109 29 Sep, 2012 [facility] [address] [id number] [place] [address]- 7208 15 Sep, 2012 [facility] [address] [facility] [id number] [place] [address]- 0799 14 Sep, 2012 [facility] [address] [id number] [place] [address]- 5726 08 Sep, 2012 [facility] [address] [id number] [address] 2048 03 Sep, 2012 [facility] [address] [facility] [id number] [place] [address]- 2020 18 Aug, 2012 [facility] [address] [id number] [place] [address]- 3607 18 Aug, 2012 [facility] [address] [id number] [place] [address]- 2264 18 Aug, 2012 [facility] [address] [id number] [place] [address]- 6767 18 Aug, 2012 [facility] [address] [id number] [place] [address]- 9304 15 Aug, 2012 [facility] [address] [facility] [id number] [place] [address]- 0708 14 Aug, 2012 [facility] [place] [facility] [address] [id number] [place] [address]- 9612 14 Aug, 2012 [facility] [place] [facility] [address] [id number] [place] [address]- 6386 13 Aug, 2012 [facility] [place] [facility] [address] [id number] [place] [address]- 4136 13 Aug, 2012 [facility] [place] [facility] [address] [id number] [place] [address]- 7386 11 Aug, 2012 [facility] [place] [facility] [address] [id number] [place] [address]- 3661 11 Aug, 2012 [facility] [place] [facility] [address] [id number] [place] [address]- 9636 07 Aug, 2012 [facility] [place] [facility] [address] [id number] [place] [address]- 8591 Aug, [facility] [place] [facility] [address] [id number] [place] [address]- 2972 06 Aug, 2012 [facility] [place] [facility] [address] [id number] [place] [address]- 0912 Aug, [facility] [place] [facility] [address] [id number] [place] [address]- 0859 Aug, [facility] [place] [facility] [address] [id number] [place] [address]- 2095 Aug, [facility] [place] [facility] [address] [id number] [place] [address]- 7059 Aug, [facility] [place] [facility] [address] [id number] [place] [address]- 1886 Aug, [facility] [place] [facility] [address] [id number] [place] [address]- 6486 Jul, [facility] [place] [facility] [address] [id number] [place] [address]- 9516 Jul, [facility] [place] [facility] [address] [id number] [place] [address]- 0676 Jul, [facility] [place] [facility] [address] [id number] [place] [address]- 6406 Jul, [facility] [place] [facility] [address] [id number] [place] [address]- 9408 14 Jul, 2012 [facility] [place] [facility] [address] [facility] [id number] [place] [address]- 2334 14 Jul, 2012 [facility] [place] [facility] [address] [id number] [place] [address]- 0103 08 Jul, 2012 [facility] [place] [facility] [address] [facility] [id number] [place] [address], [place] [address]- 2159 Jul, [facility] [place] [facility] [address] [facility] [id number] [place] [address]- 6275 08 Jul, 2012 [facility] [place] [facility] [address] [id number] [address]- 5759 Jul, [facility] [place] [facility] [address] [facility] [id number] [place] [address]- 2165 Jul, [facility] [place] [facility] [address] [facility] [id number] [place] [address]- 6318 07 Jul, 2012 [facility] [place] [facility] [address] [facility] [id number] [place] [address]- 2729 30 Jun, 2012 [facility] [place] [facility] [address] [facility] [id number] [place] [address]- 4189 30 Jun, 2012 [facility] [place] [facility] [address] [facility] [id number] [place] [address]- 7213 29 Jun, 2012 [facility] [place] [facility] [address] [facility] [id number] [place] [address]- 0937 19 Jun, 2012 [facility] [place] [facility] [address] [facility] [id number] [place] [address]- 9758 Jun, [facility] [place] [facility] [address] [facility] [id number] [place] [address]- 5707 18 Jun, 2012 [facility] [place] [facility] [address] [id number] [place] [address]- 3789 17 Jun, 2011 [facility] [place] [facility] [address] [id number] [place] [address]- 1982 16 Jun, 2011 [facility] [place] [facility] [address] [id number] [place] 2245 16 Jun, 2011 [facility] [place] [facility] [address] [id number] [place] [address]- 3443 Jun, 2011 [facility] [place] [facility] [address] [id number] [place] [address]- 2521 Jun, 2011 [facility] [place] [facility] [address] [id number] [place] [address]- 1728 08 Jun, 2012 [facility] [place] [facility] [address] [id number] [place] [address]- 1873 Jun, [facility] [place] [facility] [address] [id number] [place] [address]- 1475 02 Jun, 2012 [facility] [place] [facility] [address] [id number] [place] [address]- 0374 24 Sep, 2011 [facility] [place] [facility] [address] [id number] [place] [address]- 1172 21 Sep, 2011 [facility] [place] [facility] [address] [facility] [id number] [place] [address]- 4401 19 Sep, 2011 [facility] [place] [facility] [address] [id number] [place] [address]- 9446 18 Sep, 2011 [facility] [place] [facility] [address] [id number] [place] [address]- 6242 12 Sep, 2011 [facility] [place] [facility] [address] [id number] [place] [id number] 12 May, 2011 [facility] [place] [facility] [address] [facility] [id number] [place] [id number] 12 May, 2011 [facility] [place] [facility] [address] [id number] [place] [address]- 8031 May, [facility] [address] [id number] [place] [address]- 1540 Apr, [facility] [place] [facility] [address] [id number] [place] [address]- 8542 Apr, [facility] [place] [facility] [address] [id number] [place] [address]- 5033 Apr, [facility] [place] [facility] [address] [id number] [place] [id number] Apr, [facility] [place] [facility] [address] [id number] [place] [id number] Apr, [facility] [place] [facility] [address] [id number] [place] [address]- 6236 Apr, [facility] [place] [facility] [address] [id number] [place] [address]- 4297 Apr, [facility] [place] [facility] [address] [id number] [place] [address]- 6708 Apr, [facility] [place] [facility] [address] [id number] [place] [address]- 4630 Apr, [facility] [place] [facility] [address] [id number] [place] [address]- 3852 Apr, [facility] [place] [facility] [address] [id number] [place] [address]- 5537 Apr, [facility] [place] [facility] [address] [id number] [place] [address]- 2947 Apr, [facility] [place] [facility] [address] [id number] [place] [address]- 0690 Mar, [facility] [place] [facility] [address] [id number] [place] [address]- 2749 Mar, [facility] [place] [facility] [address] [id number] [place] [address]- 4993 Mar, [facility] [place] [facility] [address] [id number] [place] [address]- 3537 26 Mar, 2012 [facility] [place] [facility] [address] [id number] [place] [address]- 5188 25 Mar, 2012 [facility] [place] [facility] [address] [id number] [place] [address]- 4349 24 Mar, 2012 [facility] [place] [facility] [address] [id number] [place] [address]- 6676 20 Mar, 2012 [facility] [place] [facility] [address] [id number] [place] [address]- 3673 Mar, [facility] [place] [facility] [address] [id number] [place] [address]- 5518 18 Mar, 2012 [facility] [place] [facility] [address] [id number] [place] [address]- 6120 Mar, [facility] [place] [facility] [address] [id number] [place] [address]- 7420 Mar, [facility] [place] [facility] [address] [id number] [place] [address]- 7893 15 Mar, 2012 [facility] [place] [facility] [address] [id number] [place] [address]- 9161 Mar, [facility] [place] [facility] [address] [id number] [place] [address]- 6168 Mar, [facility] [place] [facility] [address] [id number] [place] [address]- 4986 Mar, [facility] [place] [facility] [address] [id number] [place] [address]- 4813 Mar, [facility] [place] [facility] [address] [id number] [place] [address]- 2199 Mar, [facility] [place] [facility] [address] [id number] [place] [address]- 6922 Feb, [facility] [place] [facility] [address] [id number] [place] [address]- 9100 Feb, [facility] [place] [facility] [address] [id number] [place] [address]- 6360 25 Feb, 2012 [facility] [address] [id number] [place] [address]- 6618 19 Feb, 2012 [facility] [place] [facility] [address] [id number] [place] [address]- 2352 18 Feb, 2012 [facility] [address] [id number] [place] [address]- 8445 15 Feb, 2012 [facility] [place] [facility] [address] [id number] [place] [address]- 3307 14 Feb, 2012 [facility] [address] [id number] [place] [address]- 6224 13 Feb, 2012 [facility] [address] [id number] [place] [address]- 1538 11 Feb, 2012 [facility] [address] [id number] [place] [address]- 6916 06 Feb, 2012 [facility] [address] [id number] [place] [address]- 2916 05 Feb, 2012 [facility] [place] [facility] [address] [id number] [place] [address]- 7720 January, [facility] [address] [id number] [place] [address]- 2002 January, [facility] [place] [facility] [address] [id number] [place] [address]- 0885 January, [facility] [place] [facility] [address] [id number] [place] [address]- 1007 January, [facility] [place] [facility] [address] [id number] [place] [address]- 6161 January, [facility] [place] [facility] [address] [id number] [place] [address]- 2958 Dec, [facility] [place] [facility] [address] [id number] [place] [address]- 4653 Dec, [facility] [address] [id number] [place] [address]- 2559 Dec, [facility] [place] [facility] [address] [id number] [place] [address]- 1150 Dec, [facility] [place] [facility] [address] [id number] [place] [address]- 1142 Dec, [facility] [place] [facility] [address] [id number] [place] [address]- 9933 Dec, [facility] [place] [facility] [address] [id number] [place] [address]- 2405 Dec, [facility] [place] [facility] [address] [id number] [place] [address]- 7220 Dec, [facility] [place] [facility] [address] [id number] [place] [address]- 9726 Dec, [facility] [place] [facility] [address] [id number] [place] [address]- 5182 Dec, [facility] [place] [facility] [address] [id number] [place] [address]- 8996 Nov, [facility] [place] [facility] [address] [id number] [place] [address]- 3409 29 Nov, 2011 [facility] [place] [facility] [address] [id number] [place] [address]- 4742 Nov, [facility] [place] [facility] [address] [id number] [place] [address]- 3476 Nov, [facility] [place] [facility] [address] [id number] [place] [address] Nov, [facility] [place] [facility] [address] [id number] [place] [address] 22 Nov, 2011 [facility] [place] [facility] [address] [id number] [place] [address] 19 Nov, 2011 [facility] [place] [facility] [address] [id number] [place] [address] 14 Nov, 2011 [facility] [place] [facility] [address] [id number] [place] [address] 13 Nov, 2011 [facility] [place] [facility] [address] [id number] [place] [address] 13 Nov, 2011 [facility] [place] [facility] [address] [id number] [place] [address] 05 Nov, 2011 [facility] [place] [facility] [address] [id number] [place] [address] Nov, [facility] [place] [facility] [address] [id number] [place] [address] 29 Oct, 2011 [facility] [place] [facility] [address] [id number] [place] [address] 28 Oct, 2011 [facility] [place] [facility] [address] [facility] [id number] [place] [address] 27 Oct, 2011 [facility] [place] [facility] [address] [id number] [place] [address] 22 Oct, 2011 [facility] [place] [facility] [address] [id number] [place] [address] 20 Oct, 2011 [facility] [place] [facility] [address] [facility] [id number] [place] [address] 14 Oct, 2011 [facility] [place] [facility] [address] [facility] [id number] [place] [address] 09 Oct, 2011 [facility] [place] [facility] [address] [facility] [id number] [place] [address] 08 Oct, 2011 [facility] [place] [facility] [address] [id number] [place] [address] 02 Oct, 2011 [facility] [place] [facility] [address] [facility] [id number] [place] [address] Sep, [facility] [place] [facility] [address] [facility] [id number] [place] [address] Sep, [facility] [place] [facility] [address] [id number] [place] [address] Sep, [facility] [place] [facility] [address] [id number] [place] [address] Sep, [facility] [place] [facility] [address] [id number] [place] [address] Sep, [facility] [place] [facility] [address] [id number] [place] [address] Sep, [facility] [place] [facility] [address] [id number] [place] [address] Aug, [facility] [place] [facility] [address] [id number] [place] [address] Aug, [facility] [place] [facility] [address] [id number] [place] [address] Aug, [facility] [place] [facility] [address] [id number] [place] [address] Jul, [facility] [place] [facility] [address] [id number] [place] [address] Jul, [facility] [place] [facility] [address] [id number] [place] [address] Jul, [facility] [place] [facility] [address] [id number] [place] [address] Jul, [facility] [place] [facility] [address] [id number] [place] [address] Jul, [facility] [place] [facility] [address] [id number] [place] [address] Jun, [facility] [place] [facility] [address] [id number] [place] [address] Jun, [facility] [place] [facility] [address] [id number] [place] [address] 24 Jun, 2011 [facility] [place] [facility] [address] [id number] [place] [address] 10 Jun, 2011 [facility] [address] [id number] [place] [address] 10 Jun, 2011 [facility] [address] [id number] [place] [address] 15 Apr, 2011 [facility] [id number] [place] [address] Mar, [facility] [id number] [place] [address] January, [facility] [id number] [place] [address] Aug, [facility] [id number] [place] [address] Aug, [facility] [id number] [place] [address] Jun, [facility] [id number] [address] Jun, [facility] [address] [id number] [place] [address] Aug, IMMUNIZATIONS No Known Immunizations SOCIAL HISTORY Never Assessed REASON FOR VISIT adderall 06/09/2017 PLAN OF CARE VITAL SIGNS MEDICATIONS Medication Instructions Dosage Frequency Start Date End Date Duration Status Adderall 5 MG Orally 3 times a day 2 tablets 8h May, 28 days Active RESULTS No Results PROCEDURES [...] stent Surgical History ruptured eptopic Hospitalization History [facility]-multiple admissions Hospitalization History hysterectomy Hospitalization History surgeries Hospitalization History blood transfusion x 2
--- OUTSIDE RECORDS SUMMARY | 2018-06-14 10:31 | XMS REPORT ---
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 Nov, [facility] [place] [facility] [address] [id number] [place] [address]- 3952 Nov, [facility] [address] [id number] [place] [address]- 1374 Nov, [facility] [address] [id number] [place] [address]- 1456 Nov, [facility] [address] [id number] [place] [address]- 5477 Nov, [facility] [address] [id number] [place] [address]- 6991 05 Nov, 2012 [facility] [place] [facility] [address] [id number] [place] [address]- 3354 20 Oct, 2012 [facility] [place] [facility] [address] [id number] [place] [address]- 1878 14 Oct, 2012 [facility] [place] [facility] [address] [id number] [place] [address]- 9429 14 Oct, 2012 [facility] [place] [facility] [address] [id number] [place] [address]- 9460 12 Oct, 2012 [facility] [place] [facility] [address] [id number] [place] [address]- 7853 11 Oct, 2012 [facility] [place] [facility] [address] [id number] [place] [address]- 8872 07 Oct, 2012 [facility] [address] [id number] [place] [address]- 3796 05 Oct, 2012 [facility] [address] [id number] [place] [address]- 2336 05 Oct, 2012 [facility] [address] [id number] [place] [address]- 4356 04 Oct, 2012 [facility] [address] [id number] [place] [address]- 5157 31 Sep, 2012 [facility] [address] [id number] [place] [address]- 0127 29 Sep, 2012 [facility] [address] [id number] [place] [address]- 0086 15 Sep, 2012 [facility] [address] [facility] [id number] [place] [address]- 6685 14 Sep, 2012 [facility] [address] [id number] [place] [address]- 3557 08 Sep, 2012 [facility] [address] [id number] [place] [address]- 6621 03 Sep, 2012 [facility] [address] [facility] [id number] [place] [address]- 9522 18 Aug, 2012 [facility] [address] [id number] [place] [address]- 5246 18 Aug, 2012 [facility] [address] [id number] [place] [address]- 3730 18 Aug, 2012 [facility] [address] [id number] [place] [address]- 9428 18 Aug, 2012 [facility] [address] [id number] [place] [address]- 8557 15 Aug, 2012 [facility] [address] [facility] [id number] [place] [address]- 0929 14 Aug, 2012 [facility] [place] [facility] [address] [id number] [place] [address]- 0621 14 Aug, 2012 [facility] [place] [facility] [address] [id number] [place] [address]- 0606 13 Aug, 2012 [facility] [place] [facility] [address] [id number] [place] [address]- 3926 13 Aug, 2012 [facility] [place] [facility] [address] [id number] [place] [address]- 9346 11 Aug, 2012 [facility] [place] [facility] [address] [id number] [place] [address]- 5598 11 Aug, 2012 [facility] [place] [facility] [address] [id number] [place] [address]- 4406 07 Aug, 2012 [facility] [place] [facility] [address] [id number] [place] [address]- 4686 Aug, [facility] [place] [facility] [address] [id number] [place] [address]- 4590 06 Aug, 2012 [facility] [place] [facility] [address] [id number] [place] [address]- 2001 Aug, [facility] [place] [facility] [address] [id number] [place] [address]- 4108 Aug, [facility] [place] [facility] [address] [id number], [place] [address]- 3695 Aug, [facility] [place] [facility] [address] [id number], [place] [address]- 8838 Aug, [facility] [place] [facility] [address] [id number] [place] [address]- 2536 Aug, [facility] [place] [facility] [address] [id number] [place] [address]- 1096 Jul, [facility] [place] [facility] [address] [id number], [place] [address]- 7616 Jul, [facility] [place] [facility] [address] [id number], [place] [address]- 0890 Jul, [facility] [place] [facility] [address] [id number] [place] [address]- 4838 Jul, [facility] [place] [facility] [address] [id number] [place] [address]- 6118 14 Jul, 2012 [facility] [place] [facility] [address] [facility] [id number] [place] [address]- 6430 14 Jul, 2012 [facility] [place] [facility] [address] [id number] [place] [address]- 3275 08 Jul, 2012 [facility] [place] [facility] [address] [facility] [id number] [place] [address], [place] [address]- 3464 Jul, [facility] [place] [facility] [address] [facility] [id number] [place] [address]- 4672 08 Jul, 2012 [facility] [place] [facility] [address] [id number] [place] [address]- 8801 Jul, [facility] [place] [facility] [address] [facility] [id number] [place] [address]- 7609 Jul, [facility] [place] [facility] [address] [facility] [id number] [place] [address]- 9698 07 Jul, 2012 [facility] [place] [facility] [address] [facility] [id number] [place] [address]- 6847 30 Jun, 2012 [facility] [place] [facility] [address] [facility] [id number], [place] [address]- 3639 30 Jun, 2012 [facility] [place] [facility] [address] [facility] [id number], [place] [address]- 0464 29 Jun, 2012 [facility] [place] [facility] [address] [facility] [id number], [place] [address]- 2322 19 Jun, 2012 [facility] [place] [facility] [address] [facility] [id number], [place] [address]- 0599 Jun, [facility] [place] [facility] [address] [facility] [id number], [place] [address]- 5907 18 Jun, 2012 [facility] [place] [facility] [address] [id number] [place] [address]- 6630 17 Jun, 2011 [facility] [place] [facility] [address] [id number] [place] [address]- 1169 16 Jun, 2011 [facility] [place] [facility] [address] [id number] [place] 3764 16 Jun, 2011 [facility] [place] [facility] [address] [id number] [place] [address]- 1614 Jun, 2011 [facility] [place] [facility] [address] [id number] [place] [address]- 8132 Jun, 2011 [facility] [place] [facility] [address] [id number] [place] [address]- 2949 08 Jun, 2012 [facility] [place] [facility] [address] [id number] [place] [address]- 9649 Jun, [facility] [place] [facility] [address] [id number] [place] [address]- 4118 02 Jun, 2012 [facility] [place] [facility] [address] [id number] [place] [address]- 3141 24 Sep, 2011 [facility] [place] [facility] [address] [id number] [place] [address]- 3942 21 Sep, 2011 [facility] [place] [facility] [address] [facility] [id number] [place] [address]- 5109 19 Sep, 2011 [facility] [place] [facility] [address] [id number], [place] [address]- 7452 18 Sep, 2011 [facility] [place] [facility] [address] [id number], [place] [address]- 5899 12 Sep, 2011 [facility] [place] [facility] [address] [id number] [place] [id number] 12 May, 2011 [facility] [place] [facility] [address] [facility] [id number] [place] [address] 12 May, 2011 [facility] [place] [facility] [address] [id number], [place] [address]- 7042 May, [facility] [address] [id number] [place] [address]- 4871 Apr, [facility] [place] [facility] [address] [id number] [place] [address]- 8194 Apr, [facility] [place] [facility] [address] [id number] [place] [address]- 0002 Apr, [facility] [place] [facility] [address] [id number] [place] [id number] Apr, [facility] [place] [facility] [address] [id number] [place] [id number] Apr, [facility] [place] [facility] [address] [id number] [place] [address]- 3526 Apr, [facility] [place] [facility] [address] [id number] [place] [address]- 3687 Apr, [facility] [place] [facility] [address] [id number] [place] [address]- 8135 Apr, [facility] [place] [facility] [address] [id number] [place] [address]- 7557 Apr, [facility] [place] [facility] [address] [id number] [place] [address]- 2200 Apr, [facility] [place] [facility] [address] [id number] [place] [address]- 8714 Apr, [facility] [place] [facility] [address] [id number] [place] [address]- 5503 Apr, [facility] [place] [facility] [address] [id number] [place] [address]- 2786 Mar, [facility] [place] [facility] [address] [id number] [place] [address]- 0436 Mar, [facility] [place] [facility] [address] [id number] [place] [address]- 6423 Mar, [facility] [place] [facility] [address] [id number] [place] [address]- 4233 26 Mar, 2012 [facility] [place] [facility] [address] [id number] [place] [address]- 6113 25 Mar, 2012 [facility] [place] [facility] [address] [id number] [place] [address]- 7510 24 Mar, 2012 [facility] [place] [facility] [address] [id number] [place] [address]- 4446 20 Mar, 2012 [facility] [place] [facility] [address] [id number] [place] [address]- 5008 Mar, [facility] [place] [facility] [address] [id number] [place] [address]- 8563 18 Mar, 2012 [facility] [place] [facility] [address] [id number] [place] [address]- 3858 Mar, [facility] [place] [facility] [address] [id number] [place] [address]- 4748 Mar, [facility] [place] [facility] [address] [id number] [place] [address]- 7339 15 Mar, 2012 [facility] [place] [facility] [address] [id number] [place] [address]- 2339 Mar, [facility] [place] [facility] [address] [id number] [place] [address]- 4866 Mar, [facility] [place] [facility] [address] [id number] [place] [address]- 0014 Mar, [facility] [place] [facility] [address] [id number] [place] [address]- 7075 Mar, [facility] [place] [facility] [address] [id number] [place] [address]- 9507 Mar, [facility] [place] [facility] [address] [id number] [place] [address]- 3273 Feb, [facility] [place] [facility] [address] [id number] [place] [address]- 4323 Feb, [facility] [place] [facility] [address] [id number] [place] [address]- 9464 25 Feb, 2012 [facility] [address] [id number] [place] [address]- 7316 19 Feb, 2012 [facility] [place] [facility] [address] [id number] [place] [address]- 5884 18 Feb, 2012 [facility] [address] [id number] [place] [address]- 4070 15 Feb, 2012 [facility] [place] [facility] [address] [id number] [place] [address]- 1515 14 Feb, 2012 [facility] [address] [id number] [place] [address]- 2195 13 Feb, 2012 [facility] [address] [id number] [place] [address]- 3044 11 Feb, 2012 [facility] [address] [id number] [place] [address]- 5819 06 Feb, 2012 [facility] [address] [id number] [place] [address]- 0520 05 Feb, 2012 [facility] [place] [facility] [address] [id number] [place] [address]- 4446 January, [facility] [address] [id number] [place] [address]- 1674 January, [facility] [place] [facility] [address] [id number] [place] [address]- 4833 January, [facility] [place] [facility] [address] [id number] [place] [address]- 8545 January, [facility] [place] [facility] [address] [id number] [place] [address]- 4220 January[facility] [place] [facility] [address] [id number] [place] [address]- 7427 Dec, [facility] [place] [facility] [address] [id number] [place] [address]- 5457 Dec, [facility] [address] [id number] [place] [address]- 0507 Dec, [facility] [place] [facility] [address] [id number] [place] [address]- 9263 Dec, [facility] [place] [facility] [address] [id number] [place] [address]- 3325 Dec, [facility] [place] [facility] [address] [id number] [place] [address]- 0385 Dec, [facility] [place] [facility] [address] [id number] [place] [address]- 4468 Dec, [facility] [place] [facility] [address] [id number] [place] [address]- 5127 Dec, [facility] [place] [facility] [address] [id number] [place] [address] Dec, [facility] [place] [facility] [address] [id number] [place] [address] Dec, [facility] [place] [facility] [address] [id number] [place] [address] Nov, [facility] [place] [facility] [address] [id number] [place] [address] 29 Nov, 2011 [facility] [place] [facility] [address] [id number] [place] [address] Nov, [facility] [place] [facility] [address] [id number], [place] [address] Nov, [facility] [place] [facility] [address] [id number] [place] [address] Nov, [facility] [place] [facility] [address] [id number] [place] [address] 22 Nov, 2011 [facility] [place] [facility] [address] [id number] [place] [address] 19 Nov, 2011 [facility] [place] [facility] [address] [id number] [place] [address] 14 Nov, 2011 [facility] [place] [facility] [address] [id number] [place] [address] 13 Nov, 2011 [facility] [place] [facility] [address] [id number] [place] [address] 13 Nov, 2011 [facility] [place] [facility] [address] [id number] [place] [address] 05 Nov, 2011 [facility] [place] [facility] [address] [id number] [place] [address] Nov, [facility] [place] [facility] [address] [id number] [place] [address] 29 Oct, 2011 [facility] [place] [facility] [address] [id number] [place] [address] 28 Oct, 2011 [facility] [place] [facility] [address] [facility] [id number] [place] [address] 27 Oct, 2011 [facility] [place] [facility] [address] [id number] [place] [address] 22 Oct, 2011 [facility] [place] [facility] [address] [id number] [place] [address]34 20 Oct, 2011 [facility] [place] [facility] [address] [facility] [id number] [place] [address] 14 Oct, 2011 [facility] [place] [facility] [address] [facility] [id number] [place] [address]686 09 Oct, 2011 [facility] [place] [facility] [address] [facility] [id number] [place] [address] 08 Oct, 2011 [facility] [place] [facility] [address] [id number] [place] [address] 02 Oct, 2011 [facility] [place] [facility] [address] [facility] [id number] [place] [address] Sep, [facility] [place] [facility] [address] [facility] [id number] [place] [address] Sep, [facility] [place] [facility] [address] [id number] [place] [address] Sep, [facility] [place] [facility] [address] [id number] [place] [address] Sep, [facility] [place] [facility] [address] [id number] [place] [address] Sep, [facility] [place] [facility] [address] [id number] [place] [address] Sep, [facility] [place] [facility] [address] [id number] [place] [address] Aug, [facility] [place] [facility] [address] [id number] [place] [address] Aug, [facility] [place] [facility] [address] [id number] [place] [address] Aug, [facility] [place] [facility] [address] [id number], [place] [address] Jul, [facility] [place] [facility] [address] [id number] [place] [address] Jul, [facility] [place] [facility] [address] [id number], [place] [address] Jul, [facility] [place] [facility] [address] [id number], [place] [address] Jul, [facility] [place] [facility] [address] [id number], [place] [address] Jul, [facility] [place] [facility] [address] [id number] [place] [address] Jun, [facility] [place] [facility] [address] [id number], [place] [address] Jun, [facility] [place] [facility] [address] [id number], [place] [address] 24 Jun, 2011 [facility] [place] [facility] [address] [id number], [place] [address] 10 Jun, 2011 [facility] [address] [id number], [place] [address] 10 Jun, 2011 [facility] [address]65[address], [place] [address] 15 Apr, 2011 [facility] [id number], [place] [address] Mar, [facility] [id number], [place] [address] January, [facility] [id number], [place] [address] Aug, [facility] [id number], [place] [address] Aug, [facility] [id number], [place] [address] Jun, [facility] [id number], [place] [address] Jun, [facility] [address] [id number], [place] [address] Aug, IMMUNIZATIONS No Known Immunizations SOCIAL HISTORY Never Assessed REASON FOR VISIT valium 06/11/2017 PLAN OF CARE VITAL SIGNS MEDICATIONS Medication [...] stent Surgical History ruptured eptopic Hospitalization History [facility]-multiple admissions Hospitalization History hysterectomy Hospitalization History surgeries Hospitalization History blood transfusion x 2
--- OUTSIDE RECORDS SUMMARY | 2018-06-14 10:32 | XMS REPORT ---
Author Author DEBORA PULLIAM [facility] Address [address] [place] [address] Care Team Providers Care Manager Fine Dining Name Role Phone DEBORA PULLIAM Unavailable PROBLEMS Type Condition ICD9-CM Code [id number] Code Onset Dates Condition Status SNOMED Code Problem Polysubstance abuse F19.10 Active 556030845 Problem Essential (primary) hypertension I10 Active 71461473 Problem Chronic obstructive pulmonary disease, unspecified J44.9 Active 44074218 Problem Attention deficit disorder of childhood without mention of hyperactivity 314.00 Active 91043853 Problem Bipolar I disorder, most recent episode (or current) manic, unspecified 296.40 Active 15828851 Problem Nondependent cannabis abuse, 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 Active 782572309 Problem Bipolar I disorder, most recent episode (or current) mixed, unspecified 296.60 Active 92667926 Problem Bipolar disorder, current episode mixed, unspecified F31.60 Active 66307941 Problem Anxiety state, unspecified F41.1 Active 718663314 Problem Nicotine abuse Z72.0 Active 00224113 Problem Vitamin D deficiency E55.9 Active 61422912 Problem 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
--- OUTSIDE RECORDS SUMMARY | 2018-06-14 10:33 | XMS REPORT ---
Author Author DEBORA PULLIAM [facility] Address [address] [place] [address] Care Team Providers Care Supervisor Compressed Yeast Name Role Phone DEBORA PULLIAM Unavailable PROBLEMS Type Condition ICD9-CM Code [id number] Code Onset Dates Condition Status SNOMED Code Problem Chronic viral hepatitis C B18.2 Active 535729603 Problem Chronic obstructive pulmonary disease, unspecified J44.9 Active 62163285 Problem Essential (primary) hypertension I10 Active 57963934 Problem Attention deficit disorder of childhood without mention of hyperactivity 314.00 Active 86076186 Problem Nondependent cannabis abuse, 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 Active 494195299 Problem Bipolar I disorder, most recent episode (or current) mixed, unspecified 296.60 Active 41153473 Problem Bipolar I disorder, most recent episode (or current) manic, unspecified 296.40 Active 08387088 Problem Bipolar disorder, current episode mixed, unspecified F31.60 Active 06107644 Problem Anxiety state, unspecified F41.1 Active 682259865 Problem Polysubstance abuse F19.10 Active 707896598 Problem Nicotine abuse Z72.0 Active 63293545 Problem 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
--- OUTSIDE RECORDS SUMMARY | 2018-06-14 10:33 | XMS REPORT ---
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 [facility] [address] [id number] [place] [address]- 4838 Dec, [facility] [address] [id number] [place] [address]- 3507 Dec, [facility] [address] [id number] [place] [address]- 9206 Dec, [facility] [address] [id number] [place] [address]- 3427 Dec, [facility] [address] [id number] [place] [address]- 1116 Dec, [facility] [address] [id number] [place] [address]- 5165 Nov, [facility] [address] [id number] [place] [address]- 4877 Nov, [facility] [address] [id number] [place] [address]- 2764 Nov, [facility] [place] [facility] [address] [id number], [place] [address]- 3727 Nov, [facility] [place] [facility] [address] [id number] [place] [address]- 1072 Nov, [facility] [place] [facility] [address] [id number] [place] [address]- 3676 Nov, [facility] [place] [facility] [address] [id number], [place] [address]- 8913 Oct, [facility] [place] [facility] [address] [id number], [place] [address]- 7706 14 Oct, 2012 [facility] [address] [id number] [place] [address]- 9896 14 Oct, 2012 [facility] [address] [id number] [place] [address]- 3496 12 Oct, 2012 [facility] [address] [facility] [id number] [place] [address]- 2416 11 Oct, 2012 [facility] [address] [id number] [place] [address]- 3509 07 Oct, 2012 [facility] [address] [id number] [place] [address]- 4192 05 Oct, 2012 [facility] [address] [id number] [place] [address]- 9414 05 Oct, 2012 [facility] [id number] [place] [address]- 8987 04 Oct, 2012 [facility] [address] [id number] [place] [address]- 4641 31 Sep, 2012 [facility] [address] [id number] [place] [address]- 7112 29 Sep, 2012 [facility] [address] [id number] [place] [address]- 4934 15 Sep, 2012 [facility] [address] [id number] [place] [address]- 4069 14 Sep, 2012 [facility] [address] [id number] [place] [address]- 3434 08 Sep, 2012 [facility] [place] [facility] [address] [facility] [id number] [place] [address]- 2158 Sep, [facility] [place] [facility] [address] [facility] [id number] [place] [address]- 0143 18 Aug, 2012 [facility] [address] [facility] [id number] [place] [address]- 0315 Aug, [facility] [place] [facility] [address] [id number] [place] [address]- 4683 18 Aug, 2012 [facility] [place] [facility] [address] [id number] [place] [address]- 0826 18 Aug, 2012 [facility] [place] [facility] [address] [id number] [place] [address]- 9376 15 Aug, 2012 [facility] [place] [facility] [address] [id number] [place] [address]- 9146 14 Aug, 2012 [facility] [place] [facility] [address] [id number] [place] [address]- 8139 14 Aug, 2012 [facility] [place] [facility] [address] [id number] [place] [address]- 2522 13 Aug, 2012 [facility] [place] [facility] [address] [id number] [place] [address]- 9786 13 Aug, 2012 [facility] [place] [facility] [address] [id number] [place] [address]- 2816 11 Aug, 2012 [facility] [place] [facility] [address] [id number] [place] [address]- 2933 11 Aug, 2012 [facility] [place] [facility] [address] [id number] [place] [address]- 2556 07 Aug, 2012 [facility] [place] [facility] [address] [id number], [place] [address]- 6232 07 Aug, 2012 [facility] [place] [facility] [address] [id number], [place] [address]- 5708 06 Aug, 2012 [facility] [place] [facility] [address] [id number] [place] [address]- 3944 06 Aug, 2012 [facility] [place] [facility] [address] [id number] [place] [address]- 7797 06 Aug, 2012 [facility] [place] [facility] [address] [id number] [place]141 06 Aug, 2012 [facility] [place] [facility] [address] [id number], [place] [address]- 9199 Aug, [facility] [place] [facility] [address] [id number] [place] [address]- 7344 Aug, [facility] [place] [facility] [address] [facility] [id number], [place] [address]- 0660 Jul, [facility] [place] [facility] [address] [facility] [id number] [place] [address]- 7325 Jul, [facility] [place] [facility] [address] [id number] [place] [address]- 9914 Jul, [facility] [place] [facility] [address] [facility] [id number] [place] [address], [place] [address]- 3964 Jul, [facility] [place] [facility] [address] [facility] [id number] [place] [address]- 4927 Jul, [facility] [place] [facility] [id number] [place] [address]- 3979 Jul, [facility] [place] [facility] [address] [facility] [id number], [place] [address]- 1717 Jul, [facility] [place] [facility] [address] [id number] [place] [address]- 9839 Jul, [facility] [place] [facility] [address] [id number], [place] [address]- 3026 Jul, [facility] [place] [facility] [address] [facility] [id number], [place] [address]- 1780 Jul, [facility] [place] [facility] [address] [facility] [id number], [place] [address]- 9672 Jul, [facility] [place] [facility] [address] [facility] [id number], [place] [address]- 0681 Jul, [facility] [place] [facility] [address] [facility] [id number], [place] [address]- 3541 Jun, [facility] [place] [facility] [address] [id number], [place] [address]- 3997 Jun, [facility] [place] [facility] [address] [id number] [place] [address]- 7492 29 Jun, 2012 [facility] [place] [facility] [address] [id number] [place] [address]494 Jun, [facility] [place] [facility] [address] [id number] [place] [address]- 7486 Jun, [facility] [place] [facility] [address] [id number] [place] [address]- 1103 18 Jun, 2012 [facility] [place] [facility] [address] [id number] [place] [address]- 5979 17 Jun, 2012 [facility] [place] [facility] [address] [id number] [place] [address]- 1822 Jun, [facility] [place] [facility] [address] [id number] [place] [address]- 6645 16 Jun, 2012 [facility] [place] [facility] [address] [id number] [place] [address]- 4126 Jun, [facility] [place] [facility] [address] [id number] [place] [address]- 3214 Jun, [facility] [place] [facility] [address] [id number] [place] [address]- 4549 08 Jun, 2012 [facility] [place] [facility] [address] [id number] [place] [address]- 9659 04 Jun, 2012 [facility] [place] [facility] [address] [id number] [place] [address]- 6482 02 Jun, 2012 [facility] [place] [facility] [address] [id number] [place] [address]- 4708 24 Sep2011 [facility] [place] [facility] [address] [id number] [place]- 6065 21 Sep2011 [facility] [place] [facility] [address] [id number] [place]- 1009 19 Sep2011 [facility] [place] [facility] [address] [id number] [place] [address]- 6520 18 May, 2012 [facility] [place] [facility] [address] [id number] [place] [address]- 2140 May, [facility] [place] [facility] [address] [id number] [place] [id number] May, [facility] [place] [facility] [address] [id number] [place] [address] May, [facility] [place] [facility] [address] [id number] [place] [address]- 1146 May, [facility] [place] [facility] [address] [id number] [place] [address]- 5653 Apr, [facility] [place] [facility] [address] [id number] [place] [address]- 6096 Apr, [facility] [place] [facility] [address] [id number] [place] [address]- 1265 Apr, [facility] [place] [facility] [address] [id number] [id number] Apr, [facility] [place] [facility] [address] [id number] [place] [address] Apr, [facility] [place] [facility] [address] [id number] [place] [address]- 0322 Apr, [facility] [place] [facility] [address] [id number] [place] [address]- 5064 Apr, [facility] [place] [facility] [address] [id number], [place] [address]- 6600 Apr, [facility] [place] [facility] [address] [id number] [place] [address]- 7361 14 Apr, 2012 [facility] [place] [facility] [address] [id number] [place] [address]- 4248 Apr, [facility] [place] [facility] [address] [id number] [place] [address]- 0713 Apr, [facility] [place] [facility] [address] [id number] [place] [address]- 3501 Apr, [facility] [place] [facility] [address] [id number] [place] [address]- 5126 Mar, [facility] [place] [facility] [address] [id number] [place] [address]- 8926 Mar, [facility] [place] [facility] [address] [id number] [place] [address]- 7476 Mar, [facility] [place] [facility] [address] [id number] [place] [address] 2544 Mar, [facility] [place] [facility] [address] [id number] [place] [address]- 5991 Mar, [facility] [place] [facility] [address] [id number] [place] [address]- 2662 Mar, [facility] [place] [facility] [address] [id number] [place] [address]- 2616 Mar, [facility] [place] [facility] [address] [id number] [place] [address]- 2289 Mar, [facility] [place] [facility] [address] [id number] [place] [address]- 2050 Mar, [facility] [place] [facility] [address] [id number] [place] [address]- 0085 Mar, [facility] [place] [facility] [address] [id number] [place] [address]- 9635 Mar, [facility] [place] [facility] [address] [id number] [place] [address]- 0478 15 Mar, 2012 [facility] [place] [facility] [address] [id number] [place] [address]- 2543 13 Mar, 2012 [facility] [place] [facility] [address] [id number] [place] [address]- 7828 Mar, [facility] [place] [facility] [address] [id number] [place] [address]- 2545 05 Mar, 2012 [facility] [place] [facility] [address] [id number] [place] [address]- 3253 Mar, [facility] [place] [facility] [address] [id number] [place] [address]- 5458 Mar, [facility] [place] [facility] [address] [id number] [place] [address]- 8266 Feb, [facility] [place] [facility] [address] [id number] [place] [address]- 7059 Feb, [facility] [place] [facility] [address] [id number] [place] [address]- 6512 25 Feb, 2012 [facility] [place] [facility] [address] [id number] [place] [address]- 1167 Feb, [facility] [place] [facility] [address] [id number] [place] [address]- 0789 18 Feb, 2012 [facility] [place] [facility] [address] [id number] [place] [address]- 2599 15 Feb, 2012 [facility] [address] [id number] [place] [address]- 7077 14 Feb, 2012 [facility] [place] [facility] [address] [id number] [place] [address]- 0949 13 Feb, 2012 [facility] [address] [id number] [place] [address] 11 Feb, 2012 [facility] [place] [facility] [address] [id number] [place] [address] 06 Feb, 2012 [facility] [place] [facility] [address] [id number] [place] [address] 05 Feb, 2012 [facility] [place] [facility] [address] [id number] [place] [address] January, [facility] [place] [facility] [address] [id number] [place] [address] January, [facility] [place] [facility] [address] [id number] [place] January, [facility] [address] [id number] [place] [address] January, [facility] [place] [facility] [address] [id number] [place] [address] January, [facility] [place] [facility] [address] [id number] [place] [address] Dec, [facility] [place] [facility] [address] [id number] [place] [address] Dec, [facility] [place] [facility] [address] [id number] [place] [address]- [address] Dec, [facility] [place] [facility] [address] [id number] [place] [address] Dec, [facility] [place] [facility] [address] [id number] [place] [address] Dec, [facility] [place] [facility] [address] [id number] [place] [address]- [address] Dec, [facility] [place] [facility] [address] [id number] [place] [address]- [address] Dec, [facility] [place] [facility] [address] [id number] [place] [address]- [address] Dec, [facility] [place] [facility] [address] [id number] [place] [address]- [address] Dec, [facility] [place] [facility] [address] [id number] [place] [address]- [address] Dec, [facility] [place] [facility] [address] [id number] [place] [address]- 14[address] Nov, [facility] [place] [facility] [address] [id number] [place] [address] Nov, [facility] [place] [facility] [address] [id number] [place] [address] 87[address] Nov, [facility] [place] [facility] [address] [id number], [place] [address] 26 Nov, 2011 [facility] [place] [facility] [address] [id number] [place] [address]- [address] 23 Nov, 2011 [facility] [place] [facility] [address] [id number] [place] [address]- 4796 22 Nov, 2011 [facility] [place] [facility] [address] [facility] [id number] [place] [address]- [address] 19 Nov, 2011 [facility] [place] [facility] [address] [id number] [place] [address]- [address] 14 Nov, 2011 [facility] [place] [facility] [address] [id number] [place] [address] 40[address] 13 Nov, 2011 [facility] [place] [facility] [address] [facility] [id number] [place] [address]- 2716 13 Nov, 2011 [facility] [place] [facility] [id number] [place] [address] 05 Nov, 2011 [facility] [place] [facility] [address] [id number] [place] [address] Nov, [facility] [place] [facility] [address] [id number] [place] [address] 29 Oct, 2011 [facility] [place] [facility] [address] [id number] [place] [address] 28 Oct, 2011 [facility] [place] [facility] [id number] [place] [address] 27 Oct, 2011 [facility] [place] [facility] [address] [facility] [id number] [place] [address] 2545 22 Oct, 2011 [facility] [place] [facility] [address] [id number] [place] [address]- 9120 20 Oct, 2011 [facility] [place] [facility] [address] [facility] [id number] [place] [address]- [address] 14 Oct, 2011 [facility] [place] [facility] [address] [id number] [place] [address] 09 Oct, 2011 [facility] [address] [id number] [place] [address]- [address] 08 Oct, 2011 [facility] [place] [facility] [address] [id number] [place] [address]- 2706 Oct, [facility] [place] [facility] [address] [id number] [place] [address]- 3082 Sep, [facility] [place] [facility] [address] [id number] [place] [address] 2548 Sep, [facility] [place] [facility] [address] [id number] [place] [address]- [address]709 Sep, [facility] [place] [facility] [address] [id number] [place] [address]- 2744 Sep, [facility] [place] [facility] [address] [id number] [place] [address]- 9999 Sep, [facility] [place] [facility] [address] [id number] [place] [address]- 9[address] Sep, [facility] [place] [facility] [address] [id number] [place] [address]- 7930 Aug, [facility] [place] [facility] [address] [id number] [place] [address]- 7985 Aug, [facility] [place] [facility] [address] [id number] [place] [address]- 2280 Aug, [facility] [place] [facility] [address] [id number] [place] [address]- 3953 Jul, [facility] [place] [facility] [address] [id number] [place] [address] 2544 Jul, [facility] [place] [facility] [address] [id number] [place] [address]- 2545 28 Jul, 2011 [facility] [place] [facility] [address] [id number] [place] [address] 14 Jul, 2011 [facility] [place] [facility] [address] [id number], [place] [address] Jul, [facility] [address] [address] Jun, [facility] [address] [address] Jun, [facility] [address] [address] 4698 Jun, [facility] [address] [id number] [address] Jun, [facility] [id number] [place] [address]- [address] Jun, [facility] [address] [address] Apr, [facility] [id number] [place] [address]- [address] Mar, [facility] [address] [address] January, [facility] [address], [place] [address] Aug, [facility] [address] [address] 8069 Aug, [facility] [address] [address] 2427 Jun, [facility] [address], [place] [address]87 Jun, [facility] [address] [address] [address] Aug, IMMUNIZATIONS No Known Immunizations SOCIAL HISTORY Never Assessed REASON FOR VISIT DISHA f/u, bree PLAN OF CARE Activity Details Follow Up 3 Months Reason:DISHA f/u VITAL SIGNS Height 69 in 2017-10-15 Weight 214 lbs 2017-10-15 Heart Rate 92 bpm 2017-10-15 Respiratory Rate 20 2017-10-15 BMI 31.60 kg/m2 2017-10-15 Blood pressure systolic 140 mmHg 2017-10-15 Blood pressure diastolic 88 mmHg 2017-10-15 MEDICATIONS Medication Instructions Dosage Frequency Start Date [...] as needed 24h Mar, 20 days Active Neurontin 400 mg Orally 3 times a day 3 capsules 8h 30 Active Seroquel 400 mg Orally Once a day 2 tablets at bedtime 24h Active Valium 5 mg Orally Twice a day 1 tablet as needed 12h Active Estrogens Conjugated Active Prazosin HCl 5 MG TAKE TWO CAPSULES BY MOUTH ONCE DAILY AT BEDTIME Active Adderall 10 mg Orally 3 times a day 1 tablet 8h 10 Sep, 2017 Active RESULTS Name Result Date Reference Range [employer] 2017-10-15 PROCEDURES Procedure Date Ordered Result Body Site [facility] VISIT ESTABLISHED PATIENT Oct 15, 2017 No Charge Oct 15, 2017 INSTRUCTIONS MEDICATIONS ADMINISTERED No Known Medications [...] stent Surgical History ruptured eptopic Hospitalization History [place]-multiple admissions Hospitalization History hysterectomy Hospitalization History surgeries Hospitalization History blood transfusion x 2
--- OUTSIDE RECORDS SUMMARY | 2018-06-14 10:33 | XMS REPORT ---
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 Name Role Phone DEBORA PULLIAM Unavailable PROBLEMS Type Condition ICD9-CM Code UJL15-HC Code Onset Dates Condition Status SNOMED Code Problem Polysubstance abuse F19.10 Active 770656551 Problem Essential (primary) hypertension I10 Active 58657161 Problem Chronic obstructive pulmonary disease, unspecified J44.9 Active 87252011 Problem Attention deficit disorder of childhood without mention of hyperactivity 314.00 Active 83109699 Problem Bipolar I disorder, most recent episode (or current) manic, unspecified 296.40 Active 52654053 Problem Nondependent cannabis abuse, 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 Active 484342269 Problem Bipolar I disorder, most recent episode (or current) mixed, unspecified 296.60 Active 45345894 Problem Bipolar disorder, current episode mixed, unspecified F31.60 Active 74699504 Problem Anxiety state, unspecified F41.1 Active 896906825 Problem Nicotine abuse Z72.0 Active 77534284 Problem Vitamin D deficiency E55.9 Active 27722013 Problem 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
--- OUTSIDE RECORDS SUMMARY | 2018-06-14 10:34 | XMS REPORT ---
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 [id number] [place] [address] 2544 29 Sep, 2012 [facility] [address] [id number] [place] [address]- 7718 15 Sep, 2012 [facility] [address] [id number] [place] [address]- 1891 14 Sep, 2012 [facility] [address] [id number] [place] [address]- 8463 08 Sep, 2012 [facility] [address] [id number] [place] [address]- 3591 03 Sep, 2012 [facility] [address] [id number] [place] 18 Aug, 2012 [facility] [address] [id number] [place] [address]- 8946 18 Aug, 2012 [facility] [address] [id number] [place] [address]- 9009 18 Aug, 2012 [facility] [address] [id number] [place] [address]- 1855 18 Aug, 2012 [facility] [address] [id number] [place] [address] 15 Aug, 2012 [facility] [address] [id number] [place] [address]- 1771 14 Aug, 2012 [facility] [address] [id number] [place] [address]- 2882 14 Aug, 2012 [facility] [address] [id number] [place] [address]- 4801 13 Aug, 2012 [facility] [address] [id number] [place] [address]- 2452 13 Aug, 2012 [facility] [address] [id number] [place] [address]- 7914 11 Aug, 2012 [facility] [address] [id number] [place] [address]- 4322 11 Aug, 2012 [facility] [address] [id number] [place] [address]- 5969 07 Aug, 2012 [facility] [address] [id number] [place] [address]- 2056 07 Aug, 2012 [facility] [address] [id number] [place] [address]- 5578 06 Aug, 2012 [facility] [address] [id number] [place] [address]- 0591 06 Aug, 2012 [facility] [address] [id number] [place] [address]- 3370 Aug, [facility] [address] [id number] [place] [address]- 9082 Aug, [facility] [address] [id number] [place] [address]- 7976 Aug, [facility] [address] [id number] [place] [address]- 1490 Aug, [facility] [address] [id number] [place] [address]- 6259 Jul, [facility] [address] [id number] [place] [address]- 5541 Jul, [facility] [address] [id number] [place] [address]- 3144 Jul, [facility] [address] [id number] [place] [address]- 9096 Jul, [facility] [address] [id number] [place] [address]- 0656 Jul, [facility] [address] [id number] [place] [address]- 6111 Jul, [facility] [address] [id number] [place] [address]- 8528 Jul, [facility] [address] [id number] [place] [address]- 4700 Jul, [facility] [address] [id number] [place] [address]- 0505 Jul, [facility] [address] [id number] [place] [address]- 8546 Jul, [facility] [address] [id number] [place] [address]- 4460 Jul, [facility] [address] [id number] [place] [address]- 3438 Jul, [facility] [address] [id number] [place] [address]- 8654 30 Jun, 2011 [facility] [address] [id number] [place] [address]- 2723 30 Jun, 2011 [facility] [address] [id number] [place] [address]- 6598 29 Jun, 2011 [facility] [place] [address] [id number] [place] [address]- 1409 Jun, 2011 [facility] [place] [address] [id number] [place] [address]- 7994 19 Jun, 2011 [facility] [address] [id number] [place] [address]- 0530 18 Jun, 2012 [facility] [address] [id number] [place] [address]- 3848 17 Jun, 2011 [facility] [address] [id number] [place] [address]- 5279 16 Jun, 2012 [facility] [address] [id number] [place] [address]- 6253 16 Jun, 2012 [facility] [address] [id number] [place] [address]- 0316 Jun, [facility] [address] [id number] [place] [address]- 0700 Jun, [facility] [address] [id number] [place] [address]- 3255 08 Jun, 2012 [facility] [place] [address] [id number] [place] [address]- 8896 04 Jun, 2012 [facility] [address] [id number] [place] [address]- 0490 Jun, [facility] [address] [id number] [place] [address]- 4336 24 May, 2012 [facility] [address] [id number] [place] [address]- 1349 May, [facility] [place] [facility] [address] [id number] [place] [address]- 0969 19 May, 2012 [facility] [place] [facility] [address] [id number] [place] [address]- 2625 18 May, 2012 [facility] [place] [facility] [address] [id number] [place] [address]- 4132 May, [facility] [address] [id number] [place] [id number] May, [facility] [facility] [address] [id number] [place] [address] May, [facility] [place] [facility] [address] [id number] [place] [address]- 0474 04 May, 2012 [facility] [facility] [address] [id number] [place] [address]- 1053 29 Apr, 2012 [facility] [place] [facility] [address] [id number] [place] [address]- 7001 Apr, [facility] [place] [facility] [address] [id number] [place] [address]- 7713 Apr, [facility] [address] [id number] [place] [id number] Apr, [facility] [address] [id number] [place] [address] Apr, [facility] [address] [id number] [place] [address]- 8236 17 Apr, 2012 [facility] [address] [id number] [place] [address]- 8989 Apr, [facility] [place] [facility] [address] [id number] [place] [address]- 6284 Apr, [facility] [place] [facility] [address] [id number] [place] [address]- 5223 14 Apr, 2012 [facility] [place] [facility] [address] [id number] [place] [address]- 8031 Apr, [facility] [place] [facility] [address] [id number] [place] [address]- 5820 Apr, [facility] [place] [facility] [address] [id number] [place] [address]- 7876 Apr, [facility] [place] [facility] [address] [id number] [place] [address]- 2855 Mar, [facility] [place] [facility] [address] [id number] [place] [address]- 3242 Mar, [facility] [place] [facility] [address] [id number] [place] [address]- 6658 Mar, [facility] [place] [facility] [address] [id number] [place] [address]- 5159 Mar, [facility] [place] [facility] [address] [id number] [place] [address]- 5292 Mar, [facility] [place] [facility] [address] [id number] [place] [address]- 9890 Mar, [facility] [place] [facility] [address] [id number] [place] [address]- 1044 Mar, [facility] [place] [facility] [address] [id number] [place] [address]- 1780 Mar, [facility] [place] [facility] [address] [id number] [place] [address]- 9305 Mar, [facility] [place] [facility] [address] [id number] [place] [address]- 6030 Mar, [facility] [place] [facility] [address] [id number] [place] [address]- 9457 Mar, [facility] [place] [facility] [address] [id number] [place] [address]- 0728 15 Mar, 2012 [facility] [place] [facility] [address] [id number] [place] [address]- 6385 Mar, [facility] [place] [facility] [address] [id number] [place] [address]- 5525 11 Mar, 2012 [facility] [place] [facility] [address] [id number] [place] [address]- 3683 05 Mar, 2012 [facility] [place] [facility] [address] [id number] [place] [address]- 2770 Mar, [facility] [place] [facility] [address] [id number] [place] [address]- 9140 Mar, [facility] [place] [facility] [address] [id number] [place] [address]- 2926 Feb, [facility] [place] [facility] [address] [id number] [place] [address]- 3777 27 Feb, 2012 [facility] [place] [facility] [address] [id number] [place] [address]- 7664 Feb, [facility] [place] [facility] [address] [id number] [place] [address]- 8389 Feb, [facility] [place] [facility] [address] [id number] [place] [address]- 3863 18 Feb, 2012 [facility] [place] [facility] [address] [id number] [place] [address]- 3922 15 Feb, 2012 [facility] [place] [facility] [address] [id number] [place] [address]- 1025 14 Feb, 2012 [facility] [place] [facility] [address] [id number] [place] [address]- 0892 13 Feb, 2012 [facility] [place] [facility] [address] [id number] [place] [address]- 2621 11 Feb, 2012 [facility] [place] [facility] [address] [id number] [place] [address]- 6509 06 Feb, 2012 [facility] [place] [facility] [address] [id number] [place] [address]- 0588 05 Feb, 2012 [facility] [place] [facility] [address] [id number] [place] [address]- 9045 January, [facility] [place] [facility] [address] [id number] [place] [address]- 5373 January, [facility] [address] [id number] [place] [address]- 9385 January, [facility] [address] [id number] [place] [address]- 4299 January, [facility] [place] [facility] [address] [id number] [place] [address]- 1562 January, [facility] [address] [id number] [place] [address]- 2060 Dec, [facility] [address] [id number] [place] [address]- 7048 Dec, [facility] [address] [id number] [place] [address]- 9247 Dec, [facility] [address] [id number] [place] [address]- 1517 Dec, [facility] [address] [id number] [place] [address]- 9604 Dec, [facility] [address] [id number] [place] [address]- 2849 Dec, [facility] [facility] [address] [id number] [place] [address]- 8956 Dec, [facility] [place] [facility] [address] [id number] [place] [address] 16 Dec, 2011 [facility] [place] [facility] [address] [id number] [place] [address] Dec, [facility] [place] [facility] [address] [id number] [place] [address] Dec, [facility] [place] [facility] [address] [id number] [place] [address] Nov, [facility] [place] [facility] [address] [id number] [place] [address] 29 Nov, 2011 [facility] [address] [id number] [place] [address] 27 Nov, 2011 [facility] [place] [facility] [address] [id number] [place] [address] 26 Nov, 2011 [facility] [place] [facility] [address] [id number] [place] [address] 23 Nov, 2011 [facility] [place] [facility] [address] [id number] [place] [address] 22 Nov, 2011 [facility] [place] [facility] [address] [id number] [place] [address] 19 Nov, 2011 [facility] [place] [facility] [address] [id number] [place] [address] 14 Nov, 2011 [facility] [address] [facility] [id number] [place] [address] 13 Nov, 2011 [facility] [place] [facility] [address] [id number] [place] [address] 13 Nov, 2011 [facility] [place] [facility] [address] [id number] [place] [address] 4580 05 Nov, 2011 [facility] [place] [facility] [address] [facility] [id number] [place] [address] Nov, [facility] [place] [facility] [address] [id number] [place] [address] 1706 29 Oct, 2011 [facility] [place] [facility] [address] [id number] [place] [address] 28 Oct, 2011 [facility] [place] [facility] [address] [id number] [place] [address] 27 Oct, 2011 [facility] [place] [facility] [address] [id number] [place] [address]696 22 Oct, 2011 [facility] [place] [facility] [address] [facility] [id number] [place] [address] 119[address] 20 Oct, 2011 [facility] [place] [facility] [address] [id number] [place] [address] 14 Oct, 2011 [facility] [place] [facility] [address] [id number] [place] [address] Oct, [facility] [place] [facility] [address] [id number] [place] [address] 08 Oct, 2011 [facility] [place] [facility] [address] [id number] [place] [address] Oct, [facility] [place] [facility] [address] [id number] [place] [address] Sep, [facility] [place] [facility] [address] [id number] [place] [address] Sep, [facility] [place] [facility] [address] [id number] [place] [address] Sep, [facility] [place] [facility] [address] [id number] [place] [address] Sep, [facility] [place] [facility] [address] [id number] [place] [address] 224[address] Sep, [facility] [place] [facility] [address] [id number] [place] [address] Sep, [facility] [place] [facility] [address] [id number] [place] [address] Aug, [facility] [place] [facility] [address] [id number] [place] [address] Aug, [facility] [place] [facility] [address] [id number] [place] [address] Aug, [facility] [place] [facility] [address] [id number] [place] [address]14 Jul, [facility] [place] [facility] [address] [id number] [place] [address] Jul, [facility] [place] [facility] [address] [id number] [place] [address] Jul, [facility] [address] [facility] [id number] [place] [address] 14 Jul, 2011 [facility] [address] [facility] [id number] [place] [address] Jul, [facility] [address] [facility] [id number] [place] [address] Jun, [facility] [address] [facility] [id number] [place] [address] 28 Jun, 2011 [facility] [address] [facility] [id number] [place] [address] 24 Jun, 2011 [facility] [address] [facility] [id number] [place] [address] Jun, [facility] [address] [id number] [place] [address] Jun, [facility] [address] [id number] [place] [address] 15 Apr, 2011 [facility] [address] [id number] [place] [address] Mar, [facility] [address] [id number] [place] [address] January, [facility] [address] [facility] [id number] [place] [address] 39[address] 29 Aug, 2009 [facility] [address] [facility] [id number] [place] [address] Aug, [facility] [address] [facility] [id number] [place] [address] Jun, [facility] [address] [facility] [id number] [place] [address] Jun, [facility] [address] [id number] [place] [address] Aug, IMMUNIZATIONS No Known Immunizations SOCIAL HISTORY Never Assessed REASON FOR VISIT Bipolar Disorder, Anxiety, & ADHD. PLAN OF CARE Activity Details Follow Up prn Reason: VITAL SIGNS MEDICATIONS Medication Instructions Dosage Frequency Start Date End Date Duration Status Adderall 10 MG Orally Three times a day 1 tablet in the morning 8h Active Prazosin HCl 5 mg Orally Once a day 2 capsule at bedtime 24h Active Neurontin 400 MG Orally 3 times a day 3 capsules 8h 30 days Active Seroquel 400 MG Orally Once a day 2 tablets at bedtime 24h Active Valium 5 MG Orally Twice a day 1 tablet as needed 12h Active Voltaren 1 % Topically 4 times a day APPLY 4 GRAMS as needed for back pain 6h 7 Active 27-1 MG Orally Once a day 1 tablets 24h Jun, 30 days Active RESULTS No Results PROCEDURES Procedure Date Ordered Result Body Site [facility] VISIT MENTAL HEALTH ESTAB PT March 12, 2017 Psych diagnostic evaluation, established patient March 12, 2017 INSTRUCTIONS MEDICATIONS ADMINISTERED No Known Medications [...] stent Surgical History ruptured eptopic Hospitalization History [facility]-multiple admissions Hospitalization History hysterectomy Hospitalization History surgeries Hospitalization History blood transfusion x 2
--- OUTSIDE RECORDS SUMMARY | 2018-06-14 10:35 | XMS REPORT ---
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 January, [facility] [address] [id number] [place] [address]- 8291 29 Dec, 2012 [facility] [address] [id number] [place] [address]- 6174 22 Dec, 2012 [facility] [address] [id number] [place] [address]- 3812 18 Dec, 2012 [facility] [address] [id number] [place] [address]- 5508 16 Dec, 2012 [facility] [address] [id number] [place] [address]- 5059 15 Dec, 2012 [facility] [address] [id number] [place] [address]- 9169 02 Dec, 2012 [facility] [address] [id number] [place] [address]- 6018 21 Nov, 2012 [facility] [address] [facility] [id number] [place] [address]- 4744 Nov, [facility] [address] [id number] [place] [address]- 5577 20 Nov, 2012 [facility] [address] [id number] [place] [address]- 7905 Nov, [facility] [address] [facility] [id number] [place] [address]- 0972 Nov, [facility] [address] [id number] [place] [address]- 0976 05 Nov, 2012 [facility] [address] [id number] [place] [address]- 7524 20 Oct, 2012 [facility] [place] [facility] [address] [id number] [place] [address]- 7085 14 Oct, 2012 [facility] [place] [facility] [address] [id number] [place] [address]- 4573 14 Oct, 2012 [facility] [address] [facility] [id number] [place] [address]- 3917 12 Oct, 2012 [facility] [place] [facility] [address] [id number] [place] [address]- 7482 11 Oct, 2012 [facility] [place] [facility] [address] [id number] [place] 07 Oct, 2012 [facility] [place] [facility] [address] [id number] [place] [address]- 4046 Oct, [facility] [place] [facility] [address] [id number] [place] [address]- 7316 Oct, [facility] [place] [facility] [address] [id number] [place] [address]- 6065 Oct, [facility] [place] [facility] [address] [id number] [place] [address]- 4763 Sep, [facility] [place] [facility] [address] [id number] [place] [address]- 1258 29 Sep, 2012 [facility] [place] [facility] [address] [id number] [place] [address]- 7877 15 Sep, 2012 [facility] [place] [facility] [address] [id number] [place] [address]- 4138 14 Sep, 2012 [facility] [place] [facility] [address] [facility] [id number], [place] [address]- 5440 Sep, [facility] [place] [facility] [address] [id number], [place] [address]- 6652 Sep, [facility] [place] [facility] [address] [id number], [place] [address]- 5634 Aug, [facility] [place] [facility] [address] [id number] [place] [address]- 4210 Aug, [facility] [place] [facility] [address] [id number] [place] [address]- 5255 Aug, [facility] [place] [facility] [address] [id number] 3812 Aug, [facility] [place] [facility] [address] [id number], [place] [address]- 2903 15 Aug, 2012 [facility] [address] [id number] [place] [address]- 0946 14 Aug, 2012 [facility] [place] [facility] [address] [id number] [place] [address]- 8786 14 Aug, 2012 [facility] [address] [facility] [id number] [place] [address]- 0496 13 Aug, 2012 [facility] [place] [facility] [address] [id number] [place] [address]- 6019 13 Aug, 2012 [facility] [address] [id number] [place] [address]- 3926 11 Aug, 2012 [facility] [place] [facility] [address] [id number] [place] [address]- 4696 11 Aug, 2012 [facility] [address] [id number] [place] [address]- 3504 07 Aug, 2012 [facility] [place] [facility] [address] [id number] [place] [address]- 1347 07 Aug, 2012 [facility] [place] [facility] [address] [id number] [place] [address]- 9609 06 Aug, 2012 [facility] [place] [facility] [address] [facility] [id number] [place] [address]- 0986 06 Aug, 2012 [facility] [place] [facility] [address] [id number] [place] [address]- 0571 06 Aug, 2012 [facility] [place] [facility] [address] [id number], [place] [address]- 2336 06 Aug, 2012 [facility] [place] [facility] [address] [id number] [place] [address]- 9517 04 Aug, 2012 [facility] [place] [facility] [address] [facility] [id number] [place] [address]- 7039 04 Aug, 2012 [facility] [place] [facility] [address] [facility] [id number] [place] [address]- 1777 Jul, [facility] [place] [facility] [address] [id number] [place] [address]- 1189 Jul, [facility] [place] [facility] [address] [id number] [place] [address]- 3962 Jul, [facility] [place] [facility] [address] [id number] [place] [address]- 8843 Jul, [facility] [place] [facility] [address] [id number] [place] [address]- 2625 14 Jul, 2012 [facility] [place] [facility] [address] [id number] [place] [address]- 9598 14 Jul, 2012 [facility] [place] [facility] [address] [id number] [place] [address]- 8966 Jul, [facility] [place] [facility] [address] [id number] [place] [address]- 4077 Jul, [facility] [place] [facility] [address] [id number] [place] [address]- 5392 Jul, [facility] [place] [facility] [address] [id number] [place] [address]- 3637 08 Jul, 2012 [facility] [place] [facility] [address] [id number] [place] [address]- 8586 Jul, [facility] [place] [facility] [address] [id number] [place] [address]- 1585 Jul, [facility] [place] [facility] [address] [id number] [place] [address]- 4182 30 Jun, 2012 [facility] [place] [facility] [address] [id number] [place] [address]- 2352 30 Jun, 2012 [facility] [place] [facility] [address] [id number] [place] [address]- 3759 29 Jun, 2012 [facility] [place] [facility] [address] [id number] [place] [address]- 0100 Jun, [facility] [place] [facility] [address] [id number] [place] [address]- 7374 Jun, [facility] [place] [facility] [address] [id number] [place] [address]- 5879 18 Jun, 2012 [facility] [place] [facility] [address] [id number] [place] [address]- 6202 17 Jun, 2012 [facility] [place] [facility] [address] [id number] [place] [address]- 9173 16 Jun, 2012 [facility] [place] [facility] [address] [id number] [place] [address]- 8332 16 Jun, 2012 [facility] [place] [facility] [address] [id number] [place] [address] Jun, [facility] [place] [facility] [address] [id number] [place] [address]- 6590 Jun, [facility] [place] [facility] [address] [id number] [place] [address]- 4940 08 Jun, 2012 [facility] [place] [facility] [address] [id number], [place] [address]- 4424 04 Jun, 2012 [facility] [place] [facility] [address] [id number], [place] [address]- 6951 02 Jun, 2012 [facility] [place] [facility] [address] [id number], [place] [address]- 2005 24 May, 2012 [facility] [place] [facility] [address] [id number], [place] [address]- 8033 21 May, 2012 [facility] [place] [facility] [address] [id number], [place] [address]- 7275 19 May, 2011 [facility] [place] [facility] [address] [id number], [place] [address]- 2125 18 Sep2011 [facility] [place] [facility] [address] [id number], [place] [address]- 4685 12 May, 2012 [facility] [place] [facility] [address] [id number] [address] 12 May, 2012 [facility] [place] [facility] [address] [id number] [place] [address] May, [facility] [place] [facility] [address] [id number] [place] [address]- 5136 May, [facility] [place] [facility] [address] [id number] [place] [address]- 1173 Apr, [facility] [place] [facility] [address] [id number] [place] [address]- 0719 Apr, [facility] [place] [facility] [address] [id number] [place] [address]- 4453 Apr, [facility] [place] [facility] [address] [id number] [place] [address] Apr, [facility] [place] [facility] [address] [id number] [place] [address] Apr, [facility] [place] [facility] [address] [id number] [place] [address]- 8894 Apr, [facility] [place] [facility] [address] [id number] [place] [address]- 2478 Apr, [facility] [place] [facility] [address] [id number] [place] [address]- 6521 Apr, [facility] [place] [facility] [address] [id number] [place] [address]- 7630 Apr, [facility] [place] [facility] [address] [id number] [place] [address]- 7062 Apr, [facility] [place] [facility] [address] [id number] [place] [address]- 3868 Apr, [facility] [place] [facility] [address] [id number] [place] [address]- 8071 Apr, [facility] [place] [facility] [address] [id number] [place] [address]- 3871 Mar, [facility] [place] [facility] [address] [id number] [place] [address]- 1891 Mar, [facility] [place] [facility] [address] [id number] [place] [address]- 1079 26 Mar, 2012 [facility] [address] [id number] [place] [address]- 0108 Mar, [facility] [place] [facility] [address] [id number] [place] [address]- 8266 25 Mar, 2012 [facility] [address] [id number] [place] [address]- 3659 24 Mar, 2012 [facility] [place] [facility] [address] [id number] [place] [address]- 5900 20 Mar, 2012 [facility] [address] [id number] [place] [address]- 8081 Mar, [facility] [address] [id number] [place] [address]- 5401 18 Mar, 2012 [facility] [address] [id number] [place] [address]- 2763 Mar, [facility] [address] [id number] [place] [address]- 88[address] 17 Mar, 2012 [facility] [address] [id number] [place] [address] 15 Mar, 2012 [facility] [address] [id number] [place] [address] 13 Mar, 2012 [facility] [place] [facility] [address] [id number] [place] [address] Mar, [facility] [address] [id number] [place] [address] 05 Mar, 2012 [facility] [place] [facility] [address] [id number] [place] [address] Mar, [facility] [place] [facility] [address] [id number] [place] [address] Mar, [facility] [place] [facility] [address] [id number] [place] [address] Feb, [facility] [place] [facility] [address] [id number] [place] [address] 27 Feb, 2012 [facility] [place] [facility] [address] [id number] [place] [address] 25 Feb, 2012 [facility] [place] [facility] [address] [id number] [place] [address] 19 Feb, 2012 [facility] [place] [facility] [address] [id number] [place] [address] 18 Feb, 2012 [facility] [place] [facility] [address] [id number] [place] [address] 15 Feb, 2012 [facility] [place] [facility] [address] [id number] [place] [address] 47[address] 14 Feb, 2012 [facility] [place] [facility] [address] [id number] [place] [address] 13 Feb, 2012 [facility] [place] [facility] [address] [id number] [place] [address] 11 Feb, 2012 [facility] [place] [facility] [address] [id number] [place] [address] 06 Feb, 2012 [facility] [place] [facility] [address] [id number] [place] [address] 05 Feb, 2012 [facility] [place] [facility] [address] [id number], [place] [address] January, [facility] [place] [facility] [address] [id number], [place] [address] January, [facility] [place] [facility] [address] [id number] [place] [address] January, [facility] [place] [facility] [address] [id number] [place] [address] January, [facility] [place] [facility] [address] [id number] [place] [address] January, [facility] [place] [facility] [address] [id number], [place] [address] 30 Dec, 2011 [facility] [address] [id number] [place] [address] Dec, [facility] [place] [facility] [address] [id number] [place] [address] Dec, [facility] [address] [id number] [place] [address] Dec, [facility] [place] [facility] [address] [id number] [place] [address] 24 Dec, 2011 [facility] [address] [id number] [place] [address] Dec, [facility] [address] [id number] [place] [address] Dec, [facility] [id number] [place] [address] 16 Dec, 2011 [facility] [address] [id number] [place] [address] 164[address] Dec, [facility] [address] [id number] [place] [address] Dec, [facility] [address] [facility] [id number] [place] [address] Nov, [facility] [place] [facility] [address] [id number] [place] [address] 29 Nov, 2011 [facility] [place] [facility] [address] [id number] [place] [address] Nov, [facility] [place] [facility] [address] [id number] [place] [address] Nov, [facility] [place] [facility] [address] [facility] [id number] [place] [address] 23 Nov, 2011 [facility] [place] [facility] [address] [id number] [place] [address] 22 Nov, 2011 [facility] [place] [facility] [address] [id number] [place] [address] 19 Nov, 2011 [facility] [place] [facility] [address] [id number] [place] [address] 14 Nov, 2011 [facility] [place] [facility] [address] [id number] [place] [address] 2546 13 Nov, 2011 [facility] [place] [facility] [address] [id number] [place] [address] 2546 13 Nov, 2011 [facility] [place] [facility] [address] [id number] [place] [address] 05 Nov, 2011 [facility] [place] [facility] [address] [id number] [place] [address] 01 Nov, 2011 [facility] [place] [facility] [address] [id number] [place] [address] 29 Oct, 2011 [facility] [place] [facility] [address] [id number] [place] [address] 28 Oct, 2011 [facility] [place] [facility] [address] [id number] [place] [address] 27 Oct, 2011 [facility] [place] [facility] [address] [id number] [place] [address] 0196 22 Oct, 2011 [facility] [place] [facility] [address] [id number] [place] [address]345 20 Oct, 2011 [facility] [place] [facility] [address] [id number] [place] [address] 2356 14 Oct, 2011 [facility] [place] [facility] [address] [id number] [place] [address] 09 Oct, 2011 [facility] [place] [facility] [address] [id number] [place] [address] 08 Oct, 2011 [facility] [place] [facility] [address] [id number] [place] [address] 02 Oct, 2011 [facility] [place] [facility] [address] [id number] [place] [address] 85[address] 31 Sep, 2011 [facility] [place] [facility] [address] [id number] [place] [address] Sep, [facility] [place] [facility] [address] [id number] [place] [address] Sep, [facility] [place] [facility] [address] [address] [id number] [place] [address] Sep, [facility] [place] [facility] [address] [id number] [place] [address] 10 Sep, 2011 [facility] [place] [facility] [address] [id number] [place] [address], [place] [address] Sep, [facility] [place] [facility] [address] [id number] [place] [address] Aug, [facility] [place] [facility] [address] [id number] [place] [address] Aug, [facility] [place] [facility] [address] [id number] [place] [address] Aug, [facility] [place] [facility] [address] [id number] [place] [address] 29 Jul, 2011 [facility] [place] [facility] [address] [id number] [place] [address] 29 Jul, 2011 [facility] [place] [facility] [address] [id number] [place] [address] 28 Jul, 2011 [facility] [place] [facility] [address] [id number] [place] [address] 14 Jul, 2011 [facility] [place] [facility] [address] [id number] [place] [address] 07 Jul, 2011 [facility] [place] [facility] [address] [id number] [place] [address] 28 Jun, 2011 [facility] [place] [facility] [address] [id number] [place] [address] 28 Jun, 2011 [facility] [place] [facility] [address] [facility] [id number], [place] [address] Jun, [facility] [place] [id number] [address] Jun, [facility] [place] [address] [facility] [id number], [place] [address] Jun, [facility] [place] [address] [facility] [id number], [place] [address] Apr, [facility] [place] [address] [facility] [id number], [place] [address] Mar, [facility] [place] [id number] [address] January, [facility] [place] [id number], [place] [address] Aug, [facility] [place] [id number], [place] [address] Aug, [facility] [place] [id number], [place] [address] Jun, [facility] [place] [id number], [place] [address] Jun, [facility] [place] [address] [id number], [place] [address] Aug, IMMUNIZATIONS No Known Immunizations SOCIAL HISTORY Never Assessed REASON FOR VISIT adderall 09/30/2017 PLAN OF CARE VITAL SIGNS MEDICATIONS Medication Instructions Dosage Frequency Start Date End Date Duration Status Adderall 10 mg Orally 3 times a day 1 tablet 8h Sep, 28 days Active RESULTS No Results PROCEDURES [...] stent Surgical History ruptured eptopic Hospitalization History [place]-multiple admissions Hospitalization History hysterectomy Hospitalization History surgeries Hospitalization History blood transfusion x 2
--- OUTSIDE RECORDS SUMMARY | 2018-06-14 10:36 | XMS REPORT ---
Author Author DEBORA PULLIAM [facility] Address [address] [place] [address] Care Team Providers Care Terminal System Operator Name Role Phone DEBORA PULLIAM Unavailable PROBLEMS Type Condition ICD9-CM Code BCH01-UQ Code Onset Dates Condition Status SNOMED Code Problem Chronic viral hepatitis C B18.2 Active 960324422 Problem Chronic obstructive pulmonary disease, unspecified J44.9 Active 39125006 Problem Essential (primary) hypertension I10 Active 17959157 Problem Attention deficit disorder of childhood without mention of hyperactivity 314.00 Active 83872171 Problem Nondependent cannabis abuse, 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 Active 738964079 Problem Bipolar I disorder, most recent episode (or current) mixed, unspecified 296.60 Active 14610704 Problem Bipolar I disorder, most recent episode (or current) manic, unspecified 296.40 Active 50028733 Problem Bipolar disorder, current episode mixed, unspecified F31.60 Active 52460096 Problem Anxiety state, unspecified F41.1 Active 866843819 Problem Polysubstance abuse F19.10 Active 111545447 Problem Nicotine abuse Z72.0 Active 36384571 Problem 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
--- OUTSIDE RECORDS SUMMARY | 2018-06-14 10:36 | XMS REPORT ---
Author Author DEBORA PULLIAM [facility] Address [address] [place] [address] Care Team Providers Care Stripping Shovel Oiler Name Role Phone DEBORA PULLIAM Unavailable PROBLEMS Type Condition ICD9-CM Code QST19-LK Code Onset Dates Condition Status SNOMED Code Problem Polysubstance abuse F19.10 Active 163176853 Problem Essential (primary) hypertension I10 Active 28529063 Problem Chronic obstructive pulmonary disease, unspecified J44.9 Active 90137049 Problem Attention deficit disorder of childhood without mention of hyperactivity 314.00 Active 17760767 Problem Bipolar I disorder, most recent episode (or current) manic, unspecified 296.40 Active 66675019 Problem Nondependent cannabis abuse, 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 Active 345806432 Problem Bipolar I disorder, most recent episode (or current) mixed, unspecified 296.60 Active 39766563 Problem Bipolar disorder, current episode mixed, unspecified F31.60 Active 23459667 Problem Anxiety state, unspecified F41.1 Active 499012812 Problem Nicotine abuse Z72.0 Active 08732042 Problem Vitamin D deficiency E55.9 Active 19039189 Problem 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
--- OUTSIDE RECORDS SUMMARY | 2018-06-14 10:36 | XMS REPORT ---
Author Author DEBORA PULLIAM Organization [employer] Address Unknown Phone Unavailable Care Team Providers Care Mercerizing Range Feeder Name Role Phone DEBORA PULLIAM CP Unavailable [...] Start Date End Date Status Dosage Voltaren [facility] [address]-65 1 % Transdermal Jun 01, 2015 as directed Results No Known Results Summary Purpose [employer] Submission
--- OUTSIDE RECORDS SUMMARY | 2018-06-14 10:36 | XMS REPORT ---
Author Author DEBORA PULLIAM Organization [employer] Address Unknown Phone Unavailable Care Team Providers Care Machine Pecan Picker Name Role Phone DEBORA PULLIAM CP Unavailable [...]
--- OUTSIDE RECORDS SUMMARY | 2018-06-14 10:36 | XMS REPORT ---
Author Author DEBORA PULLIAM Organization [employer] Address Unknown Phone Unavailable Care Team Providers Care Mannequin Decorator Name Role Phone DEBORA PULLIAM CP Unavailable [...]
--- OUTSIDE RECORDS SUMMARY | 2018-06-14 10:38 | XMS REPORT ---
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 [facility] [address] [id number] [place] [address] 2549 14 Oct, 2012 [facility] [place] [facility] [address] [id number] [place] [address]- 1186 12 Oct, 2012 [facility] [place] [facility] [address] [id number] [place] [address]- 6352 Oct, [facility] [place] [facility] [address] [id number] [place] [address]- 0210 07 Oct, 2012 [facility] [place] [facility] [address] [id number] [place] [address]- 1733 05 Oct, 2012 [facility] [place] [facility] [address] [id number] [place] [address]- 4290 05 Oct, 2012 [facility] [place] [facility] [address] [id number] [place] [address]- 6684 04 Oct, 2012 [facility] [place] [facility] [address] [id number] [place] [address]- 0085 31 Sep, 2012 [facility] [place] [facility] [address] [id number] [place] [address] 2547 29 Sep, 2012 [facility] [place] [facility] [address] [id number] [place] [address] 2546 15 Sep, 2012 [facility] [place] [facility] [address] [id number] [place] [address]- 2855 14 Sep, 2012 [facility] [place] [facility] [address] [id number] [place] [address]- 8902 08 Sep, 2012 [facility] [address] [id number] [place] [address]- 7830 03 Sep, 2012 [facility] [address] [id number] [place] [address]- 4098 18 Aug, 2012 [facility] [address] [id number] [place] [address]- 1966 18 Aug, 2012 [facility] [place] [facility] [address] [id number] [place] [address]- 9344 18 Aug, 2012 [facility] [address] [id number] [place] [address]- 7694 18 Aug, 2012 [facility] [address] [id number] [place] [address]- 9154 15 Aug, 2012 [facility] [address] [id number] [place] [address]- 3136 14 Aug, 2012 [facility] [address] [id number] [place] [address]- 7113 14 Aug, 2012 [facility] [address] [id number] [place] [address]- 0478 13 Aug, 2012 [facility] [address] [id number] [place] [address]- 6034 13 Aug, 2012 [facility] [address] [id number] [place] [address]- 1729 11 Aug, 2012 [facility] [place] [facility] [address] [id number] [place] [address]- 9186 11 Aug, 2012 [facility] [place] [facility] [address] [id number] [place] [address]- 1801 07 Aug, 2012 [facility] [place] [facility] [address] [id number] [place] [address]- 8309 07 Aug, 2012 [facility] [place] [facility] [address] [id number] [place] [address]- 1729 06 Aug, 2012 [facility] [place] [facility] [address] [id number] [place] [address]- 9231 06 Aug, 2012 [facility] [place] [facility] [address] [id number] [place] [address]- 9936 Aug, [facility] [place] [facility] [address] [id number] [place] [address]- 7536 Aug, [facility] [place] [facility] [address] [id number] [place] [address]- 7336 Aug, [facility] [place] [facility] [address] [id number] [place] [address]- 6920 Aug, [facility] [place] [facility] [address] [id number] [place] [address]- 1770 Jul, [facility] [place] [facility] [address] [id number] [place] [address]- 0716 Jul, [facility] [place] [facility] [address] [id number] [place] [address]- 7168 Jul, [facility] [place] [facility] [address] [id number] [place] [address]- 1838 Jul, [facility] [place] [facility] [address] [id number] [place] [address]- 0550 Jul, [facility] [place] [facility] [address] [id number] [place] [address]- 9006 14 Jul, 2012 [facility] [place] [facility] [address] [id number] [place] [address]- 0097 Jul, [facility] [place] [facility] [address] [id number] [place] [address]- 7533 Jul, [facility] [place] [facility] [address] [id number] [place] [address]- 6837 Jul, [facility] [place] [facility] [address] [id number] [place] [address]- 1171 Jul, [facility] [place] [facility] [address] [id number] [place] [address]- 0130 07 Jul, 2011 [facility] [place] [facility] [address] [id number] [place] [address]- 4843 07 Jul, 2011 [facility] [place] [facility] [address] [id number] [place] [address]- 8170 30 Jun, 2011 [facility] [place] [facility] [address] [id number] [place] [address]- 2637 30 Jun, 2012 [facility] [place] [facility] [address] [id number] [place] [address]- 7650 29 Jun, 2011 [facility] [place] [facility] [address] [id number] [place] [address]- 3806 Jun, [facility] [place] [facility] [address] [id number] [place] [address]- 1229 Jun, [facility] [place] [facility] [address] [id number] [place] [address]- 4161 18 Jun, 2012 [facility] [place] [facility] [address] [id number] [address]- 1796 Jun, [facility] [place] [facility] [address] [id number] [place] [address]- 1732 Jun, [facility] [place] [facility] [address] [id number] [address]- 7328 16 Jun, 2012 [facility] [place] [facility] [address] [id number] [place] [address]- 0842 Jun, [facility] [place] [facility] [address] [id number] [place] [address]- 2739 Jun, [facility] [place] [facility] [address] [id number] [place] [address]- 9515 Jun, [facility] [place] [facility] [address] [facility] [id number] [address]- 4977 Jun, [facility] [place] [facility] [address] [facility] [address] [id number] [address]- 8435 Jun, [facility] [place] [facility] [address] [id number] [place] [address]- 3735 24 May, 2011 [facility] [place] [facility] [address] [id number] [place] [address]- 8646 21 May, 2011 [facility] [place] [facility] [address] [id number] [place] [address] 2546 19 May, 2011 [facility] [place] [facility] [address] [id number] [place] [address]- 7061 18 May, 2011 [facility] [place] [facility] [address] [id number] [place] [address] 2541 12 May, 2011 [facility] [place] [facility] [address] [id number] [place] [address] 12 May, 2012 [facility] [place] [facility] [address] [id number] [place] [address] May, [facility] [place] [facility] [address] [id number] [place] [address]- 9351 04 May, 2012 [facility] [place] [facility] [address] [id number] [place] [address]- 3043 29 Apr, 2012 [facility] [place] [facility] [address] [id number] [place] [address]- 8552 28 Apr, 2012 [facility] [place] [facility] [address] [id number] [place] [address]- 3257 Apr, [facility] [place] [facility] [address] [id number] [place] [id number] Apr, [facility] [place] [facility] [address] [id number] [address] Apr, [facility] [place] [facility] [address] [id number] [place] [address]- 3809 17 Apr, 2012 [facility] [place] [facility] [address] [id number] [place] [address]193 16 Apr, 2012 [facility] [place] [facility] [address] [id number] [place] [address]- 4855 16 Apr, 2012 [facility] [place] [facility] [address] [id number] [place] [address]- 7951 14 Apr, 2012 [facility] [place] [facility] [address] [id number] [place] [address]- 8712 Apr, [facility] [place] [facility] [address] [id number] [place] [address]- 6866 Apr, [facility] [place] [facility] [address] [id number] [place] [address]- 1998 Apr, [facility] [place] [facility] [address] [id number] [place] [address]- 1049 Mar, [facility] [place] [facility] [address] [id number] [place] [address]- 4789 Mar, [facility] [place] [facility] [address] [id number] [place] [address]- 3984 Mar, [facility] [place] [facility] [address] [id number] [place] [address]- 3144 Mar, [facility] [address] [id number] [place] [address]- 3321 Mar, [facility] [place] [facility] [address] [id number] [place] [address]- 0593 Mar, [facility] [address] [id number] [place] [address]- 5547 Mar, [facility] [place] [facility] [address] [id number] [place] [address]- 2044 Mar, [facility] [place] [facility] [address] [id number] [place] [address] 2545 18 Mar, 2012 [facility] [place] [facility] [address] [id number] [place] [address]- 3544 Mar, [facility] [place] [facility] [address] [id number] [place] [address]- 2716 Mar, [facility] [place] [facility] [address] [id number] [place] [address]- 2495 15 Mar, 2012 [facility] [place] [facility] [address] [id number] [place] [address]- 5584 13 Mar, 2012 [facility] [place] [facility] [address] [id number] [place] [address]- 7876 11 Mar, 2012 [facility] [place] [facility] [address] [id number] [place] [address]- 5341 05 Mar, 2012 [facility] [place] [facility] [address] [id number] [place] [address]- 1821 03 Mar, 2012 [facility] [place] [facility] [address] [id number] [place] [address]- 4282 02 Mar, 2012 [facility] [place] [facility] [address] [id number] [place] [address]- 5719 27 Feb, 2012 [facility] [place] [facility] [address] [id number] [place] [address]- 5467 27 Feb, 2012 [facility] [place] [facility] [address] [id number] [place] [address]- 8800 25 Feb, 2012 [facility] [place] [facility] [address] [id number] [place] [address]- 0893 19 Feb, 2012 [facility] [place] [facility] [address] [id number] [place] [address]- 6525 18 Feb, 2012 [facility] [place] [facility] [address] [id number] [place] [address]- 9553 15 Feb, 2012 [facility] [place] [facility] [address] [id number] [place] [address]- 2581 14 Feb, 2012 [facility] [place] [facility] [address] [id number] [place] [address]- 0020 13 Feb, 2012 [facility] [place] [facility] [address] [id number] [place] [address]- 4777 11 Feb, 2012 [facility] [place] [facility] [address] [id number] [place] [address]- 8109 06 Feb, 2012 [facility] [place] [facility] [address] [id number] [place] [address]- 1554 Feb, [facility] [address] [id number] [place] [address]- 5344 January, [facility] [address] [id number] [place] [address]- 7035 January, [facility] [address] [id number] [place] [address]- 4660 January, [facility] [address] [id number] [place] [address]- 7648 January, [facility] [address] [id number] [place] [address]- 8031 January, [facility] [address] [id number] [place] [address]- 5118 Dec, [facility] [address] [id number] [place] [address]- 7423 Dec, [facility] [address] [id number] [place] [address]- 8712 Dec, [facility] [address] [id number] [place] [address]- 4508 Dec, [facility] [address] [id number] [place] [address]- 8947 24 Dec, 2011 [facility] [address] [id number] [place] [address]- 8973 Dec, [facility] [place] [facility] [address] [id number] [place] [address]- 6018 Dec, [facility] [place] [facility] [address] [id number] [place] [address] 16 Dec, 2011 [facility] [place] [facility] [address] [id number] [place] [address] Dec, [facility] [address] [id number] [place] [address] Dec, [facility] [place] [facility] [address] [id number] [place] [address] 29 Nov, 2011 [facility] [place] [facility] [address] [id number] [place] [address]9 29 Nov, 2011 [facility] [place] [facility] [address] [id number] [place] [address] 27 Nov, 2011 [facility] [place] [facility] [address] [id number] [place] [address] 26 Nov, 2011 [facility] [place] [facility] [address] [id number] [place] [address] 23 Nov, 2011 [facility] [place] [facility] [address] [id number] [place] [address] 96[address] 22 Nov, 2011 [facility] [place] [facility] [address] [id number] [place] [address] 7710 19 Nov, 2011 [facility] [place] [facility] [address] [id number] [place] [address] 14 Nov, 2011 [facility] [place] [facility] [address] [id number] [place] [address] 13 Nov, 2011 [facility] [place] [facility] [address] [id number] [place] [address]- 2592 13 Nov, 2011 [facility] [place] [facility] [address] [id number] [place] [address] 97[address] 05 Nov, 2011 [facility] [place] [facility] [address] [id number] [place] [address] 67[address] 01 Nov, 2011 [facility] [place] [facility] [address] [id number] [place] [address]- 2876 29 Oct, 2011 [facility] [place] [facility] [address] [id number] [place] [address]487 28 Oct, 2011 [facility] [place] [facility] [address] [id number] [place] [address] 4735 27 Oct, 2011 [facility] [place] [facility] [address] [id number] [place] [address]- 2546 Oct, [facility] [address] [id number] [place] [address] Oct, [facility] [place] [facility] [address] [id number] [place] [address]- 9926 14 Oct, 2011 [facility] [place] [facility] [address] [id number] [place] [address] 6146 Oct, [facility] [place] [facility] [address] [id number] [place] [address] 08 Oct, 2011 [facility] [place] [facility] [address] [id number] [place] [address] 59[address] Oct, [facility] [place] [facility] [address] [id number] [place] [address] Sep, [facility] [address] [id number] [place] [address] Sep, [facility] [address] [id number] [place] [address] Sep, [facility] [address] [id number] [place] [address] Sep, [facility] [address] [id number] [place] [address] 6004 Sep, [facility] [address] [id number] [place] [address]- 5083 Sep, [facility] [place] [facility] [address] [id number] [place] [address] 254 Aug, [facility] [place] [facility] [address] [id number] [place] [address] 7910 Aug, [facility] [place] [facility] [address] [id number] [place] [address] Aug, [facility] [place] [facility] [address] [id number] [place] [address] Jul, [facility] [place] [facility] [address] [id number] [place] [address] 1986 29 Jul, 2011 [facility] [place] [facility] [address] [id number] [place] [address] 28 Jul, 2011 [facility] [place] [facility] [address] [id number] [place] [address] 76[address] Jul, [facility] [place] [facility] [address] [id number] [place] [address] 8773 Jul, [facility] [place] [facility] [address] [id number] [place] [address] 25[address] Jun, [facility] [place] [facility] [address] [id number] [place] [address]- 37[address] Jun, [facility] [place] [facility] [address] [id number] [place] [address]- 6927 24 Jun, 2011 [facility] [place] [facility] [address] [id number] [place] [address] 38[address] Jun, [facility] [place] [facility] [address] [id number] [place] [address]- 4[address] Jun, [facility] [place] [facility] [address] [id number] [place] [address]- 6033 15 Apr, 2011 [facility] [place] [facility] [address] [id number] [place] [address]697 Mar, [facility] [place] [facility] [address] [id number] [place] [address] January, [facility] [place] [facility] [address] [id number] [place] [address]- 0162 Aug, [facility] [place] [facility] [address] [id number] [place] [address]- 2080 Aug, [facility] [place] [facility] [address] [id number] [place] [address]- 59[address] 13 Jun, 2009 [facility] [place] [facility] [address] [id number] [place] [address] Jun, [facility] [address] [facility] [id number] [place] [address] Aug, IMMUNIZATIONS No Known Immunizations SOCIAL HISTORY Never Assessed REASON FOR VISIT Medications PLAN OF CARE VITAL SIGNS MEDICATIONS Unknown [...] stent Surgical History ruptured eptopic Hospitalization History Violet-multiple admissions Hospitalization History hysterectomy Hospitalization History surgeries Hospitalization History blood transfusion x 2
--- OUTSIDE RECORDS SUMMARY | 2018-06-14 10:43 | XMS REPORT | Continuity of Care Document ---
Author Author [facility] Address Unknown Phone Unavailable Allergies Active Description Code Type Severity Reaction Onset Reported/Identified Relationship to Patient Clinical Status Yes Haldol Drug Allergy N/A N/A 07/03/2009 Yes Haldol Drug Allergy 07/03/2009 Yes PYSCHOTROPIC DRUGS PYSCHOTROPIC DRUGS Mild N/A 04/15/2010 Yes haloperidol [id number] Drug Allergy Mild N/A 04/25/2010 Yes risperidone [id number] Drug Allergy Mild N/A 04/25/2010 Yes Risperdal Drug Allergy N/A N/A 03/29/2011 Yes Risperdal Drug Allergy 03/29/2011 Yes Seroquel 400 mg tablet Drug Allergy 04/07/2012 Yes Zyprexa Drug Allergy N/A N/A 06/24/2012 Yes Zyprexa Drug Allergy 06/24/2012 Medications There is no data. Problems Date Dx Coded Attending Type Code Diagnosis Diagnosed By 04/25/2008 GRAY OSPINA DO 724.5 Backache 04/25/2008 GRAY OSPINA DO 780.79 Malaise And Fatigue 04/25/2008 GRAY OSPINA DO V72.31 Head Well Puller Exam, Routine 04/25/2008 GRAY OSPINA DO 724.5 Backache 04/25/2008 GRAY OSPINA DO 780.79 Malaise And Fatigue 04/25/2008 GRAY OSPINA DO V72.31 Head Well Puller Exam, Routine 04/25/2008 LORIN CHILDERS MD 724.5 Backache 04/25/2008 LORIN CHILDERS MD 780.79 Malaise And Fatigue 04/25/2008 LORIN CHILDERS MD V72.31 Head Well Puller Exam, Routine 04/25/2008 TOM ESPINOSA DO 724.5 Backache 04/25/2008 TOM ESPINOSA DO 780.79 Malaise And Fatigue 04/25/2008 TOM ESPINOSA DO V72.31 Head Well Puller Exam, Routine 04/25/2008 724.5 Backache 04/25/2008 780.79 Malaise And Fatigue 04/25/2008 V72.31 Head Well Puller Exam, Routine 04/25/2008 724.5 Backache 04/25/2008 780.79 Malaise And Fatigue 04/25/2008 V72.31 Head Well Puller Exam, Routine 04/25/2008 724.5 Backache 04/25/2008 780.79 Malaise And Fatigue 04/25/2008 V72.31 Head Well Puller Exam, Routine 04/25/2008 GRAY OSPINA DO F 724.5 Backache 04/25/2008 GRAY OSPINA DO F 780.79 Malaise And Fatigue 04/25/2008 GRAY OSPINA DO F V72.31 Head Well Puller Exam, Routine 04/25/2008 BROOKS VIDALES APRN 724.5 Backache 04/25/2008 BROOKS VIDALES APRN 780.79 Malaise And Fatigue 04/25/2008 BROOKS VIDALES APRN V72.31 Head Well Puller Exam, Routine 04/25/2008 BROOKS VIDALES APRN 724.5 Backache 04/25/2008 BROOKS VIDALES APRN 780.79 Malaise And Fatigue 04/25/2008 BROOKS VIDALES APRN V72.31 Head Well Puller Exam, Routine 04/25/2008 BROOKS VIDALES APRN 724.5 Backache 04/25/2008 BROOKS VIDALES APRN 780.79 Malaise And Fatigue 04/25/2008 BROOKS VIDALES APRN V72.31 Head Well Puller Exam, Routine 04/25/2008 BROOKS VIDALES APRN 724.5 Backache 04/25/2008 BROOKS VIDALES APRN 780.79 Malaise And Fatigue 04/25/2008 BROOKS VIDALES APRN V72.31 Head Well Puller Exam, Routine 04/25/2008 TOM ESPINOSA DO 724.5 Backache 04/25/2008 TOM ESPINOSA DO 780.79 Malaise And Fatigue 04/25/2008 TOM ESPINOSA DO V72.31 Head Well Puller Exam, Routine 04/25/2008 ESPINOSA DO TOM K 724.5 Backache 04/25/2008 ESPINOSA DO TOM K 780.79 Malaise And Fatigue 04/25/2008 FRANCISCA LINK TOM K V72.31 Head Well Puller Exam, Routine 04/25/2008 SHADE HAMPTON JR 724.5 Backache 04/25/2008 SHADE HAMPTON JR 780.79 Malaise And Fatigue 04/25/2008 SHADE HAMPTON JR V72.31 Head Well Puller Exam, Routine 04/25/2008 SHADE HAMPTON JR 724.5 Backache 04/25/2008 SHADE HAMPTON JR 780.79 Malaise And Fatigue 04/25/2008 SHADE HAMPTON JR V72.31 Head Well Puller Exam, Routine 04/25/2008 SHADE HAMPTON JR 724.5 Backache 04/25/2008 SHADE HAMPTON JR 780.79 Malaise And Fatigue 04/25/2008 SHADE HAMPTON JR V72.31 Head Well Puller Exam, Routine 04/25/2008 SHADE HAMPTON JR 724.5 Backache 04/25/2008 SHADE HAMPTON JR 780.79 Malaise And Fatigue 04/25/2008 SHADE HAMPTON JR V72.31 Head Well Puller Exam, Routine 04/25/2008 WERGRAY CASTREJON DO F 724.5 Backache 04/25/2008 GRAY OSPINA DO F 780.79 Malaise And Fatigue 04/25/2008 GRAY OSPINA DO F V72.31 Head Well Puller Exam, Routine 04/25/2008 SHADE HAMPTON JR 724.5 Backache 04/25/2008 SHADE HAMPTON JR 780.79 Malaise And Fatigue 04/25/2008 SHADE HAMPTON JR V72.31 Head Well Puller Exam, Routine 04/25/2008 SHADE HAMPTON JR 724.5 Backache 04/25/2008 SHADE HAMPTON JR 780.79 Malaise And Fatigue 04/25/2008 SHADE HAMPTON JR S V72.31 Head Well Puller Exam, Routine 04/25/2008 ESPINOSA DO TOM K 724.5 Backache 04/25/2008 ESPINOSA DO TOM K 780.79 Malaise And Fatigue 04/25/2008 FRANCISCA LINK TOM K V72.31 Head Well Puller Exam, Routine 04/25/2008 SHADE HAMPTON JR 724.5 Backache 04/25/2008 SHADE HAMPTON JR 780.79 Malaise And Fatigue 04/25/2008 SHADE HAMPTON JR V72.31 Head Well Puller Exam, Routine 04/25/2008 SHADE HAMPTON JR 724.5 Backache 04/25/2008 SHADE HAMPTON JR S 780.79 Malaise And Fatigue 04/25/2008 SHADE HAMPTON JR V72.31 Head Well Puller Exam, Routine 04/25/2008 SHADE HAMPTON JR 724.5 Backache 04/25/2008 SHADE HAMPTON JR 780.79 Malaise And Fatigue 04/25/2008 SHADE HAMPTON JR V72.31 Head Well Puller Exam, Routine 08/23/2008 GRAY OSPINA DO 724.2 PAIN LOW BACK 08/23/2008 GRAY OSPINA DO 724.2 PAIN LOW BACK 08/23/2008 LORIN CHILDERS MD 724.2 PAIN LOW BACK 08/23/2008 TOM ESPINOSA DO 724.2 PAIN LOW BACK 08/23/2008 724.2 PAIN LOW BACK 08/23/2008 724.2 PAIN LOW BACK 08/23/2008 724.2 PAIN LOW BACK 08/23/2008 GRAY OSPINA DO 724.2 PAIN LOW BACK 08/23/2008 BROOKS VIDALES APRN 724.2 PAIN LOW BACK 08/23/2008 BROOKS VIDALES APRN 724.2 PAIN LOW BACK 08/23/2008 BROOKS VIDALES APRN 724.2 PAIN LOW BACK 08/23/2008 BROOKS VIDALES APRN 724.2 PAIN LOW BACK 08/23/2008 TOM ESPINOSA DO K 724.2 PAIN LOW BACK 08/23/2008 ELDA ESPINOSA DOA K 724.2 PAIN LOW BACK 08/23/2008 SHADE HAMPTON JR 724.2 PAIN LOW BACK 08/23/2008 SHADE HAMPTON JR 724.2 PAIN LOW BACK 08/23/2008 SHADE HAMPTON JR 724.2 PAIN LOW BACK 08/23/2008 SHADE HAMPTON JR 724.2 PAIN LOW BACK 08/23/2008 GRAY OSPINA DO F 724.2 PAIN LOW BACK 08/23/2008 SHADE HAMPTON JR 724.2 PAIN LOW BACK 08/23/2008 HAMPTON JR, SHADE S 724.2 PAIN LOW BACK 08/23/2008 ESPINOSA TOM LINK K 724.2 PAIN LOW BACK 08/23/2008 SHADE HAMPTON JR S 724.2 PAIN LOW BACK 08/23/2008 SHADE HAMPTON JR S 724.2 PAIN LOW BACK 08/23/2008 MEMO ALICIA, SHADE S 724.2 PAIN LOW BACK 07/03/2009 GRAY OSPINA DO 729.5 Foot Pain (soft Tissue) 07/03/2009 GRAY OSPINA DO V03.82 Need For Vaccination Pneumococcal 07/03/2009 GRAY OSPINA DO V04.81 Vaccines Prophylactic Need Against Influenza 07/03/2009 GRAY OSPINA DO 729.5 Foot Pain (soft Tissue) 07/03/2009 GRAY OSPINA DO V03.82 Need For Vaccination Pneumococcal 07/03/2009 GRAY OSPINA DO V04.81 Vaccines Prophylactic Need Against Influenza 07/03/2009 LORIN CHILDERS MD 729.5 Foot Pain (soft Tissue) 07/03/2009 LORIN CHILDERS MD V03.82 Need For Vaccination Pneumococcal 07/03/2009 LORIN CHILDERS MD V04.81 Vaccines Prophylactic Need Against Influenza 07/03/2009 TOM ESPINOSA DO 729.5 Foot Pain (soft Tissue) 07/03/2009 TOM ESPINOSA DO V03.82 Need For Vaccination Pneumococcal 07/03/2009 TOM ESPINOSA DO V04.81 Vaccines Prophylactic Need Against Influenza 07/03/2009 729.5 Foot Pain ( soft Tissue) 07/03/2009 V03.82 Need For Vaccination Pneumococcal 07/03/2009 V04.81 Vaccines Prophylactic Need Against Influenza 07/03/2009 729.5 Foot Pain ( soft Tissue) 07/03/2009 V03.82 Need For Vaccination Pneumococcal 07/03/2009 V04.81 Vaccines Prophylactic Need Against Influenza 07/03/2009 729.5 Foot Pain ( soft Tissue) 07/03/2009 V03.82 Need For Vaccination Pneumococcal 07/03/2009 V04.81 Vaccines Prophylactic Need Against Influenza 07/03/2009 GRAY OSPINA DO 729.5 Foot Pain (soft Tissue) 07/03/2009 GRAY OSPINA DO V03.82 Need For Vaccination Pneumococcal 07/03/2009 GRAY OSPINA DO V04.81 Vaccines Prophylactic Need Against Influenza 07/03/2009 MONIQUE VIDALES APRNBELEIGHTON Still 729.5 Foot Pain (soft Tissue) 07/03/2009 MONIQUE VIDALES APRNBETH D V03.82 Need For Vaccination Pneumococcal 07/03/2009 ALEKSANDARANGELO BELLHOP CAPTAIN, BROOKS D V04.81 Vaccines Prophylactic Need Against Influenza 07/03/2009 MONIQUE VIDALES APRNBETH D 729.5 Foot Pain (soft Tissue) 07/03/2009 VIDA VIDALES APRNZABETH D V03.82 Need For Vaccination Pneumococcal 07/03/2009 SOBEIDA BELLHOP CAPTAIN, BROOKS D V04.81 Vaccines Prophylactic Need Against Influenza 07/03/2009 VIDA VIDALES APRNZABETH D 729.5 Foot Pain (soft Tissue) 07/03/2009 MONIQUE VIDALES APRNBETH D V03.82 Need For Vaccination Pneumococcal 07/03/2009 MONIQUE VIDALES APRNBETH D V04.81 Vaccines Prophylactic Need Against Influenza 07/03/2009 SOBEIDA BRADLEY BROOKS D 729.5 Foot Pain (soft Tissue) 07/03/2009 MONIQUE VIDALES APRNBETH D V03.82 Need For Vaccination Pneumococcal 07/03/2009 VIDA VIDALES APRNZABETH D V04.81 Vaccines Prophylactic Need Against Influenza 07/03/2009 TOM ESPINOSA DO 729.5 Foot Pain (soft Tissue) 07/03/2009 TOM ESPINOSA DO K V03.82 Need For Vaccination Pneumococcal 07/03/2009 ELDA ESPINOSA DOA K V04.81 Vaccines Prophylactic Need Against Influenza 07/03/2009 ELDA ESPINOSA DOA K 729.5 Foot Pain (soft Tissue) 07/03/2009 ESPINOSA DO TOM K V03.82 Need For Vaccination Pneumococcal 07/03/2009 FRANCISCA LINK TOM K V04.81 Vaccines Prophylactic Need Against Influenza 07/03/2009 SHADE HAMPTON JR 729.5 Foot Pain (soft Tissue) 07/03/2009 SHADE HAMPTON JR V03.82 Need For Vaccination Pneumococcal 07/03/2009 SHADE HAMPTON JR V04.81 Vaccines Prophylactic Need Against Influenza 07/03/2009 SHADE HAMPTON JR 729.5 Foot Pain (soft Tissue) 07/03/2009 HSADE HAMPTON JR V03.82 Need For Vaccination Pneumococcal 07/03/2009 SHADE HAMPTON JR V04.81 Vaccines Prophylactic Need Against Influenza 07/03/2009 SHADE HAMPTON JR 729.5 Foot Pain (soft Tissue) 07/03/2009 SHADE HAMPTON JR V03.82 Need For Vaccination Pneumococcal 07/03/2009 SHADE HAMPTON JR S V04.81 Vaccines Prophylactic Need Against Influenza 07/03/2009 SHADE HAMPTON JR 729.5 Foot Pain (soft Tissue) 07/03/2009 SHADE HAMPTON JR V03.82 Need For Vaccination Pneumococcal 07/03/2009 SHADE HAMPTON JR V04.81 Vaccines Prophylactic Need Against Influenza 07/03/2009 GRAY OSPINA DO 729.5 Foot Pain (soft Tissue) 07/03/2009 GRAY OSPINA DO V03.82 Need For Vaccination Pneumococcal 07/03/2009 GRAY OSPINA DO V04.81 Vaccines Prophylactic Need Against Influenza 07/03/2009 SHAED HAMPTON JR 729.5 Foot Pain (soft Tissue) 07/03/2009 SHADE HAMPTON JR V03.82 Need For Vaccination Pneumococcal 07/03/2009 SHADE HAMPTON JR V04.81 Vaccines Prophylactic Need Against Influenza 07/03/2009 SHADE HAMPTON JR 729.5 Foot Pain (soft Tissue) 07/03/2009 SHADE HAMPTON JR V03.82 Need For Vaccination Pneumococcal 07/03/2009 SHADE HAMPTON JR V04.81 Vaccines Prophylactic Need Against Influenza 07/03/2009 TOM ESPINOSA DO 729.5 Foot Pain (soft Tissue) 07/03/2009 TOM ESPINOSA DO K V03.82 Need For Vaccination Pneumococcal 07/03/2009 ELDA ESPINOSA DOA K V04.81 Vaccines Prophylactic Need Against Influenza 07/03/2009 SHADE HAMPTON JR 729.5 Foot Pain (soft Tissue) 07/03/2009 SHADE HAMPTON JR V03.82 Need For Vaccination Pneumococcal 07/03/2009 SHADE HAMPTON JR V04.81 Vaccines Prophylactic Need Against Influenza 07/03/2009 SHADE HAMPTON JR 729.5 Foot Pain (soft Tissue) 07/03/2009 SHADE HAMPTON JR V03.82 Need For Vaccination Pneumococcal 07/03/2009 SHADE HAMPTON JR V04.81 Vaccines Prophylactic Need Against Influenza 07/03/2009 SHADE HAMPTON JR 729.5 Foot Pain (soft Tissue) 07/03/2009 SHADE HAMPTON JR V03.82 Need For Vaccination Pneumococcal 07/03/2009 SHADE HAMPTON JR V04.81 Vaccines Prophylactic Need Against Influenza 02/15/2010 Ot 486 02/15/2010 Ot 716.90 02/18/2010 Ot 305.20 02/18/2010 Ot 305.70 02/18/2010 Ot 305.90 02/18/2010 Ot 786.50 02/18/2010 Ot 786.52 02/18/2010 Ot V58.69 04/04/2010 Ot 491.21 04/04/2010 Ot 922.1 04/04/2010 Ot 959.11 04/04/2010 Ot E000.8 04/04/2010 Ot E030 04/04/2010 Ot E849.0 04/04/2010 Ot E888.1 04/08/2010 Ot 786.52 04/08/2010 Ot 807.01 04/08/2010 Ot 959.11 04/08/2010 Ot E000.8 04/08/2010 Ot E849.0 04/08/2010 Ot E888.1 04/15/2010 Ot 300.00 04/15/2010 Ot 786.01 04/15/2010 Ot 786.05 04/15/2010 Ot 786.50 04/26/2010 Ot 847.0 04/26/2010 Ot 847.1 04/26/2010 Ot 847.2 04/26/2010 Ot 959.09 04/26/2010 Ot E000.8 04/26/2010 Ot E849.0 04/26/2010 Ot E882 2010 Ot 296.80 2010 Ot 300.00 2010 Ot 305.20 2010 Ot V58.69 05/24/2010 Ot 780.79 06/10/2010 Ot 276.1 06/10/2010 Ot 300.00 06/10/2010 Ot 338.29 06/10/2010 Ot 401.9 06/10/2010 Ot 558.9 06/10/2010 Ot 780.52 06/14/2010 Ot 300.00 06/16/2010 Ot 276.51 06/16/2010 Ot 300.4 06/16/2010 Ot 305.20 06/16/2010 Ot 305.90 06/16/2010 Ot V58.69 07/01/2010 Ot 311 07/01/2010 Ot 791.9 07/01/2010 Ot 881.02 07/01/2010 Ot E000.8 07/01/2010 Ot E849.0 07/01/2010 Ot E956 07/10/2010 Ot 296.80 07/10/2010 Ot 298.9 07/10/2010 Ot 300.4 07/10/2010 Ot 305.1 07/10/2010 Ot 305.20 07/10/2010 Ot 314.01 07/10/2010 Ot 401.9 07/10/2010 Ot V58.69 07/11/2010 Ot 401.9 07/13/2010 Ot 296.00 07/13/2010 Ot 786.59 07/13/2010 Ot 791.9 07/13/2010 Ot V58.69 07/16/2010 Ot 723.1 07/16/2010 Ot 959.09 07/16/2010 Ot E000.8 07/16/2010 Ot E006.4 07/16/2010 Ot E814.6 07/23/2010 Ot 784.0 07/23/2010 Ot 920 07/23/2010 Ot E000.8 07/23/2010 Ot E006.4 07/23/2010 Ot E826.1 07/29/2010 Ot 276.9 07/29/2010 Ot 401.9 07/29/2010 Ot 780.4 07/29/2010 Ot 787.03 07/29/2010 Ot V58.69 07/30/2010 Ot 296.00 07/30/2010 Ot 300.00 07/31/2010 Ot 300.00 07/31/2010 Ot 780.4 07/31/2010 Ot V58.69 08/06/2010 Ot 300.00 08/06/2010 Ot 305.20 08/06/2010 Ot V58.69 09/17/2010 Ot 780.4 09/18/2010 Ot 780.4 09/18/2010 Ot 787.03 01/07/2011 Ot 724.5 01/29/2011 GRAY OSPINA DO 305.1 smoking cigarettes 01/29/2011 GRAY OSPINA DO 333.94 RESTLESS LEGS SYNDROME 01/29/2011 WERDER DO, GRAY F 401.9 HYPERTENSION (SYSTEMIC) 01/29/2011 GRAY OSPINA DO F 716.90 ARTHRITIS 01/29/2011 GRAY OSPINA DO F 305.1 smoking cigarettes 01/29/2011 GRAY OSPINA DO F 333.94 RESTLESS LEGS SYNDROME 01/29/2011 GRAY OSPINA DO F 401.9 HYPERTENSION (SYSTEMIC) 01/29/2011 GRAY OSPINA DO F 716.90 ARTHRITIS 01/29/2011 LORIN CHILDERS MD 305.1 smoking cigarettes 01/29/2011 LORIN CHILDERS MD 333.94 RESTLESS LEGS SYNDROME 01/29/2011 LORIN CHILDERS MD 401.9 HYPERTENSION (SYSTEMIC) 01/29/2011 LORIN CHILDERS MD 716.90 ARTHRITIS 01/29/2011 ESPINOSA DO TOM K 305.1 smoking cigarettes 01/29/2011 ESPINOSA DO TOM K 333.94 RESTLESS LEGS SYNDROME 01/29/2011 ESPINOSA DO TOM K 401.9 HYPERTENSION (SYSTEMIC) 01/29/2011 FRANCISCA LINK TOM K 716.90 ARTHRITIS 01/29/2011 305.1 smoking cigarettes 01/29/2011 333.94 RESTLESS LEGS SYNDROME 01/29/2011 401.9 HYPERTENSION ( SYSTEMIC) 01/29/2011 716.90 ARTHRITIS 01/29/2011 305.1 smoking cigarettes 01/29/2011 333.94 RESTLESS LEGS SYNDROME 01/29/2011 401.9 HYPERTENSION ( SYSTEMIC) 01/29/2011 716.90 ARTHRITIS 01/29/2011 305.1 smoking cigarettes 01/29/2011 333.94 RESTLESS LEGS SYNDROME 01/29/2011 401.9 HYPERTENSION ( SYSTEMIC) 01/29/2011 716.90 ARTHRITIS 01/29/2011 GRAY OSPINA DO F 305.1 smoking cigarettes 01/29/2011 GRAY OSPINA DO F 333.94 RESTLESS LEGS SYNDROME 01/29/2011 GRAY OSPINA DO F 401.9 HYPERTENSION (SYSTEMIC) 01/29/2011 GRAY OSPINA DO F 716.90 ARTHRITIS 01/29/2011 BROOKS VIDALES APRN 305.1 smoking cigarettes 01/29/2011 BROOKS VIDALES APRN 333.94 RESTLESS LEGS SYNDROME 01/29/2011 BROOKS VIDALES APRN 401.9 HYPERTENSION (SYSTEMIC) 01/29/2011 BROOKS VIDALES APRN 716.90 ARTHRITIS 01/29/2011 BROOKS VIDALES APRN 305.1 smoking cigarettes 01/29/2011 BROOKS VIDALES APRN 333.94 RESTLESS LEGS SYNDROME 01/29/2011 BROOKS VIDALES APRN 401.9 HYPERTENSION (SYSTEMIC) 01/29/2011 BROOKS VIDALES APRN 716.90 ARTHRITIS 01/29/2011 BROOKS VIDALES APRN 305.1 smoking cigarettes 01/29/2011 BROOKS VIDALES APRN 333.94 RESTLESS LEGS SYNDROME 01/29/2011 BROOKS VIDALES APRN 401.9 HYPERTENSION (SYSTEMIC) 01/29/2011 BROOKS VIDALES APRN 716.90 ARTHRITIS 01/29/2011 BROOKS VIDALES APRN 305.1 smoking cigarettes 01/29/2011 BROOKS VIDALES APRN 333.94 RESTLESS LEGS SYNDROME 01/29/2011 BROOKS VIDALES APRN 401.9 HYPERTENSION (SYSTEMIC) 01/29/2011 BROOKS VIDALES APRN 716.90 ARTHRITIS 01/29/2011 ESPINOSA DO TOM K 305.1 smoking cigarettes 01/29/2011 ESPINOSA DO, TOM K 333.94 RESTLESS LEGS SYNDROME 01/29/2011 ESPINOSA DO, TOM K 401.9 HYPERTENSION (SYSTEMIC) 01/29/2011 ESPINOSA DO, TOM K 716.90 ARTHRITIS 01/29/2011 ESPINOSA DO, TOM K 305.1 smoking cigarettes 01/29/2011 ESPINOSA DO, TOM K 333.94 RESTLESS LEGS SYNDROME 01/29/2011 ESPINOSA DO, TOM K 401.9 HYPERTENSION (SYSTEMIC) 01/29/2011 ESPINOSA DO, TOM K 716.90 ARTHRITIS 01/29/2011 SHADE HAMPTON JR 305.1 smoking cigarettes 01/29/2011 SHADE HAMPTON JR 333.94 RESTLESS LEGS SYNDROME 01/29/2011 SHADE HAMPTON JR 401.9 HYPERTENSION (SYSTEMIC) 01/29/2011 SHADE HAMPTON JR 716.90 ARTHRITIS 01/29/2011 SHADE HAMPTON JR 305.1 smoking cigarettes 01/29/2011 SHADE HAMPTON JR 333.94 RESTLESS LEGS SYNDROME 01/29/2011 SHADE HAMPTON JR 401.9 HYPERTENSION (SYSTEMIC) 01/29/2011 SHADE HAMPTON JR 716.90 ARTHRITIS 01/29/2011 SHADE HAMPTON JR 305.1 smoking cigarettes 01/29/2011 SHADE HAMPTON JR 333.94 RESTLESS LEGS SYNDROME 01/29/2011 SHADE HAMPTON JR 401.9 HYPERTENSION (SYSTEMIC) 01/29/2011 SHADE HAMPTON JR 716.90 ARTHRITIS 01/29/2011 SHADE HAMPTON JR 305.1 smoking cigarettes 01/29/2011 SHADE HAMPTON JR 333.94 RESTLESS LEGS SYNDROME 01/29/2011 SHADE HAMPTON JR 401.9 HYPERTENSION (SYSTEMIC) 01/29/2011 SHADE HAMPTON JR 716.90 ARTHRITIS 01/29/2011 GRAY OSPINA DO F 305.1 smoking cigarettes 01/29/2011 GRAY OSPINA DO F 333.94 RESTLESS LEGS SYNDROME 01/29/2011 KATHRYN OSPINA DOEN F 401.9 HYPERTENSION (SYSTEMIC) 01/29/2011 GRAY OSPINA DO F 716.90 ARTHRITIS 01/29/2011 SHADE HAMPTON JR 305.1 smoking cigarettes 01/29/2011 SHADE HAMPTON JR 333.94 RESTLESS LEGS SYNDROME 01/29/2011 SHADE HAMPTON JR 401.9 HYPERTENSION (SYSTEMIC) 01/29/2011 SHADE HAMPTON JR 716.90 ARTHRITIS 01/29/2011 SHADE HAMPTON JR 305.1 smoking cigarettes 01/29/2011 SHADE HAMPTON JR 333.94 RESTLESS LEGS SYNDROME 01/29/2011 SHADE HAMPTON JR 401.9 HYPERTENSION (SYSTEMIC) 01/29/2011 SHADE HAMPTON JR 716.90 ARTHRITIS 01/29/2011 ESPINOSA DO TOM K 305.1 smoking cigarettes 01/29/2011 ESPINOSA DO TOM K 333.94 RESTLESS LEGS SYNDROME 01/29/2011 ESPINOSA DO, TOM K 401.9 HYPERTENSION (SYSTEMIC) 01/29/2011 ESPINOSA DO TOM K 716.90 ARTHRITIS 01/29/2011 SHADE HAMPTON JR S 305.1 smoking cigarettes 01/29/2011 SHADE HAMPTON JR 333.94 RESTLESS LEGS SYNDROME 01/29/2011 SHADE HAMPTON JR 401.9 HYPERTENSION (SYSTEMIC) 01/29/2011 SHADE HAMPTON JR 716.90 ARTHRITIS 01/29/2011 HAMPTON JR, SHADE S 305.1 smoking cigarettes 01/29/2011 SHADE HAMPTON JR S 333.94 RESTLESS LEGS SYNDROME 01/29/2011 SHADE HAMPTON JR S 401.9 HYPERTENSION (SYSTEMIC) 01/29/2011 SHADE HAMPTON JR S 716.90 ARTHRITIS 01/29/2011 SHADE HAMPTON JR S 305.1 smoking cigarettes 01/29/2011 SHADE AHMPTON JR S 333.94 RESTLESS LEGS SYNDROME 01/29/2011 HAMPTON JR SHADE S 401.9 HYPERTENSION (SYSTEMIC) 01/29/2011 HAMPTON JR SHADE S 716.90 ARTHRITIS 03/18/2011 Ot 826.0 03/18/2011 Ot 959.7 03/18/2011 Ot E000.8 03/18/2011 Ot E849.6 03/18/2011 Ot E917.9 03/29/2011 GRAY OSIPNA DO 729.5 Pain In Limb 03/29/2011 GRAY OSPINA DO 729.5 Pain In Limb 03/29/2011 LORIN CHILDERS MD 729.5 Pain In Limb 03/29/2011 TOM ESPINOSA DO 729.5 Pain In Limb 03/29/2011 729.5 Pain In Limb 03/29/2011 729.5 Pain In Limb 03/29/2011 729.5 Pain In Limb 03/29/2011 GRAY OSPINA DO 729.5 Pain In Limb 03/29/2011 BROOKS VIDALES APRN 729.5 Pain In Limb 03/29/2011 BROOKS VIDALES APRN 729.5 Pain In Limb 03/29/2011 BROOKS VIDALES APRN 729.5 Pain In Limb 03/29/2011 BROOKS VIDALES APRN 729.5 Pain In Limb 03/29/2011 TOM ESPINOSA DO 729.5 Pain In Limb 03/29/2011 TOM ESPINOSA DO 729.5 Pain In Limb 03/29/2011 SHADE HAMPTON JR 729.5 Pain In Limb 03/29/2011 SHADE HAMPTON JR 729.5 Pain In Limb 03/29/2011 SHADE HAMPTON JR 729.5 Pain In Limb 03/29/2011 SHADE HAMPTON JR 729.5 Pain In Limb 03/29/2011 GRAY OSPINA DO 729.5 Pain In Limb 03/29/2011 SHADE HAMPTON JR S 729.5 Pain In Limb 03/29/2011 SHADE HAMPTON JR S 729.5 Pain In Limb 03/29/2011 ESPINOSA TOM LINK K 729.5 Pain In Limb 03/29/2011 MEMO ALICIA, SHADE S 729.5 Pain In Limb 03/29/2011 SHADE HAMPTON JR S 729.5 Pain In Limb 03/29/2011 MEMO ALICIA, SHADE S 729.5 Pain In Limb 04/03/2011 GRAY OSPINA DO 296.80 MO BIPOLAR NOS 04/03/2011 GRAY OSPINA DO F 300.00 AN ANXIETY UNSPEC 04/03/2011 GRAY OSPINA DO 307.47 SI DYSSOMNIA NOS 04/03/2011 GRAY OSPINA DO 296.80 MO BIPOLAR NOS 04/03/2011 GRAY OSPINA DO 300.00 AN ANXIETY UNSPEC 04/03/2011 GRAY OSPINA DO 307.47 SI DYSSOMNIA NOS 04/03/2011 LORIN CHILDERS MD 296.80 MO BIPOLAR NOS 04/03/2011 LORIN CHILDERS MD 300.00 AN ANXIETY UNSPEC 04/03/2011 LORIN CHILDERS MD 307.47 SI DYSSOMNIA NOS 04/03/2011 ESPINOSA TOM LINK 296.80 MO BIPOLAR NOS 04/03/2011 TOM ESPINOSA DO 300.00 AN ANXIETY UNSPEC 04/03/2011 TOM ESPINOSA DO 307.47 SI DYSSOMNIA NOS 04/03/2011 296.80 MO BIPOLAR NOS 04/03/2011 300.00 AN ANXIETY UNSPEC 04/03/2011 307.47 SI DYSSOMNIA NOS 04/03/2011 296.80 MO BIPOLAR NOS 04/03/2011 300.00 AN ANXIETY UNSPEC 04/03/2011 307.47 SI DYSSOMNIA NOS 04/03/2011 296.80 MO BIPOLAR NOS 04/03/2011 300.00 AN ANXIETY UNSPEC 04/03/2011 307.47 SI DYSSOMNIA NOS 04/03/2011 GRAY OSPINA DO 296.80 MO BIPOLAR NOS 04/03/2011 GRAY OSPINA DO 300.00 AN ANXIETY UNSPEC 04/03/2011 GRAY OSPINA DO 307.47 SI DYSSOMNIA NOS 04/03/2011 BROOKS VIDALES APRN 296.80 MO BIPOLAR NOS 04/03/2011 BROOKS VIDALES APRN 300.00 AN ANXIETY UNSPEC 04/03/2011 BROOKS VIDALES APRN 307.47 SI DYSSOMNIA NOS 04/03/2011 BROOKS VIDALES APRN 296.80 MO BIPOLAR NOS 04/03/2011 BROOKS VIADLES APRN 300.00 AN ANXIETY UNSPEC 04/03/2011 BROOKS VIDALES APRN 307.47 SI DYSSOMNIA NOS 04/03/2011 BROOKS VIDALES APRN 296.80 MO BIPOLAR NOS 04/03/2011 BROOKS VIDALES APRN 300.00 AN ANXIETY UNSPEC 04/03/2011 BROOKS VIDALES APRN 307.47 SI DYSSOMNIA NOS 04/03/2011 BROOKS VIDALES APRN 296.80 MO BIPOLAR NOS 04/03/2011 BROOKS VIDALES APRN 300.00 AN ANXIETY UNSPEC 04/03/2011 BROOKS VIDALES APRN 307.47 SI DYSSOMNIA NOS 04/03/2011 TOM ESPINOSA DO 296.80 MO BIPOLAR NOS 04/03/2011 TOM ESPINOSA DO 300.00 AN ANXIETY UNSPEC 04/03/2011 TOM ESPINOSA DO 307.47 SI DYSSOMNIA NOS 04/03/2011 ELDA ESPINOSA DOA K 296.80 MO BIPOLAR NOS 04/03/2011 TOM ESPINOSA DO K 300.00 AN ANXIETY UNSPEC 04/03/2011 TOM ESPINOSA DO 307.47 SI DYSSOMNIA NOS 04/03/2011 SHADE HAMPTON JR 296.80 MO BIPOLAR NOS 04/03/2011 SHADE HAMPTON JR 300.00 AN ANXIETY UNSPEC 04/03/2011 SHADE HAMPTON JR 307.47 SI DYSSOMNIA NOS 04/03/2011 SHADE HAMPTON JR 296.80 MO BIPOLAR NOS 04/03/2011 SHADE HAMPTON JR 300.00 AN ANXIETY UNSPEC 04/03/2011 SHADE HAMPTON JR 307.47 SI DYSSOMNIA NOS 04/03/2011 SHADE HAMPTON JR 296.80 MO BIPOLAR NOS 04/03/2011 HAMPTON JR, HSADE S 300.00 AN ANXIETY UNSPEC 04/03/2011 SHADE HAMPTON JR S 307.47 SI DYSSOMNIA NOS 04/03/2011 SHADE HAMPTON JR S 296.80 MO BIPOLAR NOS 04/03/2011 SHADE HAMPTON JR S 300.00 AN ANXIETY UNSPEC 04/03/2011 SHADE HAMPTON JR S 307.47 SI DYSSOMNIA NOS 04/03/2011 WERGRAY CASTREJON DO F 296.80 MO BIPOLAR NOS 04/03/2011 GRAY OSPINA DO F 300.00 AN ANXIETY UNSPEC 04/03/2011 GRAY OSPINA DO F 307.47 SI DYSSOMNIA NOS 04/03/2011 SHADE HAMPTON JR S 296.80 MO BIPOLAR NOS 04/03/2011 SHADE HAMPTON JR S 300.00 AN ANXIETY UNSPEC 04/03/2011 SHADE HAMPTON JR 307.47 SI DYSSOMNIA NOS 04/03/2011 SHADE HAMPTON JR S 296.80 MO BIPOLAR NOS 04/03/2011 SHADE HAMPTON JR S 300.00 AN ANXIETY UNSPEC 04/03/2011 SHADE HAMPTON JR 307.47 SI DYSSOMNIA NOS 04/03/2011 ESPINOSA DO, TOM K 296.80 MO BIPOLAR NOS 04/03/2011 ESPINOSA DO, TOM K 300.00 AN ANXIETY UNSPEC 04/03/2011 ESPINOSA DO, TOM K 307.47 SI DYSSOMNIA NOS 04/03/2011 SHADE HAMPTON JR S 296.80 MO BIPOLAR NOS 04/03/2011 SHADE HAMPTON JR S 300.00 AN ANXIETY UNSPEC 04/03/2011 SHADE HAMPTON JR 307.47 SI DYSSOMNIA NOS 04/03/2011 SHADE HAMPTON JR S 296.80 MO BIPOLAR NOS 04/03/2011 SHADE HAMPTON JR S 300.00 AN ANXIETY UNSPEC 04/03/2011 SHADE HAMPTON JR 307.47 SI DYSSOMNIA NOS 04/03/2011 SHADE HAMPTON JR S 296.80 MO BIPOLAR NOS 04/03/2011 SHADE HAMPTON JR S 300.00 AN ANXIETY UNSPEC 04/03/2011 SHADE HAMPTON JR S 307.47 SI DYSSOMNIA NOS 04/21/2011 GRAY OSPINA DO 826.0 Closed Fracture Of One Or More Phalanges Of Foot 04/21/2011 GRAY OSPINA DO 826.0 Closed Fracture Of One Or More Phalanges Of Foot 04/21/2011 LORIN CHILDERS MD 826.0 Closed Fracture Of One Or More Phalanges Of Foot 04/21/2011 TOM ESPINOSA DO 826.0 Closed Fracture Of One Or More Phalanges Of Foot 04/21/2011 826.0 Closed Fracture Of One Or More Phalanges Of Foot 04/21/2011 826.0 Closed Fracture Of One Or More Phalanges Of Foot 04/21/2011 826.0 Closed Fracture Of One Or More Phalanges Of Foot 04/21/2011 GRAY OSPINA DO 826.0 Closed Fracture Of One Or More Phalanges Of Foot 04/21/2011 BROOKS VIDALES APRN 826.0 Closed Fracture Of One Or More Phalanges Of Foot 04/21/2011 BROOKS VIDALES APRN 826.0 Closed Fracture Of One Or More Phalanges Of Foot 04/21/2011 BROOKS VIDALES APRN 826.0 Closed Fracture Of One Or More Phalanges Of Foot 04/21/2011 BROOKS VIDALES APRN 826.0 Closed Fracture Of One Or More Phalanges Of Foot 04/21/2011 TOM ESPINOSA DO 826.0 Closed Fracture Of One Or More Phalanges Of Foot 04/21/2011 TOM ESPINOSA DO 826.0 Closed Fracture Of One Or More Phalanges Of Foot 04/21/2011 SHADE HAMPTON JR 826.0 Closed Fracture Of One Or More Phalanges Of Foot 04/21/2011 SHADE HAMPTON JR 826.0 Closed Fracture Of One Or More Phalanges Of Foot 04/21/2011 SHADE HAMPTON JR 826.0 Closed Fracture Of One Or More Phalanges Of Foot 04/21/2011 SHADE HAMPTON JR 826.0 Closed Fracture Of One Or More Phalanges Of Foot 04/21/2011 GRAY OSPINA DO 826.0 Closed Fracture Of One Or More Phalanges Of Foot 04/21/2011 SHADE HAMPTON JR 826.0 Closed Fracture Of One Or More Phalanges Of Foot 04/21/2011 SHADE HAMPTON JR 826.0 Closed Fracture Of One Or More Phalanges Of Foot 04/21/2011 TOM ESPINOSA DO 826.0 Closed Fracture Of One Or More Phalanges Of Foot 04/21/2011 HAMPTON JR, SHADE S 826.0 Closed Fracture Of One Or More Phalanges Of Foot 04/21/2011 SHADE HAMPTON JR S 826.0 Closed Fracture Of One Or More Phalanges Of Foot 04/21/2011 SHADE HAMPTON JR S 826.0 Closed Fracture Of One Or More Phalanges Of Foot 06/23/2011 GRAY OSPINA DO F 294.9 OR COG DIS NOS 06/23/2011 GRAY OSPINA DO F 294.9 OR COG DIS NOS 06/23/2011 LORIN CHILDERS MD 294.9 OR COG DIS NOS 06/23/2011 TOM ESPINOSA DO K 294.9 OR COG DIS NOS 06/23/2011 294.9 OR COG DIS NOS 06/23/2011 294.9 OR COG DIS NOS 06/23/2011 294.9 OR COG DIS NOS 06/23/2011 GRAY OSPINA DO F 294.9 OR COG DIS NOS 06/23/2011 BROOKS VIDALES APRN 294.9 OR COG DIS NOS 06/23/2011 BROOKS VIDALES APRN 294.9 OR COG DIS NOS 06/23/2011 BROOKS VIDALES APRN 294.9 OR COG DIS NOS 06/23/2011 BROOKS VIDALES APRN 294.9 OR COG DIS NOS 06/23/2011 TOM ESPINOSA DO K 294.9 OR COG DIS NOS 06/23/2011 TOM ESPINOSA DO K 294.9 OR COG DIS NOS 06/23/2011 SHADE HAMPTON JR S 294.9 OR COG DIS NOS 06/23/2011 SHADE HAMPTON JR S 294.9 OR COG DIS NOS 06/23/2011 SHADE HAMPTON JR S 294.9 OR COG DIS NOS 06/23/2011 SHADE HAMPTON JR S 294.9 OR COG DIS NOS 06/23/2011 GRAY OSPINA DO F 294.9 OR COG DIS NOS 06/23/2011 SHADE HAMPTON JR S 294.9 OR COG DIS NOS 06/23/2011 SHADE HAMPTON JR S 294.9 OR COG DIS NOS 06/23/2011 ESPINOSA DO TOM K 294.9 OR COG DIS NOS 06/23/2011 SHADE HAMPTON JR S 294.9 OR COG DIS NOS 06/23/2011 SHADE HMAPTON JR S 294.9 OR COG DIS NOS 06/23/2011 SHADE HAMPTON JR S 294.9 OR COG DIS NOS 07/18/2011 GRAY OSPINA DO 314.01 ADHD COMBINED 07/18/2011 GRAY OSPINA DO 314.01 ADHD COMBINED 07/18/2011 LORIN CHILDERS MD 314.01 ADHD COMBINED 07/18/2011 TOM ESPINOSA DO 314.01 ADHD COMBINED 07/18/2011 314.01 ADHD COMBINED 07/18/2011 314.01 ADHD COMBINED 07/18/2011 314.01 ADHD COMBINED 07/18/2011 GRAY OSPINA DO 314.01 ADHD COMBINED 07/18/2011 BROOKS VIDALES APRN 314.01 ADHD COMBINED 07/18/2011 BROOKS VIDALES APRN 314.01 ADHD COMBINED 07/18/2011 BROOKS VIDALES APRN 314.01 ADHD COMBINED 07/18/2011 BROOKS VIDALES APRN 314.01 ADHD COMBINED 07/18/2011 ELDA ESPINOSA DOA K 314.01 ADHD COMBINED 07/18/2011 ELDA ESPINOSA DOA K 314.01 ADHD COMBINED 07/18/2011 SHADE HAMPTON JR S 314.01 ADHD COMBINED 07/18/2011 SHADE HAMPTON JR S 314.01 ADHD COMBINED 07/18/2011 MEMO ALICIA SHADE S 314.01 ADHD COMBINED 07/18/2011 MEMO ALICIA SHADE S 314.01 ADHD COMBINED 07/18/2011 GRAY OSPINA DO 314.01 ADHD COMBINED 07/18/2011 MEMO ALICIA SHADE S 314.01 ADHD COMBINED 07/18/2011 MEMO ALICIA SHADE S 314.01 ADHD COMBINED 07/18/2011 ELDA ESPINOSA DOA K 314.01 ADHD COMBINED 07/18/2011 MEMO ALICIA SHADE S 314.01 ADHD COMBINED 07/18/2011 MEMO ALICIA SHADE S 314.01 ADHD COMBINED 07/18/2011 MEMO ALICIA SHADE S 314.01 ADHD COMBINED 08/19/2011 GRAY OSPINA DO 465.9 Upper Respiratory Infection 08/19/2011 GRAY OSPINA DO 465.9 Upper Respiratory Infection 08/19/2011 LORIN CHILDERS MD 465.9 Upper Respiratory Infection 08/19/2011 TOM ESPINOSA DO 465.9 Upper Respiratory Infection 08/19/2011 465.9 Upper Respiratory Infection 08/19/2011 465.9 Upper Respiratory Infection 08/19/2011 465.9 Upper Respiratory Infection 08/19/2011 GRAY OSPINA DO 465.9 Upper Respiratory Infection 08/19/2011 BROOKS VIDALES APRN 465.9 Upper Respiratory Infection 08/19/2011 BROOKS VIDALES APRN 465.9 Upper Respiratory Infection 08/19/2011 BROOKS VIDALES APRN 465.9 Upper Respiratory Infection 08/19/2011 BROOKS VIDALES APRN 465.9 Upper Respiratory Infection 08/19/2011 TOM ESPINOSA DO K 465.9 Upper Respiratory Infection 08/19/2011 ESPINOSA DOELDAA K 465.9 Upper Respiratory Infection 08/19/2011 HAMPTON JR, SHADE S 465.9 Upper Respiratory Infection 08/19/2011 HAMPTON JR, SHADE S 465.9 Upper Respiratory Infection 08/19/2011 HAMPTON JR, SHADE S 465.9 Upper Respiratory Infection 08/19/2011 HAMPTON JR, SHADE S 465.9 Upper Respiratory Infection 08/19/2011 GRAY OSPINA DO F 465.9 Upper Respiratory Infection 08/19/2011 MEMO ALICIA, SHADE S 465.9 Upper Respiratory Infection 08/19/2011 HAMPTON JR, SHADE S 465.9 Upper Respiratory Infection 08/19/2011 ELDA ESPINOSA DOA K 465.9 Upper Respiratory Infection 08/19/2011 HAMPTON JR, SHADE S 465.9 Upper Respiratory Infection 08/19/2011 HAMPTON JR, SHADE S 465.9 Upper Respiratory Infection 08/19/2011 HAMPTON JR, SHADE S 465.9 Upper Respiratory Infection 11/17/2011 GRAY OSPINA DO 314.00 ADHD INATTENTIVE 11/17/2011 GRAY OSPINA DO 314.00 ADHD INATTENTIVE 11/17/2011 LORIN CHILDERS MD 314.00 ADHD INATTENTIVE 11/17/2011 TOM ESPINOSA DO 314.00 ADHD INATTENTIVE 11/17/2011 314.00 ADHD INATTENTIVE 11/17/2011 314.00 ADHD INATTENTIVE 11/17/2011 314.00 ADHD INATTENTIVE 11/17/2011 GRAY OSPINA DO 314.00 ADHD INATTENTIVE 11/17/2011 BROOKS VIDALES APRN 314.00 ADHD INATTENTIVE 11/17/2011 BROOKS VIDALES APRN 314.00 ADHD INATTENTIVE 11/17/2011 BROOKS VIDALES APRN 314.00 ADHD INATTENTIVE 11/17/2011 BROOKS VIDALES APRN 314.00 ADHD INATTENTIVE 11/17/2011 ESPINOSA DO, TOM K 314.00 ADHD INATTENTIVE 11/17/2011 ESPINOSA DO, TOM K 314.00 ADHD INATTENTIVE 11/17/2011 HAMPTON JR, SHADE S 314.00 ADHD INATTENTIVE 11/17/2011 MEMO ALICIA, SHADE S 314.00 ADHD INATTENTIVE 11/17/2011 MEMO ALICIA, SHADE S 314.00 ADHD INATTENTIVE 11/17/2011 MEMO ALICIA, SHADE S 314.00 ADHD INATTENTIVE 11/17/2011 GRAY OSPINA DO 314.00 ADHD INATTENTIVE 11/17/2011 MEMO ALICIA, SHADE S 314.00 ADHD INATTENTIVE 11/17/2011 MEMO ALICIA, SHADE S 314.00 ADHD INATTENTIVE 11/17/2011 TOM ESPINOSA DO K 314.00 ADHD INATTENTIVE 11/17/2011 MEMO ALICIA, SHADE S 314.00 ADHD INATTENTIVE 11/17/2011 MEMO ALICIA, SHADE S 314.00 ADHD INATTENTIVE 11/17/2011 MEMO ALICIA, SHADE S 314.00 ADHD INATTENTIVE 12/18/2011 GRAY OSPINA DO 477.0 ALLERGIC RHINITIS DUE TO POLLEN 12/18/2011 GRAY OSPINA DO 724.5 BACKACHE UNSPECIFIED 12/18/2011 GRAY OSPINA DO 477.0 ALLERGIC RHINITIS DUE TO POLLEN 12/18/2011 GRAY OSPINA DO 724.5 BACKACHE UNSPECIFIED 12/18/2011 LORIN CHILDERS MD 477.0 ALLERGIC RHINITIS DUE TO POLLEN 12/18/2011 LORIN CHILDERS MD 724.5 BACKACHE UNSPECIFIED 12/18/2011 TOM ESPINOSA DO 477.0 ALLERGIC RHINITIS DUE TO POLLEN 12/18/2011 ESPINOSA TOM LINK K 724.5 BACKACHE UNSPECIFIED 12/18/2011 477.0 ALLERGIC RHINITIS DUE TO POLLEN 12/18/2011 724.5 BACKACHE UNSPECIFIED 12/18/2011 477.0 ALLERGIC RHINITIS DUE TO POLLEN 12/18/2011 724.5 BACKACHE UNSPECIFIED 12/18/2011 477.0 ALLERGIC RHINITIS DUE TO POLLEN 12/18/2011 724.5 BACKACHE UNSPECIFIED 12/18/2011 GRAY OSPINA DO 477.0 ALLERGIC RHINITIS DUE TO POLLEN 12/18/2011 GRAY OSPINA DO 724.5 BACKACHE UNSPECIFIED 12/18/2011 BROOKS VIDALES APRN 477.0 ALLERGIC RHINITIS DUE TO POLLEN 12/18/2011 BROOKS VIDALES APRN 724.5 BACKACHE UNSPECIFIED 12/18/2011 BROOKS VIDALES APRN D 477.0 ALLERGIC RHINITIS DUE TO POLLEN 12/18/2011 BROOKS VIDALES APRN D 724.5 BACKACHE UNSPECIFIED 12/18/2011 BROOKS VIDALES APRN D 477.0 ALLERGIC RHINITIS DUE TO POLLEN 12/18/2011 BROOKS VIDALES APRN D 724.5 BACKACHE UNSPECIFIED 12/18/2011 BROOKS VIDALES APRN D 477.0 ALLERGIC RHINITIS DUE TO POLLEN 12/18/2011 BROOKS VIDALES APRN D 724.5 BACKACHE UNSPECIFIED 12/18/2011 ESPINOSA DO TOM K 477.0 ALLERGIC RHINITIS DUE TO POLLEN 12/18/2011 ESPINOSA DOELDAA K 724.5 BACKACHE UNSPECIFIED 12/18/2011 ESPINOSA DO TOM K 477.0 ALLERGIC RHINITIS DUE TO POLLEN 12/18/2011 ESPINOSA DO TOM K 724.5 BACKACHE UNSPECIFIED 12/18/2011 SHADE HAMPTON JR 477.0 ALLERGIC RHINITIS DUE TO POLLEN 12/18/2011 SHADE HAMPTON JR 724.5 BACKACHE UNSPECIFIED 12/18/2011 SHADE HAMPTON JR 477.0 ALLERGIC RHINITIS DUE TO POLLEN 12/18/2011 SHADE HAMPTON JR 724.5 BACKACHE UNSPECIFIED 12/18/2011 SHADE HAMPTON JR 477.0 ALLERGIC RHINITIS DUE TO POLLEN 12/18/2011 SHADE HAMPTON JR 724.5 BACKACHE UNSPECIFIED 12/18/2011 SHADE HAMPTON JR 477.0 ALLERGIC RHINITIS DUE TO POLLEN 12/18/2011 SHADE HAMPTON JR 724.5 BACKACHE UNSPECIFIED 12/18/2011 GRAY OSPINA DO 477.0 ALLERGIC RHINITIS DUE TO POLLEN 12/18/2011 GRAY OSPINA DO F 724.5 BACKACHE UNSPECIFIED 12/18/2011 SHADE HAMPTON JR 477.0 ALLERGIC RHINITIS DUE TO POLLEN 12/18/2011 HAMPTON JR, SHADE S 724.5 BACKACHE UNSPECIFIED 12/18/2011 MEMO ALICIA SHADE S 477.0 ALLERGIC RHINITIS DUE TO POLLEN 12/18/2011 MEMO ALICIA, SHADE S 724.5 BACKACHE UNSPECIFIED 12/18/2011 TOM ESPINOSA DO 477.0 ALLERGIC RHINITIS DUE TO POLLEN 12/18/2011 TOM ESPINOSA DO K 724.5 BACKACHE UNSPECIFIED 12/18/2011 SHADE HAMPTON JR S 477.0 ALLERGIC RHINITIS DUE TO POLLEN 12/18/2011 MEMO ALICIA, SHADE S 724.5 BACKACHE UNSPECIFIED 12/18/2011 MEMO ALICIA, SHADE S 477.0 ALLERGIC RHINITIS DUE TO POLLEN 12/18/2011 MEMO ALICIA, SHADE S 724.5 BACKACHE UNSPECIFIED 12/18/2011 MEMO ALICIA SHADE S 477.0 ALLERGIC RHINITIS DUE TO POLLEN 12/18/2011 MEMO ALICIA, SHADE S 724.5 BACKACHE UNSPECIFIED 01/09/2012 GRAY OSPINA DO V58.69 MEDICATION HIGH RISK 01/09/2012 GRAY OSPINA DO V58.69 MEDICATION HIGH RISK 01/09/2012 LORIN CHILDERS MD V58.69 MEDICATION HIGH RISK 01/09/2012 TOM ESPINOSA DO V58.69 MEDICATION HIGH RISK 01/09/2012 V58.69 MEDICATION HIGH RISK 01/09/2012 V58.69 MEDICATION HIGH RISK 01/09/2012 V58.69 MEDICATION HIGH RISK 01/09/2012 GRAY OSPINA DO V58.69 MEDICATION HIGH RISK 01/09/2012 BROOKS VIDALES APRN V58.69 MEDICATION HIGH RISK 01/09/2012 BROOKS VIDALES APRN V58.69 MEDICATION HIGH RISK 01/09/2012 BROOKS VIDALES APRN V58.69 MEDICATION HIGH RISK 01/09/2012 BROOKS VIDALES APRN V58.69 MEDICATION HIGH RISK 01/09/2012 TOM ESPINOSA DO K V58.69 MEDICATION HIGH RISK 01/09/2012 ELDA ESPINOSA DOA K V58.69 MEDICATION HIGH RISK 01/09/2012 SHADE HAMPTON JR V58.69 MEDICATION HIGH RISK 01/09/2012 SHADE HAMPTON JR V58.69 MEDICATION HIGH RISK 01/09/2012 SHADE HAMPTON JR V58.69 MEDICATION HIGH RISK 01/09/2012 MEMO JR SHADE Gonzalez V58.69 MEDICATION HIGH RISK 01/09/2012 GRAY OSPINA DO V58.69 MEDICATION HIGH RISK 01/09/2012 MEMO ALICIA SHADE Gonzalez V58.69 MEDICATION HIGH RISK 01/09/2012 MEMO ALICIA SHADE Gonzalez V58.69 MEDICATION HIGH RISK 01/09/2012 TOM ESPINOSA DO V58.69 MEDICATION HIGH RISK 01/09/2012 MEMO ALICIA SHADE Gonzalez V58.69 MEDICATION HIGH RISK 01/09/2012 MEMO ALICIA SHADE Gonzalez V58.69 MEDICATION HIGH RISK 01/09/2012 MEMO ALICIA SHADE Gonzalez V58.69 MEDICATION HIGH RISK 03/23/2012 Ot 780.50 03/23/2012 Ot V15.81 03/23/2012 Ot V58.69 04/03/2012 Ot 300.00 04/04/2012 Ot 300.00 04/04/2012 Ot 373.11 04/06/2012 Ot 298.9 04/06/2012 Ot V58.69 04/15/2012 GRAY OSPINA DO 296.40 MO BIPOLAR MANIC UNSPECIFIED 04/15/2012 GRAY OSPINA DO 305.20 CANNABIS ABUSE 04/15/2012 GRAY OSPINA DO 296.40 MO BIPOLAR MANIC UNSPECIFIED 04/15/2012 GRAY OSPINA DO 305.20 CANNABIS ABUSE 04/15/2012 LORIN CHILDERS MD 296.40 MO BIPOLAR MANIC UNSPECIFIED 04/15/2012 LORIN CHILDERS MD 305.20 CANNABIS ABUSE 04/15/2012 TOM ESPINOSA DO 296.40 MO BIPOLAR MANIC UNSPECIFIED 04/15/2012 TOM ESPINOSA DO 305.20 CANNABIS ABUSE 04/15/2012 296.40 MO BIPOLAR MANIC UNSPECIFIED 04/15/2012 305.20 CANNABIS ABUSE 04/15/2012 296.40 MO BIPOLAR MANIC UNSPECIFIED 04/15/2012 305.20 CANNABIS ABUSE 04/15/2012 296.40 MO BIPOLAR MANIC UNSPECIFIED 04/15/2012 305.20 CANNABIS ABUSE 04/15/2012 GRAY OSPINA DO 296.40 MO BIPOLAR MANIC UNSPECIFIED 04/15/2012 GRAY OSPINA DO 305.20 CANNABIS ABUSE 04/15/2012 BROOKS VIDALES APRN 296.40 MO BIPOLAR MANIC UNSPECIFIED 04/15/2012 BROOKS VIDALES APRN 305.20 CANNABIS ABUSE 04/15/2012 BROOKS VIDALES APRN 296.40 MO BIPOLAR MANIC UNSPECIFIED 04/15/2012 BROOKS VIDALES APRN 305.20 CANNABIS ABUSE 04/15/2012 SOBEIDA BROOKS BRADLEY D 296.40 MO BIPOLAR MANIC UNSPECIFIED 04/15/2012 ALEKSANDARBROOKS STEPHENS APRN 305.20 CANNABIS ABUSE 04/15/2012 SOBEIDA BROOKS BRADLEY D 296.40 MO BIPOLAR MANIC UNSPECIFIED 04/15/2012 SOBEIDA BROOKS BRADLEY 305.20 CANNABIS ABUSE 04/15/2012 ESPINOSA DO TOM K 296.40 MO BIPOLAR MANIC UNSPECIFIED 04/15/2012 ESPINOSA DO TOM K 305.20 CANNABIS ABUSE 04/15/2012 ESPINOSA DO TOM K 296.40 MO BIPOLAR MANIC UNSPECIFIED 04/15/2012 FRANCISCA LINK TOM K 305.20 CANNABIS ABUSE 04/15/2012 SHADE HAMPTON JR 296.40 MO BIPOLAR MANIC UNSPECIFIED 04/15/2012 SHADE HAMPTON JR 305.20 CANNABIS ABUSE 04/15/2012 SHADE HAMPTON JR S 296.40 MO BIPOLAR MANIC UNSPECIFIED 04/15/2012 SHADE HAMPTON JR 305.20 CANNABIS ABUSE 04/15/2012 SHADE HAMPTON JR 296.40 MO BIPOLAR MANIC UNSPECIFIED 04/15/2012 SHADE HAMPTON JR S 305.20 CANNABIS ABUSE 04/15/2012 SHADE HAMPTON JR S 296.40 MO BIPOLAR MANIC UNSPECIFIED 04/15/2012 SHADE HAMPTON JR 305.20 CANNABIS ABUSE 04/15/2012 GRAY OSPINA DO 296.40 MO BIPOLAR MANIC UNSPECIFIED 04/15/2012 GRAY OSPINA DO 305.20 CANNABIS ABUSE 04/15/2012 SHADE HAMPTON JR S 296.40 MO BIPOLAR MANIC UNSPECIFIED 04/15/2012 SHADE HAMPTON JR 305.20 CANNABIS ABUSE 04/15/2012 SHADE HAMPTON JR S 296.40 MO BIPOLAR MANIC UNSPECIFIED 04/15/2012 SHADE HAMPTON JR 305.20 CANNABIS ABUSE 04/15/2012 ESPINOSA DO TOM K 296.40 MO BIPOLAR MANIC UNSPECIFIED 04/15/2012 FRANCISCA LINK TOM K 305.20 CANNABIS ABUSE 04/15/2012 SHADE HAMPTON JR S 296.40 MO BIPOLAR MANIC UNSPECIFIED 04/15/2012 SHADE HAMPTON JR S 305.20 CANNABIS ABUSE 04/15/2012 SHADE HAMPTON JR S 296.40 MO BIPOLAR MANIC UNSPECIFIED 04/15/2012 SHADE HAMPTON JR S 305.20 CANNABIS ABUSE 04/15/2012 SHADE HAMPTON JR S 296.40 MO BIPOLAR MANIC UNSPECIFIED 04/15/2012 SHADE HAMPTON JR 305.20 CANNABIS ABUSE 2012 Ot 780.50 2012 Ot 786.09 06/22/2012 Ot 719.46 06/22/2012 Ot 959.7 06/22/2012 Ot E000.8 06/22/2012 Ot E849.0 06/22/2012 Ot E927.0 06/23/2012 Ot 300.00 06/23/2012 Ot 305.70 06/23/2012 Ot 311 06/23/2012 Ot 401.9 06/23/2012 Ot 518.81 06/23/2012 Ot 882.0 06/23/2012 Ot 921.9 06/23/2012 Ot 966.3 06/23/2012 Ot 969.4 06/23/2012 Ot 972.6 06/23/2012 Ot E950.3 06/23/2012 Ot E950.4 06/23/2012 Ot E960.0 06/23/2012 Ot V15.82 06/24/2012 GRAY OSPINA DO 466.0 BRONCHITIS, ACUTE 06/24/2012 GRAY OSPINA DO 844.9 SPRAIN OF UNSPECIFIED SITE OF KNEE AND LEG 06/24/2012 GRAY OSPINA DO 466.0 BRONCHITIS, ACUTE 06/24/2012 GRAY OSPINA DO 844.9 SPRAIN OF UNSPECIFIED SITE OF KNEE AND LEG 06/24/2012 LORIN CHILDERS MD 466.0 BRONCHITIS, ACUTE 06/24/2012 LORIN CHILDERS MD 844.9 SPRAIN OF UNSPECIFIED SITE OF KNEE AND LEG 06/24/2012 TOM ESPINOSA DO 466.0 BRONCHITIS, ACUTE 06/24/2012 TOM ESPINOSA DO 844.9 SPRAIN OF UNSPECIFIED SITE OF KNEE AND LEG 06/24/2012 466.0 BRONCHITIS, ACUTE 06/24/2012 844.9 SPRAIN OF UNSPECIFIED SITE OF KNEE AND LEG 06/24/2012 466.0 BRONCHITIS, ACUTE 06/24/2012 844.9 SPRAIN OF UNSPECIFIED SITE OF KNEE AND LEG 06/24/2012 466.0 BRONCHITIS, ACUTE 06/24/2012 844.9 SPRAIN OF UNSPECIFIED SITE OF KNEE AND LEG 06/24/2012 BHAVESH DO GRAY F 466.0 BRONCHITIS, ACUTE 06/24/2012 WERLUCÍA DO GRAY F 844.9 SPRAIN OF UNSPECIFIED SITE OF KNEE AND LEG 06/24/2012 GARTON BELLHOP CAPTAIN BROOKS D 466.0 BRONCHITIS, ACUTE 06/24/2012 GARTON BELLHOP CAPTAIN, BROOKS D 844.9 SPRAIN OF UNSPECIFIED SITE OF KNEE AND LEG 06/24/2012 GARTON BELLHOP CAPTAIN BROOKS D 466.0 BRONCHITIS, ACUTE 06/24/2012 GARTON BELLHOP CAPTAIN, BROOKS D 844.9 SPRAIN OF UNSPECIFIED SITE OF KNEE AND LEG 06/24/2012 SOBEIDA BELLHOP CAPTAINVIDA HollidayBROOKS D 466.0 BRONCHITIS, ACUTE 06/24/2012 GARTON BELLHOP CAPTAIN BROOKS D 844.9 SPRAIN OF UNSPECIFIED SITE OF KNEE AND LEG 06/24/2012 GARANGELO BELLHOP CAPTAIN BROOKS D 466.0 BRONCHITIS, ACUTE 06/24/2012 GARTON BELLHOP CAPTAIN BROOKS D 844.9 SPRAIN OF UNSPECIFIED SITE OF KNEE AND LEG 06/24/2012 TOM ESPINOSA DO K 466.0 BRONCHITIS, ACUTE 06/24/2012 ESPINOSA TOM LINK K 844.9 SPRAIN OF UNSPECIFIED SITE OF KNEE AND LEG 06/24/2012 TOM ESPINOSA DO K 466.0 BRONCHITIS, ACUTE 06/24/2012 ESPINOSA ELDA LINKA K 844.9 SPRAIN OF UNSPECIFIED SITE OF KNEE AND LEG 06/24/2012 SHADE HAMPTON JR 466.0 BRONCHITIS, ACUTE 06/24/2012 SHADE HAMPTON JR 844.9 SPRAIN OF UNSPECIFIED SITE OF KNEE AND LEG 06/24/2012 SHADE HAMPTON JR 466.0 BRONCHITIS, ACUTE 06/24/2012 SHADE HAMPTON JR 844.9 SPRAIN OF UNSPECIFIED SITE OF KNEE AND LEG 06/24/2012 SHADE HAMPTON JR 466.0 BRONCHITIS, ACUTE 06/24/2012 HAMPTON JR, SHADE S 844.9 SPRAIN OF UNSPECIFIED SITE OF KNEE AND LEG 06/24/2012 SHADE HAMPTON JR S 466.0 BRONCHITIS, ACUTE 06/24/2012 SHADE HAMPTON JR S 844.9 SPRAIN OF UNSPECIFIED SITE OF KNEE AND LEG 06/24/2012 GRAY OSPINA DO F 466.0 BRONCHITIS, ACUTE 06/24/2012 GRAY OSPINA DO F 844.9 SPRAIN OF UNSPECIFIED SITE OF KNEE AND LEG 06/24/2012 SHADE HAMPTON JR S 466.0 BRONCHITIS, ACUTE 06/24/2012 SHADE HAMPTON JR S 844.9 SPRAIN OF UNSPECIFIED SITE OF KNEE AND LEG 06/24/2012 SHADE HAMPTON JR S 466.0 BRONCHITIS, ACUTE 06/24/2012 SHADE HAMPTON JR S 844.9 SPRAIN OF UNSPECIFIED SITE OF KNEE AND LEG 06/24/2012 TOM ESPINOSA DO K 466.0 BRONCHITIS, ACUTE 06/24/2012 ESPINOSA ELDA LINKA K 844.9 SPRAIN OF UNSPECIFIED SITE OF KNEE AND LEG 06/24/2012 SHADE HAMPTON JR S 466.0 BRONCHITIS, ACUTE 06/24/2012 SHADE HAMPTON JR S 844.9 SPRAIN OF UNSPECIFIED SITE OF KNEE AND LEG 06/24/2012 SHADE HAMPTON JR S 466.0 BRONCHITIS, ACUTE 06/24/2012 SHADE HAMPTON JR S 844.9 SPRAIN OF UNSPECIFIED SITE OF KNEE AND LEG 06/24/2012 SHADE HAMPTON JR S 466.0 BRONCHITIS, ACUTE 06/24/2012 SHADE HAMPTON JR S 844.9 SPRAIN OF UNSPECIFIED SITE OF KNEE AND LEG 08/04/2012 GRAY OSPINA DO 268.9 VITAMIN D DEFICIENCY 08/04/2012 GRAY OSPINA DO 268.9 VITAMIN D DEFICIENCY 08/04/2012 LORIN CHILDERS MD 268.9 VITAMIN D DEFICIENCY 08/04/2012 ESPINOSA ELDA LINKA K 268.9 VITAMIN D DEFICIENCY 08/04/2012 268.9 VITAMIN D DEFICIENCY 08/04/2012 268.9 VITAMIN D DEFICIENCY 08/04/2012 268.9 VITAMIN D DEFICIENCY 08/04/2012 GRAY OSPINA DO 268.9 VITAMIN D DEFICIENCY 08/04/2012 BROOKS VIDALES APRN 268.9 VITAMIN D DEFICIENCY 08/04/2012 BROOKS VIDALES APRN 268.9 VITAMIN D DEFICIENCY 08/04/2012 BROOKS VIDALES APRN 268.9 VITAMIN D DEFICIENCY 08/04/2012 BROOKS VIDALES APRN 268.9 VITAMIN D DEFICIENCY 08/04/2012 TOM ESPINOSA DO K 268.9 VITAMIN D DEFICIENCY 08/04/2012 ESPINOSA DOTOM K 268.9 VITAMIN D DEFICIENCY 08/04/2012 SHADE HAMPTON JR 268.9 VITAMIN D DEFICIENCY 08/04/2012 SHADE HAMPTON JR 268.9 VITAMIN D DEFICIENCY 08/04/2012 SHADE HAMPTON JR 268.9 VITAMIN D DEFICIENCY 08/04/2012 SHADE HAMPTON JR 268.9 VITAMIN D DEFICIENCY 08/04/2012 GRAY OSPINA DO 268.9 VITAMIN D DEFICIENCY 08/04/2012 SHADE HAMPTON JR 268.9 VITAMIN D DEFICIENCY 08/04/2012 SHADE HAMPTON JR S 268.9 VITAMIN D DEFICIENCY 08/04/2012 TOM ESPINOSA DO K 268.9 VITAMIN D DEFICIENCY 08/04/2012 SHADE HAMPTON JR 268.9 VITAMIN D DEFICIENCY 08/04/2012 SHADE HAMPTON JR 268.9 VITAMIN D DEFICIENCY 08/04/2012 SHADE HAMPTON JR S 268.9 VITAMIN D DEFICIENCY 08/09/2012 Ot 719.06 08/09/2012 Ot 719.46 08/20/2012 Ot 959.7 08/20/2012 Ot E000.8 08/20/2012 Ot E928.9 08/21/2012 Ot 845.00 08/21/2012 Ot 845.10 08/21/2012 Ot 959.7 08/21/2012 Ot E000.8 08/21/2012 Ot E849.0 08/21/2012 Ot E927.0 08/22/2012 Ot 836.2 08/22/2012 Ot 845.00 08/22/2012 Ot 959.7 08/22/2012 Ot E000.8 08/22/2012 Ot E927.0 08/26/2012 GRAY OSPINA DO 070.70 HEPATITIS C, UNSPEC 08/26/2012 LORIN CHILDERS MD 070.70 HEPATITIS C, UNSPEC 08/26/2012 TOM ESPINOSA DO 070.70 HEPATITIS C, UNSPEC 08/26/2012 070.70 HEPATITIS C, UNSPEC 08/26/2012 070.70 HEPATITIS C, UNSPEC 08/26/2012 070.70 HEPATITIS C, UNSPEC 08/26/2012 GRAY OSPINA DO 070.70 HEPATITIS C, UNSPEC 08/26/2012 BROOKS VIDALES APRN 070.70 HEPATITIS C, UNSPEC 08/26/2012 BROOKS VIDALES APRN 070.70 HEPATITIS C, UNSPEC 08/26/2012 BROOKS VIDALES APRN 070.70 HEPATITIS C, UNSPEC 08/26/2012 BROOKS VIDALES APRN 070.70 HEPATITIS C, UNSPEC 08/26/2012 TOM ESPINOSA DO K 070.70 HEPATITIS C, UNSPEC 08/26/2012 TOM ESPINOSA DO K 070.70 HEPATITIS C, UNSPEC 08/26/2012 SHADE HAMPTON JR S 070.70 HEPATITIS C, UNSPEC 08/26/2012 SHADE HAMPTON JR S 070.70 HEPATITIS C, UNSPEC 08/26/2012 SHADE HAMPTON JR S 070.70 HEPATITIS C, UNSPEC 08/26/2012 SHADE HAMPTON JR S 070.70 HEPATITIS C, UNSPEC 08/26/2012 SHADE HAMPTON JR S 070.70 HEPATITIS C, UNSPEC 08/26/2012 SHADE HAMPTON JR S 070.70 HEPATITIS C, UNSPEC 08/26/2012 TOM ESPINOSA DO K 070.70 HEPATITIS C, UNSPEC 08/26/2012 SHADE HAMPTON JR S 070.70 HEPATITIS C, UNSPEC 08/26/2012 SHADE HAMPTON JR S 070.70 HEPATITIS C, UNSPEC 08/26/2012 SHADE HAMPTON JR S 070.70 HEPATITIS C, UNSPEC 11/04/2012 LISETH BOWDEN, LORIN 473.9 UNSPECIFIED SINUSITIS (CHRONIC) 11/04/2012 TOM ESPINOSA DO 473.9 UNSPECIFIED SINUSITIS (CHRONIC) 11/04/2012 473.9 UNSPECIFIED SINUSITIS (CHRONIC) 11/04/2012 473.9 UNSPECIFIED SINUSITIS (CHRONIC) 11/04/2012 473.9 UNSPECIFIED SINUSITIS (CHRONIC) 11/04/2012 GRAY OSPINA DO 473.9 UNSPECIFIED SINUSITIS (CHRONIC) 11/04/2012 BROOKS VIDALES APRN 473.9 UNSPECIFIED SINUSITIS (CHRONIC) 11/04/2012 BROOKS VIDALES APRN 473.9 UNSPECIFIED SINUSITIS (CHRONIC) 11/04/2012 BROOKS VIDALES APRN 473.9 UNSPECIFIED SINUSITIS (CHRONIC) 11/04/2012 BROOKS VIDALES APRN 473.9 UNSPECIFIED SINUSITIS (CHRONIC) 11/04/2012 TOM ESPINOSA DO 473.9 UNSPECIFIED SINUSITIS (CHRONIC) 11/04/2012 TOM ESPINOSA DO 473.9 UNSPECIFIED SINUSITIS (CHRONIC) 11/04/2012 SHADE HAMPTON JR 473.9 UNSPECIFIED SINUSITIS (CHRONIC) 11/04/2012 SHADE HAMPTON JR S 473.9 UNSPECIFIED SINUSITIS (CHRONIC) 11/04/2012 SHADE HAMPTON JR S 473.9 UNSPECIFIED SINUSITIS (CHRONIC) 11/04/2012 SHADE HAMPTON JR S 473.9 UNSPECIFIED SINUSITIS (CHRONIC) 11/04/2012 SHADE HAMPTON JR S 473.9 UNSPECIFIED SINUSITIS (CHRONIC) 11/04/2012 SHADE HAMPTON JR 473.9 UNSPECIFIED SINUSITIS (CHRONIC) 11/04/2012 TOM ESPINOSA DO 473.9 UNSPECIFIED SINUSITIS (CHRONIC) 11/04/2012 SHADE HAMPTON JR 473.9 UNSPECIFIED SINUSITIS (CHRONIC) 11/04/2012 SHADE HAMPTON JR S 473.9 UNSPECIFIED SINUSITIS (CHRONIC) 11/04/2012 SHADE HAMPTON JR S 473.9 UNSPECIFIED SINUSITIS (CHRONIC) 11/30/2012 TOM ESPINOSA DO V15.82 Nicotine abuse 11/30/2012 V15.82 Nicotine abuse 11/30/2012 V15.82 Nicotine abuse 11/30/2012 V15.82 Nicotine abuse 11/30/2012 GRAY OSPINA DO V15.82 Nicotine abuse 11/30/2012 BROOKS VIDALES APRN V15.82 Nicotine abuse 11/30/2012 BROOKS VIDALES APRN V15.82 Nicotine abuse 11/30/2012 BROOKS VIDALSE APRN V15.82 Nicotine abuse 11/30/2012 BROOKS VIDALES APRN V15.82 Nicotine abuse 11/30/2012 TOM ESPINOSA DO V15.82 Nicotine abuse 11/30/2012 TOM ESPINOSA DO V15.82 Nicotine abuse 11/30/2012 SHADE HAMPTON JR V15.82 Nicotine abuse 11/30/2012 MEMO ALICIA SHADE Gonzalez V15.82 Nicotine abuse 11/30/2012 MEMO ALICIA, SHADE Gonzalez V15.82 Nicotine abuse 11/30/2012 MEMO ALICIA, SHADE Gonzalez V15.82 Nicotine abuse 11/30/2012 MEMO ALICIA, SHADE Gonzalez V15.82 Nicotine abuse 11/30/2012 MEMO ALICIA, SHADE Gonzalez V15.82 Nicotine abuse 11/30/2012 TOM ESPINOSA DO V15.82 Nicotine abuse 11/30/2012 MEMO ALICIA, SHADE Gonzalez V15.82 Nicotine abuse 11/30/2012 MEMO ALICIA, SHADE Gonzalez V15.82 Nicotine abuse 11/30/2012 MEMO ALICIA, SHADE Gonzalez V15.82 Nicotine abuse 12/03/2012 Ot 381.10 12/03/2012 Ot 461.9 12/03/2012 Ot 786.2 02/01/2013 MORGAN LOOMIS Ot 724.8 02/01/2013 MORGAN LOOMIS Ot 784.0 02/07/2013 SILVIANO BOWDEN, CHRIS Ot 276.8 02/07/2013 SILVIANO BOWDEN, CHRIS Ot 300.00 02/07/2013 SILVIANO BOWDEN, JENNIFERAAKI Ot 305.1 02/07/2013 SILVIANO BOWDEN, TAKAAKI Ot 305.20 02/07/2013 SILVIANO BOWDEN, JENNIFERAAKI Ot 311 02/07/2013 SILVIANO BOWDEN, TAKAAKI Ot 401.9 02/07/2013 SILVIANO BOWDEN, TAKAAKI Ot 910.0 02/07/2013 SILVIANO BOWDEN, TAKAAKI Ot 911.0 02/07/2013 SILVIANO BOWDEN, TAKAAKI Ot 913.0 02/07/2013 SILVIANO BOWDEN, TAKAAKI Ot 917.0 02/07/2013 SILVIANO BOWDEN, TAKAAKI Ot 923.10 02/07/2013 SILVIANO BOWDEN, TAKAAKI Ot 924.10 02/07/2013 SILVIANO BOWDEN, TAKAAKI Ot 995.81 02/07/2013 SILVIANO BOWDEN, JENNIFERAAKI Ot E000.8 02/07/2013 SILVIANO BOWDEN, JENNIFERAAKI Ot E849.0 02/07/2013 SILVIANO BOWDEN, TAKAAKI Ot E960.0 02/07/2013 SILVIANO BOWDEN, JENNIFERAAKI Ot E967.5 03/13/2013 SHELLEY REYES DO Ot 300.00 05/09/2013 BOBBILUCÍA GRAY Zaynab 296.60 MO BIPOLAR I MIXED UNSPECIFIED 05/09/2013 BROOKS VIDALES APRN 296.60 MO BIPOLAR I MIXED UNSPECIFIED 05/09/2013 BROOKS VIDALES APRN D 296.60 MO BIPOLAR I MIXED UNSPECIFIED 05/09/2013 BROOKS VIDALES APRN D 296.60 MO BIPOLAR I MIXED UNSPECIFIED 05/09/2013 BROOKS VIDALES APRN D 296.60 MO BIPOLAR I MIXED UNSPECIFIED 05/09/2013 ELDA ESPINOSA DOA K 296.60 MO BIPOLAR I MIXED UNSPECIFIED 05/09/2013 FRANCISCA LINK TOM K 296.60 MO BIPOLAR I MIXED UNSPECIFIED 05/09/2013 SHADE HAMPTON JR S 296.60 MO BIPOLAR I MIXED UNSPECIFIED 05/09/2013 SHADE HAMPTON JR S 296.60 MO BIPOLAR I MIXED UNSPECIFIED 05/09/2013 SHADE HAMPTON JR S 296.60 MO BIPOLAR I MIXED UNSPECIFIED 05/09/2013 SHADE HAMPTON JR S 296.60 MO BIPOLAR I MIXED UNSPECIFIED 05/09/2013 SHADE HAMPTON JR S 296.60 MO BIPOLAR I MIXED UNSPECIFIED 05/09/2013 MEMO ALICIA SHADE S 296.60 MO BIPOLAR I MIXED UNSPECIFIED 05/09/2013 ELDA ESPINOSA DOA K 296.60 MO BIPOLAR I MIXED UNSPECIFIED 05/09/2013 SHADE HAMPTON JR S 296.60 MO BIPOLAR I MIXED UNSPECIFIED 05/09/2013 SHADE HAMPTON JR S 296.60 MO BIPOLAR I MIXED UNSPECIFIED 05/09/2013 SHADE HAMPTON JR S 296.60 MO BIPOLAR I MIXED UNSPECIFIED 08/30/2013 YIN BISHOP BELLHOP CAPTAIN Ot 724.5 09/15/2013 ESPINOSA DO TOM K 401.1 HYPERTENSION, BENIGN ESSENTIAL 09/15/2013 ESPINOSA DO TOM K 496 COPD 09/15/2013 ESPINSOA DO TOM K 401.1 HYPERTENSION, BENIGN ESSENTIAL 09/15/2013 ESPINOSA DO TOM K 496 COPD 09/15/2013 SHADE HAMPTON JR S 401.1 HYPERTENSION, BENIGN ESSENTIAL 09/15/2013 SHADE HAMPTON JR 496 COPD 09/15/2013 SHADE HAMPTON JR S 401.1 HYPERTENSION, BENIGN ESSENTIAL 09/15/2013 SHADE HAMPTON JR S 496 COPD 09/15/2013 HAMPTON JR, SHADE S 401.1 HYPERTENSION, BENIGN ESSENTIAL 09/15/2013 HAMPTON JR, SHADE S 496 COPD 09/15/2013 HAMPTON JR, SHADE S 401.1 HYPERTENSION, BENIGN ESSENTIAL 09/15/2013 HAMPTON JR, SHADE S 496 COPD 09/15/2013 HAMPTON JR, SHADE S 401.1 HYPERTENSION, BENIGN ESSENTIAL 09/15/2013 HAMPTON JR, SHADE S 496 COPD 09/15/2013 HAMPTON JR, SHADE S 401.1 HYPERTENSION, BENIGN ESSENTIAL 09/15/2013 HAMPTON JR, SHADE S 496 COPD 09/15/2013 ELDA ESPINOSA DOA K 401.1 HYPERTENSION, BENIGN ESSENTIAL 09/15/2013 ELDA ESPINOSA DOA K 496 COPD 09/15/2013 HAMPTON JR, SHADE S 401.1 HYPERTENSION, BENIGN ESSENTIAL 09/15/2013 MEMO ALICIA, SHDAE S 496 COPD 09/15/2013 HAMPTON JR, SHADE S 401.1 HYPERTENSION, BENIGN ESSENTIAL 09/15/2013 MEMO ALICIA, SHADE S 496 COPD 09/15/2013 HAMPTON , SHADE S 401.1 HYPERTENSION, BENIGN ESSENTIAL 09/15/2013 MEMO ALICIA, SHADE S 496 COPD 10/21/2013 LOGAN BOWDEN, LUCERO Still Ot 724.1 10/21/2013 LOGAN BOWDEN, LUCERO Still Ot 724.5 10/21/2013 LOGAN BOWDEN, LUCERO Still Ot 780.4 10/28/2013 MORGAN LOOMIS Ot 338.29 11/11/2013 TOM ESPINOSA DO K 338.29 OTHER CHRONIC PAIN 11/11/2013 TOM ESPINOSA DO 780.4 DIZZINESS AND GIDDINESS 11/11/2013 SHADE HAMPTON JR S 338.29 OTHER CHRONIC PAIN 11/11/2013 SHADE HAMPTON JR S 780.4 DIZZINESS AND GIDDINESS 11/11/2013 SHADE HAMPTON JR S 338.29 OTHER CHRONIC PAIN 11/11/2013 SHADE HAMPTON JR S 780.4 DIZZINESS AND GIDDINESS 11/11/2013 SHADE HAMPTON JR S 338.29 OTHER CHRONIC PAIN 11/11/2013 SHADE HAMPTON JR S 780.4 DIZZINESS AND GIDDINESS 11/11/2013 SHADE HAMPTON JR S 338.29 OTHER CHRONIC PAIN 11/11/2013 SHADE HAMPTON JR S 780.4 DIZZINESS AND GIDDINESS 11/11/2013 SHADE HAMPTON JR S 338.29 OTHER CHRONIC PAIN 11/11/2013 SHADE HAMPTON JR S 780.4 DIZZINESS AND GIDDINESS 11/11/2013 SHADE HAMPTON JR 338.29 OTHER CHRONIC PAIN 11/11/2013 SHADE HAMPTON JR 780.4 DIZZINESS AND GIDDINESS 11/11/2013 ESPINOSA DOTOM K 338.29 OTHER CHRONIC PAIN 11/11/2013 ESPINOSA DO, TOM K 780.4 DIZZINESS AND GIDDINESS 11/11/2013 SHADE HAMPTON JR 338.29 OTHER CHRONIC PAIN 11/11/2013 SHADE HAMPTON JR 780.4 DIZZINESS AND GIDDINESS 11/11/2013 SHADE HAMPTON JR 338.29 OTHER CHRONIC PAIN 11/11/2013 SHADE HAMPTON JR 780.4 DIZZINESS AND GIDDINESS 11/11/2013 SHADE HAMPTON JR 338.29 OTHER CHRONIC PAIN 11/11/2013 SHADE HAMPTON JR 780.4 DIZZINESS AND GIDDINESS 03/31/2014 DAYDAY BOWDEN, LISETTE T Ot 070.70 03/31/2014 DAYDAY BOWDEN, LISETTE T Ot 300.00 03/31/2014 DAYDAY BOWDEN, LISETTE T Ot 305.1 03/31/2014 DAYDAY BOWDEN, LISETTE T Ot 311 03/31/2014 DAYDAY BOWDEN, LISETTE T Ot 314.01 03/31/2014 DAYDAY BOWDEN, LISETTE T Ot 346.90 03/31/2014 DAYDAY BOWDEN, LISETTE T Ot 412 03/31/2014 DAYDAY BOWDEN, LISETTE T Ot 473.9 03/31/2014 DAYDAY BOWDEN, LISETTE T Ot 586 03/31/2014 DAYDAY BOWDEN, LISETTE T Ot 716.90 03/31/2014 DAYDAY BOWDEN, LISETTE T Ot 786.05 03/31/2014 DAYDAY BOWDEN, LISETTE T Ot 786.2 06/19/2014 SHADE HAMPTON JR 783.1 ABNORMAL WEIGHT GAIN 06/19/2014 SHADE HAMPTON JR V04.81 FLU SHOT 06/19/2014 SHADE HAMPTON JR V15.09 PERSONAL HISTORY OF OTHER ALLERGY OTHER THAN TO MEDICINAL AGENTS 06/19/2014 SHADE HAMPTON JR 783.1 ABNORMAL WEIGHT GAIN 06/19/2014 SHADE HAMPTON JR V04.81 FLU SHOT 06/19/2014 SHADE HAMPTON JR V15.09 PERSONAL HISTORY OF OTHER ALLERGY OTHER THAN TO MEDICINAL AGENTS 06/19/2014 TOM ESPINOSA DO 783.1 ABNORMAL WEIGHT GAIN 06/19/2014 TOM ESPINOSA DO V04.81 FLU SHOT 06/19/2014 TOM ESPINOSA DO V15.09 PERSONAL HISTORY OF OTHER ALLERGY OTHER THAN TO MEDICINAL AGENTS 06/19/2014 SAHDE HAMPTON JR 783.1 ABNORMAL WEIGHT GAIN 06/19/2014 SHADE HAMPTON JR V04.81 FLU SHOT 06/19/2014 SHADE HAMPTON JR V15.09 PERSONAL HISTORY OF OTHER ALLERGY OTHER THAN TO MEDICINAL AGENTS 06/19/2014 SHADE HAMPTON JR 783.1 ABNORMAL WEIGHT GAIN 06/19/2014 SHADE HAMPTON JR V04.81 FLU SHOT 06/19/2014 MEMO JR SHADE Gonzalez V15.09 PERSONAL HISTORY OF OTHER ALLERGY OTHER THAN TO MEDICINAL AGENTS 06/19/2014 MEMO SHADE 783.1 ABNORMAL WEIGHT GAIN 06/19/2014 MEMO JR SHADE Gonzalez V04.81 FLU SHOT 06/19/2014 HAMPTON JR SHADE Gonzalez V15.09 PERSONAL HISTORY OF OTHER ALLERGY OTHER THAN TO MEDICINAL AGENTS 09/01/2014 Ot 959.09 09/01/2014 Ot E000.8 09/01/2014 Ot E849.0 09/01/2014 Ot E888.9 09/01/2014 Ot 844.9 09/01/2014 Ot E000.8 09/01/2014 Ot E849.6 09/01/2014 Ot E888.9 09/01/2014 YIN BISHOP BELLHOP CAPTAIN Ot 724.1 09/01/2014 YIN BISHOP BELLHOP CAPTAIN Ot V12.53 09/01/2014 YIN BISHOP BELLHOP CAPTAIN Ot V58.69 10/19/2014 MEMO ALICIA SHADE Gonzalez 461.9 SINUSITIS ACUTE 10/19/2014 MEMO ALICIA SHADE Gonzalez 786.2 COUGH 10/19/2014 MEMO ALICIA SHADE Gonzalez 461.9 SINUSITIS ACUTE 10/19/2014 SHADE HAMPTON JR 786.2 COUGH 01/10/2015 Ot 959.09 01/10/2015 Ot E000.8 01/10/2015 Ot E849.0 01/10/2015 Ot E888.9 01/10/2015 Ot 844.9 01/10/2015 Ot E000.8 01/10/2015 Ot E849.6 01/10/2015 Ot E888.9 01/12/2015 ABDELRAHMAN DUARTE TILER'S ASSISTANT Ot V76.12 02/09/2015 ABDELRAHMAN DUARTE TILER'S ASSISTANT Ot V76.12 05/02/2015 YIN BISHOP BELLHOP CAPTAIN Ot 719.46 05/02/2015 YIN BISHOP BELLHOP CAPTAIN Ot 844.9 05/02/2015 YIN BISHOP BELLHOP CAPTAIN Ot E000.8 05/02/2015 YIN BISHOP BELLHOP CAPTAIN Ot E927.0 05/04/2015 LOGAN BOWDEN, LUCERO Still Ot 845.10 05/04/2015 LOGAN BOWDEN, LUCERO Still Ot 959.7 05/04/2015 LUCERO FORD MD Ot E000.8 05/04/2015 LOGAN BOWDEN, LUCERO Still Ot E849.0 05/04/2015 LUCERO FORD MD Ot E888.9 05/21/2015 MORGAN LOOMIS Ot 719.06 05/21/2015 MORGAN LOOMIS Ot 719.46 05/21/2015 MORGAN LOOMIS Ot 959.01 05/21/2015 MORGAN LOOMIS Ot E000.8 05/21/2015 MORGAN LOOMIS Ot E888.9 02/20/2016 Ot 719.46 JOINT PAIN-L /LEG 02/20/2016 Ot 959.7 LOWER LEG INJURY NOS 02/20/2016 Ot E000.8 OTHER EXTERNAL CAUSE STATUS 02/20/2016 Ot E849.0 ACCIDENT IN HOME 02/20/2016 Ot E927.0 OVEREXERTION FROM SUDDEN STRENUOUS MOVEM 06/10/2016 DAYDAY BOWDEN, LISETTE Prakash Ot G89.29 OTHER CHRONIC PAIN 06/10/2016 DAYDAY BOWDEN, LISETTE Prakash Ot M54.6 PAIN IN THORACIC SPINE 06/10/2016 LISETTE NAYLOR MD Ot R44.2 OTHER HALLUCINATIONS 06/10/2016 DAYDAY BOWDEN, LISETTE Prakash Ot T21.13XA BURN OF FIRST DEGREE OF UPPER BACK, INIT 06/10/2016 DAYDAY BOWDEN, LISETTE Prakash Ot X19.XXXA CONTACT WITH OTHER HEAT AND HOT SUBSTANC 06/10/2016 LISETTE NAYLOR MD Ot Y92.013 BEDROOM OF SINGLE-FAMILY (PRIVATE) HOUSE 06/10/2016 LISETTE NAYLOR MD Ot Y93.84 ACTIVITY, SLEEPING 06/10/2016 LISETTE NAYLOR MD Ot Y99.8 OTHER EXTERNAL CAUSE STATUS 06/11/2016 LISETTE NAYLOR MD Ot G89.29 OTHER CHRONIC PAIN 06/11/2016 LISETTE NAYLOR MD Ot M54.6 PAIN IN THORACIC SPINE 06/11/2016 LISETTE NAYLOR MD Ot R44.2 OTHER HALLUCINATIONS 06/11/2016 LISETTE NAYLOR MD Ot T21.13XA BURN OF FIRST DEGREE OF UPPER BACK, INIT 06/11/2016 LISETTE NAYLOR MD Ot X19.XXXA CONTACT WITH OTHER HEAT AND HOT SUBSTANC 06/11/2016 LISETTE NAYLOR MD Ot Y92.013 BEDROOM OF SINGLE-FAMILY (PRIVATE) HOUSE 06/11/2016 LISETTE NAYLOR MD Ot Y93.84 ACTIVITY, SLEEPING 06/11/2016 LISETTE NAYLOR MD Ot Y99.8 OTHER EXTERNAL CAUSE STATUS 06/21/2016 Ot 719.46 JOINT PAIN-L /LEG 06/21/2016 Ot 959.7 LOWER LEG INJURY NOS 06/21/2016 Ot E000.8 OTHER EXTERNAL CAUSE STATUS 06/21/2016 Ot E849.0 ACCIDENT IN HOME 06/21/2016 Ot E927.0 OVEREXERTION FROM SUDDEN STRENUOUS MOVEM 07/22/2016 Ot 719.46 JOINT PAIN-L /LEG 07/22/2016 Ot 959.7 LOWER LEG INJURY NOS 07/22/2016 Ot E000.8 OTHER EXTERNAL CAUSE STATUS 07/22/2016 Ot E849.0 ACCIDENT IN HOME 07/22/2016 Ot E927.0 OVEREXERTION FROM SUDDEN STRENUOUS MOVEM 10/22/2016 LUCERO FORD MD Ot R07.9 CHEST PAIN, UNSPECIFIED 10/22/2016 LUCERO FORD MD Ot R10.13 EPIGASTRIC PAIN 10/24/2016 LUCERO FORD MD Ot R07.9 CHEST PAIN, UNSPECIFIED 10/24/2016 LOGAN BOWDEN, LUCERO Still Ot R10.13 EPIGASTRIC PAIN 12/20/2016 Ot 719.46 JOINT PAIN-L /LEG 12/20/2016 Ot 959.7 LOWER LEG INJURY NOS 12/20/2016 Ot E000.8 OTHER EXTERNAL CAUSE STATUS 12/20/2016 Ot E849.0 ACCIDENT IN HOME 12/20/2016 Ot E927.0 OVEREXERTION FROM SUDDEN STRENUOUS MOVEM 04/08/[address] [facility], GUMARO BELLHOP CAPTAIN Ot F31.60 BIPOLAR DISORDER, CURRENT EPISODE MIXED, 04/14/2017 CLAUDETTE, GUMARO T BELLHOP CAPTAIN Ot F31.60 BIPOLAR DISORDER, CURRENT EPISODE MIXED, 05/18/[address] [facility], GUMARO BELLHOP CAPTAIN Ot F31.60 BIPOLAR DISORDER, CURRENT EPISODE MIXED, Procedures Code Description [place] [address] URINE DRUG SCREEN (IN-HOUSE ) 07/29/2012 32428 ROUTINE VENIPUNCTURE 08/26/2012 89849 ROUTINE VENIPUNCTURE 08/26/2012 47148 HIV-STATE LAB 08/26/2012 10238 PT/INR 08/27/2012 46710 PT/INR 08/27/2012 75135 VITAMIN D 25-HYDROXY (D2,D3 , TOTAL) 08/27/2012 98791 VITAMIN D 25-HYDROXY (D2,D3 , TOTAL) 08/27/2012 13088 HIV-STATE [facility] 08/27/2012 64828 HCV PCR W/ GENOTYPE 08/27/2012 21732 HCV QUANTITATIVE RNA BY PCR 09/04/2012 13544 HCV PCR W/ GENOTYPE 09/13/2012 77406 SPIROMETRY 11/30/2012 07962 BRONCHODILATION PRE/POST 11/30/2012 59031 RESPIRATORY FLOW VOLUME LOOP 11/30/2012 73464 ROUTINE VENIPUNCTURE 05/12/2013 96081 CBC 05/12/2013 09412 LIPID PANEL 05/12/2013 74477 CMP 05/12/2013 2613797 GFR CALC (RESULT ONLY) 05/12/2013 G0008 FLU ADMINISTRATION ( MEDICARE ONLY) 09/15/2013 G0008 FLU ADMINISTRATION ( MEDICARE ONLY) 06/19/2014 Results Test Result Range Complete blood count (CBC) with automated white blood cell (WBC) differential - 10/22/16 08:50 Blood leukocytes automated count (number/volume) 12.0 10*3/uL 4.3-11.0 Blood erythrocytes automated count (number/volume) 4.14 10*6/uL 4.35-5.85 Venous blood hemoglobin measurement (mass/volume) 13.4 g/dL 11.5-16.0 Blood hematocrit (volume fraction) 39 % 35-52 Automated erythrocyte mean corpuscular volume 93 [foz_us] 80-99 Automated erythrocyte mean corpuscular hemoglobin (mass per erythrocyte) 32 pg 25-34 Automated erythrocyte mean corpuscular hemoglobin concentration measurement ( mass/volume) 35 g/dL 32-36 Automated erythrocyte distribution width ratio 12.5 % 10.0-14.5 Automated blood platelet count (count/volume) 331 10*3/uL 130-400 Automated blood platelet mean volume measurement 9.2 [foz_us] 7.4-10.4 Automated blood neutrophils/100 leukocytes 75 % 42-75 Automated blood lymphocytes/100 leukocytes 12 % 12-44 Blood monocytes/100 leukocytes 11 % 0-12 Automated blood eosinophils/100 leukocytes 2 % 0-10 Automated blood basophils/100 leukocytes 0 % 0-10 Blood neutrophils automated count (number/volume) 9.0 10*3 1.8-7.8 Blood lymphocytes automated count (number/volume) 1.4 10*3 1.0-4.0 Blood monocytes automated count (number/volume) 1.3 10*3 0.0-1.0 Automated eosinophil count 0.2 10*3/uL 0.0-0.3 Automated blood basophil count (count/volume) 0.0 10*3/uL 0.0-0.1 PT panel in platelet poor plasma by coagulation assay - 10/22/16 08:50 Prothrombin time (PT) in platelet poor plasma by coagulation assay 13.6 s 12.2-14.7 INR in platelet poor plasma or blood by coagulation assay 1.1 0.8-1.4 Activated partial thromboplastin time (aPTT) in platelet poor plasma bycoagulation assay - 10/22/16 08:50 Activated partial thromboplastin time (aPTT) in platelet poor plasma bycoagulation assay 36 s 24-35 Fibrin D-dimer FEU measurement in platelet poor plasma (mass/volume) - 08:50 Fibrin D-dimer FEU measurement in platelet poor plasma (mass/volume) 0.34 ug/mL 0.00-0.49 Comprehensive metabolic panel - 10/22/16 08:50 Serum or plasma sodium measurement (moles/volume) 134 mmol/L 135-145 Serum or plasma potassium measurement (moles/volume) 3.6 mmol/L 3.6-5.0 Serum or plasma chloride measurement (moles/volume) 107 mmol/L 98-107 Carbon dioxide 19 mmol/L 21-32 Serum or plasma anion gap determination (moles/volume) 8 mmol/L 5-14 Serum or plasma urea nitrogen measurement (mass/volume) 9 mg/dL 7-18 Serum or plasma creatinine measurement (mass/volume) 0.71 mg/dL 0.60-1.30 Serum or plasma urea nitrogen/creatinine mass ratio 13 NRG Serum or plasma creatinine measurement with calculation of estimated glomerular filtration rate > NRG Serum or plasma glucose measurement (mass/volume) 114 mg/dL 70-105 Serum or plasma calcium measurement (mass/volume) 8.4 mg/dL 8.5-10.1 Serum or plasma total bilirubin measurement (mass/volume) 0.4 mg/dL 0.1-1.0 Serum or plasma alkaline phosphatase measurement (enzymatic activity/volume) 103 U/L 40-136 Serum or plasma aspartate aminotransferase measurement (enzymatic activity/ volume) 41 U/L 5-34 Serum or plasma alanine aminotransferase measurement (enzymatic activity/volume ) 32 U/L 0-55 Serum or plasma protein measurement (mass/volume) 5.9 g/dL 6.4-8.2 Serum or plasma albumin measurement (mass/volume) 3.6 g/dL 3.2-4.5 Magnesium - 10/22/16 08:50 Magnesium 1.6 mg/dL 1.8-2.4 Serum or plasma troponin i.cardiac measurement (mass/volume) - 10/22/16 08:50 Serum or plasma troponin i.cardiac measurement (mass/volume) < ng/ mL <0.30 Myoglobin, serum - 10/22/16 08:50 Myoglobin, serum 20.3 ng/mL 10.0-92.0 Complete blood count (CBC) with automated white blood cell (WBC) differential - 04/07/17 09:35 Blood leukocytes automated count (number/volume) 9.1 10*3/uL 4.3-11.0 Blood erythrocytes automated count (number/volume) 4.60 10*6/uL 4.35-5.85 Venous blood hemoglobin measurement (mass/volume) 14.7 g/dL 11.5-16.0 Blood hematocrit (volume fraction) 45 % 35-52 Automated erythrocyte mean corpuscular volume 97 [foz_us] 80-99 Automated erythrocyte mean corpuscular hemoglobin (mass per erythrocyte) 32 pg 25-34 Automated erythrocyte mean corpuscular hemoglobin concentration measurement ( mass/volume) 33 g/dL 32-36 Automated erythrocyte distribution width ratio 13.5 % 10.0-14.5 Automated blood platelet count (count/volume) 403 10*3/uL 130-400 Automated blood platelet mean volume measurement 9.1 [foz_us] 7.4-10.4 Automated blood neutrophils/100 leukocytes 66 % 42-75 Automated blood lymphocytes/100 leukocytes 25 % 12-44 Blood monocytes/100 leukocytes 5 % 0-12 Automated blood eosinophils/100 leukocytes 3 % 0-10 Automated blood basophils/100 leukocytes 1 % 0-10 Blood neutrophils automated count (number/volume) 6.1 10*3 1.8-7.8 Blood lymphocytes automated count (number/volume) 2.3 10*3 1.0-4.0 Blood monocytes automated count (number/volume) 0.4 10*3 0.0-1.0 Automated eosinophil count 0.3 10*3/uL 0.0-0.3 Automated blood basophil count (count/volume) 0.1 10*3/uL 0.0-0.1 Hemoglobin A1c - 04/07/17 09:35 Hemoglobin A1c 5.5 % 4.5-6.2 Comprehensive metabolic panel - 04/07/17 09:35 Serum or plasma sodium measurement (moles/volume) 139 mmol/L 135-145 Serum or plasma potassium measurement (moles/volume) 4.6 mmol/L 3.6-5.0 Serum or plasma chloride measurement (moles/volume) 107 mmol/L 98-107 Carbon dioxide 23 mmol/L 21-32 Serum or plasma anion gap determination (moles/volume) 9 mmol/L 5-14 Serum or plasma urea nitrogen measurement (mass/volume) 11 mg/dL 7-18 Serum or plasma creatinine measurement (mass/volume) 0.84 mg/dL 0.60-1.30 Serum or plasma urea nitrogen/creatinine mass ratio 13 NRG Serum or plasma creatinine measurement with calculation of estimated glomerular filtration rate > NRG Serum or plasma glucose measurement (mass/volume) 90 mg/dL 70-105 Serum or plasma calcium measurement (mass/volume) 9.2 mg/dL 8.5-10.1 Serum or plasma total bilirubin measurement (mass/volume) 0.2 mg/dL 0.1-1.0 Serum or plasma alkaline phosphatase measurement (enzymatic activity/volume) 107 U/L 40-136 Serum or plasma aspartate aminotransferase measurement (enzymatic activity/ volume) 17 U/L 5-34 Serum or plasma alanine aminotransferase measurement (enzymatic activity/volume ) 21 U/L 0-55 Serum or plasma protein measurement (mass/volume) 7.0 g/dL 6.4-8.2 Serum or plasma albumin measurement (mass/volume) 3.9 g/dL 3.2-4.5 Lipid 1996 panel - 04/07/17 09:35 Serum or plasma triglyceride measurement (mass/volume) 193 mg/dL <150 Serum or plasma cholesterol measurement (mass/volume) 155 mg/dL < 200 Serum or plasma cholesterol in HDL measurement (mass/volume) 41 mg/ dL 40-60 Cholesterol in LDL [mass/volume] in serum or plasma by direct assay 44 mg/dL 1-129 Serum or plasma cholesterol in VLDL measurement (mass/volume) 39 mg/ dL 5-40 THYROID STIMULATING HORMONE - 04/07/17 09:35 THYROID STIMULATING HORMONE 1.55 u[iU]/mL 0.35-4.94 Serum or plasma thyroxine (T4) free measurement (mass/volume) - 04/07/17 09:35 Serum or plasma thyroxine (T4) free measurement (mass/volume) 0.67 ng/dL 0.70-1.48 PANEL (PROFILE 1) - 01/14/18 10:00 Prescribed Drug 1 Adderall(TM) NRG Creatinine 13.9 mg/dL > or=20.0 pH 7.50 4.5 - 9.0 Oxidant NEGATIVE mcg/mL <200 Amphetamines NEGATIVE ng/mL <500 medMATCH Amphetamines INCONSISTENT NRG Benzodiazepines NEGATIVE ng/mL <100 medMATCH Benzodiazepines INCONSISTENT NRG Marijuana Metabolite NEGATIVE ng/mL <20 medMATCH Marijuana Metab CONSISTENT NRG Cocaine Metabolite NEGATIVE ng/mL <150 medMATCH Cocaine Metab CONSISTENT NRG Opiates NEGATIVE ng/mL <100 medMATCH Opiates CONSISTENT NRG Oxycodone NEGATIVE ng/mL <100 medMATCH Oxycodone CONSISTENT NRG COMMENT NRG Prescribed Drug 2 Valium(TM) NRG Specific [place] 1.006 > or=1.003 Barbiturates NEGATIVE ng/mL <300 medMATCH Barbiturates CONSISTENT NRG Methadone Metabolite NEGATIVE ng/mL <100 medMATCH Methadone Metab CONSISTENT NRG Phencyclidine NEGATIVE ng/mL <25 medMATCH Phencyclidine CONSISTENT NRG PDM - ATS (PROFILE 8 WITH CONFIRMATION) - 04/15/18 09:51 Prescribed Drug 1 Valium(TM) NRG Creatinine 127.5 mg/dL > or=20.0 pH 6.61 4.5 - 9.0 Oxidant NEGATIVE mcg/mL <200 Amphetamines NEGATIVE ng/mL <500 medMATCH Amphetamines INCONSISTENT NRG Benzodiazepines NEGATIVE ng/mL <100 medMATCH Benzodiazepines INCONSISTENT NRG Marijuana Metabolite NEGATIVE ng/mL <20 medMATCH Marijuana Metab CONSISTENT NRG Cocaine Metabolite NEGATIVE ng/mL <150 medMATCH Cocaine Metab CONSISTENT NRG Opiates NEGATIVE ng/mL <100 medMATCH Opiates CONSISTENT NRG Oxycodone NEGATIVE ng/mL <100 medMATCH Oxycodone CONSISTENT NRG COMMENT NRG Buprenorphine NEGATIVE ng/mL <5 MDMA NEGATIVE ng/mL <500 medMATCH MDMA CONSISTENT NRG Alcohol Metabolites NEGATIVE ng/mL <500 medMATCH Alcohol Metab CONSISTENT NRG 6 Acetylmorphine NEGATIVE ng/mL <10 medMATCH 6 Acetylmorphine CONSISTENT NRG Prescribed Drug 2 Adderall(TM) NRG medMATCH Buprenorphine CONSISTENT NRG Encounters ACCT No. Visit Date/Time Discharge Status Pt. Type Provider Facility Loc./Unit Complaint [id number] 01/15/2015 13:22:00 01/15/2015 23:59:59 [facility] Outpatient SHADE HAMPTON JR [id number] 11/13/2014 14:02:00 11/13/2014 23:59:59 CLS Outpatient SHADE HAMPTON JR [id number] 09/04/2014 12:29:00 09/04/2014 23:59:59 CLS Outpatient SHADE HAMPTON JR [id number] 07/14/2014 15:11:00 07/14/2014 23:59:59 CLS Outpatient TOM ESPINOSA DO [id number] 06/19/2014 14:35:00 06/19/2014 23:59:59 CLS Outpatient SHADE HAMPTON JR [id number] 06/19/2014 14:35:00 06/19/2014 23:59:59 CLS Outpatient SHADE HAMPTON JR [id number] 03/06/2014 13:49:00 03/06/2014 23:59:59 CLS Outpatient SHADE HAMPTON JR [id number] 03/06/2014 13:49:00 03/06/2014 23:59:59 CLS Outpatient SHADE HAMPTON JR [id number] 01/02/2014 13:52:00 01/02/2014 23:59:59 CLS Outpatient SHADE HAMPTON JR [id number] 01/02/2014 13:52:00 01/02/2014 23:59:59 CLS Outpatient SHADE HAMPTON JR [id number] 11/11/2013 11:06:00 11/11/2013 23:59:59 CLS Outpatient TOM ESPINOSA DO [id number] 09/15/2013 09:07:00 09/15/2013 23:59:59 CLS Outpatient TOM ESPINOSA DO [id number] 07/19/2013 10:09:00 07/19/2013 23:59:59 CLS Outpatient BROOKS VIDALES APRN [id number] 07/19/2013 10:09:00 07/19/2013 23:59:59 CLS Outpatient BROOKS VIDALES APRN [id number] 06/14/2013 12:35:00 06/14/2013 23:59:59 CLS Outpatient BROOKS VIDALES APRN [id number] 06/14/2013 12:35:00 06/14/2013 23:59:59 CLS Outpatient BROOKS VIDALES APRN [id number] 05/12/2013 10:14:00 05/12/2013 23:59:59 CLS Outpatient GRAY OSPINA DO [id number] 11/30/2012 10:01:00 11/30/2012 23:59:59 CLS Outpatient TOM ESPINOSA DO [id number] 11/04/2012 08:54:00 11/04/2012 23:59:59 CLS Outpatient LORIN CHILDERS MD [id number] 09/02/2012 09:12:00 09/02/2012 23:59:59 CLS Outpatient GRAY OSPINA DO [id number] 08/26/2012 09:39:00 08/26/2012 23:59:59 CLS Outpatient GRAY OSPINA DO [id number] 05/04/2012 17:26:00 05/04/2012 23:59:59 CLS Outpatient GRAY OSPINA DO [id number] 05/09/2013 15:13:00 Document Registration [id number] 03/07/2013 12:00:00 Document Registration [id number] 01/28/2013 12:54:00 Document Registration [id number] 04/07/2017 08:49:00 04/07/2017 23:59:59 CLS Outpatient GUMARO WILKINS [employer] CAPTAIN [facility] LAB F31.60 [id number] 10/22/2016 08:40:00 10/22/2016 11:18:00 DIS Emergency LUCERO FORD MD [facility] ER CHEST PAIN [id number] 06/10/2016 08:29:00 06/10/2016 09:15:00 DIS Emergency LISETTE NAYLOR MD [facility] ER UPPER BACK PAIN [id number] 05/21/2015 12:48:00 05/21/2015 16:55:00 DIS Emergency MORGAN LOOMIS [facility] ER [id number] 05/04/2015 09:41:00 05/04/2015 11:44:00 DIS Emergency LUCERO FORD MD [facility] ER [id number] 05/02/2015 13:46:00 05/02/2015 15:02:00 DIS Emergency YIN BISHOP APRN [facility] ER [id number] 01/10/2015 15:05:00 01/10/2015 23:59:59 CLS Outpatient ABDELRAHMAN DUARTE [facility] RAD [id number] 09/01/2014 11:48:00 09/01/2014 12:55:00 DIS Emergency YIN BISHOP APRN [facility] ER [id number] 03/31/2014 08:42:00 03/31/2014 09:54:00 DIS Emergency LISETTE NAYLOR MD [facility] ER [id number] 01/26/2014 13:55:00 01/26/2014 23:59:59 CLS Outpatient [id number] 10/28/2013 08:47:00 10/28/2013 11:30:00 DIS Emergency MORGAN LOOMIS [facility] ER [id number] 10/21/2013 09:02:00 10/21/2013 10:00:00 DIS Emergency LUCERO FORD MD [facility] ER [id number] 08/30/2013 10:06:00 08/30/2013 11:06:00 DIS Emergency YIN BISHOP APRN [facility] ER [id number] 04/08/2013 10:13:00 04/08/2013 23:59:59 CLS Outpatient [id number] 03/28/2013 13:15:00 03/28/2013 23:59:59 CLS Outpatient [id number] 03/13/2013 11:59:00 03/13/2013 14:40:00 DIS Emergency AMY SHELLEY K [facility] ER [id number] 02/04/2013 23:55:00 02/07/2013 16:00:00 DIS Inpatient CHRIS SHORE MD [facility] SURGICAL [id number] 02/01/2013 12:45:00 02/01/2013 13:38:00 DIS Emergency MORGAN LOOMIS [facility] ER [id number] 09/01/2014 11:49:00 Document Registration [id number] 09/01/2014 11:48:00 Document Registration [id number] 09/01/2014 11:48:00 Document Registration [id number] 09/01/2014 11:48:00 Document Registration [id number] 09/01/2014 11:48:00 Document Registration [id number] 09/01/2014 11:48:00 Document Registration [id number] 09/01/2014 11:48:00 Document Registration [id number] 09/01/2014 11:48:00 Document Registration [id number] 09/01/2014 11:48:00 Document Registration [id number] 09/01/2014 11:48:00 Document Registration [id number] 09/01/2014 11:48:00 Document Registration [id number] 09/01/2014 11:48:00 Document Registration [id number] 12/03/2012 06:41:00 Document Registration [id number] 08/22/2012 18:28:00 Document Registration [id number] 08/21/2012 11:53:00 Document Registration [id number] 08/20/2012 11:58:00 Document Registration [id number] 08/11/2012 11:58:00 Document Registration [id number] 08/09/2012 19:50:00 Document Registration [id number] 06/22/2012 14:22:00 Document Registration [id number] 06/22/2012 07:26:00 Document Registration [id number] 05/14/2012 20:15:00 Document Registration [id number] 04/06/2012 15:24:00 Document Registration [id number] 04/04/2012 07:54:00 Document Registration [id number] 04/03/2012 17:31:00 Document Registration [id number] 03/23/2012 08:46:00 Document Registration [id number] 03/18/2011 11:57:00 Document Registration [id number] 01/07/2011 14:52:00 Document Registration [id number] 09/18/2010 03:41:00 Document Registration [id number] 09/17/2010 06:25:00 Document Registration [id number] 08/06/2010 06:53:00 Document Registration [id number] 07/31/2010 13:18:00 Document Registration [id number] 07/30/2010 20:54:00 Document Registration [id number] 07/29/2010 03:17:00 Document Registration [id number] 07/23/2010 11:17:00 Document Registration [id number] 07/23/2010 10:55:00 Document Registration [id number] 07/16/2010 02:07:00 Document Registration [id number] 07/13/2010 04:56:00 Document Registration [id number] 07/11/2010 06:27:00 Document Registration [id number] 07/10/2010 19:20:00 Document Registration [id number] 07/01/2010 19:56:00 Document Registration [id number] 06/16/2010 03:36:00 Document Registration [id number] 06/14/2010 20:19:00 Document Registration [id number] 06/09/2010 14:45:00 Document Registration [id number] 05/24/2010 14:19:00 Document Registration [id number] 2010 11:46:00 Document Registration [id number] 04/25/2010 22:30:00 Document Registration [id number] 04/15/2010 11:19:00 Document Registration [id number] 04/08/2010 12:04:00 Document Registration [id number] 04/04/2010 04:08:00 Document Registration [id number] 02/18/2010 11:12:00 Document Registration [id number] 02/14/2010 10:12:00 Document Registration [id number] 05/21/2015 23:08:45 ACT Document Registration [id number] 04/15/2018 09:20:00 04/15/2018 23:59:59 [facility] DEBORA PULLIAM APRN [facility] [id number] 04/15/2018 09:20:00 Document Registration [id number] 01/14/2018 09:40:00 Document Registration
--- NOTE | 2018-06-14 11:02 | ED Dyspnea ---
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 Source of Information: Patient Exam Limitations: No Limitations History of Present Illness Date Seen by Provider: Jun 14, 2018 Time Seen by Provider: 10:59 Initial Comments To ER with reports of trouble breathing. She states that her manager is trying to kill her because she is exposing her to mildew. She states that yesterday she felt as though her throat was closing which she doesn't mind if she is unconscious but when she is alert and awake then it really bothers her. Her brother was there and gave her 1.5 of clonidine which completely aborted the issue and she felt fine immediately thereafter. She is concerned she may have survived a heart attack as she is done this before and she is also survived multiorgan failure. Timing/Duration: 24 Hours Severity: Moderate Associated Symptoms: Anxiety Allergies and Home Medications Allergies Coded Allergies: haloperidol (Unverified Allergy, Mild, 04/25/10) risperidone (Unverified Allergy, Mild, 04/25/10) Uncoded Allergies: PYSCHOTROPIC DRUGS (Adverse Reaction, Mild, 04/15/10) Home Medications Diclofenac Sodium 100 Gm Gel..gram., 100 GM TP TID Prescribed by: YIN BISHOP on 05/02/15 1413 Diclofenac Sodium 100 Gm Gel..gram., 4 GM TP TID PRN for PAIN Prescribed by: MORGAN HAYWOOD on 05/21/15 1647 Gabapentin 600 Mg Tab, 1,200 MG PO TID, (Reported) Hyoscyamine Sulfate 0.125 Mg Tablet, 0.125 MG PO Q6H PRN for ABDOMINAL PAIN Prescribed by: LUCERO FORD on 10/22/16 1052 Naproxen 500 Mg Tablet, 1 EACH PO BID FOR PAIN Prescribed by: YIN BISHOP on 09/01/14 1240 Prednisone 10 Mg Tab, 10 MG PO DAILY Prescribed by: LISETTE OJEDA on 06/10/16 0902 [?Med For Nightmares] , , (Reported) Patient Home Medication List Home Medication List Reviewed: Yes Review of Systems Review of Systems Constitutional: see HPI; No chills, No fever EENTM: see HPI Respiratory: see HPI; No cough; short of breath Genitourinary: no symptoms reported Musculoskeletal: no symptoms reported Skin: no symptoms reported Psychiatric/Neurological: No Symptoms Reported Endocrine: No Symptoms Reported Past Rjebqvf-Ykxnzh-Higyxi Hx Patient Social History Alcohol Use: Past History Recreational Drug Use: Yes (MARIJUANA) Type Used: Electronic/Vapor Recent Foreign Travel: No Contact w/Someone Who Travel: No Recent Infectious Disease Expo: No Recent Hopitalizations: No Immunizations Up To Date Tetanus Booster (TDap): Less than 5yrs Date of Pneumonia Vaccine: Jun 12, 2009 Date of Influenza Vaccine: Jul 22, 2013 Seasonal Allergies Seasonal Allergies: No Past Medical History Surgeries: Yes Abdominal Respiratory: Yes COPD Cardiac: Yes (CARDIAC ARREST) Neurological: No 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 No Pertinent Family Hx Physical Exam Vital Signs Vital Signs - First Documented 06/14/18 10:12 Temp 96.5 Pulse 69 Resp 20 B/P (MAP) 140/79 (99) Pulse Ox 100 O2 Delivery Room Air Capillary Refill : Less Than 3 Seconds Height, Weight, BMI Height: 5'9.00" Weight: 200lbs. 6.0oz. 90.045001il; 29.53 BMI Method:Stated General Appearance: No Apparent Distress, WD/WN, Other (patient appears manic speaking and a pressured voice of a high rate of speed) HEENT: PERRL/EOMI, TMs Normal, Normal ENT Inspection, Pharynx Normal Respiratory: Normal Breath Sounds, No Accessory Muscle Use, No Respiratory Distress Cardiovascular: Regular Rate, Rhythm, Normal Peripheral Pulses Gastrointestinal: Normal Bowel Sounds, Non Tender, Soft Extremity: Normal Capillary Refill, Normal Inspection Neurologic/Psychiatric: Alert, Oriented x3 Skin: Normal Color, Warm/Dry Progress/Results/Core Measures Results/Orders My Orders Orders - YIN BISHOP APRN Cbc With Automated Diff (06/14/18 10:58) Basic Metabolic Panel (06/14/18 10:58) Chest 1 View, Ap/Pa Only (06/14/18 10:58) Troponin I (06/14/18 10:58) Vital Signs/I&O 06/14/18 10:12 Temp 96.5 Pulse 69 Resp 20 B/P (MAP) 140/79 (99) Pulse Ox 100 O2 Delivery Room Air Blood Pressure Mean: 99 Departure Impression Primary Impression: Anxiety Disposition: 01 HOME, SELF-CARE Condition: Stable Departure-Patient Inst. Decision time for Depature: 11:02 Referrals: LORIN CHILDERS MD (PCP) Primary Care Physician DEBORA PULLIAM (Family) Primary Care Physician Patient Instructions: Shortness of Breath (Dyspnea) Add. Discharge Instructions: 1. Follow-up with your doctor tomorrow or later this week 2. Return to ER for any concerns All discharge instructions reviewed with patient and/or family. Voiced understanding. YIN BISHOP APRN Jun 14, 2018 11:02
[2018-06-14 11:20] LABS: BASOPHILS # (AUTO) 0.1 10^3/uL (0.0-0.1); BASOPHILS % (AUTO) 1 % (0-10); EOSINOPHILS # (AUTO) 0.2 10^3/uL (0.0-0.3); EOSINOPHILS % (AUTO) 2 % (0-10); HEMATOCRIT 43 % (35-52); HEMOGLOBIN 15.2 G/DL (11.5-16.0); LYMPHOCYTES # (AUTO) 3.1 X 10^3 (1.0-4.0); LYMPHOCYTES % (AUTO) 33 % (12-44); MEAN CORPUSCULAR HEMOGLOBIN 34 PG (25-34); MEAN CORPUSCULAR HGB CONC 36 G/DL (32-36); MEAN CORPUSCULAR VOLUME 95 FL (80-99); MEAN PLATELET VOLUME 9.4 FL (7.4-10.4); MONOCYTES # (AUTO) 0.6 X 10^3 (0.0-1.0); MONOCYTES % (AUTO) 7 % (0-12); NEUTROPHILS # (AUTO) 5.3 X 10^3 (1.8-7.8); NEUTROPHILS % (AUTO) 57 % (42-75); PLATELET COUNT 407 10^3/uL (130-400); RED BLOOD COUNT 4.53 10^6/uL (4.35-5.85); RED CELL DISTRIBUTION WIDTH 13.3 % (10.0-14.5); WHITE BLOOD COUNT 9.2 10^3/uL (4.3-11.0)
[2018-06-14 11:35] LABS: BUN/CREATININE RATIO 22; CALCIUM 9.7 MG/DL (8.5-10.1); CARBON DIOXIDE 23 MMOL/L (21-32); CHLORIDE 104 MMOL/L (98-107); CREATININE SERUM 0.93 MG/DL (0.60-1.30); GFR ESTIMATED > 60; GLUCOSE 96 MG/DL (70-105); POTASSIUM 4.2 MMOL/L (3.6-5.0); SODIUM 137 MMOL/L (135-145)
--- NOTE | 2018-06-14 12:00 | Diagnostic Imaging Report ---
INDICATION: Difficulty breathing, anxiety Portable chest 11:06 AM Heart size and pulmonary vascularity are normal. Lungs are clear. There are no effusions or pneumothoraces. IMPRESSION: Negative chest. Dictated by: Dictated on workstation # [id number]
[2018-06-14 12:10] VITALS: BP 104/88
== END 2018-06-14 12:10 | disposition home or self-care (01) ==
LOC: EDUNIT# 10:01 → ER 10:02
DX: F41.9 Anxiety disorder, unspecified (principal); J44.9 Chronic obstructive pulmonary disease, unspecified; I25.2 Old myocardial infarction; F90.9 Attention-deficit hyperactivity disorder, unspecified type; F32.9 Major depressive disorder, single episode, unspecified; F12.10 Cannabis abuse, uncomplicated; Z88.8 Allergy status to other drugs, medicaments and biological substances; Z79.52 Long term (current) use of systemic steroids; Z90.710 Acquired absence of both cervix and uterus; Z91.5 Personal history of self-harm; Z87.19 Personal history of other diseases of the digestive system
CPT/HCPCS: 36415; 71045; 80048; 84484; 85025; 99282

== ENCOUNTER → 2020-03-13 | Outpatient (CLI) | payer MEDICARE ==
[~2020-03-13] MED LIST changes: -DIAZ5TAB3; +DIAZ5TAB49
--- NOTE | 2020-03-13 15:44 | Diagnostic Imaging Report ---
INDICATION: Postmenopausal female. COMPARISON: 07/12/2001. FINDINGS: AP Spine L2-L4: [BMD (g/cm2): 1.175] [T-Score: -0.2] [Z-Score: 0.7] [BMD Previous: 1.310] [BMD % Change: -10.3] LT Hip Neck: [BMD (g/cm2): 0.873] [T-Score: -1.2] [Z-Score: -0.1] LT Hip Total: [BMD (g/cm2):0.974] [T-Score:-0.3] [Z-Score: 0.5] [BMD Previous: 0.966] [BMD % Change: 0.8] RT Hip Neck: [BMD (g/cm2):0.791] [T-Score:-1.8] [Z-Score:-0.7] RT Hip Total: [BMD (g/cm2):0.912] [T-score:-0.8] [Z-Score:0.0] [BMD Previous:0.964] [BMD % Change:-5.4] *Indicates significant change from prior examination based on 95% confidence level. World Health Organization criteria for BMD interpretation classify patients as Normal (T-score at or above -1.0), Osteopenic (T-score between -1.0 and -2.5) or Osteoporotic (T-score at or below -2.5). LIMITATIONS AND MODIFICATION: None. FRACTURE RISK (FRAX SCORE): The ten year probability of (%): Major Osteoporotic Fracture: [9.7] Hip Fracture: [1.9] IMPRESSION: 1. Osteopenia (Low bone mass). 2. Bone mineral density has decreased since 2000, as detailed above. 3. See below National Osteoporosis Foundation guidelines on when to potentially initiate pharmacologic therapy. Based on the National Osteoporosis Foundation Guidelines, pharmacologic treatment should be initiated in any of the following, unless clinical conditions suggest otherwise: * Any patient with prior fragility fracture of the hip or vertebrae. A spine fracture indicates 5X risk for subsequent spine fracture and 2X risk for subsequent hip fracture. * Osteoporosis (T-score <-2.5). * Postmenopausal women and men age 50 and older with low bone mass/osteopenia (T-score between -1.0 and -2.5) by DXA and 10-year major osteoporotic fracture greater than 20% or a 10-year probability of hip fracture greater than 3%. These fracture risks are supplied above in the FRAX score, if applicable. * Clinician judgement and/or patient preferences may indicate treatment for people with 10-year fracture probabilities above or below these levels. Dictated by: Dictated on workstation # [id number]
== END ==
LOC: RAD 13:44
PROVIDERS: ATTEND Obstetrics & Gynecology
DX: M85.89 Other specified disorders of bone density and structure, multiple sites (principal); E53.9 Vitamin B deficiency, unspecified; R79.89 Other specified abnormal findings of blood chemistry; Z78.0 Asymptomatic menopausal state
CPT/HCPCS: 77080

== ENCOUNTER → 2020-04-19 | Outpatient (CLI) | payer MEDICARE ==
--- NOTE | 2020-04-19 20:48 | Diagnostic Imaging Report ---
INDICATION: Screening. At this time there are no current complaints. EXAMINATION: Bilateral digital screening mammogram with CAD. 3D tomographic images were obtained and reviewed. The current study was also evaluated with a Computer Aided Detection (CAD) system. COMPARISON: This study was compared to the prior exam of 01/10/2015. FINDINGS: The fibroglandular tissue in both breasts is heterogeneously dense. This does limit the sensitivity of this exam. In the interval since the prior exam a benign appearing 6 mm nodule has developed in the 8 o'clock position of the left breast approximately 6 cm from the nipple. The tomographic images show that this nodule has a fairly smooth border and this may well represent a benign process. Even so, I would recommend that ultrasound be performed to better evaluate this finding. The overall appearance of breasts has not changed significantly. There is no primary or secondary sign of malignancy noted otherwise. IMPRESSION: Ultrasound would be recommended for further evaluation of the newly developed nodule in the inferomedial aspect of the left breast. ACR BI-RADS Category 0: Incomplete. (Needs additional imaging evaluation). Result letter will be mailed to the patient. Note: At least 10% of breast cancer is not imaged by mammography. Dictated by: Dictated on workstation # [id number]
== END ==
LOC: RAD 08:00
PROVIDERS: ATTEND Obstetrics & Gynecology
DX: Z12.31 Encounter for screening mammogram for malignant neoplasm of breast (principal); N63.24 Unspecified lump in the left breast, lower inner quadrant
CPT/HCPCS: 77063; 77067

== ENCOUNTER → 2020-04-26 | Outpatient (CLI) | payer MEDICARE ==
--- NOTE | 2020-04-26 12:10 | Diagnostic Imaging Report ---
INDICATION: Left breast nodule. Correlation is made with screening mammogram from 04/19/2020. Sonographic interrogation of the lower inner left breast was performed. There is a slightly lobulated mixed solid and cystic nodule at the 8:00 location of the left breast, 3 cm from the nipple. This measures 7 mm x 5 mm x 7 mm. This likely accounts for the mammographic density. No internal vascularity is present. No other abnormalities are seen. IMPRESSION: BI-RADS Category 4 Lobulated hypoechoic nodule 8:00 location of the left breast, 3 cm from the nipple corresponding to the mammographic density. This is indeterminate. Tissue sampling is recommended. This would be amenable to ultrasound-guided core biopsy. ACR BI-RADS Category 4: Suspicious abnormality. Result letter will be mailed to the patient. Note: At least 10% of breast cancer is not imaged by mammography. Dictated by: Dictated on workstation # [id number]
== END ==
LOC: RAD 10:35
PROVIDERS: ATTEND Obstetrics & Gynecology
DX: N63.24 Unspecified lump in the left breast, lower inner quadrant (principal)
CPT/HCPCS: 76642

== ENCOUNTER → 2020-05-04 | Outpatient (CLI) | payer MEDICARE ==
[~2020-05-04] VITALS: Ht 175.3 cm; Wt 104.5 kg
[~2020-05-04] MED LIST changes: +LIDOCAINE 1% INJ 20 ML 20 ML VIAL INJ ONE; +LIDOCAINE 1% INJ 20 ML 20 ML VIAL ONE
--- NOTE | 2020-05-04 11:04 | Diagnostic Imaging Report ---
INDICATION: Left breast nodule. Patient status post left breast ultrasound-guided biopsy. Unilateral left 2-D CC and mediolateral mammography was performed. A marker clip in the slightly medial left breast at mid depth is noted, status post biopsy. IMPRESSION: Marker clip located in the lower and slightly medial left breast, status post biopsy. Results are currently pending. Dictated by: Dictated on workstation # [id number]
--- NOTE | 2020-05-04 11:09 | Diagnostic Imaging Report ---
INDICATION: Left breast nodule. Patient presents for ultrasound-guided biopsy. Patient brought to the sonographic suite placed on table in the supine position. Ultrasound imaging of the left breast was performed to evaluate appropriate entry site. The left breast was then prepped and draped in usual sterile fashion. Small amount of 1% lidocaine was utilized for local anesthesia. The 13-gauge hand-held vacuum-assisted mammotome device was advanced and placed with its biopsy chamber along the inferior surface of the nodule at the 6-8 o'clock location of the left breast, 3 cm from the nipple. Multiple core biopsies were obtained. A marker clip was then deployed. Hemostasis was obtained using manual compression. Patient tolerated procedure well. The patient obtained a post procedure mammogram. Patient left the department in stable condition. IMPRESSION: Successful ultrasound guided core biopsy of the hypoechoic nodule in the 6-8 o'clock location of the left breast, 3 cm from the nipple. Pathology results are currently pending. Dictated by: Dictated on workstation # [id number]
== END ==
LOC: RAD 08:40
PROVIDERS: ATTEND Obstetrics & Gynecology
DX: N63.24 Unspecified lump in the left breast, lower inner quadrant (principal); R92.8 Other abnormal and inconclusive findings on diagnostic imaging of breast; Z98.890 Other specified postprocedural states
CPT/HCPCS: 19083; 77065; A4648; G0279

== ENCOUNTER 2022-01-01 12:31 | Emergency (ER) | payer MEDICARE ==
[~2022-01-01] VITALS: Ht 175 cm; Wt 77.0 kg
[~2022-01-01 12:31] MED LIST changes: -DICL20GE TP
[2022-01-01 12:40] VITALS: BP 149/77
--- NOTE | 2022-01-01 13:06 | ED Upper Extremity ---
General Chief Complaint: Upper Extremity Stated Complaint: R HAND PAIN Nursing Triage Note: ARRIVED VIA AMB TO [facility] WITH COMPLAINTS OF BILAT HAND PAIN. NON INJURY. Source: patient Exam Limitations: no limitations (NIDA GLEASON APRN) History of Present Illness Date Seen by Provider: Jan 01, 2022 Time Seen by Provider: 12:51 Initial Comments This is a 66-year-old female who presented to the ER via POV with complaints of bilateral hand and wrist pain every since she started moving. States that she has been having increasing pain and "cannot take anymore". Has not taken anything for pain. Describes as aching in nature and worse after extensive activity. Denies any numbness, tingling, loss of sensation. (NIDA GLEASON APRN) Allergies and Home Medications Allergies Coded Allergies: haloperidol (Unverified Allergy, Mild, 04/25/10) risperidone (Unverified Allergy, Mild, 04/25/10) Uncoded Allergies: PYSCHOTROPIC DRUGS (Adverse Reaction, Mild, 04/15/10) Patient Home Medication List Home Medication List Reviewed: Yes (NIDA GLEASON APRN) Baclofen (Baclofen) 10 Mg Tablet, (Reported) Entered as Reported by: JONEL RIVAS on 06/10/16 0842 Cane (Cane) 1 Each Each, 1 EACH MC PRN PRN for PAIN, (DME) Prescribed by: MORGAN HAYWOOD on 05/21/15 1647 Dextroamphetamine/Amphetamine (Amphetamine Salts 10 mg Tablet) 10 Mg Tablet, (Reported) Entered as Reported by: JONEL RIVAS on 06/10/16 0843 Diazepam (Diazepam) 5 Mg Tablet, (Reported) Entered as Reported by: JONEL RIVAS on 06/10/16 0842 Diclofenac Sodium (Voltaren) 100 Gm Gel..gram., 100 GM TP TID Prescribed by: YIN BISHOP on 05/02/15 1413 Diclofenac Sodium (Voltaren) 100 Gm Gel..gram., 4 GM TP TID PRN for PAIN Prescribed by: MORGAN HAYWOOD on 05/21/15 1647 Diclofenac Sodium (Voltaren Arthritis Pain) 20 Gm Gel..gram., 1 APPLIC TP QID Prescribed by: NIDA GLEASON on 01/01/22 1309 Gabapentin (Neurontin) 600 Mg Tab, 1,200 MG PO TID, (Reported) Entered as Reported by: ENRIQUE LOPEZ on 02/04/13 214 Hyoscyamine Sulfate (Levsin) 0.125 Mg Tablet, 0.125 MG PO Q6H PRN for ABDOMINAL PAIN Prescribed by: LUCERO FORD on 10/22/16 1052 Naproxen (Naprosyn) 500 Mg Tablet, 1 EACH PO BID Prescribed by: YIN BISHOP on 09/01/14 1240 Prednisone (Prednisone) 10 Mg Tab, 10 MG PO DAILY Prescribed by: LISETTE OJEDA on 06/10/16 0902 [?Med For Nightmares] , HS, (Reported) Entered as Reported by: ORLIN MÉNDEZ on 05/21/15 1519 Review of Systems Constitutional: no symptoms reported Musculoskeletal: see HPI Skin: no symptoms reported (NIDA GLEASON APRN) Past Tgkvhnb-Gdqzvb-Wtlwlz Hx Patient Social History Tobacco Use?: Yes Smoking Status: Current Everyday Smoker Smokeless Tobacco Frequency: Current Everyday User Use of E-Cig and/or Vaping Elie: Current Everyday User Substance use?: No Additional substance use comme: PAST HX Alcohol Use?: No (NIDA GLEASON APRN) Immunizations Up To Date Tetanus Booster (TDap): Less than 5yrs First/Initial COVID19 Vaccinat: UNKNOWN COVID19 Vaccine 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 (NIDA GLEASON APRN) Seasonal Allergies Seasonal Allergies: No (NIDA GLEASON APRN) Past Medical History Surgeries: Yes Abdominal Respiratory: Yes COPD Cardiac: Yes (CARDIAC ARREST) Neurological: No 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 No Pertinent Family Hx (NIDA GLEASON APRN) Physical Exam Vital Signs Vital Signs - First Documented 01/01/22 12:40 Temp 36.9 Pulse 102 Resp 16 B/P (MAP) 149/77 (101) Pulse Ox 97 O2 Delivery Room Air (LISETTE NAYLOR MD) Vital Signs Capillary Refill : Less Than 3 Seconds (NIDA GLEASON METER CHANGES RECORDS CLERK) Height, Weight, BMI Height: 5'9.00" Weight: 200lbs. 6.0oz. 90.071610vr; 25.00 BMI Method:Stated General Appearance: WD/WN, no apparent distress Neck: full range of motion, normal inspection Cardiovascular: regular rate, rhythm, no murmur Respiratory: lungs clear, normal breath sounds Elbow/Forearm: normal inspection, non-tender, no evidence of injury, normal ROM Wrist: Yes normal inspection, Yes non-tender, Yes no evidence of injury, Yes normal ROM Hand: normal inspection, non-tender, no evidence of injury, normal ROM, Bilateral (erick nodes ) Neurologic/Tendon: normal sensation, normal motor functions, normal tendon functions Neurologic/Psychiatric: no motor/sensory deficits, alert, normal mood/affect, oriented x 3 Skin: normal color, warm/dry (NIDA GLEASON APRN) Progress/Results/Core Measures Results/Orders Blood Pressure Mean: 101 Progress Progress Note : Progress Note Patient examined in no acute distress. While in exam room she is rapidly talking about moving, her landlord, her sister, multiple other off-topic subjects. Attempted multiple times to redirect her to problem at hand. HPI difficult to obtain. However offered to give her a prescription for Voltaren gel as she does not taking oral medications. She is agreeable to try this and have follow up wit PCP. (NIDA GLEASON METER CHANGES RECORDS CLERK) Departure Impression Primary Impression: Acute arthritis Disposition: 01 HOME, SELF-CARE Condition: Stable Departure-Patient Inst. Decision time for Depature: 13:07 (NIDA GLEASON METER CHANGES RECORDS CLERK) Referrals: [facility] (PCP) Primary Care Physician DEBORA PULLIAM (Family) Primary Care Physician Patient Instructions: Osteoarthritis (DC) Add. Discharge Instructions: Plan: 1. May use Tylenol as needed for pain per package. 2. Apply thin layer of Voltaren gel as directed. Do not use more than directed. 3. Return for any new, concerning, or worsening symptoms. 4. Follow up with your doctor next week for persistent symptoms. All discharge instructions reviewed with patient and/or family. Voiced understanding. Scripts Diclofenac Sodium (Voltaren Arthritis Pain) 20 Gm Gel..gram. 1 APPLIC TP QID for 14 Days, #20 GM 0 Refills Prov: NIDA GLEASON METER CHANGES RECORDS CLERK 01/01/22 ATTENDING PHYSICIAN NOTE: I was physically present as attending physician in the emergency department during the care of this patient, but I was not directly involved in the decision making or delivery of care for this patient. (LISETTE NAYLOR MD) NIDA GLEASON METER CHANGES RECORDS CLERK Jan 01, 2022 13:06 LISETTE NAYLOR MD Jan 04, 2022 06:44
[2022-01-01] MEDS ORDERED: DICL20GE TP (13:09)
== END 2022-01-01 13:11 | disposition home or self-care (01) ==
LOC: EDUNIT# 12:31 → ER 12:32
DX: M19.042 Primary osteoarthritis, left hand (principal); M19.041 Primary osteoarthritis, right hand; F17.290 Nicotine dependence, other tobacco product, uncomplicated
CPT/HCPCS: 99285

== ENCOUNTER → 2022-01-01 | Outpatient (CLI) | payer MEDICARE ==
[~2022-01-01] MED LIST changes: -CANE1EAC26 MC; +CANE1EAC44 MC; +DICL20GE TP; -LIDOCAINE 1% INJ 20 ML 20 ML VIAL INJ ONE; -LIDOCAINE 1% INJ 20 ML 20 ML VIAL ONE
--- NOTE | 2022-01-01 13:46 | Diagnostic Imaging Report ---
INDICATION: Routine screening. COMPARISON: 04/19/2020 and 01/10/2015. TECHNIQUE: 2D and 3D bilateral screening mammography was performed with CAD. FINDINGS: Both breasts are heterogeneously dense, limiting the sensitivity of mammography. A biopsy marker clip in the medial left breast is noted. Benign-appearing nodules in the retroareolar right breast appear stable. No dominant mass or malignant-appearing microcalcifications are seen. The axillae are unremarkable. IMPRESSION: No mammographic features suspicious for malignancy are identified. ACR BI-RADS Category 2: Benign findings. Result letter will be mailed to the patient. Note: At least 10% of breast cancer is not imaged by mammography. Dictated by: Dictated on workstation # [id number]
== END ==
LOC: RAD 12:04
PROVIDERS: ATTEND Surgery
DX: Z12.31 Encounter for screening mammogram for malignant neoplasm of breast (principal)
CPT/HCPCS: 77063; 77067

== ENCOUNTER 2022-06-23 12:36 | Emergency (ER) | payer MEDICARE ==
[~2022-06-23] VITALS: Ht 175 cm; Wt 88.9 kg
[~2022-06-23 12:36] MED LIST changes: +DICL20GE TP
[2022-06-23] MEDS ORDERED: clonazePAM 1 MG (KlonoPIN) TAB PO ONE (13:00)
[2022-06-23] MEDS ORDERED: LACTATED RINGERS 1,000 ML IV ONE (13:00)
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
[2022-06-23 13:26] LABS: BASOPHILS # (AUTO) 0.1 10^3/uL (0.0-0.1); BASOPHILS % (AUTO) 1 % (0-10); EOSINOPHILS # (AUTO) 0.3 10^3/uL (0.0-0.3); EOSINOPHILS % (AUTO) 3 % (0-10); HEMATOCRIT 45 % (35-52); HEMOGLOBIN 14.8 g/dL (11.5-16.0); LYMPHOCYTES # (AUTO) 2.2 10^3/uL (1.0-4.0); LYMPHOCYTES % (AUTO) 28 % (12-44); MEAN CORPUSCULAR HEMOGLOBIN 33 pg (25-34); MEAN CORPUSCULAR HGB CONC 33 g/dL (32-36); MEAN CORPUSCULAR VOLUME 99 fL (80-99); MONOCYTES # (AUTO) 0.6 10^3/uL (0.0-1.0); MONOCYTES % (AUTO) 8 % (0-12); NEUTROPHILS # (AUTO) 4.7 10^3/uL (1.8-7.8); NEUTROPHILS % (AUTO) 60 % (42-75); PLATELET COUNT 421 10^3/uL (130-400); WHITE BLOOD COUNT 7.9 10^3/uL (4.3-11.0)
[2022-06-23 13:38] LABS: ALBUMIN 4.1 GM/DL (3.2-4.5); CHLORIDE 108 MMOL/L (98-107); POTASSIUM 3.9 MMOL/L (3.6-5.0); SODIUM 140 MMOL/L (135-145)
[2022-06-23 13:39] LABS: CALCIUM 9.6 MG/DL (8.5-10.1)
[2022-06-23 13:41] LABS: GLUCOSE 94 MG/DL (70-105); TOTAL PROTEIN 7.1 GM/DL (6.4-8.2)
[2022-06-23 13:42] LABS: BILIRUBIN,TOTAL 0.2 MG/DL (0.1-1.0); CARBON DIOXIDE 24 MMOL/L (21-32)
[2022-06-23 13:44] LABS: ALKALINE PHOSPHATASE 94 U/L (40-136); GFR ESTIMATED 82
--- NOTE | 2022-06-23 13:44 | Diagnostic Imaging Report ---
INDICATION: Increased agitation, altered mental status, paranoia, her loss, increased weight loss.. TECHNIQUE: Single view chest 1:30 PM. CORRELATION STUDY: 06/14/2018 FINDINGS: The heart size, mediastinal configuration and pulmonary vascularity are within normal limits. The lungs are clear with no consolidating infiltrate. There is no significant effusion or pneumothorax. IMPRESSION: 1. Negative appearing single view chest. Dictated by: Dictated on workstation # [id number]
[2022-06-23 13:46] LABS: ACETAMINOPHEN < 10 UG/ML (10-30); BUN/CREATININE RATIO 23
[2022-06-23 13:47] LABS: ALANINE AMINOTRANSFERASE 43 U/L (0-55); SALICYLATE < 5.0 MG/DL (5.0-20.0)
[2022-06-23 13:48] LABS: CREATINE KINASE 70 U/L (29-168)
[2022-06-23] MEDS ORDERED: KETOROLAC 30 MG/ML VIAL IVP ONE (16:00)
[2022-06-23] MEDS ORDERED: NS IV 1000 ML 1,000 ML IV SCH (16:00)
[2022-06-23 16:47] VITALS: BP 134/102
[2022-06-23 16:48] LABS: BILIRUBIN,URINE NEGATIVE (NEGATIVE); CLARITY,URINE CLEAR; COLOR,URINE YELLOW; GLUCOSE, URINE (UA) NEGATIVE (NEGATIVE); KETONES,URINE NEGATIVE (NEGATIVE); LEUKOCYTE ESTERASE ,URINE NEGATIVE (NEGATIVE); NITRITE,URINE NEGATIVE (NEGATIVE); PH,URINE 5.5 (5-9); PROTEIN,URINE NEGATIVE (NEGATIVE)
[2022-06-23 17:02] LABS: AMPHETAMINE SCREEN, URINE POSITIVE (NEGATIVE); BARBITURATE SCREEN URINE NEGATIVE (NEGATIVE); BENZODIAZEPINES SCREEN URINE NEGATIVE (NEGATIVE); CANNABINOID SCREEN, URINE POSITIVE (NEGATIVE); COCAINE SCREEN URINE NEGATIVE (NEGATIVE); METHADONE STAT NEGATIVE (NEGATIVE); OPIATE SCREEN URINE NEGATIVE (NEGATIVE); OXYCODONE STAT NEGATIVE (NEGATIVE); PROPOXYPHENE STAT NEGATIVE (NEGATIVE); TRICYCLIC ANTIDEPRESSANTS SCRE POSITIVE (NEGATIVE)
[2022-06-23 17:03] LABS: BACTERIA,URINE NEGATIVE /HPF
[2022-06-23 17:04] LABS: SQUAMOUS EPITHELIAL CELL,UR 0-2 /HPF
== END 2022-06-23 16:47 | disposition home or self-care (01) ==
LOC: EDUNIT# 12:36 → ER 12:37
DX: F30.2 Manic episode, severe with psychotic symptoms (principal); R20.2 Paresthesia of skin; F17.210 Nicotine dependence, cigarettes, uncomplicated
CPT/HCPCS: 71045; 80053; 80306; 81000; 82550; 84443; 85025; 93005; 99284; G0480 ×3; 36415; 80320; 80329; 96361; 96374

== ENCOUNTER 2022-07-06 23:04 | Emergency (ER) | payer MEDICARE ==
[2022-07-06 23:05] VITALS: BP 145/80
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
[2022-07-06] MEDS ORDERED: ZIPRASIDONE 20 MG INJ (GEODON) VIAL IM ONE ×2 (23:15→23:45)
[2022-07-06] MEDS ORDERED: WATER (STERILE) FOR INJ 10 ML BTL INJ SCH ×2 (23:15→23:45)
== END 2022-07-06 23:56 | disposition left against medical advice (07) ==
LOC: EDUNIT# 23:04 → ER 23:06
DX: R65.10 Systemic inflammatory response syndrome (SIRS) of non-infectious origin without acute organ dysfunction (principal)
CPT/HCPCS: 96372; 99283

== ENCOUNTER 2022-09-23 05:44 | Emergency (ER) | payer MEDICARE ==
[~2022-09-23] VITALS: Ht 175 cm; Wt 89.0 kg
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
[2022-09-23] MEDS ORDERED: OLANZapine 5 MG ODT (ZyPREXA ZYDIS) PO ONE (06:45)
[2022-09-23 06:58] LABS: BASOPHILS # (AUTO) 0.1 10^3/uL (0.0-0.1); BASOPHILS % (AUTO) 1 % (0-10); EOSINOPHILS # (AUTO) 0.2 10^3/uL (0.0-0.3); EOSINOPHILS % (AUTO) 2 % (0-10); HEMATOCRIT 40 % (35-52); HEMOGLOBIN 13.3 g/dL (11.5-16.0); LYMPHOCYTES # (AUTO) 1.8 10^3/uL (1.0-4.0); LYMPHOCYTES % (AUTO) 22 % (12-44); MEAN CORPUSCULAR HEMOGLOBIN 32 pg (25-34); MEAN CORPUSCULAR HGB CONC 33 g/dL (32-36); MEAN CORPUSCULAR VOLUME 97 fL (80-99); MEAN PLATELET VOLUME 9.2 fL (9.0-12.2); MONOCYTES # (AUTO) 0.6 10^3/uL (0.0-1.0); MONOCYTES % (AUTO) 7 % (0-12); NEUTROPHILS # (AUTO) 5.6 10^3/uL (1.8-7.8); NEUTROPHILS % (AUTO) 68 % (42-75); PLATELET COUNT 347 10^3/uL (130-400); WHITE BLOOD COUNT 8.2 10^3/uL (4.3-11.0)
[2022-09-23 07:03] VITALS: BP 121/79
[2022-09-23 07:11] LABS: ALBUMIN 3.9 GM/DL (3.2-4.5); CHLORIDE 107 MMOL/L (98-107); SODIUM 140 MMOL/L (135-145)
[2022-09-23 07:12] LABS: CALCIUM 9.4 MG/DL (8.5-10.1)
[2022-09-23 07:13] LABS: GLUCOSE 106 MG/DL (70-105)
[2022-09-23 07:14] LABS: TOTAL PROTEIN 6.6 GM/DL (6.4-8.2)
[2022-09-23 07:15] LABS: BILIRUBIN,TOTAL 0.5 MG/DL (0.1-1.0); CARBON DIOXIDE 25 MMOL/L (21-32)
[2022-09-23 07:17] LABS: ALKALINE PHOSPHATASE 89 U/L (40-136); CREATININE SERUM 0.74 MG/DL (0.60-1.30); GFR ESTIMATED 90
[2022-09-23 07:19] LABS: BUN/CREATININE RATIO 27
[2022-09-23 07:20] LABS: ALANINE AMINOTRANSFERASE 48 U/L (0-55); SALICYLATE < 5.0 MG/DL (5.0-20.0)
[2022-09-23 07:24] LABS: ACETAMINOPHEN < 10 UG/ML (10-30)
== END 2022-09-23 07:05 | disposition home or self-care (01) ==
LOC: EDUNIT# 05:44 → ER 05:46
DX: F22 Delusional disorders (principal)
CPT/HCPCS: 80053; 85025; 93005; 99283; G0480 ×3; 36415; 80320; 80329

== ENCOUNTER 2023-01-15 14:15 | Emergency (ER) | payer MEDICARE ==
[~2023-01-15] VITALS: Ht 175.2 cm; Wt 89.0 kg
[2023-01-15] MEDS ORDERED: NS IV 1000 ML 1,000 ML IV STA (14:25)
--- NOTE | 2023-01-15 14:29 | ED General ---
General Stated Complaint: SOB | WEAKNESS Source of Information: Patient Exam Limitations: No Limitations History of Present Illness Date Seen by Provider: Jan 15, 2023 Time Seen by Provider: 14:26 Initial Comments Patient is a 67-year-old female who has a history of cardiac arrest, mental health who presents ED by EMS for short of breath, cough, weakness and dizziness. She states symptoms started this morning. EMS was contacted states that she was currently at the [facility] in a room. According to EMS she broke into her room. She states she has been coughing some today with sputum production. She has some shortness of breath with generalized weakness. Has not eaten in 5 days. She states she does smoke daily and has been smoking marijuana. Denies any alcohol use or other drug use. She denies chest pain, abdominal pain, headache, visual changes. She states she feels dehydrated. She states her urine looks dark. She denies fever, visual changes, unilateral muscle weakness or sensory changes, vomiting, diarrhea, dysuria or hematuria. Allergies and Home Medications Allergies Coded Allergies: haloperidol (Unverified Allergy, Mild, 04/25/10) risperidone (Unverified Allergy, Mild, 04/25/10) Uncoded Allergies: PYSCHOTROPIC DRUGS (Adverse Reaction, Mild, 04/15/10) Patient Home Medication List Home Medication List Reviewed: Yes Albuterol Sulfate (Ventolin Hfa) 1 Puff Puff, 2 PUFF INH Q4H Prescribed by: AUDREY SAVAGE on 01/15/23 1548 Azithromycin (Azithromycin) 250 Mg Tablet, 250 MG PO UD Prescribed by: AUDREY SAVAGE on 01/15/23 1548 Baclofen (Baclofen) 10 Mg Tablet, (Reported) Entered as Reported by: JONEL RIVAS on 06/10/16 0842 Cane (Cane) 1 Each Each, 1 EACH MC PRN PRN for PAIN, (DME) Prescribed by: MORGAN HAYWOOD on 05/21/15 1647 Dextroamphetamine/Amphetamine (Amphetamine Salts 10 mg Tablet) 10 Mg Tablet, (Reported) Entered as Reported by: JONEL RIVAS on 06/10/16 0843 Diazepam (Diazepam) 5 Mg Tablet, (Reported) Entered as Reported by: JONEL RIVAS on 06/10/16 0842 Diclofenac Sodium (Voltaren) 100 Gm Gel..gram., 100 GM TP TID Prescribed by: YIN BISHOP on 05/02/15 1413 Diclofenac Sodium (Voltaren) 100 Gm Gel..gram., 4 GM TP TID PRN for PAIN Prescribed by: MORGAN HAYWOOD on 05/21/15 1647 Diclofenac Sodium (Voltaren Arthritis Pain) 20 Gm Gel..gram., 1 APPLIC TP QID Prescribed by: NIDA GLEASON on 01/01/22 1309 Gabapentin (Neurontin) 600 Mg Tab, 1,200 MG PO TID, (Reported) Entered as Reported by: ENRIQUE LOPEZ on 02/04/13 2147 Hyoscyamine Sulfate (Levsin) 0.125 Mg Tablet, 0.125 MG PO Q6H PRN for ABDOMINAL PAIN Prescribed by: LUCERO FORD on 10/22/16 1052 Naproxen (Naprosyn) 500 Mg Tablet, 1 EACH PO BID Prescribed by: YIN BISHOP on 09/01/14 1240 Prednisone (Prednisone) 10 Mg Tab, 10 MG PO DAILY Prescribed by: LISETTE OJEDA on 06/10/16 0902 Prednisone (Prednisone) 20 Mg Tab, 40 MG PO DAILY Prescribed by: AUDREY SAVAGE on 01/15/23 1548 [?Med For Nightmares] , HS, (Reported) Entered as Reported by: ORLIN MÉNDEZ on 05/21/15 1519 Review of Systems Review of Systems Constitutional: No chills, No diaphoresis; malaise, weakness EENTM: No hearing loss, No blurred vision, No double vision Respiratory: cough, short of breath Cardiovascular: No chest pain Gastrointestinal: No abdominal pain, No diarrhea, No nausea, No vomiting Genitourinary: No decreased output, No discharge Musculoskeletal: No back pain, No joint pain Skin: No change in color, No change in hair/nails All Other Systems Reviewed Negative Unless Noted: Yes Past Oqvvncl-Uibjdm-Fqtvhe Hx Immunizations Up To Date Tetanus Booster (TDap): Less than 5yrs First/Initial COVID19 Vaccinat: UNKNOWN Second COVID19 Vaccination Eleno: UNKNOWN Third COVID19 Vaccination Date: UNKNOWN Seasonal Allergies Seasonal Allergies: No Past Medical History Surgery/Hospitalization HX: hysterectomy, copd, cardiac arrest, renal failure, adhd, anxiety/depression, suicide attempt Surgeries: Yes Abdominal Respiratory: Yes COPD Cardiac: Yes (CARDIAC ARREST) Neurological: No 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 No Pertinent Family Hx Physical Exam Vital Signs Vital Signs - First Documented Capillary Refill : Height, Weight, BMI Height: 5'9.00" Weight: 200lbs. 6.0oz. 90.895084oz; 29.00 BMI Method:Stated General Appearance: No Apparent Distress, WD/WN Eyes: Bilateral Eye Normal Inspection, Bilateral Eye PERRL, Bilateral Eye EOMI HEENT: PERRL/EOMI, TMs Normal, Normal ENT Inspection, Pharynx Normal Neck: Full Range of Motion, Normal Inspection, Non Tender, Supple Respiratory: Chest Non Tender, Normal Breath Sounds, No Accessory Muscle Use, No Respiratory Distress, Wheezing Cardiovascular: Regular Rate, Rhythm, No Edema, No Gallop, No JVD Gastrointestinal: Normal Bowel Sounds, No Organomegaly, No Pulsatile Mass, Non Tender, Soft Extremity: Normal Capillary Refill, Normal Inspection, Normal Range of Motion, Non Tender Neurologic/Psychiatric: Alert, Oriented x3, No Motor/Sensory Deficits, Normal 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, 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 Skin: Normal Color Progress/Results/Core Measures Suspected Sepsis SIRS Temperature: Pulse: Respiratory Rate: Laboratory Tests 01/15/23 14:26: White Blood Count 10.0 Blood Pressure / Mean: Laboratory Tests 01/15/23 14:26: Creatinine 0.84, Platelet Count 305, Total Bilirubin 0.4 Results/Orders Lab Results Laboratory Tests Test 01/15/23 14:26 Range/Units White Blood Count 10.0 4.3-11.0 10^3/uL Red Blood Count 4.28 3.80-5.11 10^6/uL Hemoglobin 13.8 11.5-16.0 g/dL Hematocrit 40 35-52 % Mean Corpuscular Volume 94 80-99 fL Mean Corpuscular Hemoglobin 32 25-34 pg Mean Corpuscular Hemoglobin Concent 34 32-36 g/dL Red Cell Distribution Width 13.1 10.0-14.5 % Platelet Count 305 130-400 10^3/uL Mean Platelet Volume 9.2 9.0-12.2 fL Immature Granulocyte % (Auto) 0 % Neutrophils (%) (Auto) 71 42-75 % Lymphocytes (%) (Auto) 19 12-44 % Monocytes (%) (Auto) 7 0-12 % Eosinophils (%) (Auto) 2 0-10 % Basophils (%) (Auto) 1 0-10 % Neutrophils # (Auto) 7.2 1.8-7.8 10^3/uL Lymphocytes # (Auto) 1.9 1.0-4.0 10^3/uL Monocytes # (Auto) 0.7 0.0-1.0 10^3/uL Eosinophils # (Auto) 0.2 0.0-0.3 10^3/uL Basophils # (Auto) 0.1 0.0-0.1 10^3/uL Immature Granulocyte # (Auto) 0.0 0.0-0.1 10^3/uL Sodium Level 139 135-145 MMOL/L Potassium Level 3.9 3.6-5.0 MMOL/L Chloride Level 107 98-107 MMOL/L Carbon Dioxide Level 21 21-32 MMOL/L Anion Gap 11 5-14 MMOL/L Blood Urea Nitrogen 16 7-18 MG/DL Creatinine 0.84 0.60-1.30 MG/DL Estimat Glomerular Filtration Rate 77 BUN/Creatinine Ratio 19 Glucose Level 117 H 70-105 MG/DL Calcium Level 9.2 8.5-10.1 MG/DL Corrected Calcium 9.3 8.5-10.1 MG/DL Total Bilirubin 0.4 0.1-1.0 MG/DL Aspartate Amino Transf (AST/SGOT) 17 5-34 U/L Alanine Aminotransferase (ALT/SGPT) 15 0-55 U/L Alkaline Phosphatase 86 40-136 U/L Troponin I < 0.028 <0.028 NG/ML B-Type Natriuretic Peptide < 10.0 <100.0 PG/ML Total Protein 6.7 6.4-8.2 GM/DL Albumin 3.9 3.2-4.5 GM/DL Lipase 17 8-78 U/L Serum Alcohol < 10 <10 MG/DL My Orders Orders - ZAINAB LYONS Cbc With Automated Diff (01/15/23 14:25) Comprehensive Metabolic Panel (01/15/23 14:25) Lipase (01/15/23 14:25) Bnp Gaston (01/15/23 14:25) Troponin I [place] (01/15/23 14:25) Ua Culture If Indicated (01/15/23 14:25) Drug Screen Stat (Urine) (01/15/23 14:25) Alcohol (01/15/23 14:25) Ns Iv 1000 Ml (Sodium Chloride 0.9%) (01/15/23 14:25) Chest 1 View, Ap/Pa Only (01/15/23 14:25) Albuterol Pre-Mix Nebs (Rt) (Proventil (01/15/23 14:30) Svn Small Volume Nebulizer (01/15/23 14:25) General/Regular (01/15/23 Dinner) Ekg Tracing (01/15/23 16:56) Medications Given in ED Current Medications Medications Dose Ordered Sig/Nithin Route Start Time Stop Time Status Last Admin Dose Admin Albuterol Sulfate 2.5 mg ONCE ONCE INH 01/15/23 14:30 01/15/23 14:31 DC 01/15/23 14:52 2.5 MG Vital Signs/I&O 01/15/23 01/15/23 01/15/23 01/15/23 14:18 14:18 14:52 16:05 Temp 36.6 Pulse 99 81 Resp 20 16 B/P (MAP) 143/70 (94) 122/86 Pulse Ox 96 95 93 O2 Delivery Room Air Room Air Room Air Capillary Refill : Departure Communication (PCP) Reviewed previous ER visits, H&P, lab test. Mental health history. History of cough, shortness of breath dizziness today. Due to her current complaint CBC, CMP, cardiac work-up, chest x-ray. History of smoking. On exam wheezing noted throughout. Concern for underlying COPD with her history of smoking. She does report a cough. Vital signs stable. She is not hypoxic. Differential diagnosis of upper respiratory infection, COPD exacerbation, dehydration. She states she has not eaten over the past 5 days. CBC, CMP grossly unremarkable. She reports marijuana use. She was not able to provide a urinalysis or urine sample as she refused. She did receive a liter of fluid. Cardiac work-up unremarkable. Chest x-ray negative for pneumonia, pneumothorax, mediastinal widening. No evidence of hallucinations. No suicidal homicidal thoughts. Tr ied to obtain EKG patient refused. Patient was just wanting to sleep. I was able to get her a food tray. She became aggravated and end up leaving. Attempted to help get a patient a ride as she is homeless. Patient does not appear in acute distress. Discussed smoking cessation. Try to make sure you are eating. Patient does not appear toxic or septic. Impression Primary Impression: Weakness Additional Impression: Shortness of breath Disposition: HOME, SELF-CARE Condition: Stable Departure-Patient Inst. Decision time for Depature: 15:46 Referrals: [facility] (PCP) Primary Care Physician DEBORA PULLIAM (Family) Primary Care Physician Patient Instructions: Generalized Weakness Add. Discharge Instructions: Recommend following up with your primary care physician in 2 to 3 days for reevaluation. Recommend staying hydrated. Make sure you are eating daily. Avoid smoking. Albuterol inhaler for shortness of breath. Short burst steroids for the wheezing and cough and azithromycin for the cough Scripts Azithromycin (Azithromycin) 250 Mg Tablet 250 MG PO UD, #6 TAB TAKE 2 TABLETS ON DAY ONE THEN TAKE 1 TABLET DAILY FOR FOUR MORE DAYS Prov: ZAINAB LYONS 01/15/23 Albuterol Sulfate (VENTOLIN HFA) 1 Puff Puff 2 PUFF INH Q4H, #1 EA 1 PUFF = 90 MCG Prov: ZAINAB LYONS 01/15/23 Prednisone (Prednisone) 20 Mg Tab 40 MG PO DAILY for 5 Days, #10 TAB Prov: ZAINAB LYONS 01/15/23 ZAINAB LYONS Jan 15, 2023 14:29
[2023-01-15] MEDS ORDERED: RT-ALBUTEROL SULF 2.5 MG/3 ML PRE-MIX VIAL INH ONE (14:30)
[2023-01-15 14:37] LABS: BASOPHILS # (AUTO) 0.1 10^3/uL (0.0-0.1); BASOPHILS % (AUTO) 1 % (0-10); EOSINOPHILS # (AUTO) 0.2 10^3/uL (0.0-0.3); EOSINOPHILS % (AUTO) 2 % (0-10); HEMATOCRIT 40 % (35-52); HEMOGLOBIN 13.8 g/dL (11.5-16.0); LYMPHOCYTES # (AUTO) 1.9 10^3/uL (1.0-4.0); LYMPHOCYTES % (AUTO) 19 % (12-44); MEAN CORPUSCULAR HEMOGLOBIN 32 pg (25-34); MEAN CORPUSCULAR HGB CONC 34 g/dL (32-36); MEAN CORPUSCULAR VOLUME 94 fL (80-99); MEAN PLATELET VOLUME 9.2 fL (9.0-12.2); MONOCYTES # (AUTO) 0.7 10^3/uL (0.0-1.0); MONOCYTES % (AUTO) 7 % (0-12); NEUTROPHILS # (AUTO) 7.2 10^3/uL (1.8-7.8); NEUTROPHILS % (AUTO) 71 % (42-75); PLATELET COUNT 305 10^3/uL (130-400)
--- NOTE | 2023-01-15 14:46 | Diagnostic Imaging Report ---
INDICATION: Shortness of breath and weakness. Frontal chest obtained at 2:44 p.m. and compared to 06/23/2022. Heart and mediastinal silhouette are normal in appearance. The lungs are clear. There is no pneumothorax or pleural fluid. IMPRESSION: Negative chest. Dictated by: Dictated on workstation # [id number]
[2023-01-15 14:55] LABS: ALBUMIN 3.9 GM/DL (3.2-4.5); CHLORIDE 107 MMOL/L (98-107); POTASSIUM 3.9 MMOL/L (3.6-5.0)
[2023-01-15 14:56] LABS: SODIUM 139 MMOL/L (135-145)
[2023-01-15 14:57] LABS: CALCIUM 9.2 MG/DL (8.5-10.1)
[2023-01-15 14:58] LABS: GLUCOSE 117 MG/DL (70-105); TOTAL PROTEIN 6.7 GM/DL (6.4-8.2)
[2023-01-15 14:59] LABS: CARBON DIOXIDE 21 MMOL/L (21-32)
[2023-01-15 15:00] LABS: BILIRUBIN,TOTAL 0.4 MG/DL (0.1-1.0)
[2023-01-15 15:01] LABS: ALKALINE PHOSPHATASE 86 U/L (40-136); CREATININE SERUM 0.84 MG/DL (0.60-1.30); GFR ESTIMATED 77
[2023-01-15 15:03] LABS: BUN/CREATININE RATIO 19
[2023-01-15 15:04] LABS: ALANINE AMINOTRANSFERASE 15 U/L (0-55)
[2023-01-15 15:05] LABS: LIPASE 17 U/L (8-78)
[2023-01-15] MEDS ORDERED: PRD20T PO (15:48)
[2023-01-15] MEDS ORDERED: RT-ALBUINH INH (15:48)
[2023-01-15] MEDS ORDERED: AZIT250T12 PO (15:48)
[2023-01-15 16:05] VITALS: BP 122/86
== END 2023-01-15 16:05 | disposition home or self-care (01) ==
LOC: EDUNIT# 14:15 → ER 14:17
DX: R53.1 Weakness (principal); R06.02 Shortness of breath; R05.9 Cough, unspecified; R42 Dizziness and giddiness; Z87.891 Personal history of nicotine dependence
CPT/HCPCS: 71045; 80053; 83690; 83880; 84484; 85025; 94640; 99284; G0480; 36415; 80320

== ENCOUNTER 2023-02-09 17:30 | Emergency (ER) | payer MEDICARE ==
[~2023-02-09] VITALS: Ht 172 cm; Wt 83.1 kg
[2023-02-09 17:30] VITALS: BP 135/69
[~2023-02-09 17:30] MED LIST changes: +AZIT250T12 PO; +PRD20T PO; +RT-ALBUINH INH
[2023-02-09] MEDS ORDERED: NS IV 1000 ML 1,000 ML IV STA (17:48)
--- NOTE | 2023-02-09 17:54 | ED Psychosocial ---
General Chief Complaint: Psych/Social Disorder Stated Complaint: SI Source: patient Exam Limitations: no limitations History of Present Illness Date Seen by Provider: February 09, 2023 Time Seen by Provider: 17:50 Initial Comments Patient is a 67-year-old female who presents to the ED by EMS for potential overdose, paranoia. Patient has been staying at the [facility]. Patient states she was kicked out from the [facility] today. EMS states that [facility] accused her of overdosing on her Seroquel. She recently received 100 mg tablet bottle of Seroquel with total 60 tablets. She told staff there that if they accused her of overdosing she will take her entire bottle. She put all the medication in her mouth. She spit out 56 tablets. She states she takes 100 mg Seroquel twice a night. 2 tablets uncountable for. Patient has no suicidal or homicidal thoughts. Patient with fast speech. Hard to understand. Denies any drug use or alcohol use. Patient states she had no intention of hurting herself at that time. [place] She says that [facility] does not take care of her. They Refused to give her clothes. She states she has not been eating. Was found sleeping in the grass next to the [facility]. Most of the history was provided by EMS. Difficulty obtaining history from patient. Patient denies headache, dizziness, chest pain, shortness of breath, cough, vomiting, diarrhea, dysuria Allergies and Home Medications Allergies Coded Allergies: haloperidol (Unverified Allergy, Mild, 04/25/10) risperidone (Unverified Allergy, Mild, 04/25/10) Uncoded Allergies: PYSCHOTROPIC DRUGS (Adverse Reaction, Mild, 04/15/10) Patient Home Medication List Home Medication List Reviewed: Yes Albuterol Sulfate (Ventolin Hfa) 1 Puff Puff, 2 PUFF INH Q4H Prescribed by: AUDREY SAVAGE on 01/15/23 154 Azithromycin (Azithromycin) 250 Mg Tablet, 250 MG PO UD Prescribed by: AUDREY SAVAGE on 01/15/23 154 Baclofen (Baclofen) 10 Mg Tablet, (Reported) Entered as Reported by: JONEL RIVAS on 06/10/16 0842 Cane (Cane) 1 Each Each, 1 EACH MC PRN PRN for PAIN, (DME) Prescribed by: MORGAN HAYWOOD on 05/21/15 1647 Dextroamphetamine/Amphetamine (Amphetamine Salts 10 mg Tablet) 10 Mg Tablet, (Reported) Entered as Reported by: JONEL RIVAS on 06/10/16 0843 Diazepam (Diazepam) 5 Mg Tablet, (Reported) Entered as Reported by: JONEL RIVAS on 06/10/16 0842 Diclofenac Sodium (Voltaren) 100 Gm Gel..gram., 100 GM TP TID Prescribed by: YIN BISHOP on 05/02/15 1413 Diclofenac Sodium (Voltaren) 100 Gm Gel..gram., 4 GM TP TID PRN for PAIN Prescribed by: MORGAN HAYWOOD on 05/21/15 1647 Diclofenac Sodium (Voltaren Arthritis Pain) 20 Gm Gel..gram., 1 APPLIC TP QID Prescribed by: NIDA GLEASON on 01/01/22 1309 Gabapentin (Neurontin) 600 Mg Tab, 1,200 MG PO TID, (Reported) Entered as Reported by: ENRIQUE LOPEZ on 02/04/13 2147 Hyoscyamine Sulfate (Levsin) 0.125 Mg Tablet, 0.125 MG PO Q6H PRN for ABDOMINAL PAIN Prescribed by: LUCERO FORD on 10/22/16 1052 Naproxen (Naprosyn) 500 Mg Tablet, 1 EACH PO BID Prescribed by: YIN BISHOP on 09/01/14 1240 Prednisone (Prednisone) 10 Mg Tab, 10 MG PO DAILY Prescribed by: LISETTE OJEDA on 06/10/16 0902 Prednisone (Prednisone) 20 Mg Tab, 40 MG PO DAILY Prescribed by: AUDREY SAVAGE on 01/15/23 1548 [?Med For Nightmares] , HS, (Reported) Entered as Reported by: ORLIN MÉNDEZ on 05/21/15 1519 Review of Systems Constitutional: No chills, No diaphoresis, No fever, No malaise EENTM: No blurred vision, No double vision Respiratory: No cough, No dyspnea on exertion Cardiovascular: No chest pain, No edema Gastrointestinal: No abdominal pain, No diarrhea, No nausea, No vomiting Genitourinary: No decreased output, No discharge Musculoskeletal: No back pain, No joint pain Skin: No change in color, No change in hair/nails All Other Systems Reviewed Negative Unless Noted: Yes Past Vfcuhcm-Wwwjli-Hyyenu Hx Immunizations Up To Date Tetanus Booster (TDap): Less than 5yrs First/Initial COVID19 Vaccinat: "2 SHOTS" Second COVID19 Vaccination Eleno: UNKNOWN Third COVID19 Vaccination Date: UNKNOWN Seasonal Allergies Seasonal Allergies: No Past Medical History Surgery/Hospitalization HX: hysterectomy, copd, cardiac arrest, renal failure, adhd, anxiety/depression, suicide attempt Surgeries: Yes Abdominal Respiratory: Yes COPD Cardiac: Yes (CARDIAC ARREST) Neurological: No Reproductive Disorders: Yes FAMILY RESOURCE COORDINATOR History: Hysterectomy, 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 No Pertinent Family Hx Physical Exam Vital Signs - First Documented 02/09/23 17:30 Temp 36.9 Pulse 101 Resp 20 B/P (MAP) 135/69 (91) Pulse Ox 94 Capillary Refill : Height, Weight, BMI Height: 5'9.00" Weight: 200lbs. 6.0oz. 90.878441ol; 28.00 BMI Method:Stated General Appearance: WD/WN HEENT: PERRL/EOMI, normal ENT inspection, TMs normal, pharynx normal Neck: non-tender, full range of motion, supple, normal inspection Respiratory: chest non-tender, lungs clear, normal breath sounds, no respiratory distress, no accessory muscle use Cardiovascular: regular rate, rhythm, no edema, no gallop, no JVD Gastrointestinal: normal bowel sounds, non tender, soft, no organomegaly Extremities: normal range of motion, non-tender, normal inspection, no pedal edema Behavior/Eye Contact: good eye contact, increased rate of speech, belligerent Thoughts/Hallucinations: No auditory hallucinations; paranoid Skin: normal color, warm/dry Progress/Results/Core Measures Results/Orders Lab Results Laboratory Tests Test 02/09/23 18:10 02/09/23 18:18 Range/Units Urine Color YELLOW Urine Clarity CLOUDY Urine pH 5.5 5-9 Urine Specific Aubrey >=1.030 1.016-1.022 Urine Protein NEGATIVE NEGATIVE Urine Glucose (UA) NEGATIVE NEGATIVE Urine Ketones TRACE H NEGATIVE Urine Nitrite NEGATIVE NEGATIVE Urine Bilirubin NEGATIVE NEGATIVE Urine Urobilinogen 1.0 < = 1.0 MG/DL Urine Leukocyte Esterase NEGATIVE NEGATIVE Urine RBC (Auto) NEGATIVE NEGATIVE Urine RBC NONE /HPF Urine WBC NONE /HPF Urine Squamous Epithelial Cells >50 H /HPF Urine Crystals NONE /LPF Urine Bacteria MODERATE H /HPF Urine Casts NONE /LPF Urine Mucus NEGATIVE /LPF Urine Culture Indicated NO Urine Opiates Screen NEGATIVE NEGATIVE Urine Oxycodone Screen NEGATIVE NEGATIVE Urine Methadone Screen NEGATIVE NEGATIVE Urine Propoxyphene Screen NEGATIVE NEGATIVE Urine Barbiturates Screen NEGATIVE NEGATIVE Ur Tricyclic Antidepressants Screen POSITIVE H NEGATIVE Urine Phencyclidine Screen NEGATIVE NEGATIVE Urine Amphetamines Screen POSITIVE H NEGATIVE Urine Methamphetamines Screen NEGATIVE NEGATIVE Urine Benzodiazepines Screen NEGATIVE NEGATIVE Urine Cocaine Screen NEGATIVE NEGATIVE Urine Cannabinoids Screen POSITIVE H NEGATIVE White Blood Count 9.3 4.3-11.0 10^3/uL Red Blood Count 4.25 3.80-5.11 10^6/uL Hemoglobin 13.6 11.5-16.0 g/dL Hematocrit 40 35-52 % Mean Corpuscular Volume 93 80-99 fL Mean Corpuscular Hemoglobin 32 25-34 pg Mean Corpuscular Hemoglobin Concent 34 32-36 g/dL Red Cell Distribution Width 13.4 10.0-14.5 % Platelet Count 382 130-400 10^3/uL Mean Platelet Volume 9.0 9.0-12.2 fL Immature Granulocyte % (Auto) 0 % Neutrophils (%) (Auto) 55 42-75 % Lymphocytes (%) (Auto) 32 12-44 % Monocytes (%) (Auto) 9 0-12 % Eosinophils (%) (Auto) 3 0-10 % Basophils (%) (Auto) 1 0-10 % Neutrophils # (Auto) 5.1 1.8-7.8 10^3/uL Lymphocytes # (Auto) 3.0 1.0-4.0 10^3/uL Monocytes # (Auto) 0.8 0.0-1.0 10^3/uL Eosinophils # (Auto) 0.3 0.0-0.3 10^3/uL Basophils # (Auto) 0.1 0.0-0.1 10^3/uL Immature Granulocyte # (Auto) 0.0 0.0-0.1 10^3/uL Sodium Level 139 135-145 MMOL/L Potassium Level 3.6 3.6-5.0 MMOL/L Chloride Level 107 98-107 MMOL/L Carbon Dioxide Level 23 21-32 MMOL/L Anion Gap 9 5-14 MMOL/L Blood Urea Nitrogen 19 H 7-18 MG/DL Creatinine 0.89 0.60-1.30 MG/DL Estimat Glomerular Filtration Rate 72 BUN/Creatinine Ratio 21 Glucose Level 103 70-105 MG/DL Calcium Level 9.4 8.5-10.1 MG/DL Corrected Calcium 9.6 8.5-10.1 MG/DL Total Bilirubin 0.3 0.1-1.0 MG/DL Aspartate Amino Transf (AST/SGOT) 18 5-34 U/L Alanine Aminotransferase (ALT/SGPT) 21 0-55 U/L Alkaline Phosphatase 98 40-136 U/L Total Protein 6.6 6.4-8.2 GM/DL Albumin 3.8 3.2-4.5 GM/DL Salicylates Level < 5.0 L 5.0-20.0 MG/DL Acetaminophen Level < 10 L 10-30 UG/ML Serum Alcohol < 10 <10 MG/DL My Orders Orders - ZAINAB LYONS Ua Culture If Indicated (02/09/23 17:48) Cbc With Automated Diff (02/09/23 17:48) Comprehensive Metabolic Panel (02/09/23 17:48) Alcohol (02/09/23 17:48) Drug Screen Stat (Urine) (02/09/23 17:48) Acetaminophen (02/09/23 17:48) Salicylate (02/09/23 17:48) Ed Iv/Invasive Line Start (02/09/23 17:48) Monitor-Rhythm Ecg Trace Only (02/09/23 17:48) Ed Iv/Invasive Line Start (02/09/23 17:48) Ns Iv 1000 Ml (Sodium Chloride 0.9%) (02/09/23 17:48) Olanzapine Orally Dissolve Tab (Zyprexa (02/09/23 18:30) Vital Signs/I&O Departure Communication (PCP) Reviewed previous ER visits, H&P, lab testing. History of paranoia. History of drug abuse. Patient has been staying at the [facility]. Staff at the [facility] was agitated with patient and kicked her out for a week. She was found sleeping across the street. She did receive a new bottle of 100 mg Seroquel 60 tablets today. Patient went over to the [facility] in front of staff and told them that she was going to overdose and took all of her medication. She ended up spitting out 56 tablets. She did take 2 tablets. 2 tablets was found after talking to EMS in a bottle at the [facility]. Patient took a total of 2 tablets after looking at her bottle and two found at the [facility]. Patient with fast speech. appears to be having active paranoia. Patient slightly agitated. Attempted to give Zyprexa 10mg but she states she is allergic to all antipsychotic drugs. She agreed to blood draw. General psych work-up was ordered. EKG did not show any evidence of ST elevation or depression. General lab work CBC, CMP grossly unremarkable. Drug screen positive for amphetamine, tricyclic's, THC. Alcohol negative. Acetaminophen and salicylate negative. urinalysis negative for infection. No vomiting, diarrhea, chest pain abdominal pain, headache or dizziness. Attempted to get patient a behavioral health evaluation. She was wanting to leave. Asked patient multiple times if she had any intention to hurt herself while taking the medication and she said no. She states she was frustrated that she was kicked out as well as the staff at the [facility] accusing her of overdosing. She has no thoughts of wanting to hurt anybody else. She has no access to guns or weapons at home. She feels safe to go home. Provided outpatient behavioral health. Return precaution were discussed with patient. Follow-up with your PCP in 2 to 3 days for reevaluation Impression Primary Impression: Paranoia Disposition: 07 AGAINST MEDICAL ADVICE Condition: Stable Departure-Patient Inst. Decision time for Depature: 20:53 Referrals: [facility] (PCP) Primary Care Physician DEBORA PULLIAM (Family) Primary Care Physician Patient Instructions: Schizophrenia ZAINAB LYONS February 09, 2023 17:54
[2023-02-09 18:28] LABS: BASOPHILS # (AUTO) 0.1 10^3/uL (0.0-0.1); BASOPHILS % (AUTO) 1 % (0-10); EOSINOPHILS # (AUTO) 0.3 10^3/uL (0.0-0.3); EOSINOPHILS % (AUTO) 3 % (0-10); HEMATOCRIT 40 % (35-52); HEMOGLOBIN 13.6 g/dL (11.5-16.0); LYMPHOCYTES % (AUTO) 32 % (12-44); MEAN CORPUSCULAR HEMOGLOBIN 32 pg (25-34); MEAN CORPUSCULAR HGB CONC 34 g/dL (32-36); MEAN CORPUSCULAR VOLUME 93 fL (80-99); MONOCYTES # (AUTO) 0.8 10^3/uL (0.0-1.0); MONOCYTES % (AUTO) 9 % (0-12); NEUTROPHILS # (AUTO) 5.1 10^3/uL (1.8-7.8); NEUTROPHILS % (AUTO) 55 % (42-75); PLATELET COUNT 382 10^3/uL (130-400); WHITE BLOOD COUNT 9.3 10^3/uL (4.3-11.0)
[2023-02-09 18:29] LABS: BILIRUBIN,URINE NEGATIVE (NEGATIVE); CLARITY,URINE CLOUDY; COLOR,URINE YELLOW; GLUCOSE, URINE (UA) NEGATIVE (NEGATIVE); KETONES,URINE TRACE (NEGATIVE); LEUKOCYTE ESTERASE ,URINE NEGATIVE (NEGATIVE); NITRITE,URINE NEGATIVE (NEGATIVE); PH,URINE 5.5 (5-9); PROTEIN,URINE NEGATIVE (NEGATIVE)
[2023-02-09] MEDS ORDERED: OLANZapine 5 MG ODT (ZyPREXA ZYDIS) PO ONE (18:30)
[2023-02-09 18:40] LABS: BACTERIA,URINE MODERATE /HPF; SQUAMOUS EPITHELIAL CELL,UR >50 /HPF
[2023-02-09 18:43] LABS: AMPHETAMINE SCREEN, URINE POSITIVE (NEGATIVE); BARBITURATE SCREEN URINE NEGATIVE (NEGATIVE); BENZODIAZEPINES SCREEN URINE NEGATIVE (NEGATIVE); CANNABINOID SCREEN, URINE POSITIVE (NEGATIVE); COCAINE SCREEN URINE NEGATIVE (NEGATIVE); METHADONE STAT NEGATIVE (NEGATIVE); OPIATE SCREEN URINE NEGATIVE (NEGATIVE); OXYCODONE STAT NEGATIVE (NEGATIVE); PROPOXYPHENE STAT NEGATIVE (NEGATIVE); TRICYCLIC ANTIDEPRESSANTS SCRE POSITIVE (NEGATIVE)
[2023-02-09 18:47] LABS: ALANINE AMINOTRANSFERASE 21 U/L (0-55); ALBUMIN 3.8 GM/DL (3.2-4.5); ALKALINE PHOSPHATASE 98 U/L (40-136); BILIRUBIN,TOTAL 0.3 MG/DL (0.1-1.0); BUN/CREATININE RATIO 21; CALCIUM 9.4 MG/DL (8.5-10.1); CARBON DIOXIDE 23 MMOL/L (21-32); CHLORIDE 107 MMOL/L (98-107); CREATININE SERUM 0.89 MG/DL (0.60-1.30); GFR ESTIMATED 72; GLUCOSE 103 MG/DL (70-105); POTASSIUM 3.6 MMOL/L (3.6-5.0); SALICYLATE < 5.0 MG/DL (5.0-20.0); SODIUM 139 MMOL/L (135-145); TOTAL PROTEIN 6.6 GM/DL (6.4-8.2)
[2023-02-09 18:48] LABS: ACETAMINOPHEN < 10 UG/ML (10-30)
== END 2023-02-09 19:16 | disposition left against medical advice (07) ==
LOC: EDUNIT# 17:30 → ER 17:30
DX: F22 Delusional disorders (principal)
CPT/HCPCS: 80053; 80306; 81000; 85025; 99283; G0480 ×3; 36415; 80320; 80329

== ENCOUNTER 2023-02-10 14:49 | Emergency (ER) | payer MEDICARE ==
--- NOTE | 2023-02-10 14:52 | ED General ---
General Stated Complaint: WEAKNESS Source of Information: Patient, EMS History of Present Illness Date Seen by Provider: February 10, 2023 Time Seen by Provider: 14:47 Initial Comments 67-year-old female presents via EMS. She may be dehydrated. She states she was arrested this morning after she left AGAINST MEDICAL ADVICE from [facility]. She was also seen here yesterday and left AGAINST MEDICAL ADVICE while she was undergoing a psychiatric screening at her request. She states when she was let go from longterm she has to walk everywhere because she is homeless. She did not have any water and fears she may have been dehydrated. She denies any dizziness, lightheadedness. No fevers or chills. No suicidal homicidal ideation All other systems reviewed and negative except documented per HPI. Voice recognition software was used to help create this chart Allergies and Home Medications Allergies Coded Allergies: haloperidol (Unverified Allergy, Mild, 04/25/10) risperidone (Unverified Allergy, Mild, 04/25/10) Uncoded Allergies: PYSCHOTROPIC DRUGS (Adverse Reaction, Mild, 04/15/10) Patient Home Medication List Home Medication List Reviewed: Yes Albuterol Sulfate (Ventolin Hfa) 1 Puff Puff, 2 PUFF INH Q4H Prescribed by: AUDREY SAVAGE on 01/15/23 1548 Azithromycin (Azithromycin) 250 Mg Tablet, 250 MG PO UD Prescribed by: AUDREY SAVAGE on 01/15/23 1548 Baclofen (Baclofen) 10 Mg Tablet, (Reported) Entered as Reported by: JONEL RIVAS on 06/10/16 0842 Cane (Cane) 1 Each Each, 1 EACH MC PRN PRN for PAIN, (DME) Prescribed by: MORGAN HAYWOOD on 05/21/15 1647 Dextroamphetamine/Amphetamine (Amphetamine Salts 10 mg Tablet) 10 Mg Tablet, (Reported) Entered as Reported by: JONEL RIVAS on 06/10/16 0843 Diazepam (Diazepam) 5 Mg Tablet, (Reported) Entered as Reported by: JONEL RIVAS on 06/10/16 0842 Diclofenac Sodium (Voltaren) 100 Gm Gel..gram., 100 GM TP TID Prescribed by: YIN BISHOP on 05/02/15 1413 Diclofenac Sodium (Voltaren) 100 Gm Gel..gram., 4 GM TP TID PRN for PAIN Prescribed by: MORGAN HAYWOOD on 05/21/15 1647 Diclofenac Sodium (Voltaren Arthritis Pain) 20 Gm Gel..gram., 1 APPLIC TP QID Prescribed by: NIDA GLEASON on 01/01/22 1309 Gabapentin (Neurontin) 600 Mg Tab, 1,200 MG PO TID, (Reported) Entered as Reported by: ENRIQUE LOPEZ on 02/04/13 2147 Hyoscyamine Sulfate (Levsin) 0.125 Mg Tablet, 0.125 MG PO Q6H PRN for ABDOMINAL PAIN Prescribed by: LUCERO FORD on 10/22/16 1052 Naproxen (Naprosyn) 500 Mg Tablet, 1 EACH PO BID Prescribed by: YIN BISHOP on 09/01/14 1240 Prednisone (Prednisone) 10 Mg Tab, 10 MG PO DAILY Prescribed by: LISETTE OJEDA on 06/10/16 0902 Prednisone (Prednisone) 20 Mg Tab, 40 MG PO DAILY Prescribed by: AUDREY SAVAGE on 01/15/23 1548 [?Med For Nightmares] , HS, (Reported) Entered as Reported by: ORLIN MÉNDEZ on 05/21/15 1519 Review of Systems Review of Systems Constitutional: see HPI Physical Exam Vital Signs Capillary Refill : Height, Weight, BMI Height: '" Weight: lbs. oz. kg; BMI Method: General Appearance: No Apparent Distress, WD/WN Eyes: Bilateral Eye Normal Inspection, Bilateral Eye PERRL, Bilateral Eye EOMI HEENT: Normal ENT Inspection, Pharynx Normal Neck: Full Range of Motion, Normal Inspection, Non Tender, Supple Respiratory: Chest Non Tender, Lungs Clear, Normal Breath Sounds, No Accessory Muscle Use, No Respiratory Distress Cardiovascular: Regular Rate, Rhythm, No Murmur, Normal Peripheral Pulses Gastrointestinal: Normal Bowel Sounds, No Organomegaly, Non Tender, Soft Extremity: Normal Capillary Refill, Normal Inspection, Normal Range of Motion, Non Tender, No Calf Tenderness, Other (Normal capillary refill. Normal skin turgor.) Neurologic/Psychiatric: Alert, Oriented x3, Other (Patient is anxious) Skin: Normal Color, Warm/Dry Progress/Results/Core Measures Suspected Sepsis SIRS Temperature: Pulse: Respiratory Rate: Blood Pressure / Mean: Results/Orders Vital Signs/I&O Capillary Refill : Departure Communication (Admissions) The patient is hemodynamically stable. I have seen her on several occasions myself and she has been her on several occasions outside of my visits and she is at her normal little baseline per my recollection. She denies any suicidal or homicidal ideation. She does eventually admit that she came here because she was thirsty and hungry. She was given fluids. She was concerned she might be dehydrated however she just left renal and she did have multiple glasses of water while she was there per reports. She had labs here yesterday prior to signing out AGAINST MEDICAL ADVICE and was evaluated by [facility] this morning and left AGAINST MEDICAL ADVICE. She is medically cleared and she has no other medical concerns. She is discharged in stable condition. Impression Primary Impression: Encounter for medical screening examination Disposition: HOME, SELF-CARE Condition: Stable Departure-Patient Inst. Add. Discharge Instructions: Return to the emergency department for any severe concerns. STEFANIA YOUNG DO February 10, 2023 14:52
[2023-02-10 15:05] VITALS: BP 107/60
== END 2023-02-10 15:05 | disposition home or self-care (01) ==
LOC: EDUNIT# 14:49 → ER 14:50
DX: Z00.00 Encounter for general adult medical examination without abnormal findings (principal)
CPT/HCPCS: 99283